=== PATIENT | male | born 1985 | race Caucasian/White ===

== ENCOUNTER → 2016-05-28 | Outpatient (CLI) | payer OTHER ==
[~2016-05-28] MED LIST: ASPCH81X PO; ATOR10TA88 PO; B COCAP3; CHOL1000 PO; CLC150 PO; CYM/30 PO; DULO60CA44 PO; HMLI SC; HYDR50CA2 PO; INSDGI SC; LISI-729 PO; LORA-741 PO; OXYC-106 PO; PRLSR20 PO; [UNRECOGNIZED DRUG - CODE] PO
[2016-05-29 06:34] LABS: ESTIMATED AVERAGE GLUCOSE 226 mg/dl; HA1C FLAG Normal (Normal)
== END | disposition home or self-care (01) ==
LOC: C.LAB1850 16:51
PROVIDERS: ATTEND Internal Medicine Endocrinology, Diabetes & Metabolism
DX: E10.9 Type 1 diabetes mellitus without complications (principal)

== ENCOUNTER → 2016-08-16 | Outpatient (CLI) | payer OTHER ==
[~2016-08-16] MED LIST changes: +ATOR10TA82 PO; -ATOR10TA88 PO; -CLC150 PO
[2016-08-17 06:35] LABS: ESTIMATED AVERAGE GLUCOSE 258 mg/dl; HA1C FLAG Normal (Normal)
== END | disposition home or self-care (01) ==
LOC: C.LAB1850 14:38
PROVIDERS: ATTEND Internal Medicine Endocrinology, Diabetes & Metabolism
DX: E10.42 Type 1 diabetes mellitus with diabetic polyneuropathy (principal); E10.3599 Type 1 diabetes mellitus with proliferative diabetic retinopathy without macular edema, unspecified eye; R20.0 Anesthesia of skin; R20.8 Other disturbances of skin sensation; F41.8 Other specified anxiety disorders; I10 Essential (primary) hypertension; Z72.0 Tobacco use; E78.5 Hyperlipidemia, unspecified; R80.9 Proteinuria, unspecified; R27.0 Ataxia, unspecified

== ENCOUNTER → 2017-05-02 | Outpatient (CLI) | payer OTHER ==
[~2017-05-02] MED LIST changes: +OXYM1TAB PO; -[UNRECOGNIZED DRUG - CODE] PO
[2017-05-02 15:03] LABS: ALBUMIN 3.7 gm/dl (3.4-5.0); ALT/SGPT 33 U/L (12-78); AST/SGOT 17 U/L (15-37); BLOOD UREA NITROGEN 18 mg/dl (7-18); CALCIUM 9.6 mg/dl (8.5-10.1); CARBON DIOXIDE 28 mmol/L (21-32); CHOLESTEROL 134 mg/dl (0-200); CREATININE 0.97 mg/dl (0.60-1.40); GLUCOSE 116 mg/dl (70-99); POTASSIUM 3.7 mmol/L (3.5-5.1); SODIUM 137 mmol/L (136-145)
[2017-05-02 15:14] LABS: ALKALINE PHOSPHATASE 65 U/L (45-117); LDL CHOLESTEROL (DIRECT) 74 mg/dl; TOTAL PROTEIN 7.5 gm/dl (6.4-8.2)
[2017-05-02 15:42] LABS: HEMOGLOBIN A1C 10.8 % (4.5-5.6)
== END | disposition home or self-care (01) ==
LOC: C.LAB1850 13:26
PROVIDERS: ATTEND Internal Medicine Endocrinology, Diabetes & Metabolism
DX: E55.9 Vitamin D deficiency, unspecified (principal); E78.5 Hyperlipidemia, unspecified; E10.9 Type 1 diabetes mellitus without complications

== ENCOUNTER → 2017-08-12 | Outpatient (CLI) | payer OTHER ==
[~2017-08-12] MED LIST changes: +ALPR-411 PO; -HYDR50CA2 PO; +LACT1CAP6; -LORA-741 PO; +MULT-506 PO; -OXYC-106 PO; +OXYC10TA80 PO
== END | disposition home or self-care (01) ==
LOC: C.LAB1850 16:13
PROVIDERS: ATTEND Internal Medicine Endocrinology, Diabetes & Metabolism
DX: E55.9 Vitamin D deficiency, unspecified (principal); E78.5 Hyperlipidemia, unspecified; E10.65 Type 1 diabetes mellitus with hyperglycemia

== ENCOUNTER 2017-11-28 10:50 | Inpatient (IN) | payer OTHER ==
[~2017-11-28] VITALS: Ht 188 cm; Wt 90.6 kg
[~2017-11-28 10:50] MED LIST changes: +LEVO1TAB35 PO; +OXYC-594 PO; -OXYC10TA80 PO
[2017-11-28 15:08] VITALS: BP 120/75; PULSE 103; TEMP 36.6; O2SAT 100
[2017-11-28] MEDS ORDERED: CARBOHYDRATES FOR HYPOGLYCEMIA PO PRN (16:30)
[2017-11-28] MEDS ORDERED: GLUCAGON FOR INJ 1 MG VIAL SQ PRN (16:30)
[2017-11-28] MEDS ORDERED: GLUCOSE 40% GEL 15 GM TUBE PO PRN (16:30)
[2017-11-28] MEDS ORDERED: ACETAMINOPHEN 325 MG TAB PO PRN (16:30)
[2017-11-28] MEDS ORDERED: ONDANSETRON INJ 2 MG/ML 2 ML VIAL IV PRN (16:30)
[2017-11-28] MEDS ORDERED: DEXTROSE 50% 50 ML SYR IV PRN (16:30)
[2017-11-28] MEDS ORDERED: GLUCOSE 10 TABS/TUBE PO PRN (16:30)
[2017-11-28] MEDS ORDERED: OXYCODONE/ACETAMINOPHEN 10/325MG TAB PO PRN (16:45)
[2017-11-28] MEDS ORDERED: ALPRAZOLAM 0.5 MG TAB PO PRN (16:45)
--- NOTE | 2017-11-28 16:48 | History and Physical ---
History & Physical Date & Time of Service: Nov 28, 2017 at 16:48 Chief Complaint: Infected Post Op L 2ND Finger Wound Primary Care Physician: No Doctor, Assigned History of Present Illness Source: patient, family, hospital records This patient is a 32-year-old male with history of uncontrolled type 1 diabetes mellitus, with diabetic retinopathy, nephropathy, and polyneuropathy in the hands and feet, HTN, HL, chronic pain syndrome on chronic opioids, vitamin D deficiency, GERD, erectile dysfunction, and vancomycin induced acute kidney injury.. He also has a history of recurrent skin and soft tissue infections and bacteremia. He presents from the wound care clinic today with a worsening infection of the left index finger. He was admitted to the [facility] on November 12 after failing outpatient treatment with doxycycline after he injured his finger on a tap grinder while working on a car. The finger became hot, red, swollen, and had pockets of pus that were visible around the wound as well as draining from the wound that had been Steri-Stripped. He ended up undergoing surgical debridement and washout and was placed ultimately on oral Levaquin to go home with for 3 week course. Since discharge, he reports the erythema and swelling of the dorsal hand has significantly improved, however the finger continues to remain quite swollen, red, draining a lot of pus. The skin continues to slough off around the wound. The sutures were removed by the orthopedic surgeon several days after discharge. When he was seen in the wound care clinic today, the wound care MD was very concerned and sent him for direct admission to the hospital for expedited orthopedic evaluation. The patient denies any fevers or chills, he is feeling well otherwise. Past Medical/Surgical History PMH: Abscess of finger Abscess of left arm with Streptococcus intermedius and actinomyces bacteremia Diabetes mellitus type I-since age 3, severely uncontrolled Diabetic retinopathy Diabetic polyneuropathy Diabetic nephropathy with albuminuria Chronic pain syndrome secondary to neuropathy Chronic opioid dependence HTN HL ED Current smoker Vitamin D deficiency History of vancomycin induced acute kidney injury History of Clostridium difficile colitis GERD PSH: Incision and drainage of left arm Incision and drainage of left thumb Bilateral carpal tunnel release Tooth extraction 9 Family History Father- at age 44 from an [place] Mom-healthy 2 first cousins with type 1 diabetes All grandparents and uncles and aunts on mom's side with diabetes mellitus type 2 Social History Smoking Status: Current Every Day Smoker (Several cigarettes per day) Alcohol Use: none Drug Use: none (But formerly smoked marijuana) Marital Status: in relationship (With a woman) 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) Immunizations History of Tetanus Vaccine?: Yes (11/13/17) History of Pneumococcal: Yes Allergies Coded Allergies: Ezetimibe (Verified Allergy, Severe, chest pressure, 03/16/16) Simvastatin (Verified Allergy, Severe, chest pressure, 03/16/16) Amoxicillin (Verified Allergy, Intermediate, hives, 03/16/16) Cefaclor (Verified Allergy, Intermediate, hives, 03/16/16) Gabapentin (Verified Allergy, Intermediate, confusion, 03/16/16) Pregabalin (Verified Allergy, Intermediate, confusion, 03/16/16) Vancomycin (Verified Allergy, Intermediate, acute renal failure, 11/28/17) Aztreonam (Verified Allergy, Mild, BURNING UP, 03/16/16) UNSURE IF ALLERGY FROM AZACTAM VS. FEVER VS. OTHER DISEASE STATE - HOWEVER [facility] ALLERGY WITH THIS MEDICATION Home Medications Scheduled Aspirin (Aspirin Chewable), 81 MG PO DAILY Atorvastatin (Lipitor), 80 MG PO DAILY Cholecalciferol (Vitamin D3), 1 TAB PO DAILY Duloxetine HCl (Cymbalta), 1 CAP PO DAILY pm Duloxetine Hcl (Cymbalta), 1 CAP PO DAILY Insulin Glargine (Lantus), 55 UNITS SC QAM Insulin Lispro (Humalog), UNITS SC with meals Levofloxacin (Levaquin), 750 MG PO DAILY Lisinopril (Zestril), 20 MG PO DAILY Multivitamin (Multivitamin), 1 TAB PO DAILY Omeprazole (Prilosec), 20 MG PO DAILY Oxymorphone HCl (Oxymorphone Hydrochloride), 15 MG PO BID Scheduled PRN Alprazolam (Xanax), 0.5 MG PO DAILY PRN for Anxiety/Agitation Oxycodone/Acetaminophen 10MG/325MG (Percocet 10MG/325MG), 1 TAB PO BID PRN for Pain Miscellaneous Medications B Complex W/ C (Vitamin B Complex-C) Lactobacillus (Probiotic) Review of Systems Constitutional: No fever, No chills, No sweats, No fatigue Eyes: No problem reported ENT: No problem reported Respiratory: No shortness of breath, No problem reported Cardiovascular: + edema (Reports swelling in the legs since his hospitalization last week in [place] after getting a lot of IV fluids), No chest pain Abdomen: No pain, No nausea, No vomiting, No diarrhea Musculoskeletal: + joint pain (As per HPI) Genitourinary - Male: No problem reported Neurologic: + numbness/tingling (in hands and feet) Psychiatric: No problem reported Endocrine: No problem reported Hematologic / Lymphatic: No problem reported Integumentary: No problem reported Allergic / Immunologic: No problem reported Physical Exam Vital Signs Date Time Temp Pulse Resp B/P (MAP) Pulse Ox O2 Delivery O2 Flow Rate FiO2 11/28/17 15:08 36.6 103 18 120/75 (90) 100 General Appearance: WD/WN, no apparent distress Head: normocephalic, atraumatic Eyes: normal inspection, PERRL, EOMI, sclerae normal ENT: hearing grossly normal, pharynx normal Neck: supple, no adenopathy, thyroid normal, trachea midline Respiratory/Chest: lungs clear, normal breath sounds, no respiratory distress, no accessory muscle use Cardiovascular: regular rate, rhythm, no edema, no gallop, no murmur, normal peripheral pulses Abdomen/GI: normal bowel sounds, non tender, soft, no organomegaly, no pulsatile mass Back: normal inspection Extremities/Musculoskelatal: + swelling (Trace pitting edema in the distal legs and ankles bilaterally), + pertinent finding (Left index finger with sausage digit with erythema and exquisite tenderness to palpation, with approximately 2 cm open wound over the middle phalanx with active purulent drainage, cap refill is slowed and sensation is decreased distally compared to the right hand, no erythema or edema of the dorsal hand, palmar surface of the left index finger with small amount of induration) Neurologic/Psych: alert, normal mood/affect, oriented x 3 Skin: warm/dry, no rash Lymphatic: no adenopathy Diagnostics Laboratory Results Results Past 24 Hours Test 11/28/17 16:29 Range/Units Microbiology Results 11/28/17 Gram Stain, Received Pending 11/28/17 Wound Culture, Received Pending Normal EKG Impression Assessment and Plan This patient is a 32-year-old male with history of uncontrolled type 1 diabetes mellitus, with diabetic retinopathy, nephropathy, and polyneuropathy in the hands and feet, HTN, HL, chronic pain syndrome on chronic opioids, vitamin D deficiency, GERD, erectile dysfunction, and vancomycin induced acute kidney injury. He also has a history of recurrent skin and soft tissue infections and bacteremia. He presents from the wound care clinic with a worsening infection of the left index finger after a recent incision and drainage and a course of IV followed by oral antibiotics and a recent hospitalization. Left index finger abscess/cellulitis-now status post incision and drainage 2 weeks ago, with IV antibiotics at that time followed by 2 weeks of p.o. Levaquin. No systemic signs of infection at this time, no sepsis. He has severely uncontrolled diabetes and his finger does not look good. He has a history of recurrent skin and soft tissue infections as well as bacteremia-previous organisms have been alpha streptococcus (not enterococcus), actinomyces, and Streptococcus intermedius. He has no history of MRSA infection previously. The Levaquin does seem to be improving some of the infection, but likely the finger is not improving due to his severe diabetes, hyperglycemia, neuropathy, and microvascular compromise -Admit to surgical floor -Consult hand surgery-discussed the case on the phone with Dr. Rodriguez who will see the patient this evening-consult appreciated -Consult infectious disease-discussed on the phone-we will continue the p.o. Levaquin and add IV daptomycin-we will check CPK and hold statin while on daptomycin-appreciated -Check wound culture -Continue daily dressing changes for now with Adaptic, Aquacel, 4 x 4's, and Kerlix-further care to be determined by orthopedic surgeon -Continue home pain meds for pain control, but will increase Percocet to every 6 hours from twice daily as needed for acute on chronic pain -Checked ECG for preop given significant risk factors for CAD-this appears normal-if he needs surgery, he is at average perioperative cardiovascular risk and should proceed with surgery -Check ESR, CRP, CBC, PRP, and LFTs, follow CPK while on daptomycin -Request hospital discharge summary and all culture results from outside hospital from previous admission -We will make him n.p.o. after midnight tonight just in case of surgery for tomorrow DM 1 with retinopathy/nephropathy/polyneuropathy-hemoglobin A1c is 11.1% on 11/13 at the outside hospital as per those records. With hyperglycemia here -Continue for now home Lantus 55 units in the morning -Accu-Cheks q. before meals at bedtime and at 2 in the morning as his mom reports he often goes low in the middle of night-NovoLog sliding scale and adjust as needed -Allow at bedtime snack to prevent overnight hypoglycemia -Follows with endocrinology as an outpatient Chronic pain syndrome/chronic opioid dependence-secondary to polyneuropathy. Opioids are prescribed by his national business director-confirmed dosing in [place] drug database -His Opana is not available here-we will replace with roughly equivalent dose of OxyContin 20 mg p.o. twice daily and adjust as needed -Continue home Percocet 10/325 mg but increased to every 6 hours as needed for acute pain as above HTN-blood pressure acceptable here -Continue lisinopril Dyslipidemia-on high intensity statin for primary prevention as an outpatient -Holding statin while on daptomycin at this time -Holding aspirin in case of need for surgery GERD-stable -Continue PPI Anxiety disorder, NOS-stable -Continue Xanax as needed Current smoker-counseled on cessation -Provide nicotine patch as needed Prophylaxis-SCDs, hold on SQ Lovenox until known if he will have surgery or not Disposition-likely to home after improvement in condition Full code Resuscitation Status VTE Prophylaxis Will order VTE Prophylaxis: Yes Additional Copies To Kiel Ellis M.D.
[2017-11-28 17:03] VITALS: O2SAT 100; BMI 25.6
[2017-11-28] MEDS ORDERED: PATIENT'S HEIGHT AND/OR WEIGHT NEEDED SCH (17:30)
[2017-11-28] MEDS: INSULIN ASPART 100 UNITS/ML 3 ML PEN SC SCH ×2 (18:20→21:00)
[2017-11-28 18:21] LABS: BASO % 0.4 %; BASO ABS # 0.05 K/uL (0-0.2); EOS % 2.9 %; EOS ABS # 0.33 K/uL (0-0.5); HEMATOCRIT 26.6 % (42-52); IG# 0.03 K/uL (0.00-0.02); LYMPH ABS # 3.14 K/uL (1.2-3.4); MEAN CELL VOLUME 87.2 fL (80-100); MEAN CORPUSCULAR HEMOGLOBIN 29.5 pg (25-34); MEAN CORPUSCULAR HGB CONC 33.8 g/dl (32-36); MEAN PLATELET VOLUME 9.3 fL (7.4-10.4); MONO % 7.1 %; NEUT % 61.3 %; NEUT ABS # 6.87 K/uL (1.4-6.5); PLATELET COUNT 392 K/uL (130-400); RED CELL DISTRIBUTION WIDTH CV 12.6 % (11.5-14.5); WHITE BLOOD COUNT 11.22 K/uL (4.8-10.8)
[2017-11-28 18:25] LABS: ALBUMIN 2.9 gm/dl (3.4-5.0); ALKALINE PHOSPHATASE 101 U/L (45-117); ALT/SGPT 17 U/L (12-78); AST/SGOT 8 U/L (15-37); BLOOD UREA NITROGEN 29 mg/dl (7-18); CALCIUM 8.7 mg/dl (8.5-10.1); CARBON DIOXIDE 29 mmol/L (21-32); CREATININE 1.26 mg/dl (0.60-1.40); GLUCOSE 238 mg/dl (70-99); POTASSIUM 3.5 mmol/L (3.5-5.1); SODIUM 133 mmol/L (136-145)
[2017-11-28] MEDS: DAPTOmycin IV 325 MG in SYRINGE 0 ML IV SCH (18:26)
[2017-11-28] MEDS ORDERED: ENOXAPARIN 40 MG/0.4 ML SYR SQ SCH (20:00)
[2017-11-28] MEDS: OXYCODONE HCL 20 MG TABCR (OXYCONTIN) PO SCH (21:09)
[2017-11-28] MEDS: SODIUM CHLORIDE 0.9% 1000ML 1,000 ML IV SCH (23:11)
[2017-11-28 23:26] VITALS: BP 98/57; PULSE 69; TEMP 36.6; O2SAT 99
[2017-11-29] VITALS (7 sets, daily range): BP systolic 119–139; BP diastolic 72–85; PULSE 73–93; TEMP 36.4–36.8; O2SAT 98–100
--- NOTE | 2017-11-29 01:11 | ORTHOPEDIC CONSULTATION ---
DATE OF CONSULTATION: 11/28/2017 Special attention to left infected finger. HISTORY OF PRESENT ILLNESS: This is a 32-year-old gentleman who is known to me from prior infection in the antecubital fossa, which I treated surgically. He presents with progressive pain and swelling over the past 2 weeks. He was admitted to [facility] on 11/12/2017. Injury occurred after he cut his finger on a perlite grinder while working on a car. Finger became bright red and swollen. He had irrigation and debridement by Dr. Duarte and he initially had had improvement from this. Sutures removed and the wound subsequently did dehisce. He notes continued pain and swelling. PAST MEDICAL HISTORY 1. Brittle and uncontrolled insulin-dependent diabetes. 2. Diabetic retinopathy. 3. Nephropathy. 4. Polyneuropathy. 5. Hypertension. 6. Chronic pain syndrome and chronic opioid. 7. Vitamin D deficiency. 8. GERD. 9. Vancomycin-induced acute kidney failure. PAST SURGICAL HISTORY: 1. I and D of left antecubital fossa. 2. I and D left thumb done in [place]. ASSESSMENT: A 32-year-old male with diabetic finger infection. Left index finger examination does show a large open wound about 2 x 1 cm at the dorsal aspect of the proximal interphalangeal joint. I suspect wound goes down to the bone. There is gross pus and fibrinous exudate and active infection is seen. Finger is [id number] swollen. He has mild tenderness over the volar aspect of the finger. PLAN: I discussed the findings and treatment with him. Exam is concerning for significant continued infection. RECOMMENDATION: Repeat irrigation and debridement and exploration of the wound. I discussed with him that there is possibility that he could lose his finger from this type of injury. He is understanding of these issues. We will plan for irrigation, debridement, and exploration likely. I will plan for a repeat irrigation and debridement in a couple of days down the road pending findings of surgical treatment tomorrow. I counseled him on tight glycemic control and recommended he avoid nicotine products. Risks and benefits discussed as above. Plan for surgical intervention tomorrow. ANUSHA
[2017-11-29 06:36] LABS: BASO % 0.4 %; BASO ABS # 0.04 K/uL (0-0.2); EOS % 4.3 %; EOS ABS # 0.44 K/uL (0-0.5); HEMATOCRIT 30.7 % (42-52); HEMOGLOBIN 10.3 g/dL (14.0-18.0); IG# 0.02 K/uL (0.00-0.02); LYMPH % 34.8 %; LYMPH ABS # 3.55 K/uL (1.2-3.4); MEAN CELL VOLUME 87.5 fL (80-100); MEAN CORPUSCULAR HEMOGLOBIN 29.3 pg (25-34); MEAN CORPUSCULAR HGB CONC 33.6 g/dl (32-36); MEAN PLATELET VOLUME 9.1 fL (7.4-10.4); MONO % 8.3 %; MONO ABS # 0.85 K/uL (0.11-0.59); PLATELET COUNT 402 K/uL (130-400); RED CELL DISTRIBUTION WIDTH CV 12.7 % (11.5-14.5); RED CELL DISTRIBUTION WIDTH SD 40.5 fL (36.4-46.3)
[2017-11-29 07:21] LABS: CALCIUM 8.5 mg/dl (8.5-10.1); CREATININE 1.04 mg/dl (0.60-1.40); POTASSIUM 3.8 mmol/L (3.5-5.1)
[2017-11-29] MEDS: PANTOprazole SOD 40 MG TAB PO SCH (08:56)
[2017-11-29] MEDS: DULOXETINE HCL 60 MG CAP PO SCH (08:56)
[2017-11-29] MEDS: DULOXETINE (CYMBALTA) 30 MG CAP PO SCH (08:56)
[2017-11-29] MEDS: LISINOPRIL 20 MG TAB PO SCH (08:56)
[2017-11-29] MEDS: SACCHAROMYCES BOUL (FLORASTOR) 250 MG CAP PO SCH (08:56)
[2017-11-29] MEDS: CHOLECALCIFEROL 1000 INTER.UNIT TAB PO SCH (08:56)
[2017-11-29] MEDS: OXYCODONE HCL 20 MG TABCR (OXYCONTIN) PO SCH (08:56)
[2017-11-29] MEDS ORDERED: ASPIRIN 81 MG ECTAB PO SCH (09:00)
[2017-11-29] MEDS: LEVOFLOXACIN 750 MG TAB PO SCH (09:00)
[2017-11-29] MEDS ORDERED: ATORVASTATIN 40 MG TAB PO SCH (09:00)
[2017-11-29] MEDS: INSULIN ASPART 100 UNITS/ML 3 ML PEN SC SCH ×4 (09:00→21:00)
[2017-11-29] MEDS ORDERED: INSULIN GLARGINE SOLOSTAR 100 UNITS/ML 3 ML PEN SC SCH ×2 (09:00)
--- NOTE | 2017-11-29 09:25 | PROGRESS NOTE ---
DATE: 11/29/2017 SUBJECTIVE: Domo is seen at the bedside. Today he has no new complaints. He has pain in the finger. OBJECTIVE: Left index finger examination: Shows significant swelling in the digit. He has a dry dressing overlying the wound. No streaking erythema. ASSESSMENT: Hospital day 1 for admission for left index finger and diabetic finger infection. PLAN: I discussed findings and treatment with him. We will plan for irrigation and debridement today. I may possibly need additional irrigation, debridement down the road as well. We will continue to monitor him. Continue cultures, continue antibiotics, we have the Levaquin and daptomycin.
--- NOTE | 2017-11-29 10:40 | Orthopedic Progress Note ---
Orthopedic Progress Note Date of Service Nov 29, 2017. Subjective Reports: feeling well Additional Notes: Having some pain in the finger. Didn't realize he had to ask for the Percocet. Discussed prn/scheduled meds and patient understands. No new complaints. Objective N/V intact, capillary refill less than 2 sec., dressing C/D/I, A&O x3 Date Time Temp Pulse Resp B/P (MAP) Pulse Ox O2 Delivery O2 Flow Rate FiO2 11/29/17 08:30 Room Air 11/29/17 06:56 36.4 73 19 119/72 (88) 99 Room Air 11/28/17 23:26 36.6 69 16 98/57 (71) 99 Room Air 11/28/17 23:15 Room Air 11/28/17 22:33 Room Air 11/28/17 17:03 100 Room Air 11/28/17 15:08 36.6 103 18 120/75 (90) 100 Laboratory Results 24 Hours: Test 11/28/17 17:34 11/29/17 06:14 White Blood Count 11.22 K/uL 10.20 K/uL Red Blood Count 3.05 M/uL 3.51 M/uL Hemoglobin 9.0 g/dL 10.3 g/dL Hematocrit 26.6 % 30.7 % Mean Corpuscular Volume 87.2 fL 87.5 fL Mean Corpuscular Hemoglobin 29.5 pg 29.3 pg Mean Corpuscular Hemoglobin Concent 33.8 g/dl 33.6 g/dl Platelet Count 392 K/uL 402 K/uL Mean Platelet Volume 9.3 fL 9.1 fL Neutrophils (%) (Auto) 61.3 % 52.0 % Lymphocytes (%) (Auto) 28.0 % 34.8 % Monocytes (%) (Auto) 7.1 % 8.3 % Eosinophils (%) (Auto) 2.9 % 4.3 % Basophils (%) (Auto) 0.4 % 0.4 % Neutrophils # (Auto) 6.87 K/uL 5.30 K/uL Lymphocytes # (Auto) 3.14 K/uL 3.55 K/uL Monocytes # (Auto) 0.80 K/uL 0.85 K/uL Eosinophils # (Auto) 0.33 K/uL 0.44 K/uL Basophils # (Auto) 0.05 K/uL 0.04 K/uL Prothromb Time International Ratio 1.0 Prothrombin Time 10.1 SECONDS Assessment & Plan Assessment: dehisced wound left index finger Plan: Plan for I&D left index finger today by Dr Rodriguez. Inhouse Planning Pain Management: Percocet, Oxycontin
[2017-11-29] MEDS: OXYCODONE/ACETAMINOPHEN 10/325MG TAB PO PRN ×2 (11:01→23:20)
--- NOTE | 2017-11-29 12:15 | Progress Note ---
Progress Note Date of Service Nov 29, 2017. Progress Note ID Consult Dictated #[id number] A/P: 1. Infected left index finger -Continue IV abx, follow cultures/OR findings -Will follow, thank you
[2017-11-29] MEDS: SODIUM CHLORIDE 0.9% 1000ML 1,000 ML IV SCH (12:25)
--- NOTE | 2017-11-29 12:42 | Hospitalist Progress Note ---
Hospitalist Progress Note Date of Service Nov 29, 2017. Subjective Pt evaluation today including: conversation w/ patient, physical exam, lab review, conversation w/ field service consultant (Infectious disease, orthopedic surgery) Voiding: no voiding problems Patient having a lot of pain in the finger, but otherwise just feels hungry. He is n.p.o. for surgery today. He is anxious to get it over with. Denies chest pain or shortness of breath, no abdominal pain. All Other Systems: Reviewed and Negative Objective Vital Signs Date Time Temp Pulse Resp B/P (MAP) Pulse Ox O2 Delivery O2 Flow Rate FiO2 11/29/17 08:30 Room Air 11/29/17 06:56 36.4 73 19 119/72 (88) 99 Room Air 11/28/17 23:26 36.6 69 16 98/57 (71) 99 Room Air 11/28/17 23:15 Room Air 11/28/17 22:33 Room Air 11/28/17 17:03 100 Room Air 11/28/17 15:08 36.6 103 18 120/75 (90) 100 Physical Exam General Appearance: WD/WN, no apparent distress Eyes: normal inspection, sclerae normal ENT: hearing grossly normal Neck: trachea midline Respiratory/Chest: lungs clear, normal breath sounds, no respiratory distress, no accessory muscle use Cardiovascular: regular rate, rhythm, no edema, no gallop, no murmur Abdomen: normal bowel sounds, non tender, soft Extremities: + pertinent finding (Left index finger with dressing in place and not removed today) Neurologic/Psychiatric: alert, normal mood/affect, oriented x 3 Skin: normal color, warm/dry Laboratory Results Last 24 Hours Test 11/28/17 16:54 11/28/17 17:34 11/28/17 20:43 11/29/17 01:58 Bedside Glucose 297 mg/dl 150 mg/dl 90 mg/dl White Blood Count 11.22 K/uL Red Blood Count 3.05 M/uL Hemoglobin 9.0 g/dL Hematocrit 26.6 % Mean Corpuscular Volume 87.2 fL Mean Corpuscular Hemoglobin 29.5 pg Mean Corpuscular Hemoglobin Concent 33.8 g/dl Platelet Count 392 K/uL Mean Platelet Volume 9.3 fL Neutrophils (%) (Auto) 61.3 % Lymphocytes (%) (Auto) 28.0 % Monocytes (%) (Auto) 7.1 % Eosinophils (%) (Auto) 2.9 % Basophils (%) (Auto) 0.4 % Neutrophils # (Auto) 6.87 K/uL Lymphocytes # (Auto) 3.14 K/uL Monocytes # (Auto) 0.80 K/uL Eosinophils # (Auto) 0.33 K/uL Basophils # (Auto) 0.05 K/uL RDW Standard Deviation 40.0 fL RDW Coefficient of Variation 12.6 % Immature Granulocyte % (Auto) 0.3 % Immature Granulocyte # (Auto) 0.03 K/uL Erythrocyte Sedimentation Rate 40 mm/hr Prothrombin Time 10.1 SECONDS Prothromb Time International Ratio 1.0 Sodium Level 133 mmol/L Potassium Level 3.5 mmol/L Chloride Level 98 mmol/L Carbon Dioxide Level 29 mmol/L Anion Gap 6.0 mmol/L Blood Urea Nitrogen 29 mg/dl Creatinine 1.26 mg/dl Est Creatinine Clear Calc Drug Dose 97.0 ml/min Estimated GFR () 86.3 Estimated GFR (Non- 74.5 BUN/Creatinine Ratio 22.6 Random Glucose 238 mg/dl Calcium Level 8.7 mg/dl Total Bilirubin 0.2 mg/dl Direct Bilirubin < 0.1 mg/dl Aspartate Amino Transf (AST/SGOT) 8 U/L Alanine Aminotransferase (ALT/SGPT) 17 U/L Alkaline Phosphatase 101 U/L Total Creatine Kinase 86 U/L C-Reactive Protein 1.77 mg/dl Total Protein 7.0 gm/dl Albumin 2.9 gm/dl Test 11/29/17 06:14 11/29/17 08:15 White Blood Count 10.20 K/uL Red Blood Count 3.51 M/uL Hemoglobin 10.3 g/dL Hematocrit 30.7 % Mean Corpuscular Volume 87.5 fL Mean Corpuscular Hemoglobin 29.3 pg Mean Corpuscular Hemoglobin Concent 33.6 g/dl Platelet Count 402 K/uL Mean Platelet Volume 9.1 fL Neutrophils (%) (Auto) 52.0 % Lymphocytes (%) (Auto) 34.8 % Monocytes (%) (Auto) 8.3 % Eosinophils (%) (Auto) 4.3 % Basophils (%) (Auto) 0.4 % Neutrophils # (Auto) 5.30 K/uL Lymphocytes # (Auto) 3.55 K/uL Monocytes # (Auto) 0.85 K/uL Eosinophils # (Auto) 0.44 K/uL Basophils # (Auto) 0.04 K/uL RDW Standard Deviation 40.5 fL RDW Coefficient of Variation 12.7 % Immature Granulocyte % (Auto) 0.2 % Immature Granulocyte # (Auto) 0.02 K/uL Sodium Level 137 mmol/L Potassium Level 3.8 mmol/L Chloride Level 102 mmol/L Carbon Dioxide Level 29 mmol/L Anion Gap 6.0 mmol/L Blood Urea Nitrogen 24 mg/dl Creatinine 1.04 mg/dl Est Creatinine Clear Calc Drug Dose 117.5 ml/min Estimated GFR () 108.8 Estimated GFR (Non- 93.9 BUN/Creatinine Ratio 23.3 Random Glucose 97 mg/dl Calcium Level 8.5 mg/dl Iron Level 29 mcg/dl Total Iron Binding Capacity 215 mcg/dl Transferrin 174 mg/dl Transferrin % Saturation 12 % Ferritin 229.0 ng/ml Vitamin B12 Level 1323 pg/mL Folate 19.65 ng/mL Thyroid Stimulating Hormone (TSH) 0.162 uIu/ml Free Thyroxine 1.07 ng/dl Free Triiodothyronine 2.14 pg/ml Bedside Glucose 129 mg/dl Assessment and Plan This patient is a 32-year-old male with history of uncontrolled type 1 diabetes mellitus, with diabetic retinopathy, nephropathy, and polyneuropathy in the hands and feet, HTN, HL, chronic pain syndrome on chronic opioids, vitamin D deficiency, GERD, erectile dysfunction, and vancomycin induced acute kidney injury. He also has a history of recurrent skin and soft tissue infections and bacteremia. He presents from the wound care clinic with a worsening infection of the left index finger after a recent incision and drainage and a course of IV followed by oral antibiotics and a recent hospitalization. Left index finger abscess/cellulitis-now status post incision and drainage 2 weeks ago, with IV antibiotics at that time followed by 2 weeks of p.o. Levaquin. No systemic signs of infection at this time, no sepsis. He has severely uncontrolled diabetes and his finger does not look good. He has a history of recurrent skin and soft tissue infections as well as bacteremia-previous organisms have been alpha streptococcus (not enterococcus), actinomyces, and Streptococcus intermedius. He has no history of MRSA infection previously. The Levaquin does seem to be improving some of the infection, but likely the finger is not improving due to his severe diabetes, hyperglycemia, neuropathy, and microvascular compromise ESR elevated at 40, CRP elevated at 1.77 -Wound culture here with many gram-positive cocci -Plan for surgical debridement and washout today and likely serially -Consult hand surgery-appreciated -Consult infectious disease- continue the p.o. Levaquin and add IV daptomycin- CPK normal -Continue to hold statin while on daptomycin -Follow-up final wound culture from here and awaiting requested records from outside hospital for previous cultures from 2 weeks ago -Continue daily dressing changes for now with Adaptic, Aquacel, 4 x 4's, and Kerlix-further care to be determined by orthopedic surgeon -Continue home pain meds for pain control, but will increase Percocet to every 6 hours from twice daily as needed for acute on chronic pain-also, replace his Opana with OxyContin adequate analgesic dose-we will increase to 30 mg twice daily today -Checked ECG for preop given significant risk factors for CAD-this appears normal-if he needs surgery, he is at average perioperative cardiovascular risk and should proceed with surgery -Continue to follow ESR, CRP, CBC, PRP, and LFTs, follow CPK while on daptomycin DM 1 with retinopathy/nephropathy/polyneuropathy-hemoglobin A1c is 11.1% on 11/13 at the outside hospital as per those records. With hyperglycemia here -Reduce dose of Lantus this morning to 35 units as is n.p.o. for surgery, then increase back to 55 units for tomorrow -Accu-Cheks q. before meals at bedtime and at 2 in the morning as his mom reports he often goes low in the middle of night-NovoLog sliding scale and adjust as needed -Allow at bedtime snack to prevent overnight hypoglycemia -Follows with endocrinology as an outpatient Chronic pain syndrome/chronic opioid dependence-secondary to polyneuropathy. Opioids are prescribed by his ent surgeon-confirmed dosing in [place] drug database -His Opana is not available here-initially replaced with roughly equivalent dose of OxyContin 20 mg p.o. twice daily-but will increase to 30 mg twice daily as above for worsening pain -Continue home Percocet 10/325 mg but increased to every 6 hours as needed for acute pain as above HTN-blood pressure acceptable here -Continue lisinopril Dyslipidemia-on high intensity statin for primary prevention as an outpatient -Holding statin while on daptomycin at this time -Holding aspirin for surgery GERD-stable -Continue PPI Anxiety disorder, NOS-stable -Continue Xanax as needed Current smoker-counseled on cessation -Provide nicotine patch as needed Prophylaxis-SCDs, hold on SQ Lovenox until after surgery Disposition-likely to home after improvement in condition Full code
--- NOTE | 2017-11-29 13:26 | INFECT. DISEASE CONSULTATION ---
DATE OF CONSULTATION: 11/29/2017 HISTORY OF PRESENT ILLNESS: This is a 32-year-old gentleman who was admitted directly from the wound care center yesterday after he had a worsening wound dehiscence of his left finger. He recently suffered an injury at work and was primarily treated in [facility] at the end of October. He had undergone I and D there and was placed on doxycycline. He tells me that he had initial cultures which were positive for strep, but then was told that those cultures were contaminated and repeat blood cultures were done and were negative. He did have I and D while at [facility] and was discharged on Levaquin for a 21-day course. He had a suture removal and further wound dehiscence. He presented to the wound care center yesterday for an initial evaluation and was sent to the hospital for orthopedic evaluation. He is scheduled to go to the OR later today. Wound cultures were obtained and are pending. He was placed on daptomycin and continues on Levaquin. He has been afebrile since admission. His white blood cell count is normal at 10.2. His sed rate is mildly elevated at 40. A surface wound swab is growing gram-positive cocci on Gram stain. He is tolerating antibiotics well. He denies any fevers or chills. He denies any pain in his finger. He denies any abdominal pain, nausea, vomiting, diarrhea. He denies any chest pain, cough or shortness of breath. His dressing is intact on my examination. REVIEW OF SYSTEMS: His remaining review of systems is reviewed and unremarkable. PAST MEDICAL HISTORY: Significant for abscess of the finger and wound dehiscence. He has a previous left arm abscess which was treated surgically, type 1 diabetes which is uncontrolled, diabetic retinopathy, diabetic neuropathy with chronic pain on opiate therapy, hypertension, hyperlipidemia, vitamin D deficiency, history of C. diff, GERD. PAST SURGICAL HISTORY: Significant for I and D of the left arm, I and D of the left thumb recently at [facility], carpal tunnel release and multiple tooth extractions. FAMILY HISTORY: Noncontributory. SOCIAL HISTORY: Significant for daily tobacco use. He denies any alcohol use. He has a history of marijuana use. ALLERGIES: EZETIMIBE, SIMVASTATIN, AMOXICILLIN OR GABAPENTIN, PREGABALIN, VANCOMYCIN AND AZTREONAM. CURRENT MEDICATIONS: Vitamin D, Cymbalta, Levaquin, lisinopril, Protonix, Florastor, Lantus, Percocet, oxycodone, daptomycin, insulin, Xanax, Tylenol, Zofran. PHYSICAL EXAMINATION: VITAL SIGNS: He is afebrile, pulse 73, respiratory rate 19, blood pressure 119/72, oxygen saturation is 99-100% on room air. GENERAL: He is awake, alert and oriented x3. He is in no acute distress. HEENT: Mucous membranes are moist. Extraocular muscles are intact. HEART: Regular. LUNGS: Clear bilaterally. ABDOMEN: Soft. There is no edema. SKIN: Without rash. Examination of the left hand, there was an open wound of the left index finger with purulent drainage. There is no streaking erythema into the hand or forearm. LABORATORY STUDIES: CBC today, white blood cell count 10.2, hemoglobin 10.3, platelets 402. Sed rate is 40. Chemistry panel: Sodium 137, potassium 3.8, chloride 102, bicarbonate 29, BUN 24, creatinine 1.0, glucose 129. LFTs were normal on admission. Wound culture again is pending, but has many gram-positive cocci on Gram stain. There is no current imaging. ASSESSMENT AND PLAN: Postoperative wound infection. He will remain on broad-spectrum empiric antibiotics, pending additional culture data. He is scheduled for the OR later this afternoon and we will await OR findings. We will follow up along with you. Thank you for this consultation.
[2017-11-29] MEDS: DAPTOmycin IV 325 MG in SYRINGE 0 ML IV SCH (17:54)
[2017-11-29] MEDS ORDERED: LACTATED RINGER'S 1000ML 1,000 ML IV SCH (18:45)
[2017-11-29] MEDS ORDERED: NURSING VERBAL MED ORDER ONE (18:45)
[2017-11-29] MEDS ORDERED: PROPOFOL IV EMULSION 10 MG/ML 20 ML VIAL ONE (18:51)
[2017-11-29] MEDS ORDERED: FENTANYL CITRATE INJ 50 MCG/1 ML 2 ML VIAL ONE (18:51)
[2017-11-29] MEDS ORDERED: MIDAZOLAM HCL 1 MG/ML 2ML VIAL ONE (18:51)
[2017-11-29] MEDS ORDERED: LIDOCAINE HCL 2% 2 ML VIAL (20MG/ML) ONE (18:51)
[2017-11-29] MEDS ORDERED: PROMETHAZINE HCL INJ 6.25 MG in SODIUM CHLORIDE 0.9% 50ML 50 ML IV PRN (19:00)
[2017-11-29] MEDS ORDERED: ONDANSETRON INJ 2 MG/ML 2 ML VIAL IV PRN (19:00)
[2017-11-29] MEDS ORDERED: ATROPINE SULFATE 0.1 MG/ML 5ML SYR IV PRN (19:00)
[2017-11-29] MEDS ORDERED: EpHEDrine SULFATE INJ 50 MG/ML AMP IV PRN (19:00)
[2017-11-29] MEDS ORDERED: BUPIVACAINE 0.25% 30 ML VIAL ONE (19:01)
[2017-11-29] MEDS ORDERED: BUPIVACAINE 0.5 % 5 MG/1 ML PF 10ML VIAL ONE (19:01)
[2017-11-29] MEDS ORDERED: LIDOCAINE HCL 1% 20 ML VIAL ONE (19:01)
[2017-11-29] MEDS ORDERED: BACITRACIN 50000 UNIT VIAL ONE (19:01)
--- NOTE | 2017-11-29 19:33 | [facility] Post Operative Brief Note ---
Immediate Operative Summary Operative Date Nov 29, 2017. Pre-Operative Diagnosis Infected left PIP joint Post-Operative Diagnosis Same Procedure(s) Performed Left Index Finger Incision and Drainage of Abscess, Arthrotomy and Incision and Drainage of Proximal Interphalangeal joint Surgeon Dr Rodriguez Brake Coupler Dinkey Surgeon(s) None Estimated Blood Loss 5ML Findings Consistent with Post-Op Diagnosis Specimens Culture #1 left index finger wound for gram stain, aerobic and anaerobic Drains None Anesthesia Type MAC Complication(s) none Disposition Accompanied Pt To Recover: no Disposition: Recovery Room / PACU Overlapping Procedure I was immediately available: during the entire case
[2017-11-29] MEDS: FENTANYL CITRATE INJ 50 MCG/1 ML 2 ML VIAL IV PRN ×4 (19:43→19:59)
--- NOTE | 2017-11-29 20:20 | Anesthesiology Progress Note ---
Anesthesia Post Op Note Date & Time Nov 29, 2017 at 20:18 Vital Signs Pain Intensity: 3 Vital Signs Past 12 Hours Date Time Temp Pulse Resp B/P (MAP) Pulse Ox O2 Delivery O2 Flow Rate FiO2 11/29/17 20:15 36.8 72 12 119/74 98 Room Air 11/29/17 20:05 74 13 126/75 99 Room Air 11/29/17 19:55 74 17 122/72 100 Oxymask 10 11/29/17 19:45 72 12 113/76 100 Oxymask 10 11/29/17 19:38 36.8 74 16 118/75 100 Oxymask 10 11/29/17 18:44 36.7 79 18 122/77 (92) 98 Room Air 11/29/17 14:57 36.8 80 18 128/78 (95) 99 Room Air 11/29/17 08:30 Room Air Notes Mental Status: alert / awake / arousable, participated in evaluation Pt Amnestic to Procedure: Yes Nausea / Vomiting: adequately controlled Pain: adequately controlled Airway Patency, RR, SpO2: stable & adequate BP & HR: stable & adequate Hydration State: stable & adequate Anesthetic Complications: no major complications apparent
[2017-11-29] MEDS: OXYCODONE HCL 15 MG TABCR (OXYCONTIN) PO SCH (21:08)
[2017-11-29] MEDS ORDERED: MoRPHine SULFATE 4 MG/ML 1 ML CARP\\VIAL IV STA (23:27)
[2017-11-29] MEDS ORDERED: MoRPHine SULFATE 4 MG/ML 1 ML CARP\\VIAL ONE (23:43)
[2017-11-30] MEDS: SODIUM CHLORIDE 0.9% 1000ML 1,000 ML IV SCH (02:33)
[2017-11-30 04:30] VITALS: BP 109/67; PULSE 73; TEMP 36.6; O2SAT 98
[2017-11-30 07:18] VITALS: BP 123/79; PULSE 72; TEMP 36.6; O2SAT 98
--- NOTE | 2017-11-30 07:39 | OPERATIVE REPORT ---
DATE OF OPERATION: 11/29/2017 PREOPERATIVE DIAGNOSES: 1. Left index finger abscess. 2. Left index finger septic PIP joint. PROCEDURE: 1. Left index finger arthrotomy and drainage, septic PIP joint. 2. Left index finger irrigation and debridement of abscess. SURGEON: Barry Rodriguez MD SUPERVISOR SAWMILL: None. ANESTHESIA: Local with monitored anesthesia care. INDICATIONS: This is a 32-year-old gentleman with progressive pain and swelling, he is status post irrigation and debridement at an outside institution. He presents with progressive pain and swelling and open wound. The risks and benefits have been discussed including, but not limited to, risk of infection, nerve injury, stiffness, loss of motion, failure to improve, etc. Reasonable outcomes and options of treatment were discussed. An explanation of appropriate alternatives to the procedure that may be advantageous were discussed and their risks and benefits, as well as the risks and benefits of not proceeding with treatment. I offered to answer any additional inquiries concerning the treatment involved. All the patient's questions were answered. The patient is agreeable, understanding of the treatment plan and alternatives, and wishes to proceed with the treatment plan. DESCRIPTION OF PROCEDURE: I injected a mixture of lidocaine and Marcaine in the local area for digital block to provide for pain relief. Anesthesia was local with moderate anesthesia care. Direct after the injection, cultures were taken. The patient's wound, there was gross purulence , which extended down into the PIP joint with indication of septic PIP joint. There was a lot of gross infection and purulent material and fibrinous exudate. This was debrided and I debrided skin, subcutaneous tissue, and fascia. There was no evidence of laceration to the central tendon over the extensor tendon, but there was a small rent extending to the the PIP joint. the cartialge of the joint had a grayish dislocation, indicating chronic oint infection I irrigated the area with 3 liters of bacitracin impregnated normal saline and performed formal arthrotomy and drainage of the PIP joint. Once debridement was completed and the abscess was drained, tourniquet was let down. Hemostasis was obtained with bipolar electrocautery. Skin was closed with 4-0 Vicryl Rapide in a loose fashion. Packing was applied in the distal aspect of the wound. The patient was placed in a soft dressing, was sent to the PACU in stable condition. Postoperative plan will be repeat evaluation with possible second irrigation and debridement in 72 hours. I attest to the content of the Intraoperative Record and any orders documented therein. Any exceptions are noted below. MTDD
[2017-11-30] MEDS: LISINOPRIL 20 MG TAB PO SCH (08:31)
[2017-11-30] MEDS: PANTOprazole SOD 40 MG TAB PO SCH (08:31)
[2017-11-30] MEDS: DULOXETINE HCL 60 MG CAP PO SCH (08:31)
[2017-11-30] MEDS: CHOLECALCIFEROL 1000 INTER.UNIT TAB PO SCH (08:31)
[2017-11-30] MEDS: DULOXETINE (CYMBALTA) 30 MG CAP PO SCH (08:31)
[2017-11-30] MEDS: LEVOFLOXACIN 750 MG TAB PO SCH (08:31)
[2017-11-30] MEDS: OXYCODONE HCL 15 MG TABCR (OXYCONTIN) PO SCH ×2 (08:32→21:20)
[2017-11-30] MEDS: SACCHAROMYCES BOUL (FLORASTOR) 250 MG CAP PO SCH (08:32)
[2017-11-30] MEDS: INSULIN ASPART 100 UNITS/ML 3 ML PEN SC SCH ×4 (08:36→21:19)
[2017-11-30] MEDS: INSULIN GLARGINE SOLOSTAR 100 UNITS/ML 3 ML PEN SC SCH (08:37)
--- NOTE | 2017-11-30 09:06 | Anesthesiology Progress Note ---
Anesthesia Post Op Note Date & Time Nov 30, 2017 at 09:06 Vital Signs Pain Intensity: 14.0 Vital Signs Past 12 Hours Date Time Temp Pulse Resp B/P (MAP) Pulse Ox O2 Delivery O2 Flow Rate FiO2 11/30/17 07:18 36.6 72 16 123/79 (94) 98 Room Air 11/30/17 04:30 36.6 73 16 109/67 (81) 98 Room Air 11/29/17 23:20 Room Air 11/29/17 22:48 36.8 93 18 139/85 (103) 100 11/29/17 22:05 100 Room Air 11/29/17 22:04 Room Air 11/29/17 21:25 36.7 82 16 126/84 (98) 99 Room Air Notes Mental Status: alert / awake / arousable, participated in evaluation Pt Amnestic to Procedure: Yes Nausea / Vomiting: adequately controlled Pain: adequately controlled Airway Patency, RR, SpO2: stable & adequate BP & HR: stable & adequate Hydration State: stable & adequate Anesthetic Complications: no major complications apparent
[2017-11-30 09:20] LABS: BASO % 0.5 %; BASO ABS # 0.04 K/uL (0-0.2); EOS % 3.2 %; EOS ABS # 0.27 K/uL (0-0.5); HEMATOCRIT 28.7 % (42-52); HEMOGLOBIN 9.5 g/dL (14.0-18.0); IG# 0.02 K/uL (0.00-0.02); LYMPH % 24.3 %; LYMPH ABS # 2.03 K/uL (1.2-3.4); MEAN CELL VOLUME 88.3 fL (80-100); MEAN CORPUSCULAR HEMOGLOBIN 29.2 pg (25-34); MEAN CORPUSCULAR HGB CONC 33.1 g/dl (32-36); MEAN PLATELET VOLUME 9.2 fL (7.4-10.4); MONO % 6.9 %; MONO ABS # 0.58 K/uL (0.11-0.59); NEUT % 64.9 %; NEUT ABS # 5.42 K/uL (1.4-6.5); PLATELET COUNT 329 K/uL (130-400); RED CELL DISTRIBUTION WIDTH CV 12.6 % (11.5-14.5); RED CELL DISTRIBUTION WIDTH SD 40.5 fL (36.4-46.3); WHITE BLOOD COUNT 8.36 K/uL (4.8-10.8)
[2017-11-30 09:37] LABS: CALCIUM 8.3 mg/dl (8.5-10.1); CREATININE 0.95 mg/dl (0.60-1.40); POTASSIUM 4.5 mmol/L (3.5-5.1)
[2017-11-30 12:09] VITALS: BP 128/78; PULSE 86; TEMP 36.7; O2SAT 98
[2017-11-30] MEDS: OXYCODONE/ACETAMINOPHEN 10/325MG TAB PO PRN ×2 (12:43→18:49)
--- NOTE | 2017-11-30 14:30 | Progress Note ---
Subjective Date of Service: Nov 30, 2017. Subjective Pt evaluation today including: conversation w/ patient, physical exam, chart review, lab review pt seen in followup, doing well post op, pain controlled. dressing change in am. tolerating abx. OR cultures wiht alpha strep and caden. now on dapto and fluconazole. afebrile. tolerating abx. no abd pain no n/v/d. no drainage from wound. for OR again later this week, op note reviewed. all remaining ros reviewed and are negative Problem List Medical Problems: (1) Cellulitis of left upper extremity Status: Acute (2) Hyperglycemia Status: Acute (3) Sepsis Status: Acute Objective Vital Signs Date Time Temp Pulse Resp B/P (MAP) Pulse Ox O2 Delivery O2 Flow Rate FiO2 11/30/17 12:09 36.7 86 16 128/78 (95) 98 Room Air 11/30/17 08:20 Room Air 11/30/17 07:18 36.6 72 16 123/79 (94) 98 Room Air 11/30/17 04:30 36.6 73 16 109/67 (81) 98 Room Air 11/29/17 23:20 Room Air 11/29/17 22:48 36.8 93 18 139/85 (103) 100 11/29/17 22:05 100 Room Air 11/29/17 22:04 Room Air 11/29/17 21:25 36.7 82 16 126/84 (98) 99 Room Air 11/29/17 20:55 82 18 127/76 (93) 100 11/29/17 20:25 36.7 74 16 123/79 (94) 98 Room Air 11/29/17 20:15 36.8 72 12 119/74 98 Room Air 11/29/17 20:05 74 13 126/75 99 Room Air 11/29/17 19:55 74 17 122/72 100 Oxymask 10 11/29/17 19:45 72 12 113/76 100 Oxymask 10 11/29/17 19:38 36.8 74 16 118/75 100 Oxymask 10 11/29/17 18:44 36.7 79 18 122/77 (92) 98 Room Air 11/29/17 14:57 36.8 80 18 128/78 (95) 99 Room Air Physical Exam General Appearance: WD/WN, no apparent distress, + mild distress Eyes: normal inspection, EOMI Neck: supple Respiratory/Chest: lungs clear, normal breath sounds, no respiratory distress Cardiovascular: regular rate, rhythm, no edema Abdomen: soft Extremities: non-tender, no pedal edema Neurologic/Psychiatric: alert, oriented x 3 Skin: normal color Comments: finger dressing c/d/i, no surrounding warmth, erythema, tenderness Laboratory Results Item Value Date Time Gram Stain - Final Resulted 11/29/17 0000 Abscess Finger , Left 1st Gram Stain - Final Complete 11/28/17 1647 Drainage - Surface Finger Last 24 Hours Test 11/29/17 16:53 11/29/17 18:13 11/29/17 19:41 11/30/17 08:04 Bedside Glucose 124 mg/dl 105 mg/dl 75 mg/dl 177 mg/dl Test 11/30/17 09:02 11/30/17 12:07 White Blood Count 8.36 K/uL Red Blood Count 3.25 M/uL Hemoglobin 9.5 g/dL Hematocrit 28.7 % Mean Corpuscular Volume 88.3 fL Mean Corpuscular Hemoglobin 29.2 pg Mean Corpuscular Hemoglobin Concent 33.1 g/dl Platelet Count 329 K/uL Mean Platelet Volume 9.2 fL Neutrophils (%) (Auto) 64.9 % Lymphocytes (%) (Auto) 24.3 % Monocytes (%) (Auto) 6.9 % Eosinophils (%) (Auto) 3.2 % Basophils (%) (Auto) 0.5 % Neutrophils # (Auto) 5.42 K/uL Lymphocytes # (Auto) 2.03 K/uL Monocytes # (Auto) 0.58 K/uL Eosinophils # (Auto) 0.27 K/uL Basophils # (Auto) 0.04 K/uL RDW Standard Deviation 40.5 fL RDW Coefficient of Variation 12.6 % Immature Granulocyte % (Auto) 0.2 % Immature Granulocyte # (Auto) 0.02 K/uL Erythrocyte Sedimentation Rate 42 mm/hr Sodium Level 138 mmol/L Potassium Level 4.5 mmol/L Chloride Level 105 mmol/L Carbon Dioxide Level 27 mmol/L Anion Gap 6.0 mmol/L Blood Urea Nitrogen 16 mg/dl Creatinine 0.95 mg/dl Est Creatinine Clear Calc Drug Dose 128.6 ml/min Estimated GFR () 121.4 Estimated GFR (Non- 104.8 BUN/Creatinine Ratio 16.7 Random Glucose 198 mg/dl Calcium Level 8.3 mg/dl C-Reactive Protein 1.44 mg/dl Bedside Glucose 101 mg/dl Assessment and Plan (1) Abscess of finger Assessment & Plan: continue abx, follow cultures. OR findings.
[2017-11-30 15:03] VITALS: BP 121/80; PULSE 101; TEMP 36.8; O2SAT 100
[2017-11-30 15:30] VITALS: O2SAT 100
--- NOTE | 2017-11-30 15:50 | Orthopedic Progress Note ---
Orthopedic Progress Note Date of Service Nov 30, 2017. Subjective Post OP Day: 1 Reports: feeling well, pain controlled w PO medications, Denies: complaints, SOB , nausea / vomiting Additional Notes: Patient was resting comfortably. Dressing intact. Tolerating antibiotics well. Cultures growing Alpha Strep. Objective N/V intact, capillary refill less than 2 sec., dressing C/D/I, A&O x3 Fingers mobile, sensation intact. Date Time Temp Pulse Resp B/P (MAP) Pulse Ox O2 Delivery O2 Flow Rate FiO2 11/30/17 15:03 36.8 101 18 121/80 (94) 100 11/30/17 12:09 36.7 86 16 128/78 (95) 98 Room Air 11/30/17 08:20 Room Air 11/30/17 07:18 36.6 72 16 123/79 (94) 98 Room Air 11/30/17 04:30 36.6 73 16 109/67 (81) 98 Room Air 11/29/17 23:20 Room Air 11/29/17 22:48 36.8 93 18 139/85 (103) 100 11/29/17 22:05 100 Room Air 11/29/17 22:04 Room Air 11/29/17 21:25 36.7 82 16 126/84 (98) 99 Room Air 11/29/17 20:55 82 18 127/76 (93) 100 11/29/17 20:25 36.7 74 16 123/79 (94) 98 Room Air 11/29/17 20:15 36.8 72 12 119/74 98 Room Air 11/29/17 20:05 74 13 126/75 99 Room Air 11/29/17 19:55 74 17 122/72 100 Oxymask 10 11/29/17 19:45 72 12 113/76 100 Oxymask 10 11/29/17 19:38 36.8 74 16 118/75 100 Oxymask 10 11/29/17 18:44 36.7 79 18 122/77 (92) 98 Room Air Laboratory Results 24 Hours: Test 11/30/17 09:02 White Blood Count 8.36 K/uL Red Blood Count 3.25 M/uL Hemoglobin 9.5 g/dL Hematocrit 28.7 % Mean Corpuscular Volume 88.3 fL Mean Corpuscular Hemoglobin 29.2 pg Mean Corpuscular Hemoglobin Concent 33.1 g/dl Platelet Count 329 K/uL Mean Platelet Volume 9.2 fL Neutrophils (%) (Auto) 64.9 % Lymphocytes (%) (Auto) 24.3 % Monocytes (%) (Auto) 6.9 % Eosinophils (%) (Auto) 3.2 % Basophils (%) (Auto) 0.5 % Neutrophils # (Auto) 5.42 K/uL Lymphocytes # (Auto) 2.03 K/uL Monocytes # (Auto) 0.58 K/uL Eosinophils # (Auto) 0.27 K/uL Basophils # (Auto) 0.04 K/uL Assessment & Plan Assessment: POD#1 Left index finger arthrotomy and drainage, septic PIP joint. Left index finger irrigation and debridement of abscess. Plan: -Antibiotics per ID, cultures growing Alpha strep and caden -Pain management -Will plan on dressing change in the AM. Possible repeat I&D later this week.
--- NOTE | 2017-11-30 16:04 | Hospitalist Progress Note ---
Hospitalist Progress Note Date of Service Nov 30, 2017. Subjective Pt evaluation today including: conversation w/ patient, conversation w/ sales development consultant (ID) Voiding: no voiding problems Pt reports some pain in the finger, but managed with current meds. No CP or SOB. Is feeling a little shaky right now thinks maybe his glucose is low. Is anu po, no N/V, no diarrhea, no abd pain. Remains afebrile All Other Systems: Reviewed and Negative Objective Vital Signs Date Time Temp Pulse Resp B/P (MAP) Pulse Ox O2 Delivery O2 Flow Rate FiO2 11/30/17 15:03 36.8 101 18 121/80 (94) 100 11/30/17 12:09 36.7 86 16 128/78 (95) 98 Room Air 11/30/17 08:20 Room Air 11/30/17 07:18 36.6 72 16 123/79 (94) 98 Room Air 11/30/17 04:30 36.6 73 16 109/67 (81) 98 Room Air 11/29/17 23:20 Room Air 11/29/17 22:48 36.8 93 18 139/85 (103) 100 11/29/17 22:05 100 Room Air 11/29/17 22:04 Room Air 11/29/17 21:25 36.7 82 16 126/84 (98) 99 Room Air 11/29/17 20:55 82 18 127/76 (93) 100 11/29/17 20:25 36.7 74 16 123/79 (94) 98 Room Air 11/29/17 20:15 36.8 72 12 119/74 98 Room Air 11/29/17 20:05 74 13 126/75 99 Room Air 11/29/17 19:55 74 17 122/72 100 Oxymask 10 11/29/17 19:45 72 12 113/76 100 Oxymask 10 11/29/17 19:38 36.8 74 16 118/75 100 Oxymask 10 11/29/17 18:44 36.7 79 18 122/77 (92) 98 Room Air Physical Exam General Appearance: WD/WN, no apparent distress Eyes: normal inspection, sclerae normal ENT: hearing grossly normal Neck: trachea midline Respiratory/Chest: lungs clear, normal breath sounds, no respiratory distress, no accessory muscle use Cardiovascular: regular rate, rhythm, no edema, no gallop, no murmur Abdomen: normal bowel sounds, non tender, soft, no organomegaly Extremities: no pedal edema, no calf tenderness, + pertinent finding (left hand and forearm in dressing and wrap not removed) Neurologic/Psychiatric: alert, normal mood/affect, oriented x 3 Skin: normal color, warm/dry, no rash Laboratory Results Last 24 Hours Test 11/29/17 16:53 11/29/17 18:13 11/29/17 19:41 11/30/17 08:04 Bedside Glucose 124 mg/dl 105 mg/dl 75 mg/dl 177 mg/dl Test 11/30/17 09:02 11/30/17 12:07 White Blood Count 8.36 K/uL Red Blood Count 3.25 M/uL Hemoglobin 9.5 g/dL Hematocrit 28.7 % Mean Corpuscular Volume 88.3 fL Mean Corpuscular Hemoglobin 29.2 pg Mean Corpuscular Hemoglobin Concent 33.1 g/dl Platelet Count 329 K/uL Mean Platelet Volume 9.2 fL Neutrophils (%) (Auto) 64.9 % Lymphocytes (%) (Auto) 24.3 % Monocytes (%) (Auto) 6.9 % Eosinophils (%) (Auto) 3.2 % Basophils (%) (Auto) 0.5 % Neutrophils # (Auto) 5.42 K/uL Lymphocytes # (Auto) 2.03 K/uL Monocytes # (Auto) 0.58 K/uL Eosinophils # (Auto) 0.27 K/uL Basophils # (Auto) 0.04 K/uL RDW Standard Deviation 40.5 fL RDW Coefficient of Variation 12.6 % Immature Granulocyte % (Auto) 0.2 % Immature Granulocyte # (Auto) 0.02 K/uL Erythrocyte Sedimentation Rate 42 mm/hr Sodium Level 138 mmol/L Potassium Level 4.5 mmol/L Chloride Level 105 mmol/L Carbon Dioxide Level 27 mmol/L Anion Gap 6.0 mmol/L Blood Urea Nitrogen 16 mg/dl Creatinine 0.95 mg/dl Est Creatinine Clear Calc Drug Dose 128.6 ml/min Estimated GFR () 121.4 Estimated GFR (Non- 104.8 BUN/Creatinine Ratio 16.7 Random Glucose 198 mg/dl Calcium Level 8.3 mg/dl C-Reactive Protein 1.44 mg/dl Bedside Glucose 101 mg/dl Assessment and Plan This patient is a 32-year-old male with history of uncontrolled type 1 diabetes mellitus, with diabetic retinopathy, nephropathy, and polyneuropathy in the hands and feet, HTN, HL, chronic pain syndrome on chronic opioids, vitamin D deficiency, GERD, erectile dysfunction, and vancomycin induced acute kidney injury. He also has a history of recurrent skin and soft tissue infections and bacteremia. He presents from the wound care clinic with a worsening infection of the left index finger after a recent incision and drainage and a course of IV followed by oral antibiotics and a recent hospitalization. Left index finger abscess/Septic PIP joint/Cellulitis-status post incision and drainage 2 weeks ago, with IV antibiotics at that time followed by 2 weeks of p.o. Levaquin. No systemic signs of infection at this time, no sepsis. He has severely uncontrolled diabetes and his finger did not look good at all upon admission. He has a history of recurrent skin and soft tissue infections as well as bacteremia-previous organisms have been alpha streptococcus (not enterococcus), actinomyces, and Streptococcus intermedius. He has no history of MRSA infection previously. The Levaquin does seem to be improving some of the infection, but likely the finger is not improving due to his severe diabetes, hyperglycemia, neuropathy, and microvascular compromise ESR elevated at 40, CRP elevated at 1.77 on admission and fairly stable today Now s/p Left index finger arthrotomy and drainage, septic PIP joint and Left index finger irrigation and debridement of abscess on 11/[address] Rodriguez. -Wound culture here with Alpha strep not ENterococcus or pneumo, and Sandhya; Surgical cultures with alpha Strep also -Plan for surgical debridement and washout again on Tuesday -Consult hand surgery-appreciated -Consult infectious disease- today will dc the p.o. Levaquin, continue the IV daptomycin, and Add IV fluconazole for the Sandhya -Continue to hold statin while on daptomycin -still awaiting requested records from outside hospital for previous cultures from 2 weeks ago -wound care as per Ortho -Continue home pain meds for pain control, but increased Percocet to every 6 hours from twice daily as needed for acute on chronic pain-also, replaced his Opana with OxyContin adequate analgesic dose-at 30 mg twice daily -Continue to follow ESR, CRP, CBC, PRP, and LFTs, follow CPK while on daptomycin and fluconazole DM 1 with retinopathy/nephropathy/polyneuropathy-hemoglobin A1c is 11.1% on 11/13 at the outside hospital as per those records. With hyperglycemia here as well as hypoglycemia today. AM fasting glucose quite high at 198 -continue Lantus 55 units qAM -Accu-Cheks q. before meals at bedtime and at 2 in the morning as his mom reports he often goes low in the middle of night -continue NovoLog sliding scale but given hypoglycemia today, will increase CF to 25 and change goal range to 140-180 (from 120-160) -Allow at bedtime snack to prevent overnight hypoglycemia -Follows with endocrinology as an outpatient Chronic pain syndrome/chronic opioid dependence-secondary to polyneuropathy. Opioids are prescribed by his spring upholsterer-confirmed dosing in [place] drug database -His Opana is not available here- replaced with roughly equivalent dose of OxyContin 30 mg p.o. twice daily -Continue home Percocet 10/325 mg but increased to every 6 hours as needed for acute pain as above HTN-blood pressure acceptable here -Continue lisinopril Dyslipidemia-on high intensity statin for primary prevention as an outpatient -Holding statin while on daptomycin at this time -Holding aspirin for surgery GERD-stable -Continue PPI Anxiety disorder, NOS-stable -Continue Xanax as needed Current smoker/chewing tobacco-counseled on cessation -Provide nicotine patch as needed Prophylaxis-SCDs, ok to start SQ Lovenox today and then hold for surgery on Tuesday Disposition-likely to home after improvement in condition Full code
[2017-11-30] MEDS: FLUCONAZOLE / NSS 200 MG in PREMIXED NSS 100 ML IV SCH (17:07)
[2017-11-30] MEDS: DAPTOmycin IV 325 MG in SYRINGE 0 ML IV SCH (18:20)
[2017-11-30] MEDS: ENOXAPARIN 40 MG/0.4 ML SYR SQ SCH (21:12)
[2017-11-30 23:04] VITALS: BP 150/90; PULSE 91; TEMP 37; O2SAT 100
[2017-12-01] MEDS: OXYCODONE/ACETAMINOPHEN 10/325MG TAB PO PRN ×4 (00:53→22:05)
[2017-12-01 07:27] VITALS: BP 132/78; PULSE 79; TEMP 36.8; O2SAT 99
[2017-12-01 07:45] LABS: HEMATOCRIT 28.6 % (42-52); HEMOGLOBIN 9.5 g/dL (14.0-18.0); MEAN CELL VOLUME 89.1 fL (80-100); MEAN CORPUSCULAR HEMOGLOBIN 29.6 pg (25-34); MEAN CORPUSCULAR HGB CONC 33.2 g/dl (32-36); MEAN PLATELET VOLUME 9.5 fL (7.4-10.4); PLATELET COUNT 292 K/uL (130-400); RED CELL DISTRIBUTION WIDTH CV 12.7 % (11.5-14.5); RED CELL DISTRIBUTION WIDTH SD 40.9 fL (36.4-46.3); WHITE BLOOD COUNT 6.95 K/uL (4.8-10.8)
[2017-12-01 08:21] LABS: CALCIUM 8.5 mg/dl (8.5-10.1); CREATININE 1.05 mg/dl (0.60-1.40); POTASSIUM 4.3 mmol/L (3.5-5.1)
[2017-12-01] MEDS: INSULIN ASPART 100 UNITS/ML 3 ML PEN SC SCH ×4 (09:14→20:53)
[2017-12-01] MEDS: INSULIN GLARGINE SOLOSTAR 100 UNITS/ML 3 ML PEN SC SCH (09:15)
[2017-12-01] MEDS: DULOXETINE HCL 60 MG CAP PO SCH (09:16)
[2017-12-01] MEDS: PANTOprazole SOD 40 MG TAB PO SCH (09:16)
[2017-12-01] MEDS: LISINOPRIL 20 MG TAB PO SCH (09:16)
[2017-12-01] MEDS: CHOLECALCIFEROL 1000 INTER.UNIT TAB PO SCH (09:16)
[2017-12-01] MEDS: DULOXETINE (CYMBALTA) 30 MG CAP PO SCH (09:16)
[2017-12-01] MEDS: SACCHAROMYCES BOUL (FLORASTOR) 250 MG CAP PO SCH (09:16)
[2017-12-01] MEDS: OXYCODONE HCL 15 MG TABCR (OXYCONTIN) PO SCH ×2 (09:17→20:45)
--- NOTE | 2017-12-01 10:50 | Progress Note ---
Subjective Date of Service: Dec 01, 2017. Subjective cultures with alpha strep and c. albicans x 2 in hospital and at wound center. tolerating abx. afebrile. for repeat I&D later this week. wbc nml. Problem List Medical Problems: (1) Cellulitis of left upper extremity Status: Acute (2) Hyperglycemia Status: Acute (3) Sepsis Status: Acute Objective Vital Signs Date Time Temp Pulse Resp B/P (MAP) Pulse Ox O2 Delivery O2 Flow Rate FiO2 12/01/17 07:45 Room Air 12/01/17 07:27 36.8 79 16 132/78 (96) 99 Room Air 12/01/17 00:00 Room Air 11/30/17 23:04 37.0 91 16 150/90 (110) 100 Room Air 11/30/17 15:30 100 Room Air 11/30/17 15:03 36.8 101 18 121/80 (94) 100 11/30/17 12:09 36.7 86 16 128/78 (95) 98 Room Air Laboratory Results Item Value Date Time Gram Stain - Final Complete 11/28/17 1647 Drainage - Surface Finger Gram Stain - Final Resulted 11/29/17 0000 Abscess Finger , Left 1st Last 24 Hours Test 11/30/17 12:07 11/30/17 15:53 11/30/17 16:08 11/30/17 16:51 Bedside Glucose 101 mg/dl 58 mg/dl 86 mg/dl 84 mg/dl Test 11/30/17 20:22 12/01/17 07:27 12/01/17 08:21 Bedside Glucose 199 mg/dl 376 mg/dl White Blood Count 6.95 K/uL Red Blood Count 3.21 M/uL Hemoglobin 9.5 g/dL Hematocrit 28.6 % Mean Corpuscular Volume 89.1 fL Mean Corpuscular Hemoglobin 29.6 pg Mean Corpuscular Hemoglobin Concent 33.2 g/dl RDW Standard Deviation 40.9 fL RDW Coefficient of Variation 12.7 % Platelet Count 292 K/uL Mean Platelet Volume 9.5 fL Sodium Level 136 mmol/L Potassium Level 4.3 mmol/L Chloride Level 102 mmol/L Carbon Dioxide Level 28 mmol/L Anion Gap 6.0 mmol/L Blood Urea Nitrogen 19 mg/dl Creatinine 1.05 mg/dl Est Creatinine Clear Calc Drug Dose 116.4 ml/min Estimated GFR () 107.6 Estimated GFR (Non- 92.8 BUN/Creatinine Ratio 17.6 Random Glucose 330 mg/dl Calcium Level 8.5 mg/dl Beta-Hydroxybutyric Acid 1.05 mg/dL Assessment and Plan (1) Abscess of finger Assessment & Plan: continue with IV abx for now, pending OR. will change dapto to unasyn and continue with fluconazole. will likely be d/c home on min 4 weeks po abx, augmentin and fluconazole. will need continue wound center followup as well.
--- NOTE | 2017-12-01 14:13 | Hospitalist Progress Note ---
Hospitalist Progress Note Date of Service Dec 01, 2017. Subjective Pt evaluation today including: conversation w/ patient Voiding: no voiding problems Patient reports he ate a bowl of cereal in the middle the night last night which is why sugars in the 300s this morning. He did not have coverage with insulin at that time. He reports the pain in his hands seems worse since last night he has been trying to keep it elevated. He was really having severe pain about 1-2 hours before his next dose of Percocet was due. He remains afebrile. Denies chest pain or shortness breath, no abdominal pain, no diarrhea. All Other Systems: Reviewed and Negative Objective Vital Signs Date Time Temp Pulse Resp B/P (MAP) Pulse Ox O2 Delivery O2 Flow Rate FiO2 12/01/17 07:45 Room Air 12/01/17 07:27 36.8 79 16 132/78 (96) 99 Room Air 12/01/17 00:00 Room Air 11/30/17 23:04 37.0 91 16 150/90 (110) 100 Room Air 11/30/17 15:30 100 Room Air 11/30/17 15:03 36.8 101 18 121/80 (94) 100 Physical Exam General Appearance: WD/WN, no apparent distress Eyes: normal inspection, sclerae normal ENT: hearing grossly normal Neck: trachea midline Respiratory/Chest: lungs clear, normal breath sounds, no respiratory distress, no accessory muscle use Cardiovascular: regular rate, rhythm, no edema, no gallop, no murmur Abdomen: normal bowel sounds, non tender, soft Extremities: no pedal edema, no calf tenderness, + pertinent finding (Left index finger with bulky dressing in place and not removed, there is no erythema in the volar or dorsal hand or other fingers otherwise, there is positive tenderness to palpation in the palmar aspect of the second MCP joint but no fluctuance) Neurologic/Psychiatric: alert, normal mood/affect, oriented x 3 Skin: normal color, warm/dry, no rash Laboratory Results Last 24 Hours Test 11/30/17 15:53 11/30/17 16:08 11/30/17 16:51 11/30/17 20:22 Bedside Glucose 58 mg/dl 86 mg/dl 84 mg/dl 199 mg/dl Test 12/01/17 07:27 12/01/17 08:21 12/01/17 10:27 12/01/17 12:07 White Blood Count 6.95 K/uL Red Blood Count 3.21 M/uL Hemoglobin 9.5 g/dL Hematocrit 28.6 % Mean Corpuscular Volume 89.1 fL Mean Corpuscular Hemoglobin 29.6 pg Mean Corpuscular Hemoglobin Concent 33.2 g/dl RDW Standard Deviation 40.9 fL RDW Coefficient of Variation 12.7 % Platelet Count 292 K/uL Mean Platelet Volume 9.5 fL Sodium Level 136 mmol/L Potassium Level 4.3 mmol/L Chloride Level 102 mmol/L Carbon Dioxide Level 28 mmol/L Anion Gap 6.0 mmol/L Blood Urea Nitrogen 19 mg/dl Creatinine 1.05 mg/dl Est Creatinine Clear Calc Drug Dose 116.4 ml/min Estimated GFR () 107.6 Estimated GFR (Non- 92.8 BUN/Creatinine Ratio 17.6 Random Glucose 330 mg/dl Calcium Level 8.5 mg/dl Beta-Hydroxybutyric Acid 1.05 mg/dL Bedside Glucose 376 mg/dl 336 mg/dl 101 mg/dl Assessment and Plan This patient is a 32-year-old male with history of uncontrolled type 1 diabetes mellitus, with diabetic retinopathy, nephropathy, and polyneuropathy in the hands and feet, HTN, HL, chronic pain syndrome on chronic opioids, vitamin D deficiency, GERD, erectile dysfunction, and vancomycin induced acute kidney injury. He also has a history of recurrent skin and soft tissue infections and bacteremia. He presents from the wound care clinic with a worsening infection of the left index finger after a recent incision and drainage and a course of IV followed by oral antibiotics and a recent hospitalization. Left index finger abscess/Septic PIP joint/Cellulitis-status post incision and drainage 2 weeks prior to admission, with IV antibiotics at that time followed by 2 weeks of p.o. Levaquin. No systemic signs of infection at this time, no sepsis. He has severely uncontrolled diabetes and his finger did not look good at all upon admission. He has a history of recurrent skin and soft tissue infections as well as bacteremia-previous organisms have been alpha streptococcus (not enterococcus), actinomyces, and Streptococcus intermedius. He has no history of MRSA infection previously. The Levaquin did seem to be improving some of the infection, but likely the finger is not improving due to his severe diabetes, hyperglycemia, neuropathy, and microvascular compromise ESR elevated at 40, CRP elevated at 1.77 on admission and fairly stable to slightly improved on repeat testing Now s/p Left index finger arthrotomy and drainage, septic PIP joint and Left index finger irrigation and debridement of abscess on 11/[address] Rodriguez. -Wound cultures both here with Alpha strep not Enterococcus or pneumo, and Sandhya; Surgical cultures the same -Plan for surgical debridement and washout again on Tuesday -Keep n.p.o. after midnight, hold Lovenox, start IV fluids after midnight -Consult hand surgery-appreciated -Consult infectious disease-have since dcd the p.o. Levaquin, and will continue the IV daptomycin and IV fluconazole for the Sandhya -Plan to switch to Zyvox on discharge given penicillin allergy, and p.o. fluconazole, both for a minimum of 4 weeks after discharge -We will need follow-up with wound care center and infectious disease, as well as orthopedics after discharge -Continue to hold statin while on daptomycin -Continue home pain meds for pain control, but increase Percocet frequency to every 4 hours as needed for acute on chronic pain-also, replaced his Opana with OxyContin adequate analgesic dose-at 30 mg twice daily -Continue to follow ESR, CRP, CBC, PRP, and LFTs, follow CPK while on daptomycin and fluconazole DM 1 with retinopathy/nephropathy/polyneuropathy-hemoglobin A1c is 11.1% on 11/13 at the outside hospital as per those records. With hyperglycemia here as well as hypoglycemia. AM fasting glucose quite high at again in the 300s but had a snack overnight but he did not have coverage for -continue Lantus 55 units qAM but reduced to 35 units again tomorrow as he will be n.p.o. for surgery -Accu-Cheks q. before meals at bedtime and at 2 in the morning as his mom reports he often goes low in the middle of night -continue NovoLog sliding scale but adjusted again today for hyperglycemia to lower the range and increase the correction factor slightly -Allow at bedtime snack to prevent overnight hypoglycemia -Follows with endocrinology as an outpatient Chronic pain syndrome/chronic opioid dependence-secondary to polyneuropathy. Opioids are prescribed by his senior principal-confirmed dosing in [place] drug database -His Opana is not available here- replaced with roughly equivalent dose of OxyContin 30 mg p.o. twice daily -Continue home Percocet 10/325 mg but increased to every 4 hours as needed for acute pain as above HTN-blood pressure acceptable here -Continue lisinopril Dyslipidemia-on high intensity statin for primary prevention as an outpatient -Holding statin while on daptomycin at this time -Holding aspirin for surgery GERD-stable -Continue PPI Anxiety disorder, NOS-stable -Continue Xanax as needed Current smoker/chewing tobacco-counseled on cessation -Provide nicotine patch as needed Prophylaxis-SCDs, hold SQ Lovenox for surgery on Tuesday Disposition-likely to home after improvement in condition-possibly on Tuesday after surgery? Full code
[2017-12-01 14:16] VITALS: Ht 188 cm; Wt 90.6 kg
--- NOTE | 2017-12-01 15:11 | Orthopedic Progress Note ---
Orthopedic Progress Note Date of Service Dec 01, 2017. Subjective Post OP Day: 2 Reports: feeling well Additional Notes: some pain in the finger today but tolerating well Objective N/V intact, capillary refill less than 2 sec., A&O x3 Dressing removed, all packing taken out. Continues with dusky erythema around the finger. Scant purulent drainage on the packing that was removed. ROM limited. Sensation intact. Redressed. Date Time Temp Pulse Resp B/P (MAP) Pulse Ox O2 Delivery O2 Flow Rate FiO2 12/01/17 07:45 Room Air 12/01/17 07:27 36.8 79 16 132/78 (96) 99 Room Air 12/01/17 00:00 Room Air 11/30/17 23:04 37.0 91 16 150/90 (110) 100 Room Air 11/30/17 15:30 100 Room Air Laboratory Results 24 Hours: Test 12/01/17 07:27 Hematocrit 28.6 % Hemoglobin 9.5 g/dL Assessment & Plan Assessment: POD#2 Left index finger arthrotomy and drainage, septic PIP joint. Left index finger irrigation and debridement of abscess. Plan: -Antibiotics per ID, cultures growing Alpha strep and caden -Pain management -No further surgery planned at this time. We will recheck wound tomorrow.
[2017-12-01 15:12] VITALS: BP 123/79; PULSE 98; TEMP 36.8; O2SAT 99
[2017-12-01] MEDS: FLUCONAZOLE / NSS 200 MG in PREMIXED NSS 100 ML IV SCH (17:25)
[2017-12-01] MEDS: DAPTOmycin IV 325 MG in SYRINGE 0 ML IV SCH (17:26)
[2017-12-01] MEDS: ENOXAPARIN 40 MG/0.4 ML SYR SQ SCH (20:45)
[2017-12-01 23:00] VITALS: BP 130/80; PULSE 86; TEMP 37.1; O2SAT 96
[2017-12-01] MEDS ORDERED: SODIUM CHLORIDE 0.9% 1000ML 1,000 ML IV SCH (23:59)
[2017-12-02 06:09] LABS: BASO % 0.5 %; BASO ABS # 0.04 K/uL (0-0.2); EOS % 3.6 %; EOS ABS # 0.29 K/uL (0-0.5); HEMATOCRIT 29.4 % (42-52); HEMOGLOBIN 9.7 g/dL (14.0-18.0); IG# 0.01 K/uL (0.00-0.02); LYMPH % 39.1 %; LYMPH ABS # 3.14 K/uL (1.2-3.4); MEAN CELL VOLUME 89.9 fL (80-100); MEAN CORPUSCULAR HEMOGLOBIN 29.7 pg (25-34); MEAN PLATELET VOLUME 10.1 fL (7.4-10.4); MONO % 8.5 %; MONO ABS # 0.68 K/uL (0.11-0.59); NEUT % 48.2 %; NEUT ABS # 3.87 K/uL (1.4-6.5); PLATELET COUNT 329 K/uL (130-400); RED CELL DISTRIBUTION WIDTH CV 12.8 % (11.5-14.5); RED CELL DISTRIBUTION WIDTH SD 41.6 fL (36.4-46.3); WHITE BLOOD COUNT 8.03 K/uL (4.8-10.8)
[2017-12-02 06:36] LABS: CALCIUM 8.7 mg/dl (8.5-10.1); CREATININE 0.99 mg/dl (0.60-1.40); POTASSIUM 4.3 mmol/L (3.5-5.1)
[2017-12-02 07:32] VITALS: BP 119/78; PULSE 73; TEMP 36.6; O2SAT 98
[2017-12-02] MEDS: LISINOPRIL 20 MG TAB PO SCH (08:45)
[2017-12-02] MEDS: DULOXETINE HCL 60 MG CAP PO SCH (08:45)
[2017-12-02] MEDS: CHOLECALCIFEROL 1000 INTER.UNIT TAB PO SCH (08:45)
[2017-12-02] MEDS: PANTOprazole SOD 40 MG TAB PO SCH (08:45)
[2017-12-02] MEDS: SACCHAROMYCES BOUL (FLORASTOR) 250 MG CAP PO SCH (08:45)
[2017-12-02] MEDS: DULOXETINE (CYMBALTA) 30 MG CAP PO SCH (08:45)
[2017-12-02] MEDS: OXYCODONE HCL 15 MG TABCR (OXYCONTIN) PO SCH ×2 (08:50→21:34)
[2017-12-02] MEDS: OXYCODONE/ACETAMINOPHEN 10/325MG TAB PO PRN ×3 (08:52→19:22)
[2017-12-02] MEDS: INSULIN GLARGINE SOLOSTAR 100 UNITS/ML 3 ML PEN SC SCH (08:59)
[2017-12-02] MEDS: INSULIN ASPART 100 UNITS/ML 3 ML PEN SC SCH ×4 (08:59→21:00)
[2017-12-02] MEDS ORDERED: INSULIN GLARGINE SOLOSTAR 100 UNITS/ML 3 ML PEN SC SCH (09:00)
--- NOTE | 2017-12-02 12:46 | Orthopedic Progress Note ---
Orthopedic Progress Note Date of Service Dec 02, 2017. Subjective Post OP Day: 3 Reports: feeling well, pain controlled w PO medications, Denies: complaints Additional Notes: Overall, feeling much better. Objective N/V intact, capillary refill less than 2 sec., dressing C/D/I, A&O x3 Left index finger: Moderate swelling seems to be stable from yesterday, per the patient. However, much better than what it was upon admission. The dorsal finger incision is well approximated. There is purulent d/c from the central and proximal aspect of the incision. Painful palpation with expressing the purulent d/c. The erythema is mild around the wound and proximal finger. Skin sloughing round the wound and the proximal finger. No hand swelling or streaking. Date Time Temp Pulse Resp B/P (MAP) Pulse Ox O2 Delivery O2 Flow Rate FiO2 12/02/17 08:00 Room Air 12/02/17 07:32 36.6 73 15 119/78 (92) 98 Room Air 12/02/17 00:00 Room Air 12/01/17 23:00 37.1 86 16 130/80 (97) 96 Room Air 12/01/17 20:00 Room Air 12/01/17 15:12 36.8 98 16 123/79 (94) 99 Room Air Laboratory Results 24 Hours: Test 12/02/17 05:31 White Blood Count 8.03 K/uL Red Blood Count 3.27 M/uL Hemoglobin 9.7 g/dL Hematocrit 29.4 % Mean Corpuscular Volume 89.9 fL Mean Corpuscular Hemoglobin 29.7 pg Mean Corpuscular Hemoglobin Concent 33.0 g/dl Platelet Count 329 K/uL Mean Platelet Volume 10.1 fL Neutrophils (%) (Auto) 48.2 % Lymphocytes (%) (Auto) 39.1 % Monocytes (%) (Auto) 8.5 % Eosinophils (%) (Auto) 3.6 % Basophils (%) (Auto) 0.5 % Neutrophils # (Auto) 3.87 K/uL Lymphocytes # (Auto) 3.14 K/uL Monocytes # (Auto) 0.68 K/uL Eosinophils # (Auto) 0.29 K/uL Basophils # (Auto) 0.04 K/uL Assessment & Plan Assessment: POD #3 Left index finger arthrotomy and drainage, septic PIP joint. Left index finger irrigation and debridement of abscess. Plan: - Dressing changed today with Aquacel Ag over the incision and ulnar aspect of the finger. -Antibiotics per ID, cultures growing Alpha strep and caden. Continue unasyn with fluconazole -Pain management -Will discuss today's findings with Dr. Rodriguez. Discussed with patient that he may need another I & D.
[2017-12-02 15:25] VITALS: BP 124/73; PULSE 86; TEMP 36.7; O2SAT 99
[2017-12-02] MEDS ORDERED: KETOROLAC TROMETHAMINE 30 MG/ML VIAL IV STA (16:44)
[2017-12-02] MEDS ORDERED: OXYCODONE HCL IR 5 MG TAB (IMMEDIATE RELEASE) PO STA (16:44)
[2017-12-02] MEDS: FLUCONAZOLE / NSS 200 MG in PREMIXED NSS 100 ML IV SCH (17:07)
[2017-12-02] MEDS: DAPTOmycin IV 325 MG in SYRINGE 0 ML IV SCH (18:24)
--- NOTE | 2017-12-02 20:58 | Progress Note ---
Subjective Date of Service: Dec 02, 2017. Subjective Pt evaluation today including: conversation w/ patient, physical exam, chart review, lab review, conversation w/ sap ppm consultant (ortho), review of inpatient medication list Pain: left 2nd finger only PO Intake: normal Voiding: no voiding problems patient was seen by ortho today and due to ongoing purulence he will require another I/D with washout in the next 24 hours his only complaint is that of left 2nd finger pain glycemic control excellent Problem List Medical Problems: (1) Cellulitis of left upper extremity Status: Acute (2) Hyperglycemia Status: Acute (3) Sepsis Status: Acute Review of Systems Constitutional: No fever, No chills Respiratory: No shortness of breath, No dyspnea on exertion Cardiac: No chest pain Abdomen: No pain, No diarrhea Objective Vital Signs Date Time Temp Pulse Resp B/P (MAP) Pulse Ox O2 Delivery O2 Flow Rate FiO2 12/02/17 15:25 36.7 86 20 124/73 (90) 99 Room Air 12/02/17 15:25 Room Air 12/02/17 08:00 Room Air 12/02/17 07:32 36.6 73 15 119/78 (92) 98 Room Air 12/02/17 00:00 Room Air 12/01/17 23:00 37.1 86 16 130/80 (97) 96 Room Air Physical Exam General Appearance: no apparent distress ENT: pharynx normal Neck: no JVD Respiratory/Chest: lungs clear, no respiratory distress, no accessory muscle use Cardiovascular: regular rate, rhythm, no gallop, no murmur Abdomen: normal bowel sounds, non tender, soft, no organomegaly Extremities: no pedal edema Neurologic/Psychiatric: alert, oriented x 3 Skin: + pertinent finding (left hand - 2nd digit - cap refill <2 sec; finger wrapped in sterile dressings; no bleeding; left wrist and left elbow without synovitis or erythema) Comments: musculo - left wrist and left elbow with normal active ROM Laboratory Results Last 24 Hours Test 12/02/17 05:31 12/02/17 08:10 12/02/17 12:05 12/02/17 13:31 White Blood Count 8.03 K/uL Red Blood Count 3.27 M/uL Hemoglobin 9.7 g/dL Hematocrit 29.4 % Mean Corpuscular Volume 89.9 fL Mean Corpuscular Hemoglobin 29.7 pg Mean Corpuscular Hemoglobin Concent 33.0 g/dl Platelet Count 329 K/uL Mean Platelet Volume 10.1 fL Neutrophils (%) (Auto) 48.2 % Lymphocytes (%) (Auto) 39.1 % Monocytes (%) (Auto) 8.5 % Eosinophils (%) (Auto) 3.6 % Basophils (%) (Auto) 0.5 % Neutrophils # (Auto) 3.87 K/uL Lymphocytes # (Auto) 3.14 K/uL Monocytes # (Auto) 0.68 K/uL Eosinophils # (Auto) 0.29 K/uL Basophils # (Auto) 0.04 K/uL RDW Standard Deviation 41.6 fL RDW Coefficient of Variation 12.8 % Immature Granulocyte % (Auto) 0.1 % Immature Granulocyte # (Auto) 0.01 K/uL Erythrocyte Sedimentation Rate 49 mm/hr Sodium Level 139 mmol/L Potassium Level 4.3 mmol/L Chloride Level 103 mmol/L Carbon Dioxide Level 30 mmol/L Anion Gap 6.0 mmol/L Blood Urea Nitrogen 22 mg/dl Creatinine 0.99 mg/dl Est Creatinine Clear Calc Drug Dose 123.4 ml/min Estimated GFR () 115.5 Estimated GFR (Non- 99.7 BUN/Creatinine Ratio 22.2 Random Glucose 166 mg/dl Calcium Level 8.7 mg/dl C-Reactive Protein 1.53 mg/dl Bedside Glucose 201 mg/dl 113 mg/dl 97 mg/dl Test 17/18 17:19 Bedside Glucose 156 mg/dl Assessment and Plan 32yo male - 1. left 2nd finger cellulitis, abscess, and septic PIP - s/p: 1. Left index finger arthrotomy and drainage, septic PIP joint. 2. Left index finger irrigation and debridement of abscess. POD #3 from such. Unfortunately it appears he may need a 2nd I/D with washout. NPO after MN tonight for possible surgery tomorrow. Cultures from 11/28 and 11/29 both with alpha strep and caden albicans. Continue IV daptomycin and fluconazole. At d/c will be changing to oral zyvox (cost is 1 dollar per month supply) and oral diflucan for additional 30 days. 2. T1DM with neuropathy, etc - control adequate at this time with current basal -bolus regimen; no changes today. 3. HTN - controlled with current meds. 4. chronic pain syndrome - adjust IR oxycodone if needed. Toradol prn. Cont long-acting oxycontin BID as well. 5. DVT proph - lovenox. 6. anemia - likely due to chronic disease. Fe studies not entirely c/w Fe deficiency. B12/folate wnl. await repeat I/D tomorrow pain control and local wound care in meantime of note- TdaP vaccine is UTD at this time Continued [facility] stay due to: inadequate oral pain control, multiple IV medications needed Discharge planning: home with home health
[2017-12-02] MEDS: ENOXAPARIN 40 MG/0.4 ML SYR SQ SCH (21:35)
[2017-12-02] MEDS ORDERED: NURSING VERBAL MED ORDER ONE (23:00)
[2017-12-02 23:16] VITALS: BP 122/74; PULSE 86; TEMP 36.6; O2SAT 99
[2017-12-03] VITALS (7 sets, daily range): BP systolic 116–135; BP diastolic 71–85; PULSE 74–109; TEMP 36.3–37.3; O2SAT 98–100
[2017-12-03] MEDS: OXYCODONE/ACETAMINOPHEN 10/325MG TAB PO PRN ×4 (00:20→21:25)
[2017-12-03] MEDS: INSULIN ASPART 100 UNITS/ML 3 ML PEN SC SCH ×6 (06:42→21:00)
[2017-12-03] MEDS ORDERED: BACITRACIN 50000 UNIT VIAL ONE (07:26)
[2017-12-03] MEDS ORDERED: LIDOCAINE HCL 1% 20 ML VIAL ONE (07:26)
[2017-12-03] MEDS ORDERED: BUPIVACAINE 0.5 % 5 MG/1 ML PF 10ML VIAL ONE (07:26)
[2017-12-03] MEDS ORDERED: EpHEDrine SULFATE INJ 50 MG/ML AMP IV PRN (08:00)
[2017-12-03] MEDS ORDERED: FENTANYL CITRATE INJ 50 MCG/1 ML 2 ML VIAL IV PRN (08:00)
[2017-12-03] MEDS ORDERED: ATROPINE SULFATE 0.1 MG/ML 5ML SYR IV PRN (08:00)
[2017-12-03] MEDS ORDERED: MIDAZOLAM HCL 1 MG/ML 2ML VIAL ONE ×2 (08:10→08:23)
[2017-12-03] MEDS ORDERED: FENTANYL CITRATE INJ 50 MCG/1 ML 2 ML VIAL ONE (08:11)
[2017-12-03] MEDS ORDERED: LIDOCAINE HCL 2% 2 ML VIAL (20MG/ML) ONE (08:25)
[2017-12-03] MEDS ORDERED: PROPOFOL IV EMULSION 10 MG/ML 20 ML VIAL ONE (08:25)
[2017-12-03] MEDS ORDERED: ONDANSETRON INJ 2 MG/ML 2 ML VIAL ONE (08:37)
--- NOTE | 2017-12-03 08:57 | [facility] Post Operative Brief Note ---
Immediate Operative Summary Operative Date Dec 03, 2017. Pre-Operative Diagnosis INFECTED LEFT 2ND FINGER Post-Operative Diagnosis SAME PREOP Procedure(s) Performed INCISION AND DRAINAGE LEFT 2ND FINGER Surgeon DR. GEORGE Head Insulation Board Saw Operator Surgeon(s) None Estimated Blood Loss 5ML Findings Consistent with Post-Op Diagnosis Specimens 1. CULTURE&SENSITIVITY, GRAM STAIN, AEROBES, ANAEROBES Drains None Anesthesia Type MAC Complication(s) none Disposition Accompanied Pt To Recover: no Disposition: Recovery Room / PACU Overlapping Procedure I was present for: the critical portions of procedure. I was immediately available: during the entire case
--- NOTE | 2017-12-03 08:58 | History & Physical Bridge Note ---
H&P Re-Evaluation Bridge Note: I have examined the patient, reviewed the History & Physical and in the interval since the performance of the History & Physical I have noted the following changes of clinical significance: will plan for left index finger I and D No changes noted
--- NOTE | 2017-12-03 09:32 | Anesthesiology Progress Note ---
Anesthesia Post Op Note Date & Time Dec 03, 2017 at 09:32 Vital Signs Pain Intensity: 0 Vital Signs Past 12 Hours Date Time Temp Pulse Resp B/P (MAP) Pulse Ox O2 Delivery O2 Flow Rate FiO2 12/03/17 09:25 36.6 68 12 119/72 98 Room Air 12/03/17 09:15 67 12 117/70 98 Room Air 12/03/17 09:09 36.3 71 14 113/62 98 Room Air 12/03/17 00:50 Room Air 12/02/17 23:16 36.6 86 14 122/74 (90) 99 Room Air Notes Mental Status: alert / awake / arousable, participated in evaluation Pt Amnestic to Procedure: Yes Nausea / Vomiting: adequately controlled Pain: adequately controlled Airway Patency, RR, SpO2: stable & adequate BP & HR: stable & adequate Hydration State: stable & adequate Anesthetic Complications: no major complications apparent
[2017-12-03] MEDS ORDERED: NURSING VERBAL MED ORDER ONE ×2 (10:15→18:30)
[2017-12-03] MEDS: DULOXETINE HCL 60 MG CAP PO SCH (10:25)
[2017-12-03] MEDS: DULOXETINE (CYMBALTA) 30 MG CAP PO SCH (10:25)
[2017-12-03] MEDS: OXYCODONE HCL 15 MG TABCR (OXYCONTIN) PO SCH ×2 (10:25→21:24)
[2017-12-03] MEDS: LISINOPRIL 20 MG TAB PO SCH (10:26)
[2017-12-03] MEDS: PANTOprazole SOD 40 MG TAB PO SCH (10:26)
[2017-12-03] MEDS: CHOLECALCIFEROL 1000 INTER.UNIT TAB PO SCH (10:27)
[2017-12-03] MEDS: SACCHAROMYCES BOUL (FLORASTOR) 250 MG CAP PO SCH (10:27)
[2017-12-03] MEDS: INSULIN GLARGINE SOLOSTAR 100 UNITS/ML 3 ML PEN SC SCH (10:35)
[2017-12-03] MEDS ORDERED: KETOROLAC TROMETHAMINE 30 MG/ML VIAL IV PRN (15:45)
[2017-12-03] MEDS: FLUCONAZOLE / NSS 200 MG in PREMIXED NSS 100 ML IV SCH (17:12)
--- NOTE | 2017-12-03 17:37 | Progress Note ---
Subjective Date of Service: Dec 03, 2017. Subjective Pt evaluation today including: conversation w/ patient, physical exam, chart review, lab review, conversation w/ marketing regional consultant (Dr. Rodriguez) Pain: left 2nd finger only PO Intake: normal, eating fine Voiding: no voiding problems underwent a second I & D of left 2nd finger today by Dr. Rodriguez I saw him on the ortho floor post-op he offered no complaints he reports having had normal BMs today and is eating fine Problem List Medical Problems: (1) Cellulitis of left upper extremity Status: Acute (2) Hyperglycemia Status: Acute (3) Sepsis Status: Acute Review of Systems Constitutional: No fever, No chills Respiratory: No shortness of breath Cardiac: No chest pain Abdomen: No pain Objective Vital Signs Date Time Temp Pulse Resp B/P (MAP) Pulse Ox O2 Delivery O2 Flow Rate FiO2 12/03/17 15:42 Room Air 12/03/17 15:02 37.3 109 18 128/71 (90) 100 Room Air 12/03/17 12:03 90 16 124/79 (94) 99 Room Air 12/03/17 11:06 83 16 122/81 (95) 100 Room Air 12/03/17 10:36 80 16 116/72 (87) 100 Room Air 12/03/17 10:00 100 Room Air 12/03/17 10:00 36.3 74 16 121/80 (94) 100 Room Air 12/03/17 10:00 100 Room Air 12/03/17 09:45 69 12 123/71 99 Room Air 12/03/17 09:35 72 12 126/68 96 Room Air 12/03/17 09:25 36.6 68 12 119/72 98 Room Air 12/03/17 09:15 67 12 117/70 98 Room Air 12/03/17 09:09 36.3 71 14 113/62 98 Room Air 12/03/17 00:50 Room Air 12/02/17 23:16 36.6 86 14 122/74 (90) 99 Room Air Physical Exam General Appearance: no apparent distress ENT: pharynx normal Neck: no JVD Respiratory/Chest: lungs clear, no respiratory distress, no accessory muscle use Cardiovascular: regular rate, rhythm, no gallop, no murmur Abdomen: normal bowel sounds, non tender, soft, no organomegaly Extremities: no pedal edema Neurologic/Psychiatric: alert, oriented x 3 Skin: + pertinent finding (left hand, 2nd finger - dressings intact; cap refill 2nd finger <2 sec; sensation intact all fingers ) Laboratory Results Last 24 Hours Test 12/02/17 20:45 12/03/17 00:56 12/03/17 05:44 12/03/17 09:14 Bedside Glucose 144 mg/dl 171 mg/dl 196 mg/dl 242 mg/dl Test 12/03/17 10:00 12/03/17 11:59 12/03/17 17:01 Bedside Glucose 280 mg/dl 266 mg/dl 89 mg/dl Assessment and Plan 32yo male - 1. left 2nd finger cellulitis, abscess, and septic PIP - s/p: 1. Left index finger arthrotomy and drainage, septic PIP joint. 2. Left index finger irrigation and debridement of abscess. POD #4 from such. Then underwent another I & D today by Dr. Rodriguez. Await intra-op culture from today. Previous Cultures from 11/28 and 11/29 both with alpha strep and caden albicans. Continue IV daptomycin and fluconazole. At d/c will be changing to oral zyvox (cost is 1 dollar per month supply) and oral diflucan for additional 30 days. 2. T1DM with neuropathy, etc - control adequate at this time with current basal -bolus regimen; no changes today. I suspect his hyperglycemia post-op was from perioperative stress; this should resolve rapidly. 3. HTN - controlled with current meds. 4. chronic pain syndrome - cont oxycodone as needed. Toradol prn. Cont long- acting oxycontin BID as well. 5. DVT proph - lovenox. 6. anemia - likely due to chronic disease. Fe studies not entirely c/w Fe deficiency. B12/folate wnl. possible d/c tomorrow if ok with orthopedics of note- TdaP vaccine is UTD at this time Continued [facility] stay due to: inadequate oral pain control, multiple IV medications needed Discharge planning: home with home health
[2017-12-03] MEDS: DAPTOmycin IV 325 MG in SYRINGE 0 ML IV SCH (18:15)
[2017-12-03] MEDS ORDERED: OXYCODONE HCL IR 5 MG TAB (IMMEDIATE RELEASE) PO STA (18:18)
[2017-12-03] MEDS: MoRPHine SULFATE 4 MG/ML 1 ML CARP\\VIAL IV PRN ×2 (18:56→22:45)
[2017-12-03] MEDS: ENOXAPARIN 40 MG/0.4 ML SYR SQ SCH (21:00)
[2017-12-04 04:19] VITALS: BP 112/64; PULSE 77; TEMP 36.6; O2SAT 98
[2017-12-04 07:45] VITALS: O2SAT 98
[2017-12-04 07:59] VITALS: BP 102/66; PULSE 76; TEMP 36.5; O2SAT 98
[2017-12-04 08:09] LABS: HEMATOCRIT 30.3 % (42-52); HEMOGLOBIN 9.8 g/dL (14.0-18.0); MEAN CELL VOLUME 89.6 fL (80-100); MEAN CORPUSCULAR HGB CONC 32.3 g/dl (32-36); MEAN PLATELET VOLUME 9.7 fL (7.4-10.4); PLATELET COUNT 339 K/uL (130-400); RED CELL DISTRIBUTION WIDTH CV 12.8 % (11.5-14.5); RED CELL DISTRIBUTION WIDTH SD 41.2 fL (36.4-46.3); WHITE BLOOD COUNT 8.22 K/uL (4.8-10.8)
[2017-12-04 08:35] LABS: CREATININE 1.29 mg/dl (0.60-1.40)
[2017-12-04] MEDS: INSULIN ASPART 100 UNITS/ML 3 ML PEN SC SCH ×2 (08:54→12:46)
[2017-12-04] MEDS: SACCHAROMYCES BOUL (FLORASTOR) 250 MG CAP PO SCH (08:55)
[2017-12-04] MEDS: DULOXETINE (CYMBALTA) 30 MG CAP PO SCH (08:55)
[2017-12-04] MEDS: OXYCODONE HCL 15 MG TABCR (OXYCONTIN) PO SCH (08:55)
[2017-12-04] MEDS: CHOLECALCIFEROL 1000 INTER.UNIT TAB PO SCH (08:55)
[2017-12-04] MEDS: DULOXETINE HCL 60 MG CAP PO SCH (08:56)
[2017-12-04] MEDS: LISINOPRIL 20 MG TAB PO SCH (08:56)
[2017-12-04] MEDS: PANTOprazole SOD 40 MG TAB PO SCH (08:56)
[2017-12-04] MEDS: OXYCODONE/ACETAMINOPHEN 10/325MG TAB PO PRN ×2 (09:04→13:59)
[2017-12-04] MEDS: INSULIN GLARGINE SOLOSTAR 100 UNITS/ML 3 ML PEN SC SCH (09:06)
--- NOTE | 2017-12-04 09:47 | Consultant Recommendations ---
Pediatric Medical Assistant Recommendations Date of Service Dec 04, 2017. Pediatric Medical Assistant Recommendations continue antibiotics elevate hand may do gentle range of motion as instructed dry sterile dressing changes one a day follow up with Dr Rodriguez on tuesday
[2017-12-04] MEDS ORDERED: FLUCONAZOLE 100 MG TAB PO ONE (10:10)
--- NOTE | 2017-12-04 10:34 | PROGRESS NOTE ---
DATE: 12/04/2017 SUBJECTIVE: Domo is seen at the bedside today. He notes there are no new complaints. OBJECTIVE: Left index finger examination does show some moderate amount of purulent drainage, no change in erythema. Wound is currently closed. Negative Kanavel sign. Less swelling compared to 2 days ago. ASSESSMENT: Postoperative day #1 status post repeat irrigation and debridement, left index finger. PLAN: I discussed the surgical findings with him. At this point in time, recommendation is for antibiotic treatment as an outpatient. He may continue with Zyvox as an outpatient. I will see him on Tuesday for repeat wound evaluation. He possibly could require repeat irrigation and debridement, but we can do this as an outpatient. Followup as directed. Dry sterile dressing changes once a day. ANUSHA
[2017-12-04 11:41] VITALS: BP 138/83; PULSE 76; TEMP 36.8; O2SAT 100
[2017-12-04] MEDS ORDERED: OXYCODONE/ACETAMINOPHEN 10/325MG TAB PO PRN (12:30)
[2017-12-04] MEDS ORDERED: NAPR-22 PO (12:31)
[2017-12-04] MEDS ORDERED: LINE1TAB2 PO (12:31)
[2017-12-04] MEDS ORDERED: FLUC200T4 PO (12:31)
--- NOTE | 2017-12-04 12:44 | Discharge Instructions ---
Discharge Instructions Date of Service Dec 04, 2017. Admission Reason for Admission: Infected Left 2nd Finger Discharge Discharge Diagnosis / Problem: Infected Left 2nd finger including the joint ( knuckle) - due to strep Discharge Goals Goal(s): Learn about illness, Diagnostic testing, Therapeutic intervention Activity Recommendations Activity Limitations: as noted below Driving or Machine Use: no driving while taking pain medication No heavy lifting or significant use of the left hand until cleared by Dr. Rodriguez. OK to shower but keep your left hand clean/dry at all times. . Instructions / Follow-Up Instructions / Follow-Up From Dr. South - 1. Antibiotics for your finger infection - * starting 12/05/17, take diflucan (fluconazole) 200mg once a day for 30 days * starting the evening of 12/04/17, take zyvox (linezolid) 600mg twice a day for 30 days * please do NOT drink any alcohol while taking these antibiotics * continue on your probiotic as previous 2. Finger dressings - * keep the dressings clean and dry at all times * please change the dressing once a day using Adaptic directly to the top of the finger where the incisions are, then covering with sterile 4x4's, and then using the kerlix to secure in place 3. Pain medications - * a courtesy 24-hour supply of percocet 10's has been given to you (total of 6 tablets) * you can take 1 percocet 10mg tablet every 4 hours as needed for pain * the percocet contains tylenol - thus, do not take extra [id number] tylenol at any time * please last picker your normal supply of short and long-acting pain medication from Dr. Ellis's office tomorrow * I have also prescribed naprosyn 500mg tablets for additional pain relief; this will also help with swelling of the finger * you can take 1 tablet every 12 hours as needed for pain * while on naprosyn do not take any additional [id number] motrin, ibuprofen, alleve, etc * I would HOLD YOUR ASPIRIN while taking naprosyn to avoid stomach upset 4. See Dr. Rodriguez as scheduled on this 12/06/17 5. Return to any emergency room at any hospital if - * you have fever over 100.5 degrees * you have worsening pain or swelling or redness of the left 2nd finger despite taking your antibiotics, pain medications, etc * you have persistently uncontrolled blood sugars (either high or low) * any other concerns Current Hospital Diet Patient's current hospital diet: Diabetes Type 1 Diet Discharge Diet Recommended Diet: Diabetes Type 1 Diet Procedures Procedures Performed: INCISION AND DRAINAGE LEFT 2ND FINGER x 2 Pending Studies Studies pending at discharge: yes List of pending studies: culture from the operating room taken on 12/03/17 Medical Emergencies . Who to Call and When: Medical Emergencies: If at any time you feel your situation is an emergency, please call 911 immediately. . Non-Emergent Contact Non-Emergency issues call your: Primary Care Provider, Surgeon (Dr. Rodriguez ) Call Non-Emergent contact if: temperature is above 100.5, your pain is not controlled, your pain is worsening, your pain is unusual for you, your pain is concerning you, wound has increased drainage, wound has increased redness, wound has increased pain, you have any medication questions . . "Provider Documentation" section prepared by Jerzy South. . Nail Mill Worker Recommendations Nail Mill Worker Recommendations: continue antibiotics elevate hand may do gentle range of motion as instructed dry sterile dressing changes one a day follow up with Dr Rodriguez on tuesday [place] Drug Monitoring Program Search Results: patient reviewed within database, no issues identified Drug Monitoring Findings: all outpatient narcotic prescriptions are being prescribed by Dr. Kiel Ellis as reported by the patient. Using only 1 pharmacy.
[2017-12-04] MEDS ORDERED: OXYCODONE HCL 15 MG TABCR (OXYCONTIN) PO SCH (13:15)
[2017-12-04] MEDS ORDERED: OXYCODONE/ACETAMINOPHEN 10/325MG TAB PO SCH (13:15)
[2017-12-04 13:50] VITALS: BP 138/83; PULSE 76; TEMP 36.8; O2SAT 100
[2017-12-04] MEDS ORDERED: LINEZOLID 600 MG TAB PO SCH (21:00)
--- NOTE | 2017-12-05 00:27 | Discharge Summary ---
Discharge Summary Date of Service Dec 05, 2017. Discharge Summary Admission Date: Nov 28, 2017 at 14:46 Discharge Date: Dec 04, 2017 Discharge Disposition: Home Principal Diagnosis: left 2nd finger abscess, cellulitis, and PIP septic arthritis Problems/Secondary Diagnoses: 1. long-standing uncontrolled T1DM 2. Diabetic retinopathy 3. Diabetic polyneuropathy 4. Diabetic nephropathy with albuminuria 5. Chronic pain syndrome secondary to neuropathy 6. Chronic opioid dependence 7. HTN 8. tobacco dependence 9. History of vancomycin induced acute kidney injury 10. History of Clostridium difficile colitis 11. GERD 12. hyperlipidemia 13. anemia of chronic disease Immunizations: History of Tetanus Vaccine?: Yes (11/13/17) History of Pneumococcal: Yes Procedures: 1. left 2nd finger cellulitis, abscess, and septic PIP - Barry Rodriguez MD * s/p Left index finger arthrotomy and drainage, septic PIP joint. * s/p Left index finger irrigation and debridement of abscess. 2. left 2nd finger incision & drainage - Barry Rodriguez MD Consultations: orthopedics - Barry Rodriguez MD infectious disease - Keyla Ji DO Medication Reconciliation New Medications: Fluconazole (Diflucan) 200 Mg Tab 200 MG PO DAILY for 30 Days, #30 TAB 0 Refills start 12/05/17 Naproxen (Naprosyn) 500 Mg Tab 500 MG PO BID PRN for Pain, #30 TAB 0 Refills Linezolid (Linezolid) 600 Mg Tab 600 MG PO BID for 30 Days, #60 TAB 0 Refills start evening of 12/04/17 Continued Medications: Alprazolam (Xanax) 0.5 Mg Tab 0.5 MG PO DAILY PRN for Anxiety/Agitation, TAB Atorvastatin (Lipitor) 10 Mg Tab 80 MG PO DAILY for 30 Days, #240 TAB 5 Refills B Complex W/ C (Vitamin B Complex-C) 1 Cap Cap Cholecalciferol (Vitamin D3) 1,000 Unit Tab 1 TAB PO DAILY for 30 Days, #30 TAB 5 Refills Duloxetine HCl (Cymbalta) 30 Mg Cap 1 CAP PO DAILY pm for 30 Days, CAP 5 Refills Duloxetine Hcl (Cymbalta) 60 Mg Cap 1 CAP PO DAILY for 90 Days, #90 CAP 3 Refills Insulin Glargine (Lantus) Vial 55 UNITS SC QAM, VIAL Insulin Lispro (Humalog) Inj UNITS SC with meals, VIAL SLIDING SCALE Lactobacillus (Probiotic) 1 Cap Cap Lisinopril (Zestril) 5 Mg Tab 20 MG PO DAILY, TAB Multivitamin (Multivitamin) Tab 1 TAB PO DAILY, TAB Omeprazole (Prilosec) 20 Mg Capcr 20 MG PO DAILY, CAP Oxycodone/Acetaminophen 10MG/325MG (Percocet 10MG/325MG) Tab 1 TAB PO BID PRN for Pain, TAB Oxymorphone HCl (Oxymorphone Hydrochloride) 10 Mg Tab 15 MG PO BID Discontinued Medications: Aspirin (Aspirin Chewable) 81 Mg Chew 81 MG PO DAILY Levofloxacin (Levaquin) 750 Mg Tab 750 MG PO DAILY, TAB Referrals At Discharge Follow up Referrals: Orthopedics Referral - 12/06/17 with Barry Rordiguez MD Discharge Exam Physical Exam: General Appearance: no apparent distress ENT: pharynx normal Neck: no JVD Respiratory/Chest: lungs clear, no respiratory distress, no accessory muscle use Cardiovascular: regular rate, rhythm, no gallop, no murmur, normal peripheral pulses Abdomen / GI: normal bowel sounds, non tender, soft, no organomegaly Extremities: no pedal edema, + pertinent finding (radial pulse left wrist 2+ ; cap refill all fingers including 2nd finger, left hand -- <2 seconds ) Neurologic/Psychiatric: alert, oriented x 3, + pertinent finding (sensation intact to light touch all fingers of left hand) Skin: + pertinent finding (left 2nd finger - from the MCP joint down to just proximal to the fingertip the finger is quite swollen, erythematous, and mildly tender to palpation. On the dorsal surface of the finger there is a wound with sutures intact. There appears to be a second linear incision/wound adjacent to the other wound. There is gross purulence noted. No odor. The PIP joint is quite swollen. The DIP is only mildly swollen. The dorsum of the hand is normal and without any erythema. ) Hospital Course HISTORY OF PRESENT ILLNESS: This patient is a 32-year-old male with history of uncontrolled type 1 diabetes mellitus, with diabetic retinopathy, nephropathy, and polyneuropathy in the hands and feet, HTN, HL, chronic pain syndrome on chronic opioids, vitamin D deficiency, GERD, erectile dysfunction, and vancomycin induced acute kidney injury.. He also has a history of recurrent skin and soft tissue infections and bacteremia. He presents from the wound care clinic today with a worsening infection of the left index finger. He was admitted to the 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 The finger became hot, red, swollen, and had pockets of pus that were visible around the wound as well as draining from the wound that had been Steri-Stripped. He ended up undergoing surgical debridement and washout and was placed ultimately on oral Levaquin to go home with for 3 week course. Since discharge, he reports the erythema and swelling of the dorsal hand has significantly improved, however the finger continues to remain quite swollen, red, draining a lot of pus. The skin continues to slough off around the wound. The sutures were removed by the orthopedic surgeon several days after discharge. When he was seen in the wound care clinic today, the wound care MD was very concerned and sent him for direct admission to the hospital for expedited orthopedic evaluation. The patient denies any fevers or chills, he is feeling well otherwise. HOSPITAL COURSE: The patient was placed on IV daptomycin on hospital day #1 and underwent orthopedic consultation with Dr. Barry Rodriguez. On hospital day #2 the patient was taken to the OR by Dr. Rodriguez for his left 2nd finger cellulitis, abscess, and septic PIP joint. At that time Dr. Rodriguez performed the following procedures - 1. Left index finger arthrotomy and drainage of the septic PIP joint. 2. Left index finger irrigation and debridement of abscess. Cultures from 11/28 and 11/29 both grew alpha strep and caden albicans. He was seen in consultation by infectious disease who recommended ongoing use of IV daptomycin and fluconazole for his finger. The patient continued to receive IV antibiotic therapy and daily dressing changes. Then, on hospital day # 6, Dr. Rodriguez took the patient back to the OR to perform a repeat incision & drainage along with washout of the finger. Again intra-op cultures from this procedure grew alpha strep. At discharge the patient will do the following - 1. zyvox 600mg BID for 30 days 2. diflucan 200mg daily for 30 days 3. daily dressing changes to the left 2nd finger Mr. Frias has scheduled follow-up with Dr. Rodriguez on 12/06/17, for recheck of the finger. Other issues addressed while hospitalized - 1. T1DM with neuropathy, retinopathy, etc - the patient's glycemic control while hospitalized was adequate. He was counseled on the importance of tight glycemic control at home in light of his ongoing infectious issues. 2. chronic pain syndrome - the patient will continue on opana twice a day and percocet prn after discharge. He was also given a prescription for prescription -strength naprosyn to use for a few days post-discharge. 3. anemia - likely due to chronic disease. Iron studies were most consistent with anemia of chronic disease. B12/folate were normal. Discharge hemoglobin was 9.8. If the patient does poorly from an infectious disease standpoint I would advise referral back to Dr. Keyla Ji from [facility] for ongoing surveillance of his antibiotics. Total Time Spent: Greater than 30 minutes This includes examination of the patient, discharge planning, medication reconciliation, and communication with other providers. Discharge Instructions Please refer to the electronic Patient Visit Report (Discharge Instructions) for additional information. Follow-Up 1. Dr. Barry Rodriguez - [facility] - Tuesday12/06/17 Additional Copies To Barry Rodriguez MD; Kiel Ellis M.D.
--- NOTE | 2017-12-05 07:57 | OPERATIVE REPORT ---
DATE OF OPERATION: 12/03/2017 PREOPERATIVE DIAGNOSIS: Left index finger infection. POSTOPERATIVE DIAGNOSES: 1. Left index finger infection. 2. Left index finger septic extensor tenosynovitis. SURGEON: Barry Rodriguez MD BANK TELLER: Dianna Henderson PA-C who is necessary for surgical exposure, retraction, assistance, and closure. ANESTHESIA: Digital block with sedation. INDICATIONS: This is a 32-year-old gentleman who has progressive drainage from open wound over the dorsal aspect of the PIP joint. He presents for planned and staged washout. The risks and benefits have been discussed including, but not limited to, risk of infection, nerve injury, stiffness, loss of motion, failure to improve, etc. Reasonable outcomes and options of treatment were discussed. An explanation of appropriate alternatives to the procedure that may be advantageous were discussed and their risks and benefits, as well as the risks and benefits of not proceeding with treatment. I offered to answer any additional inquiries concerning the treatment involved. All the patient's questions were answered. The patient is agreeable, understanding of the treatment plan and alternatives, and wishes to proceed with the treatment plan. DESCRIPTION OF PROCEDURE: The patient's traumatic wound was opened. There was a partial wound dehiscence. There is gross purulence in the area. Cultures were taken. The area was inspected. I did not detect evidence of further infection in the joint, but there was significant infection in the soft tissues. Debridement of skin and subcutaneous tissue and fascia was performed. I irrigated the area copiously with 3 L of normal saline with bacitracin. This resulted in a clean appearance of the wound. Incision was loosely closed with 4-0 nylon. Packing was applied. The patient was placed in a soft dressing and was sent to the PACU in stable condition. POSTOPERATIVE PLAN: Will continue antibiotics and monitor cultures. I attest to the content of the Intraoperative Record and any orders documented therein. Any exception s are noted below.
[2017-12-05] MEDS ORDERED: FLUCONAZOLE 100 MG TAB PO SCH (09:00)
== END 2017-12-04 14:38 | disposition home or self-care (01) | DRG 982 ==
LOC: C.MSN 14:46
PROVIDERS: ADMIT Internal Medicine; ATTEND Internal Medicine
PROC: 0R9X0ZZ Drainage of Left Finger Phalangeal Joint, Open Approach (ICD-10-PCS; principal; 2017-11-29 12:00)
PROC: 0JDK0ZZ Extraction of Left Hand Subcutaneous Tissue and Fascia, Open Approach (ICD-10-PCS; principal; 2017-11-29 12:00)
PROC: 0JDK0ZZ Extraction of Left Hand Subcutaneous Tissue and Fascia, Open Approach (ICD-10-PCS; 2017-12-03)
DX: E10.69 Type 1 diabetes mellitus with other specified complication (principal); M00.842 Arthritis due to other bacteria, left hand; L03.012 Cellulitis of left finger; E10.311 Type 1 diabetes mellitus with unspecified diabetic retinopathy with macular edema; E10.21 Type 1 diabetes mellitus with diabetic nephropathy; M65.142 Other infective (teno)synovitis, left hand; E10.42 Type 1 diabetes mellitus with diabetic polyneuropathy; I10 Essential (primary) hypertension; G89.4 Chronic pain syndrome; Z79.891 Long term (current) use of opiate analgesic; K21.9 Gastro-esophageal reflux disease without esophagitis; E55.9 Vitamin D deficiency, unspecified; Z88.1 Allergy status to other antibiotic agents; Z88.8 Allergy status to other drugs, medicaments and biological substances; E78.5 Hyperlipidemia, unspecified; F41.9 Anxiety disorder, unspecified; D64.9 Anemia, unspecified

== ENCOUNTER 2018-08-14 15:24 | Inpatient (IN) ==
--- NOTE | 2018-08-14 16:11 | Emergency Department Note ---
History of Present Illness General Chief complaint: Wound Stated complaint: SENT FROM WOUND CLINIC/WOUND ON RIGHT FOOT Time Seen by Provider: 08/14/18 15:41 History of Present Illness Maximum Pain Intensity: 8 This is a 32-year-old male with a pmhx of IDDM1, neuropathy, cellultis, who pre sents to the emergency department via private vehicle referred by the wound care center accompanied by his mother with complaints of "sent from wound clinic/wound on right foot". The patient notes that he has history of type 1 diabetes and neuropathy. He cannot feel the feet which is not new for him. He notes that he has been experiencing wounds on the right foot which have required IV and oral antibiotics. He notes that he has been seen in the wound care center for this and on a visit today he notes he was evaluated for a wound on the plantar aspect that has been ongoing for 2 weeks. Over the past day erythema has spread into much of the foot and they were concerned therefore sending him here for further evaluation and management with possible IV antibiotics/admission. The patient denies any pain. No fevers or chills. He notes his sugars have been elevated secondary to what he believes is the infection. He notes that this wound likely developed secondary to a boot that he was wearing. Home Medications Home Medications Medication Instructions Recorded Confirmed Type B-complex with vitamin C tablet 1 tab PO QAM 01/05/18 08/14/18 History alprazolam 0.5 mg tablet 0.5 mg PO DAILY PRN tab 01/05/18 08/14/18 History atorvastatin 80 mg tablet 80 mg PO QAM 01/05/18 08/14/18 History duloxetine 30 mg capsule,delayed 30 mg PO QAM 01/05/18 08/14/18 History release duloxetine 60 mg capsule,delayed 60 mg PO QAM 01/05/18 08/14/18 History release lactobacillus combination no.8 3 3,000 mmu cells PO QAM 01/05/18 08/14/18 History billion cell capsule multivitamin capsule 1 cap PO QAM 01/05/18 08/14/18 History omeprazole magnesium 20 mg 20 mg PO QAM 01/05/18 08/14/18 History tablet,delayed release oxycodone-acetaminophen 10 mg-325 1 tab PO BID PRN tab 01/05/18 08/14/18 H istory mg tablet oxymorphone ER 15 mg 15 mg PO Q12H 01/05/18 08/14/18 History tablet,extended release,12 hr aspirin [Aspir-81] 81 mg PO QAM 07/05/18 08/14/18 History lisinopril 20 mg PO QAM 07/05/18 08/14/18 History propranolol 10 mg PO QAM 07/05/18 08/14/18 History insulin glargine [Basaglar KwikPen 55 unit SUBCUT QAM 08/14/18 08/14/18 History U-100 Insulin] insulin lispro [Admelog SoloStar 0 unit SUBCUT .SLIDING SCALE 08/14/18 08/14/18 History U-100 Insulin] Allergies Allergy/AdvReac Type Severity Reaction Status Date / Time aminophylline Allergy Severe weird Unverified 08/14/18 17:37 feeling ezetimibe Allergy Severe chest Verified 08/14/18 17:37 pressure simvastatin Allergy Severe chest Verified 08/14/18 17:37 pressure vancomycin Allergy Severe acute Verified 08/14/18 17:37 renal failure adhesive tape Allergy Intermediate red/blochy/ Unverified 08/14/18 17:37 itchy amoxicillin Allergy Intermediate hives Verified 08/14/18 17:37 cefaclor Allergy Intermediate hives Verified 08/14/18 17:37 gabapentin Allergy Intermediate confusion Verified 08/14/18 17:37 pregabalin Allergy Intermediate confusion Verified 08/14/18 17:37 aztreonam Allergy Mild BURNING UP Verified 08/14/18 17:37 Past Med/Surg History Medical History 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) Type 1 diabetes mellitus (Chronic) Neuropathy (Chronic) Abscess of finger Abscess of left arm Acquired hallux limitus of both feet (Acute) Corns and callosities (Acute) H/O necrotizing fasciitis (Acute) HTN (hypertension) (Acute) MRSA infection (Acute) Osteomyelitis of right foot (Acute) Anemia of chronic disease 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 Surgical History History of amputation of finger History of carpal tunnel release of both wrists (Resolved) Social History Current Living Situation Comment: Lives with parents current occupational status: employed current occupation: [employer] Feels Safe at Home: Yes Smoking Status: Current some day smoker Tobacco Type: cigarettes and smokeless tobacco Cigarettes Per Day: 3 Hx Alcohol Use: No Hx Substance Use: Yes (Occasional THC) Review of Systems A total of 10 systems reviewed and were otherwise negative Physical Exam Vital Signs Vital Signs - 24 hr 08/14/18 15:28 08/14/18 16:45 08/14/18 18:09 Temperature 36.7 C Temperature Source Oral Sepsis Recent Fever Within 48 Hours No Sepsis Action Taken by Nursing No Action Required Pulse Rate 111 H 88 Pulse Rate [Apical] 90 Pulse Rate [Finger] Pulse Rhythm Regular Pulse Strength Normal Respiratory Rate 20 18 18 Respiratory Effort / Characteristics Non-Labored Spontaneous Respiratory Depth Normal Respiratory Pattern Regular Blood Pressure 107/64 113/74 Blood Pressure [Left Arm] 113/61 Blood Pressure [Right Arm] Blood Pressure Mean 78 Blood Pressure Mean [Left Arm] 78 Blood Pressure Mean [Right Arm] Blood Pressure Position Sitting Blood Pressure Position [Right Arm] Pulse Oximetry 98 99 100 Oxygen Delivery Method Room Air Room Air Room Air 08/14/18 18:50 Temperature 36.6 C Temperature Source Oral Sepsis Recent Fever Within 48 Hours Sepsis Action Taken by Nursing Pulse Rate Pulse Rate [Apical] Pulse Rate [Finger] 88 Pulse Rhythm Pulse Strength Respiratory Rate 18 Respiratory Effort / Characteristics Respiratory Depth Respiratory Pattern Blood Pressure Blood Pressure [Left Arm] Blood Pressure [Right Arm] 137/92 Blood Pressure Mean Blood Pressure Mean [Left Arm] Blood Pressure Mean [Right Arm] 107 Blood Pressure Position Blood Pressure Position [Right Arm] Lying Pulse Oximetry 99 Oxygen Delivery Method Room Air VITAL SIGNS - Vital signs and nursing notes were reviewed. Tachycardic, otherwise stable and afebrile. GENERAL -32-year-old male appearing his stated age who is in no acute distress. Communicates well with provider and answers questions appropriately. SKIN -there are multiple wounds in various stages of healing to the patient's right foot. There is a well healing wound noted to the anterior aspect of the mid metatarsal region. No drainage. There is also a wound on the plantar aspect of the right great toe as well as the plantar aspect of the distal foot just proximal to the toes. This region has a central ulceration with surrounding erythema which encompasses greater than half of the foot. The ulceration does have a whitish dark coloration without any active drainage. HEAD - NC/AT. EYES - PERRL with EOMI bilaterally. Sclera anicteric. EARS - No deformities of external structures noted on gross examination bi laterally. NOSE - Midline and without cyanosis. No epistaxis or purulent drainage noted. MOUTH/OROPHARYNX - Without perioral cyanosis. NECK - Neck with FROM. Supple to palpation. No lymphadenopathy noted. No nuchal rigidity. LUNGS - Chest wall symmetric without accessory muscle use, intercostals r etractions, or central cyanosis. Normal vesicular breath sounds CTA B/L. No wheezes, rales, or rhonchi appreciated. CARDIAC - RRR with S1/S2. No murmur, rubs, or gallops appreciated. ABDOMEN - Abdominal contour normal without pulsations or visible masses. BS normoactive all four quadrants. No tenderness, palpable masses, hepatosplenomegaly, or ascites noted. EXTREMITIES - No clubbing or peripheral cyanosis. No pretibial edema present. Skin changes as above. +5/5 strength noted in UE/LE bilaterally. Patient lacks sensory ability in the right foot. NEUROLOGIC - Cranial nerves II through XII grossly intact. PSYCH - A&Ox3 and cooperates fully with examiner. Pt is very pleasant and interacts well with examiner. Course Administered Medications Discontinued Medications Clindamycin Phosphate 900 mg/ (Dextrose) 56 mls @ 112 mls/hr IV ONE ONE Stop: 08/14/18 16:43 Last Infusion: 08/14/18 19:01 Dose: 0 mls/hr Documented by: [id number] Admin: 08/14/18 16:37 Dose: 112 mls/hr Documented by: [id number] Sodium Chloride (Nss 1000ml) 1,000 mls @ 999 mls/hr IV .Q1H1M ELIECER Stop: 08/14/18 17:30 Last Infusion: 08/14/18 19:01 Dose: 0 mls/hr Documented by: [id number] Admin: 08/14/18 16:41 Dose: 999 mls/hr Documented by: [id number] Medical Decision Making Laboratory Data Result diagrams: 08/14/18 16:17 08/14/18 16:17 Lab Results 08/14/18 08/14/18 Range/Units 16:17 16:17 WBC 10.87 H (4.8-10.8) K/uL RBC 3.13 L (4.7-6.1) M/uL Hgb 9.4 L (14.0-18.0) g/dL Hct 26.9 L (42-52) % MCV 85.9 (80-100) fL MCH 30.0 (25-34) pg MCHC 34.9 (32-36) g/dL RDW Std Deviation 37.3 (36.4-46.3) fL RDW Coeff of Keisha 12.0 (11.5-14.5) % Plt Count 354 (130-400) K/uL MPV 9.5 (7.4-10.4) fL Immature Gran % (Auto) 0.3 % Neut % (Auto) 74.6 % Lymph % (Auto) 18.0 % Heard % (Auto) 5.1 % Eos % (Auto) 1.7 % Baso % (Auto) 0.3 % Immature Gran # (Auto) 0.03 H (0.00-0.02) K/uL Neut # (Auto) 8.12 H (1.4-6.5) K/uL Lymph # (Auto) 1.96 (1.2-3.4) K/uL Heard # (Auto) 0.55 (0.11-0.59) K/uL Eos # (Auto) 0.18 (0-0.5) K/uL Baso # (Auto) 0.03 (0-0.2) K/uL Sodium 138 (136-145) mmol/L Potassium 4.3 (3.5-5.1) mmol/L Chloride 98 (98-107) mmol/L Carbon Dioxide 35 H (21-32) mmol/L Anion Gap 6.0 (3-11) BUN 25 H (7-18) mg/dl Creatinine 1.30 (0.6-1.4) mg/dl Est Cr Clr Drug Dosing 94.0 ml/min Est GFR ( Amer) 83.1 Est GFR (Non-Af Amer) 71.7 BUN/Creatinine Ratio 19.2 (10-20) Glucose 129 H (70-99) mg/dl Calcium 9.6 (8.5-10.1) mg/dl Total Bilirubin 0.2 (0.2-1) mg/dl AST 11 L (15-37) U/L ALT 17 (12-78) U/L Alkaline Phosphatase 114 (45-117) U/L Total Protein 7.8 (6.4-8.2) gm/dl Albumin 3.1 L (3.4-5.0) gm/dl Globulin 4.7 H (2.5-4.0) gm/dl Albumin/Globulin Ratio 0.7 L (0.9-2) Imaging Data Radiologist's Impression: XR foot RT min 3V routine HISTORY: 32 years-old Male R foot ulcer ulceration of the right foot. Acute right foot pain COMPARISON: Right foot radiographs 07/11/2018 TECHNIQUE: 3 views of the right foot FINDINGS: Peripheral arterial calcifications are noted. Mild degenerative changes about the first interphalangeal joint. There is moderate soft tissue prominence about the lower leg, foot and ankle. Soft tissue prominence is also noted within the distribution of the distal Achilles tendon. There is no opaque foreign body. Mild marginal spurring about the talonavicular articulation. No acute fracture or dislocation. IMPRESSION: 1. No acute fracture or dislocation. 2. Moderate soft tissue swelling. 3. Peripheral arterial calcifications. The above report was generated using voice recognition software. It may contain grammatical, syntax or spelling errors. Electronically signed by: Thierry Dowell M.D. 08/14/2018 5:03 PM MDM Narrative Patient was seen and evaluated as above in room B 12. Review was performed of nursing notes and vital signs. After obtaining a thorough history and physical examination the above work up was performed. He presents to us today referred by wound care center over concern for a nonhealing ulcer on the plantar aspect of the right foot with surrounding cellulitis. He cannot feel this region. This is not new. He was on Bactrim beginning 4 weeks ago and stopped 2 weeks ago at its completion of course and then he developed this wound while wearing a boot. I did review previous visit and he was given clindamycin which he notes was quite successful and had great improvement with. This was provided. X-ray was also obtained. Results as above. I was thoroughly reviewing patient previous visits and then I find that he had a wound culture (from a different wound) which revealed resistance with one organism to clindamycin. There was already a wound culture obtained from the wound in question today as well as blood culture pending. I discussed these with the hospitalist as I felt that he may require inpatient management and it was noted that he will likely be changed to different antibiotics once he is admitted to the floor. I believe that this is reasonable. The patient did also have labs performed. CBC reveals slight leukocytosis of 10.7 with anemia of 9.4. Patient kidney function at this time does not reveal any emergent failure. Given the patient presentation, diabetic state with wound ulcer no cellulitis being referred by wound care center do believe that further evaluation and management is warranted in the inpatient setting. Please refer to further documentation regarding his stay. I did dress the wound with a nonstick dressing. Case was discussed with the attending physician. In the evaluation and treatment of this patient the following differential diagnoses were entertained: Fracture, dislocation, subluxation, osteomyelitis, among others. Impression & Plan Diabetic foot infection, Type 1 diabetes mellitus, Neuropathy Discharge Plan Visit Data *Final* Discharge Date/Time: 08/14/18 18:09 Chief Complaint: Wound Stated Complaint: SENT FROM WOUND CLINIC/WOUND ON RIGHT FOOT ED Provider: Saw Perez ED Midlevel Provider: Adama Key Discharge Problem: Diabetic foot infection, Type 1 diabetes mellitus, Neuropathy Patient Disposition: Admitted As Inpatient Condition: Fair Discharge Instructions Interventions: ED Discharge Assessment Last Done: 08/14/18 18:09
[2018-08-14] MEDS ORDERED: CLINDAMYCIN 900 MG in DEXTROSE 5% 50 ML IV ONE (16:14)
[2018-08-14] MEDS ORDERED: SODIUM CHLORIDE 0.9% 1000ML 1,000 ML IV SCH (16:30)
[2018-08-14 16:43] LABS: Basophils # (auto) 0.03 K/uL (0-0.2); Basophils % (auto) 0.3 %; Eosinophils # (auto) 0.18 K/uL (0-0.5); Eosinophils % (auto) 1.7 %; Hematocrit (blood only) 26.9 % (42-52); Hemoglobin 9.4 g/dL (14.0-18.0); Immature Granulocytes # (auto) 0.03 K/uL (0.00-0.02); Immature Granulocytes % (auto) 0.3 %; Lymphocytes # (auto) 1.96 K/uL (1.2-3.4); Mean Corpuscular Hgb Conc 34.9 g/dL (32-36); Mean Corpuscular Volume 85.9 fL (80-100); Mean Platelet Volume 9.5 fL (7.4-10.4); Monocytes # (auto) 0.55 K/uL (0.11-0.59); Monocytes % (auto) 5.1 %; Neutrophils # (auto) 8.12 K/uL (1.4-6.5); Neutrophils % (auto) 74.6 %; Platelet Count 354 K/uL (130-400); RDW Standard Deviation 37.3 fL (36.4-46.3); Red Blood Count 3.13 M/uL (4.7-6.1); White Blood Count 10.87 K/uL (4.8-10.8)
[2018-08-14 17:05] LABS: Albumin Level 3.1 gm/dl (3.4-5.0); BUN Creatinine Ratio 19.2 (10-20); Calcium 9.6 mg/dl (8.5-10.1); Est GFR (African American) 83.1; Est GFR (Non-African American) 71.7; Potassium 4.3 mmol/L (3.5-5.1)
--- NOTE | 2018-08-14 17:05 | XRay Report ---
XR foot RT min 3V routine HISTORY: 32 years-old Male R foot ulcer ulceration of the right foot. Acute right foot pain COMPARISON: Right foot radiographs 07/11/2018 TECHNIQUE: 3 views of the right foot FINDINGS: Peripheral arterial calcifications are noted. Mild degenerative changes about the first interphalange al joint. There is moderate soft tissue prominence about the lower leg, foot and ankle. Soft tissue p rominence is also noted within the distribution of the distal Achilles tendon. There is no opaque for eign body. Mild marginal spurring about the talonavicular articulation. No acute fracture or dislocat ion. IMPRESSION: 1. No acute fracture or dislocation. 2. Moderate soft tissue swelling. 3. Peripheral arterial calcifications. The above report was generated using voice recognition software. It may contain grammatical, syntax o r spelling errors. Electronically signed by: Thierry Dowell M.D. 08/14/2018 5:03 PM
[2018-08-14 17:08] LABS: Albumin Globulin Ratio 0.7 (0.9-2); Bilirubin,Total 0.2 mg/dl (0.2-1); Globulin 4.7 gm/dl (2.5-4.0); Total Protein 7.8 gm/dl (6.4-8.2)
--- NOTE | 2018-08-14 18:13 | History & Physical Report ---
Date of Service August 14, 2018 Assessment & Plan (1) Diabetic foot infection: Patient has significant ulceration and concern for infection possibly osteomyelitis of his right foot ulcer is in poor condition at this time. Due to multiple drug allergies and previous history of a staph that is resistant to clindamycin. Patient is placed on daptomycin and imipenem to cover both MRSA which she has had in the past and Pseudomonas. An MRI scan is ordered to look for ostium myelitis we have already discussed the possibility of a PICC line patient is familiar with the wound VAC as he had some in the past. Patient is from [facility] and does not have a local wic site coordinator. He however does get his diabetic care with Dr. Ellis. (2) Type 1 diabetes mellitus: Patient does usually take a long-acting insulin to 55 units and sliding scale he states that his correction factor is 15 his carb ratio is 10 these will be continued at this time this will be made based upon his glucose control. In the summer 2017 his A1c was 12 we will repeat that although he says he has not had much better control at home Patient takes duloxetine for diabetic neuropathy at 90 mg a day for his chronic pain from his neuropathy which he takes oxycodone extended release and immediate release (3) HTN (hypertension): Patient takes propranolol once a day lisinopril 20 these were confirmed with the patient and those were the actual correct doses. (4) MRSA infection: (5) Anemia of chronic disease: Patient has appears to be what looks to be an anemia of chronic disease due to iron and TIBC as his iron was slightly low in the past low TIBC was low also. In the fall last year his B12 and folic acid were normal (6) DVT prophylaxis: Patient be placed on Lovenox for DVT prevention (7) Low TSH level: In November the patient's TSH was low but free T4 was normal with repeat TSH at this time (8) Cardiovascular disease: Patient takes aspirin 81, atorvastatin 80, and a beta-rhina History of Present Illness Primary Care Provider: Allen Bell This is a 32-year-old male with a history of insulin requiring diabetes for many years. Patient has been followed by wound care center where he has been treated for various foot ulcerations related to significant diabetic neuropathy. The patient reportedly developed an ulceration from what the boots he was wearing to try to offload some pressure but now has a very significant 3 cm stage III ulceration at his first MTP on the plantar aspect of his right foot with yellow slough within it. There is a dry 2 cm ulcer on his great toe that does not have any surrounding erythema and he has various small healing ulcerations on the dorsal aspect of his foot. 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 He takes chronic pain medications but these have not been controlling it most recently. His glucoses likewise have been difficult to control also over the last few weeks. His last A1c was 12 in March 2018 Allergies Allergy/AdvReac Type Severity Reaction Status Date / Time aminophylline Allergy Severe weird Unverified 08/14/18 17:37 feeling ezetimibe Allergy Severe chest Verified 08/14/18 17:37 pressure simvastatin Allergy Severe chest Verified 08/14/18 17:37 pressure vancomycin Allergy Severe acute Verified 08/14/18 17:37 renal failure adhesive tape Allergy Intermediate red/blochy/ Unverified 08/14/18 17:37 itchy amoxicillin Allergy Intermediate hives Verified 08/14/18 17:37 cefaclor Allergy Intermediate hives Verified 08/14/18 17:37 gabapentin Allergy Intermediate confusion Verified 08/14/18 17:37 pregabalin Allergy Intermediate confusion Verified 08/14/18 17:37 aztreonam Allergy Mild BURNING UP Verified 08/14/18 17:37 Home Medications Home Medications Medication Instructions Recorded Confirmed Type B-complex with vitamin C tablet 1 tab PO DAILY 01/05/18 08/14/18 History alprazolam 0.5 mg tablet 0.5 mg PO DAILY PRN tab 01/05/18 08/14/18 History atorvastatin 80 mg tablet 80 mg PO DAILY 01/05/18 08/14/18 History duloxetine 30 mg capsule,delayed 30 mg PO DAILY 01/05/18 08/14/18 History release duloxetine 60 mg capsule,delayed 60 mg PO DAILY 01/05/18 08/14/18 History release lactobacillus combination no.8 3 3,000 mmu cells PO DAILY 01/05/18 08/14/18 History billion cell capsule multivitamin capsule 1 cap PO DAILY 01/05/18 08/14/18 History omeprazole magnesium 20 mg 20 mg PO DAILY 01/05/18 08/14/18 History tablet,delayed release oxycodone-acetaminophen 10 mg-325 1 tab PO BID PRN tab 01/05/18 08/14/18 History mg tablet oxymorphone ER 15 mg 15 mg PO Q12H 01/05/18 08/14/18 History tablet,extended release,12 hr aspirin [Aspir-81] 81 mg PO QAM 07/05/18 08/14/18 History lisinopril 20 mg PO DAILY 07/05/18 08/14/18 History propranolol 10 mg PO DAILY 07/05/18 08/14/18 History insulin glargine [Basaglar KwikPen 55 unit SUBCUT QAM 08/14/18 08/14/18 History U-100 Insulin] insulin lispro [Admelog SoloStar 0 unit SUBCUT .SLIDING SCALE 08/14/18 08/14/18 History U-100 Insulin] Past Med/Surg History Medical History 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) Type 1 diabetes mellitus (Chronic) Neuropathy (Chronic) Abscess of finger Abscess of left arm Acquired hallux limitus of both feet (Acute) Corns and callosities (Acute) 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 (Acute) H/O necrotizing fasciitis (Acute) HTN (hypertension) (Acute) MRSA infection (Acute) Osteomyelitis of right foot (Acute) Anemia of chronic disease Surgical History History of amputation of finger History of carpal tunnel release of both wrists (Resolved) Social History Current Living Situation Comment: Lives with parents current occupational status: employed current occupation: [employer] Feels Safe at Home: Yes Smoking Status: Current some day smoker Tobacco Type: cigarettes and smokeless tobacco Cigarettes Per Day: 3 Hx Alcohol Use: No Hx Substance Use: Yes (Occasional THC) Review of Systems Review of Systems: ROS: well nourished well developed. No double vision blurry vision No problems with speech or swallowing No palpitations, chest pain or pressure No Wheezing or breathing issues No abdominal pain nausea vomiting diarrhea No burning urine urine frequency or changes in color No focal joint pain or muscle pain although has neuropathy of his feet Ulcerations in various stages in various sizes across his feet No unusual bruising or bleeding No focused back pain or numbness or loss of strength No changes in memory or confusion Physical Exam Physical Exam: The patient appeared well nourished and normally developed. Vital signs as documented. Head exam is unremarkable. normocephalic, atraumatic Neck is without jugular venous distension, thyromegaly, or lymphademopathy Lungs are clear to auscultation and percussion. Cardiac exam reveals Rhythm is regular. First and second heart sounds normal. Abdominal exam reveals normal bowel sounds, no masses, no organomegaly Extremities are nonedematous and both pedal pulses are present Neurologic exam is A&Ox3, significant neuropathy in feet b/l Psychologically seems neither anxious or depressed Skin is there are large decubitus ulcers on his feet the largest is at the MTP area at the proximal 4 cm and probably a stage III there is a large amount of slough near towards the inside of his foot he actually has no sensation along there is a small 2 cm dry-based ulcer at the toe this is always a stage II and there is a smaller well-healed ulcer on the top of the toe probably half of a centimeter and there is a healing ulcer eschar at the dorsum aspect where his foot flexes were joint joints the lower leg. Pulses are poor capillary refill is delayed Results & Data Vital Signs (Past 12 Hours) Vital Signs Temp Pulse Pulse Resp BP BP Pulse Ox 08/14/18 16:45 90 18 113/61 99 08/14/18 15:28 36.7 C 111 H 20 107/64 98 Diagnostic Findings plan foot x ray No acute fracture or dislocation. Moderate soft tissue swelling. Peripheral arterial calcifications. (1) Type 1 diabetes mellitus Diabetes mellitus complication status: with skin complications
[2018-08-14] MEDS ORDERED: ACETAMINOPHEN 325 MG TAB PO PRN (18:48)
[2018-08-14] MEDS ORDERED: POLYETHYLENE (MIRALAX) 17 GM PACK PO PRN (18:48)
[2018-08-14] MEDS ORDERED: GLUCAGON FOR INJ 1 MG VIAL SQ PRN (18:48)
[2018-08-14] MEDS ORDERED: GLUCOSE 40% GEL 15 GM TUBE PO PRN (18:48)
[2018-08-14] MEDS ORDERED: GLUCOSE 10 TABS/TUBE PO PRN (18:48)
[2018-08-14] MEDS ORDERED: ONDANSETRON INJ 2 MG/ML 2 ML VIAL IV PRN (18:48)
[2018-08-14] MEDS ORDERED: DEXTROSE 50% 50 ML SYRINGE IV PRN (18:48)
[2018-08-14] MEDS ORDERED: DAPTOmycin 500 MG in SYRINGE 0 ML IV ONE (19:45)
[2018-08-14] MEDS: ALPRAZolam 0.5 MG TABLET PO PRN (20:15)
[2018-08-14 20:20] LABS: Partial Thromboplastin Time 27.3 Seconds (21.0-31.0)
[2018-08-14] MEDS ORDERED: ENOXAPARIN INJ 40 MG/0.4 ML SYR SQ SCH (21:00)
[2018-08-14] MEDS: IMIPENEM/CILASTATIN SODIUM 500 MG in DEXTROSE 5% 100 ML IV SCH (22:10)
[2018-08-14] MEDS: INSULIN ASPART 100 UNITS/ML 3 ML PEN SC SCH (22:15)
--- NOTE | 2018-08-14 22:24 | Magnetic Resonance Report ---
MR foot RT w/o con HISTORY: Right foot wound. Assess for osteomyelitis. TECHNIQUE: Multiplanar multisequence MRI of the right forefoot was performed without the use of intra venous contrast. COMPARISON STUDY: Right foot 08/14/2018. FINDINGS: There is a skin marker along the plantar surface of the medial right foot at the level of t he sesamoid bones. Deep to the skin marker there is a 2.0 x 1.8 cm focal skin ulceration. No loculate d fluid collections to suggest an abscess. There is trace fluid surrounding the intact flexor halluci s tendon. Normal marrow signal intensity seen throughout the visualized osseous structures of the for efoot. No cortical destruction to suggest osteomyelitis. There is dorsal subcutaneous edema within th e forefoot. Mild osteoarthritis at the first MTP joint. There is also edema within the plantar muscle s of the forefoot. IMPRESSION: 1. No evidence for osteomyelitis within the right forefoot. 2. A 2.0 x 1.8 cm focal skin ulceration along the plantar surface of the medial right forefoot at the level of the sesamoid bones. 3. Trace fluid surrounding the flexor hallucis longus tendon deep to the skin ulceration. This is con sistent with a tenosynovitis and could be infectious. 4. No loculated fluid collections to suggest an abscess. 5. Nonspecific edema within the plantar muscles of the forefoot. 6. Subcutaneous edema within the dorsum of the foot. Electronically signed by: Antony Wang M.D. 08/14/2018 10:22 PM
--- OUTSIDE RECORDS SUMMARY | 2018-08-14 23:34 | External Medical Summary | Continuity of Care Document ---
:1985 Author Name Gloria Bello, Provider Address Unavailable Unavailable , Care Team Providers Name Role Phone Rhonda Bello, Kiel Velázquez Unavailable [email or web address] Unavailable Unavailable Unavailable Unavailable Unavailable Problems Erectile dysfunction (607.84) (N52.9) Pre-ulcerative calluses (700) (L84) Depression with anxiety (300.4) (F41.8) Dyslipidemia (272.4) (E78.5) Hypertension (401.9) (I10) Current tobacco use (305.1) (Z72.0) Diabetic nephropathy associated with type 1 diabetes m ellitus (250.41) (E10.21) Albuminuria (791.0) (R80.9) Vitamin D deficiency (268.9) (E55.9) Diabetic peripheral neuropathy associate d with type 1 diabetes mellitus (250.61) (E10.42) Dysesthesia (782.0) (R20.8) Loss of sensation (782.0) (R20.0) Proliferative diabetic retinopathy assoc iated with type 1 diabetes mellitus (250.51) (E10.3599) Chronic renal insufficiency (585.9) (N18.9) Type 1 diabetes mellitus with complication (250.91) (E10.8) Diabetes mellitus type 1, uncontrolled (250.03) (E10.65) Allergies and Adverse Reactions amoxicillin (Allergy) Ceclor (Allergy) Keppra (Allergy) vancomycin (Allergy) Vytorin TABS (Allergy) Adhesive Tape (Allergy) Medications oxyCODONE-Acetaminophen 10-325 MG Oral Tablet; Take 1 tablet twice daily Eugenia Ellis Start: 07-Feb-2015 Quantity: 60 Refills: 0 PriLOSEC 20 MG CPDR; TAKE 1 CAPSULE DAILY. Start: 07-Feb-2015 Refills: 0 Aspirin 81 MG TABS; TAKE 1 TABLET DAILY. Start: 07-Feb-2015 Refills: 0 DULoxetine HCl - 60 MG Oral Capsule Kylie yed Release Particles; take 1 capsule by mouth once daily Eugenia Ellis Start: 26-May-2018 Quantity: 90 Refills: 3 Lantus SoloStar 100 UNIT/ML Subcutaneous Solution Pen-injector; INJECT 55 UNITS SUBCUTANEOUSLY EVERY MORNING Eugenia Ellis Start: 20-Feb-2015 Quantity: 30 Refills: 5 BioSig TechnologiesTouch Yardsale Blue In Vitro Strip; test 4 times a day Eugenia Mckay cht Start: 20-Feb-2015 Quantity: 4 100 Strip Box Refills: 3 DULoxetine HCl - 30 MG Oral Capsule Kylie yed Release Particles; TAKE 1 CAPSULE DAILY ALONG WIT H THE 60 MG TABLET Eugenia Ellis Start: 19-May-2015 Quantity: 90 Refills: 3 [employer] System w/Device Kit; USE DIRECTED. Eugenia Dutta Start: 18-Aug-2015 Quantity: 2 Refills: 0 oxyMORphone HCl ER 15 MG Oral Tablet Ext ended Release 12 Hour; Take 1 tablet twice daily Eugenia Ellis Start: 30-Mar-2016 Quantity: 60 Refills: 0 ALPRAZolam 0.5 MG Oral Tablet; TAKE 1 TABLET DAILY. Start: 01-Oct-2016 Refills: 0 Vitamin D3 Liquid; 5,000 iu's per drop. 4 drops daily- 20,00 0 iu's daily Start: 01-Oct-2016 Refills: 0 HumaLOG KwikPen 100 UNIT/ML Subcutaneous Solution Pen-injector; USE PER SLIDING SCALE TDD 50 units Eugenia Ellis Start: 19-Apr-2017 Quantity: 3 5 x 3 ML Pen Refills: 3 Atorvastatin Calcium 80 MG Oral Tablet; TAKE 1 TABLET BY MOUTH AT BEDTIME Eugenia Ellis Start: 26-May-2018 Quantity: 90 Refills: 3 Lisinopril 20 MG Oral Tablet; take 1 tablet by mouth o nce daily as directed Eugenia Ellis Start: 23-Jan-2018 Quantity: 30 Refills: 5 Nortriptyline HCl - 25 MG Oral Capsule; TAKE 1 CAPSULE AT BEDTIME. Eugenia Ellis Start: 12-May-2017 Quantity: 30 Refills: 5 OneTouch Delica Lancets Fine; test 4 times a day Abdias Ellis Start: 30-Jan-2018 Quantity: 2 100 Unit Box Refills: 3 Naloxone HCl - 0.4 MG/ML Injection Solution; USE DI RECTED. Eugenia Ellis Start: 14-Apr-2018 Quantity: 2 Refills: 5 Admelog SoloStar 100 UNIT/ML Subcutaneou s Solution Pen-injector; Inject per sliding scale TDD 50 units Eugenia Ellis Start: 03-Jul-2018 Quantity: 3 5 x 3 ML Pen Refills: 3 BD Pen Needle Short U/F 31G X 8 MM; use four times a day Eugenia Michaels Start: 03-Jul-2018 Quantity: 4 90 Unit Box Refills: 3 Procedures History of Oral Surgery Tooth Extraction Status: Completed Immunizations Influenza On: 19-Feb-2015 Pneumococcal polysaccharide vaccine, 23 valent Comments:DECLINED 05/09/2015 Influenza Comments:03/15/2016/ Pneumococcal polysaccharide vaccine, 23 valent Comments:08/16/2016-no Family History Mother Family history of hyperlipidemia (V18.19) (Z83.438) Status: Active Family history of depression (V17.0) (Z81.8) Status: Active Family history of asthma (V17.5) (Z82.5) Status: Active Father Family history of myocardial infarction (V17.3) (Z82.49) Sta tus: Active Unknown Family Member Family history of Alzheimer's disease (V17.2) Status: Active Comments: Family History (Z82.0) Family history of type 2 diabetes mellitus Status: Active Comments: Family History (V18.0) (Z83.3) Family history of congestive heart failure Status: Active Comments: Family History (V17.49) (Z82.49) Social History - Smoking Status Never smoker Plan of Treatment Planned Encounters Appointment; Kiel Ellis M.D. Start: 18-Aug-2018 12:30 Req uest Planned Observations Planned Goals not documented Results No Known Results Results not documented Encounters Appointment; Genny Jacob R.D. 16-May-2018 9:30 Encounter Diagnosis: Problem not documented Appointment; Kiel Ellis M.D. 14-Apr-2018 11:30 Encounter Diagnosis: Problem not documented Appointment; Kiel Ellis M.D. 17-Mar-2018 15:00 Encounter Diagnosis: Problem not documented Appointment; Kiel Ellis M.D. 13-Jan-2018 11:30 Encounter Diagnosis: Problem not documented Appointment; Kiel Ellis M.D. 02-Jan-2018 14:30 Encounter Diagnosis: Problem not documented Appointment; Kiel Ellis M.D. 12-Aug-2017 15:00 Encounter Diagnosis: Problem not documented Appointment; Kiel Ellis M.D. 02-May-2017 12:30 Encounter Diagnosis: Problem not documented Appointment; Kiel Ellis M.D. 01-Apr-2017 15:00 Encounter Diagnosis: Problem not documented Appointment; Kiel Ellis M.D. 31-Dec-2016 14:30 Encounter Diagnosis: Problem not documented Appointment; Kiel Ellis M.D. 01-Oct-2016 15:30 Encounter Diagnosis: Problem not documented Appointment; Kiel Ellis M.D. 16-Aug-2016 14:00 Encounter Diagnosis: Problem not documented Appointment; Kiel Ellis M.D. 18-Aug-2018 12:30 Encounter Diagnosis: Problem not documented
[2018-08-14] MEDS: OXYCODONE/ACETAMINOPHEN 10-325 TAB PO PRN (23:57)
[2018-08-15] MEDS: IMIPENEM/CILASTATIN SODIUM 500 MG in DEXTROSE 5% 100 ML IV SCH ×4 (01:49→20:30)
[2018-08-15 07:20] LABS: Hematocrit (blood only) 26.9 % (42-52); Hemoglobin 9.3 g/dL (14.0-18.0); Mean Corpuscular Hgb Conc 34.6 g/dL (32-36); Mean Corpuscular Volume 86.8 fL (80-100); Mean Platelet Volume 9.5 fL (7.4-10.4); Platelet Count 302 K/uL (130-400); RDW Coefficient of Variation 12.2 % (11.5-14.5); RDW Standard Deviation 38.3 fL (36.4-46.3)
[2018-08-15 07:58] LABS: Calcium 8.7 mg/dl (8.5-10.1); Creatinine Clr Calc Pharmacy 108.1 ml/min; Est GFR (African American) 98.4; Est GFR (Non-African American) 84.9; Potassium 4.4 mmol/L (3.5-5.1)
[2018-08-15] MEDS: PANTOprazole 40 MG TAB PO SCH (08:47)
[2018-08-15] MEDS: OXYCODONE HCL 10 MG TABCR (OXYCONTIN) PO SCH ×2 (08:47→20:29)
[2018-08-15] MEDS: MULTIVITAMIN TAB PO SCH (08:48)
[2018-08-15] MEDS: DULOXETINE HCL 60 MG CAP PO SCH (08:48)
[2018-08-15] MEDS: VITAMIN B COMPLEX TAB PO SCH (08:48)
[2018-08-15] MEDS: ASPIRIN 81 MG ECTAB PO SCH (08:48)
[2018-08-15] MEDS: DULOXETINE HCL 30 MG CAP PO SCH (08:49)
[2018-08-15] MEDS: LISINOPRIL 20 MG TAB PO SCH (08:49)
[2018-08-15] MEDS: LACTOBACILLUS ACIDOPHILUS (FLORANEX) TAB PO SCH (08:49)
[2018-08-15] MEDS: INSULIN ASPART 100 UNITS/ML 3 ML PEN SC SCH ×4 (08:56→20:30)
[2018-08-15] MEDS: INSULIN GLARGINE SOLOSTAR 100 UNITS/ML 3 ML PEN SC SCH (08:56)
[2018-08-15] MEDS ORDERED: ATORVASTATIN 40 MG TAB PO SCH (09:00)
--- NOTE | 2018-08-15 10:13 | Infectious Disease Consult ---
Date of Consultation August 15, 2018 Assessment & Plan (1) Cellulitis in diabetic foot: Cellulitis of right foot and great toe in the setting of diabetic foot ulcer, without obvious osteomyelitis on MRI scanning. Current antibiotics appropriate given allergies and previous reaction to vancomycin. Length of IV antibiotics will be determined by clinical response. Await cultures. Will follow. (2) Cellulitis of foot: History of Present Illness Reason for Consultation: Patient ordered Primaxin Attending Physician: Felton Lord MD History of Present Illness 32-year-old male with long history of type 1 diabetes mellitus with peripheral neuropathy, who has had ulceration starting in his right great toe several weeks ago from poorly fitting shoes, then developed ulceration of the plantar foot after wearing new protective boot. He was seen in the wound care center and referred to the hospital yesterday because of evidence of worsening infection with cellulitis of the foot. He has been started empirically on daptomycin and imipenem. He denies any pain, but has neuropathy and states he has no pain sensation. Has not had any fever, chills, or other associated systemic complaints. He has been tolerating his antibiotic without apparent difficulty. MRI scan of the foot shows no obvious osteomyelitis.. Gram stain from the wound shows gram-positive cocci, blood cultures are negative to date. Previous wound culture positive for methicillin sensitive staph aureus and Alcaligenes. Allergies Allergy/AdvReac Type Severity Reaction Status Date / Time aminophylline Allergy Severe weird Unverified 08/14/18 17:37 feeling ezetimibe Allergy Severe chest Verified 08/14/18 17:37 pressure simvastatin Allergy Severe chest Verified 08/14/18 17:37 pressure vancomycin Allergy Severe acute Verified 08/14/18 17:37 renal failure adhesive tape Allergy Intermediate red/blochy/ Unverified 08/14/18 17:37 itchy amoxicillin Allergy Intermediate hives Verified 08/14/18 17:37 cefaclor Allergy Intermediate hives Verified 08/14/18 17:37 gabapentin Allergy Intermediate confusion Verified 08/14/18 17:37 pregabalin Allergy Intermediate confusion Verified 08/14/18 17:37 aztreonam Allergy Mild BURNING UP Verified 08/14/18 17:37 Home Medications Home Medications Medication Instructions Recorded Confirmed Type B-complex with vitamin C tablet 1 tab PO QAM 01/05/18 08/14/18 History alprazolam 0.5 mg tablet 0.5 mg PO DAILY PRN tab 01/05/18 08/14/18 History atorvastatin 80 mg tablet 80 mg PO QAM 01/05/18 08/14/18 History duloxetine 30 mg capsule,delayed 30 mg PO QAM 01/05/18 08/14/18 History release duloxetine 60 mg capsule,delayed 60 mg PO QAM 01/05/18 08/14/18 History release lactobacillus combination no.8 3 3,000 mmu cells PO QAM 01/05/18 08/14/18 History billion cell capsule multivitamin capsule 1 cap PO QAM 01/05/18 08/14/18 History omeprazole magnesium 20 mg 20 mg PO QAM 01/05/18 08/14/18 History tablet,delayed release oxycodone-acetaminophen 10 mg-325 1 tab PO BID PRN tab 01/05/18 08/14/18 History mg tablet oxymorphone ER 15 mg 15 mg PO Q12H 01/05/18 08/14/18 History tablet,extended release,12 hr aspirin [Aspir-81] 81 mg PO QAM 07/05/18 08/14/18 History lisinopril 20 mg PO QAM 07/05/18 08/14/18 History propranolol 10 mg PO QAM 07/05/18 08/14/18 History insulin glargine [Basaglar KwikPen 55 unit SUBCUT QAM 08/14/18 08/14/18 History U-100 Insulin] insulin lispro [Admelog SoloStar 0 unit SUBCUT .SLIDING SCALE 08/14/18 08/14/18 History U-100 Insulin] Patient History Medical History 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) Type 1 diabetes mellitus (Chronic) Neuropathy (Chronic) Abscess of finger Abscess of left arm Acquired hallux limitus of both feet (Acute) Corns and callosities (Acute) H/O necrotizing fasciitis (Acute) HTN (hypertension) (Acute) MRSA infection (Acute) Osteomyelitis of right foot (Acute) Anemia of chronic disease 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 Surgical History History of amputation of finger History of carpal tunnel release of both wrists (Resolved) Social History Preferred Language: Spanish Communication Ability: Effective Application Packaging Consultant Required: No Beliefs That Will Affect Care: None Current Living Situation: Parent Current Living Situation Comment: Lives with parents current occupational status: employed current occupation: [employer] Other Information That Helps Us Care for You: No Feels Safe at Home: Yes Smoking Status: Current every day smoker Tobacco Type: cigarettes and smokeless tobacco Cigarettes Per Day: 1/2 PPD Do You Dip or Chew Tobacco: Yes Tobacco Cessation Education Requested by Patient: No Hx Alcohol Use: No Hx Substance Use: Yes (Occasional THC) substance use type: marijuana Review of Systems Review of Systems: All systems reviewed & are unremarkable except as noted in HPI & below Physical Exam Constitutional: WD/WN, vitals as above comfortable; no acute distress Eyes: PERRL, conjunctivae normal, anicteric sclerae ENMT: external ear and nose normal, oropharynx normal Neck: trachea midline, no thyromegaly neck nontender Respiratory: normal respiratory effort, lungs clear to auscultation normal percussion; does not use accessory muscles Cardiovascular: Rate/Rhythm: regular rate and regular rhythm Heart Sounds: normal S1 and normal S2; no gallop, no murmur and no cardiac rub Vessels: normal peripheral pulses; no JVD Gastrointestinal (Abdomen): normal bowel sounds, soft, nontender, no hepatosplenomegaly Musculoskeletal: no cyanosis or clubbing, extremities motor strength 5/5 Spine: thoracic spine normal to inspection and lumbar spine normal to inspection; no cervical spinal tenderness Skin: no rashes, warm and dry normal turgor and + wound (Right great toe ulcer, right plantar ulcer both with surrounding erythema) Neurologic: moves all extremities and awake; no focal motor deficits Motor/Sensory: + sensory deficit (Lack of sensation in both feet) Psychiatric: A+Ox3, euthymic affect Orientation: cooperative Lymphatic: no cervical or axillary lymphadenopathy no inguinal lymphadenopathy Results & Data Vital Signs (Past 12 Hours) Vital Signs Temp Pulse Resp BP BP Pulse Ox 08/15/18 07:12 36.6 C 85 22 121/70 96 08/15/18 00:54 36.6 C 88 18 137/92 99 Laboratory Results Short CBC 08/14/18 08/15/18 Range/Units 16:17 06:55 WBC 10.87 H 8.70 (4.8-10.8) K/uL Hgb 9.4 L 9.3 L (14.0-18.0) g/dL Hct 26.9 L 26.9 L (42-52) % Plt Count 354 302 (130-400) K/uL BMP 08/14/18 08/15/18 16:17 06:55 Sodium 138 139 Potassium 4.3 4.4 Chloride 98 103 Carbon Dioxide 35 H 29 BUN 25 H 26 H Creatinine 1.30 1.13 Glucose 129 H 168 H Calcium 9.6 8.7 Liver Function 08/14/18 Range/Units 16:17 Total Bilirubin 0.2 (0.2-1) mg/dl AST 11 L (15-37) U/L ALT 17 (12-78) U/L Alkaline Phosphatase 114 (45-117) U/L Albumin 3.1 L (3.4-5.0) gm/dl Diagnostic Findings Received: 08/14/18-[address]: Jesse Epperson, DO Copy To: Allen Bell MD Self, Referred Source: Foot,Right OV Order: Ordered: Surf Wnd Cul/Sm Procedure Result Verified Site Gram Stain Final 08/15/18 Gram Stain Result Many Gram Positive Cocci Few Gram Positive Bacilli Few Epithelial Cells No WBCs Seen Surface Wound Culture Preliminary 08/15/18-831 Organism 1 Gram positive cocci Quantity Few Sens Sensitivities Dependent on Further Identification +MixWound Plus Low Counts of Probable Skin Danuta Name: LIDYATRINOJONATHAN : 1985 PAGE 1 Printed: 08/15/18 1013 END OF REPORT MR foot RT w/o con HISTORY: Right foot wound. Assess for osteomyelitis. TECHNIQUE: Multiplanar multisequence MRI of the right forefoot was performed without the use of intravenous contrast. COMPARISON STUDY: Right foot 08/14/2018. FINDINGS: There is a skin marker along the plantar surface of the medial right foot at the level of the sesamoid bones. Deep to the skin marker there is a 2.0 x 1.8 cm focal skin ulceration. No loculated fluid collections to suggest an abscess. There is trace fluid surrounding the intact flexor hallucis tendon. Normal marrow signal intensity seen throughout the visualized osseous structures of the forefoot. No cortical destruction to suggest osteomyelitis. There is dorsal subcutaneous edema within the forefoot. Mild osteoarthritis at the first MTP joint. There is also edema within the plantar muscles of the forefoot. IMPRESSION: 1. No evidence for osteomyelitis within the right forefoot. 2. A 2.0 x 1.8 cm focal skin ulceration along the plantar surface of the medial right forefoot at the level of the sesamoid bones. 3. Trace fluid surrounding the flexor hallucis longus tendon deep to the skin ulceration. This is consistent with a tenosynovitis and could be infectious. 4. No loculated fluid collections to suggest an abscess. 5. Nonspecific edema within the plantar muscles of the forefoot. 6. Subcutaneous edema within the dorsum of the foot. Electronically signed by: Antony Wang M.D. 08/14/2018 10:22 PM
--- NOTE | 2018-08-15 14:33 | Hospitalist Progress Note ---
Date of Service August 15, 2018 Assessment & Plan (1) Diabetic foot infection: Long-standing infections due to his diabetes. Follow with Wound Center - Continue daptomycin & imipenem/cilastatin - ID following - Appreciate recs - Orthopedics aware - Plan for consult today or tomorrow (2) Type 1 diabetes mellitus: A1c was 12.3% in 03/2018. - Continue insulin Lantus 55 units QAM - Sliding scale insulin - Continue duloxetine for diabetic neuropathy & oxycodone (3) HTN (hypertension): BP normal in last 24 hours. - Continue home lisinopril & propranolol (4) MRSA infection: (5) Anemia of chronic disease: Baseline hgb is ~9. - At baseline on 08/15 (6) Low TSH level: TSH was 0.16 in 07/2017 & now 0.22 on 08/15. - No signs/symptoms of hyperthyroidism. - Outpatient follow up (7) Cardiovascular disease: No chest pain. Patient takes aspirin 81, atorvastatin 80, and a beta- rhina. - Continue home meds (8) DVT prophylaxis: SCDs - Low risk per admission calculator Subjective Feels well this moring. Wants to get the foot improved; aware it might need surgery. Reports no fevers/chills, chest pain, shortness of breath, abdominal pain, nausea, or vomiting. Review of Systems Review of Systems: All systems reviewed & are unremarkable except as noted in HPI & below Physical Exam Constitutional: WD/WN, vitals as above comfortable; no acute distress Eyes: PERRL, conjunctivae normal, anicteric sclerae ENMT: external ear and nose normal, oropharynx normal Neck: trachea midline, no thyromegaly Respiratory: normal respiratory effort, lungs clear to auscultation Cardiovascular: Rate/Rhythm: regular rate and regular rhythm Heart Sounds: normal S1 and normal S2; no gallop, no murmur and no cardiac rub Vessels: normal peripheral pulses; no JVD Gastrointestinal (Abdomen): normal bowel sounds, soft, nontender, no hepatosplenomegaly Musculoskeletal: no cyanosis or clubbing, extremities motor strength 5/5 Skin: no rashes, warm and dry + wound (Right great toe ulcer, right plantar ulcer both with surrounding erythema) Neurologic: moves all extremities and awake; no focal motor deficits Motor/Sensory: + sensory deficit (Lack of sensation in both feet) Psychiatric: Orientation: cooperative Lymphatic: no cervical or axillary lymphadenopathy no inguinal lymphadenopathy Results & Data Vital Signs (Past 12 Hours) Vital Signs Temp Pulse Resp BP Pulse Ox 08/15/18 07:12 36.6 C 85 22 121/70 96
[2018-08-15] MEDS: CARBOHYDRATES FOR HYPOGLYCEMIA PO PRN (15:04)
--- NOTE | 2018-08-15 16:58 | Wound Consultation ---
Date of Consultation August 15, 2018 Assessment & Plan (1) Cellulitis in diabetic foot: MRI shows no clear evidence of osteomyelitis. Patient will likely benefit from surgical debridement of the necrotic tissue and washout. Will await surgical consult. Antibiotics per infectious disease. Will be covered with Aquacel Ag and 4 x 4's secured with Kerlix. Change every day as needed and as needed. I will continue to follow patient while he is inpatient. Thank you for allowing me to participate in the care of this patient. Please not hesitate to call with any questions. (2) Cellulitis of foot: History of Present Illness Attending Physician: Felton Lord MD This is a 32-year-old male who was sent in to the emergency department from the wound clinic with a diabetic foot ulcer. Patient was admitted for IV antibiotics and surgical evaluation. Patient denies any new complaints. He does state that his foot does not does not feel right that there is increased pressure. Patient's initial wounds started after wearing a pair of boots. Patient did miss some visits to the wound clinic. He was on Bactrim for previous wound culture which ran out 2 weeks ago. Allergies Allergy/AdvReac Type Severity Reaction Status Date / Time aminophylline Allergy Severe weird Unverified 08/14/18 17:37 feeling ezetimibe Allergy Severe chest Verified 08/14/18 17:37 pressure simvastatin Allergy Severe chest Verified 08/14/18 17:37 pressure vancomycin Allergy Severe acute Verified 08/14/18 17:37 renal failure adhesive tape Allergy Intermediate red/blochy/ Unverified 08/14/18 17:37 itchy amoxicillin Allergy Intermediate hives Verified 08/14/18 17:37 cefaclor Allergy Intermediate hives Verified 08/14/18 17:37 gabapentin Allergy Intermediate confusion Verified 08/14/18 17:37 pregabalin Allergy Intermediate confusion Verified 08/14/18 17:37 aztreonam Allergy Mild BURNING UP Verified 08/14/18 17:37 Home Medications Home Medications Medication Instructions Recorded Confirmed Type B-complex with vitamin C tablet 1 tab PO QAM 01/05/18 08/14/18 History alprazolam 0.5 mg tablet 0.5 mg PO DAILY PRN tab 01/05/18 08/14/18 History atorvastatin 80 mg tablet 80 mg PO QAM 01/05/18 08/14/18 History duloxetine 30 mg capsule,delayed 30 mg PO QAM 01/05/18 08/14/18 History release duloxetine 60 mg capsule,delayed 60 mg PO QAM 01/05/18 08/14/18 History release lactobacillus combination no.8 3 3,000 mmu cells PO QAM 01/05/18 08/14/18 History billion cell capsule multivitamin capsule 1 cap PO QAM 01/05/18 08/14/18 History omeprazole magnesium 20 mg 20 mg PO QAM 01/05/18 08/14/18 History tablet,delayed release oxycodone-acetaminophen 10 mg-325 1 tab PO BID PRN tab 01/05/18 08/14/18 History mg tablet oxymorphone ER 15 mg 15 mg PO Q12H 01/05/18 08/14/18 History tablet,extended release,12 hr aspirin [Aspir-81] 81 mg PO QAM 07/05/18 08/14/18 History lisinopril 20 mg PO QAM 07/05/18 08/14/18 History propranolol 10 mg PO QAM 07/05/18 08/14/18 History insulin glargine [Basaglar KwikPen 55 unit SUBCUT QAM 08/14/18 08/14/18 History U-100 Insulin] insulin lispro [Admelog SoloStar 0 unit SUBCUT .SLIDING SCALE 08/14/18 08/14/18 History U-100 Insulin] Patient History Medical History 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) Type 1 diabetes mellitus (Chronic) Neuropathy (Chronic) Abscess of finger Abscess of left arm Acquired hallux limitus of both feet (Acute) Corns and callosities (Acute) H/O necrotizing fasciitis (Acute) HTN (hypertension) (Acute) MRSA infection (Acute) Osteomyelitis of right foot (Acute) Anemia of chronic disease 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 Surgical History History of amputation of finger History of carpal tunnel release of both wrists (Resolved) Social History Preferred Language: Jamaican Communication Ability: Effective Sole Seamer Required: No Beliefs That Will Affect Care: None Current Living Situation: Parent Current Living Situation Comment: Lives with parents current occupational status: employed current occupation: [employer] Other Information That Helps Us Care for You: No Feels Safe at Home: Yes Smoking Status: Current every day smoker Tobacco Type: cigarettes and smokeless tobacco Cigarettes Per Day: 1/2 PPD Do You Dip or Chew Tobacco: Yes Tobacco Cessation Education Requested by Patient: No Hx Alcohol Use: No Hx Substance Use: Yes (Occasional THC) substance use type: marijuana Review of Systems Review of Systems: All systems reviewed & are unremarkable except as noted in HPI & below Physical Exam Constitutional: WD/WN, vitals as above Eyes: PERRL, conjunctivae normal, anicteric sclerae ENMT: Ears: no hearing impairment Respiratory: normal respiratory effort, lungs clear to auscultation Cardiovascular: RRR, no murmur, no edema Gastrointestinal (Abdomen): normal bowel sounds, soft, nontender, no hepatosplenomegaly Skin: Right medial great toe wound measuring 2 x 1.5 cm. Wound is covered with fibrin and slough. Wound #2 right plantar foot measuring 2.6 x 2.6 cm. Wound is covered with necrotic tissue. Neurologic: awake; not confused Psychiatric: A+Ox3, euthymic affect Results & Data Vital Signs (Past 12 Hours) Vital Signs Temp Pulse Pulse Resp BP Pulse Ox 08/15/18 14:47 36.8 C 98 H 20 123/63 100 08/15/18 07:12 36.6 C 85 22 121/70 96
--- NOTE | 2018-08-15 19:44 | Orthopedic Consultation ---
Date of Consultation August 15, 2018 Assessment & Plan (1) Plantar ulcer of left foot with fat layer exposed: I have been asked to evaluate this patient on behalf of Dr. Mendoza who is covering for Dr. Mares. Patient responding well to IV antibiotics, continue per medical team however plantar foot ulceration with central necrosis would likely benefit from surgical debridement. Will discuss with Dr. Mendoza, foot and ankle specialist for [facility] for definitive treatment. Nonweightbearing right lower extremity, continue with wound care, continue with IV antibiotics, neuropathy precautions, n.p.o. after midnight. Thank you for the consultation. History of Present Illness Reason for Consultation: Right foot plantar ulcer Attending Physician: Felton Lord MD History of Present Illness This is a 32-year-old male with significant PMHx for DM1, not well controlled, neuropathy, MRSA who was sent in to the emergency department from the wound clinic with a diabetic foot ulcer. Swabs + for gram + cocci. Patient was admitted for IV antibiotics and surgical evaluation. Patient denies any new complaints. He does state that his foot does not does not feel right that there is increased pressure. Denies F/C/N/V/D/SOB/CP. Allergies Allergy/AdvReac Type Severity Reaction Status Date / Time aminophylline Allergy Severe weird Unverified 08/14/18 17:37 feeling ezetimibe Allergy Severe chest Verified 08/14/18 17:37 pressure simvastatin Allergy Severe chest Verified 08/14/18 17:37 pressure vancomycin Allergy Severe acute Verified 08/14/18 17:37 renal failure adhesive tape Allergy Intermediate red/blochy/ Unverified 08/14/18 17:37 itchy amoxicillin Allergy Intermediate hives Verified 08/14/18 17:37 cefaclor Allergy Intermediate hives Verified 08/14/18 17:37 gabapentin Allergy Intermediate confusion Verified 08/14/18 17:37 pregabalin Allergy Intermediate confusion Verified 08/14/18 17:37 aztreonam Allergy Mild BURNING UP Verified 08/14/18 17:37 Home Medications Home Medications Medication Instructions Recorded Confirmed Type B-complex with vitamin C tablet 1 tab PO QAM 01/05/18 08/14/18 History alprazolam 0.5 mg tablet 0.5 mg PO DAILY PRN tab 01/05/18 08/14/18 History atorvastatin 80 mg tablet 80 mg PO QAM 01/05/18 08/14/18 History duloxetine 30 mg capsule,delayed 30 mg PO QAM 01/05/18 08/14/18 History release duloxetine 60 mg capsule,delayed 60 mg PO QAM 01/05/18 08/14/18 History release lactobacillus combination no.8 3 3,000 mmu cells PO QAM 01/05/18 08/14/18 H istory billion cell capsule multivitamin capsule 1 cap PO QAM 01/05/18 08/14/18 History omeprazole magnesium 20 mg 20 mg PO QAM 01/05/18 08/14/18 History tablet,delayed release oxycodone-acetaminophen 10 mg-325 1 tab PO BID PRN tab 01/05/18 08/14/18 History mg tablet oxymorphone ER 15 mg 15 mg PO Q12H 01/05/18 08/14/18 History tablet,extended release,12 hr aspirin [Aspir-81] 81 mg PO QAM 07/05/18 08/14/18 History lisinopril 20 mg PO QAM 07/05/18 08/14/18 History propranolol 10 mg PO QAM 07/05/18 08/14/18 History insulin glargine [Basaglar KwikPen 55 unit SUBCUT QAM 08/14/18 08/14/18 History U-100 Insulin] insulin lispro [Admelog SoloStar 0 unit SUBCUT .SLIDING SCALE 08/14/18 08/14/18 History U-100 Insulin] Patient History Medical History 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) Type 1 diabetes mellitus (Chronic) Neuropathy (Chronic) Abscess of finger Abscess of left arm Acquired hallux limitus of both feet (Acute) Corns and callosities (Acute) H/O necrotizing fasciitis (Acute) HTN (hypertension) (Acute) MRSA infection (Acute) Osteomyelitis of right foot (Acute) Anemia of chronic disease 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 Surgical History History of amputation of finger History of carpal tunnel release of both wrists (Resolved) Social History Preferred Language: [place] Communication Ability: Effective Engine Installer Required: No Beliefs That Will Affect Care: None Current Living Situation: Parent Current Living Situation Comment: Lives with parents current occupational status: employed current occupation: [employer] Other Information That Helps Us Care for You: No Feels Safe at Home: Yes Smoking Status: Current every day smoker Tobacco Type: cigarettes and smokeless tobacco Cigarettes Per Day: 1/2 PPD Do You Dip or Chew Tobacco: Yes Tobacco Cessation Education Requested by Patient: No Hx Alcohol Use: No Hx Substance Use: Yes (Occasional THC) substance use type: marijuana Review of Systems Review of Systems: All systems reviewed & are unremarkable except as noted in HPI & below Constitutional: as per Subjective / HPI Physical Exam Physical Exam: RLE PE: Right medial great toe wound measuring 2 x 1.5 cm. Wound is covered with fibrin and slough. Wound #2 right plantar foot measuring 2.6 x 2.6 cm. Wound is covered with necro tic tissue. clean skin edges, +edema, no cellulitis. Constitutional: WD/WN, vitals as above Results & Data Vital Signs (Past 12 Hours) Vital Signs Temp Pulse Resp BP Pulse Ox 08/15/18 14:47 36.8 C 98 H 20 123/63 100 Diagnostic Findings [place], [place] [phone] Magnetic Resonance Report Patient: JONATHAN PRADHAN Date: 08/14/18 MR#: [id number]: [address] Acct ID:[id number]: [facility]: [facility] Zip: [place] [address] Age: 32Location: 4W Sex: M Room/Bed: [facility] Att Phy: Jerzy South MDDiagnosis: DIABETIC FOOT INFECTION Trish Phy: Allen Bell MDService Date: 08/14/18 Fam Phy: Interpreting Phy: Antony Wang MD Admit Phy: Maco Mendoza MD Ordering Phy: Maco Mendoza MD cc: ~ MR foot RT w/o con HISTORY: Right foot wound. Assess for osteomyelitis. TECHNIQUE: Multiplanar multisequence MRI of the right forefoot was performed without the use of intravenous contrast. COMPARISON STUDY: Right foot 08/14/2018. FINDINGS: There is a skin marker along the plantar surface of the medial right foot at the level of the sesamoid bones. Deep to the skin marker there is a 2.0 x 1.8 cm focal skin ulceration. No loculated fluid collections to suggest an abscess. There is trace fluid surrounding the intact flexor hallucis tendon. Normal marrow signal intensity seen throughout the visualized osseous structures of the forefoot. No cortical destruction to suggest osteomyelitis. There is dorsal subcutaneous edema within the forefoot. Mild osteoarthritis at the first MTP joint. There is also edema within the plantar muscles of the forefoot. IMPRESSION: 1. No evidence for osteomyelitis within the right forefoot. 2. A 2.0 x 1.8 cm focal skin ulceration along the plantar surface of the medial right forefoot at the level of the sesamoid bones. 3. Trace fluid surrounding the flexor hallucis longus tendon deep to the skin ulceration. This is consistent with a tenosynovitis and could be infectious. 4. No loculated fluid collections to suggest an abscess. 5. Nonspecific edema within the plantar muscles of the forefoot. 6. Subcutaneous edema within the dorsum of the foot. XR foot RT min 3V routine HISTORY: 32 years-old Male R foot ulcer ulceration of the right foot. Acute right foot pain COMPARISON: Right foot radiographs 07/11/2018 TECHNIQUE: 3 views of the right foot FINDINGS: Peripheral arterial calcifications are noted. Mild degenerative changes about the first interphalangeal joint. There is moderate soft tissue prominence about the lower leg, foot and ankle. Soft tissue prominence is also noted within the distribution of the distal Achilles tendon. There is no opaque foreign body. Mild marginal spurring about the talonavicular articulation. No acute fracture or dislocation. IMPRESSION: 1. No acute fracture or dislocation. 2. Moderate soft tissue swelling. 3. Peripheral arterial calcifications.
[2018-08-15] MEDS: DAPTOmycin 500 MG in SYRINGE 0 ML IV SCH (20:29)
[2018-08-15] MEDS: ALPRAZolam 0.5 MG TABLET PO PRN (20:29)
[2018-08-16] MEDS: IMIPENEM/CILASTATIN SODIUM 500 MG in DEXTROSE 5% 100 ML IV SCH ×4 (01:29→20:08)
[2018-08-16] MEDS ORDERED: INSULIN ASPART 100 UNITS/ML 3 ML PEN SC SCH ×2 (06:30→09:00)
[2018-08-16] MEDS ORDERED: PHARMACY GLYCEMIC MGMT CONSULT PRN (06:40)
[2018-08-16 07:25] LABS: Hemoglobin 8.9 g/dL (14.0-18.0); Mean Corpuscular Hgb Conc 34.2 g/dL (32-36); Mean Corpuscular Volume 87.5 fL (80-100); Mean Platelet Volume 9.8 fL (7.4-10.4); Platelet Count 301 K/uL (130-400); RDW Standard Deviation 38.4 fL (36.4-46.3); Red Blood Count 2.97 M/uL (4.7-6.1); White Blood Count 6.64 K/uL (4.8-10.8)
[2018-08-16] MEDS: OXYCODONE HCL 10 MG TABCR (OXYCONTIN) PO SCH ×2 (07:47→20:07)
[2018-08-16] MEDS: MULTIVITAMIN TAB PO SCH (07:47)
[2018-08-16] MEDS: DULOXETINE HCL 30 MG CAP PO SCH (07:47)
[2018-08-16] MEDS: DULOXETINE HCL 60 MG CAP PO SCH (07:47)
[2018-08-16] MEDS: PANTOprazole 40 MG TAB PO SCH (07:47)
[2018-08-16] MEDS: LISINOPRIL 20 MG TAB PO SCH (07:47)
[2018-08-16] MEDS: LACTOBACILLUS ACIDOPHILUS (FLORANEX) TAB PO SCH (07:47)
[2018-08-16] MEDS: VITAMIN B COMPLEX TAB PO SCH (07:48)
[2018-08-16] MEDS: ASPIRIN 81 MG ECTAB PO SCH (07:48)
[2018-08-16] MEDS: INSULIN GLARGINE SOLOSTAR 100 UNITS/ML 3 ML PEN SC SCH (08:08)
[2018-08-16 08:10] LABS: BUN Creatinine Ratio 21.2 (10-20); Calcium 8.5 mg/dl (8.5-10.1); Creatinine Clr Calc Pharmacy 104.4 ml/min; Est GFR (African American) 94.4; Est GFR (Non-African American) 81.4
[2018-08-16 08:21] LABS: Beta-Hydroxybutyrate 0.79 mg/dl (0.2-2.81)
[2018-08-16] MEDS ORDERED: SEVERE STRESS LEVEL ONE (08:32)
[2018-08-16] MEDS ORDERED: INSULIN PROTOCOL GOAL RANGE ONE (08:32)
[2018-08-16] MEDS ORDERED: INSULIN REGULAR 250 UNITS in SODIUM CHLORIDE 0.9% 247.5 ML IV SCH (09:00)
[2018-08-16] MEDS ORDERED: INSULIN HUMAN REGULAR IV BOLUS 3 UNITS in SYRINGE 0 ML IV ONE (09:00)
[2018-08-16] MEDS ORDERED: MODERATE STRESS LEVEL STA (09:05)
[2018-08-16] MEDS ORDERED: DEXTROSE 5% 1,000 ML IV SCH (12:00)
[2018-08-16] MEDS: OXYCODONE/ACETAMINOPHEN 10-325 TAB PO PRN (12:21)
--- NOTE | 2018-08-16 15:09 | Infectious Disease Progress Nt ---
Date of Service August 16, 2018 Assessment & Plan (1) Cellulitis in diabetic foot: Cellulitis of right foot and great toe in the setting of diabetic foot ulcer, without obvious osteomyelitis on MRI scanning. Current antibiotics appropriate given allergies and previous reaction to vancomycin. Length of IV antibiotics will be determined by clinical response. Await decision surgical debridement. Will follow. (2) Cellulitis of foot: Subjective Patient seen in follow-up for right foot infection. Orthopedic and wound care consultations noted. Patient remains afebrile, appears to be tolerating antibiotics. Awaiting decision regarding surgical debridement. No other new complaints. Foot wound culture growing alpha strep only so far. Review of Systems Review of Systems: All systems reviewed & are unremarkable except as noted in HPI & below Physical Exam Constitutional: WD/WN, vitals as above comfortable; no acute distress Eyes: PERRL, conjunctivae normal, anicteric sclerae ENMT: external ear and nose normal, oropharynx normal Neck: trachea midline, no thyromegaly neck nontender Respiratory: normal respiratory effort, lungs clear to auscultation normal percussion; does not use accessory muscles Cardiovascular: Rate/Rhythm: regular rate and regular rhythm Heart Sounds: normal S1 and normal S2; no gallop, no murmur and no cardiac rub Vessels: normal peripheral pulses; no JVD Gastrointestinal (Abdomen): normal bowel sounds, soft, nontender, no hepatosplenomegaly Musculoskeletal: no cyanosis or clubbing, extremities motor strength 5/5 Spine: thoracic spine normal to inspection and lumbar spine normal to inspection; no cervical spinal tenderness Skin: no rashes, warm and dry normal turgor and + wound (Right great toe ulcer, right plantar ulcer both with surrounding erythema) Neurologic: moves all extremities and awake; no focal motor deficits Motor/Sensory: + sensory deficit (Lack of sensation in both feet) Psychiatric: A+Ox3, euthymic affect Orientation: cooperative Lymphatic: no cervical or axillary lymphadenopathy no inguinal lymphadenopathy Results & Data Vital Signs (Past 12 Hours) Vital Signs Temp Pulse Resp Pulse Ox 08/16/18 07:19 36.7 C 99 H 20 91 Laboratory Results Short CBC 08/16/18 Range/Units 06:50 WBC 6.64 (4.8-10.8) K/uL Hgb 8.9 L (14.0-18.0) g/dL Hct 26.0 L (42-52) % Plt Count 301 (130-400) K/uL BMP 08/16/18 06:50 Sodium 134 L Potassium 5.0 Chloride 100 Carbon Dioxide 31 BUN 25 H Creatinine 1.17 Glucose 386 H* Calcium 8.5 Diagnostic Findings Microbiology 08/14/18 16:17 Blood Blood Culture - Preliminary No growth to date. 08/14/18 16:17 Blood Blood Culture - Preliminary No growth to date.
--- NOTE | 2018-08-16 15:31 | Pharmacy Report ---
Pharmacy Glycemic Short Note 2 - Date of Service August 16, 2018 - Glycemic Short BSG Results (Last 24 hours): 08/15/18 08/15/18 08/15/18 16:47 20:14 23:29 Glucose POC Glucose 148 H 169 H 285 H 08/16/18 08/16/18 08/16/18 06:12 06:50 07:44 Glucose 386 H* POC Glucose 385 H* 362 H* 08/16/18 08/16/18 08/16/18 07:45 10:32 10:48 Glucose POC Glucose 338 H* 106 H 90 08/16/18 08/16/18 08/16/18 11:14 12:11 14:04 Glucose POC Glucose 98 116 H 163 H OUTPATIENT ANTIDIABETIC REGIMEN: * Lantus 55 units qam * Novolog * Correction Factor: 50 mg/dL/unit * Nutritional / Prandial insulin per carb ratio of 1 unit per 10 grams CHO consumed ASSESSMENT: * Consulted this morning on Mr. Frias who was hyperglycemic overnight, likely contributed by uncovered snacking. Was made NPO at midnight ofr OR today, but has not gone yet. Patient will likely remain NPO for the rest of the day. Patient was administered 50 units this morning per MD order and a short term insulin infusion was initiated to help reduce BSG prior to OR. BSG decreased to ~90 around lunchtime and the drip was turned off. A low rate dextrose infusion was then initiated for a short period of time (~1.5 hours) until BSG was above 140 and then was turned off. No further changes will be made today. PLAN FOR INPATIENT GLYCEMIC CONTROL: * Basal insulin * Lantus 50 units SQ this AM * Insulin infusion from ~0900 to ~1030/ dextrose infusion from ~7857-7642. * Bolus insulin * NovoLog per scale ACHS or Q6hrs while NPO * Goal Range: Low 120 mg/dL - High 150 mg/dL * Correction Factor: 50 mg/dL/unit * Nutritional / Prandial insulin per carb ratio of 1 unit per 10 grams CHO consumed PLAN FOR DISCHARGE: * pending
--- NOTE | 2018-08-16 16:34 | Wound Progress Note ---
Date of Service August 16, 2018 Assessment & Plan (1) Plantar ulcer of left foot with fat layer exposed: Patient remains on antibiotics and appears to be tolerating this. Patient is on the schedule for possible surgery this afternoon. Awaiting final decision. We will continue to follow as needed. Subjective Patient lying in bed awaiting potential surgery. He has no new complaints today. He appears to be tolerating his antibiotics. Review of Systems Review of Systems: All systems reviewed & are unremarkable except as noted in HPI & below Results & Data Vital Signs (Past 12 Hours) Vital Signs Temp Pulse Resp Pulse Ox 08/16/18 07:19 36.7 C 99 H 20 91
--- NOTE | 2018-08-16 16:42 | Hospitalist Progress Note ---
Date of Service August 16, 2018 Assessment & Plan (1) Diabetic foot infection: Long-standing infections due to his diabetes. [facility] with [facility]. - Continue daptomycin & imipenem/cilastatin - ID following - Appreciate recs - Orthopedics aware - Hopeful surgery tomorrow (2) Type 1 diabetes mellitus: A1c was 12.3% in 03/2018. - Continue insulin Lantus 55 units QAM when not NPO - Sugars ran high this morning, then lower after being NPO during the morning. - Glycemic consult - Sliding scale insulin - Continue duloxetine for diabetic neuropathy & oxycodone (3) HTN (hypertension): BP normal in last 24 hours. - Continue home lisinopril & propranolol (4) MRSA infection: (5) Anemia of chronic disease: Baseline hgb is ~9. - At baseline on 08/16 (6) Low TSH level: TSH was 0.16 in 07/2017 & now 0.22 on 08/15. - No signs/symptoms of hyperthyroidism. - Continue beta-rhina - Outpatient follow up (7) Cardiovascular disease: No chest pain. Patient takes aspirin 81, atorvastatin 80, and a beta- rhina. - Continue home meds (8) DVT prophylaxis: SCDs - Low risk per admission calculator - Plan for surgery tomorrow hopefully Subjective Continues to have some pain in the foot. Otherwise, he is unhappy with his sugar control. Reports no fevers/chills, chest pain, shortness of breath, abdominal pain, nausea, or vomiting. Review of Systems Review of Systems: All systems reviewed & are unremarkable except as noted in HPI & below Physical Exam Constitutional: WD/WN, vitals as above comfortable; no acute distress Eyes: PERRL, conjunctivae normal, anicteric sclerae ENMT: external ear and nose normal, oropharynx normal Neck: trachea midline, no thyromegaly Respiratory: normal respiratory effort, lungs clear to auscultation Cardiovascular: Rate/Rhythm: regular rate and regular rhythm Heart Sounds: normal S1 and normal S2; no gallop, no murmur and no cardiac rub Vessels: normal peripheral pulses; no JVD Gastrointestinal (Abdomen): normal bowel sounds, soft, nontender, no hepatosplenomegaly Musculoskeletal: no cyanosis or clubbing, extremities motor strength 5/5 Skin: no rashes, warm and dry + wound (Right great toe ulcer, right plantar ulcer both with surrounding erythema) Neurologic: moves all extremities and awake; no focal motor deficits Motor/Sensory: + sensory deficit (Lack of sensation in both feet) Psychiatric: Orientation: cooperative Lymphatic: no cervical or axillary lymphadenopathy no inguinal lymphadenopathy Results & Data Vital Signs (Past 12 Hours) Vital Signs Temp Pulse Resp Pulse Ox 08/16/18 07:19 36.7 C 99 H 20 91
[2018-08-16] MEDS ORDERED: INSULIN ASPART 100 UNITS/ML 3 ML PEN SC ONE (17:15)
[2018-08-16] MEDS: INSULIN ASPART 100 UNITS/ML 3 ML PEN SC SCH ×2 (17:19→21:20)
[2018-08-16] MEDS: OXYCODONE HCL IR 5 MG TAB (IMMEDIATE RELEASE) PO PRN (18:26)
[2018-08-16] MEDS: DAPTOmycin 500 MG in SYRINGE 0 ML IV SCH (20:08)
[2018-08-16] MEDS ORDERED: INSULIN HUMAN REGULAR IV BOLUS 4 UNITS in SYRINGE 0 ML IV ONE (21:00)
[2018-08-16] MEDS: ALPRAZolam 0.5 MG TABLET PO PRN (21:22)
[2018-08-17] MEDS: OXYCODONE HCL IR 5 MG TAB (IMMEDIATE RELEASE) PO PRN ×4 (00:35→22:05)
[2018-08-17] MEDS: IMIPENEM/CILASTATIN SODIUM 500 MG in DEXTROSE 5% 100 ML IV SCH ×4 (02:11→20:12)
[2018-08-17] MEDS ORDERED: INSULIN ASPART 100 UNITS/ML 3 ML PEN SC SCH ×2 (04:00)
[2018-08-17] MEDS: DULOXETINE HCL 60 MG CAP PO SCH (05:22)
[2018-08-17] MEDS: DULOXETINE HCL 30 MG CAP PO SCH (05:22)
[2018-08-17 08:32] LABS: Hematocrit (blood only) 27.5 % (42-52); Hemoglobin 9.4 g/dL (14.0-18.0); Mean Corpuscular Hgb Conc 34.2 g/dL (32-36); Mean Corpuscular Volume 86.2 fL (80-100); Mean Platelet Volume 9.2 fL (7.4-10.4); Platelet Count 333 K/uL (130-400); RDW Coefficient of Variation 12.1 % (11.5-14.5); RDW Standard Deviation 38.4 fL (36.4-46.3); Red Blood Count 3.19 M/uL (4.7-6.1); White Blood Count 9.16 K/uL (4.8-10.8)
[2018-08-17] MEDS: LACTOBACILLUS ACIDOPHILUS (FLORANEX) TAB PO SCH (08:37)
[2018-08-17] MEDS: MULTIVITAMIN TAB PO SCH (08:37)
[2018-08-17] MEDS: LISINOPRIL 20 MG TAB PO SCH (08:37)
[2018-08-17] MEDS: VITAMIN B COMPLEX TAB PO SCH (08:37)
[2018-08-17] MEDS: OXYCODONE HCL 10 MG TABCR (OXYCONTIN) PO SCH (08:37)
[2018-08-17] MEDS: PANTOprazole 40 MG TAB PO SCH (08:37)
[2018-08-17] MEDS: ASPIRIN 81 MG ECTAB PO SCH (08:37)
[2018-08-17] MEDS: PROPRANOLOL HCL 10 MG TAB PO SCH (08:38)
[2018-08-17] MEDS: INSULIN GLARGINE SOLOSTAR 100 UNITS/ML 3 ML PEN SC SCH (08:38)
[2018-08-17] MEDS: INSULIN ASPART 100 UNITS/ML 3 ML PEN SC SCH ×4 (08:45→20:19)
[2018-08-17 09:02] LABS: BUN Creatinine Ratio 22.4 (10-20); Calcium 9.2 mg/dl (8.5-10.1); Creatinine Clr Calc Pharmacy 118.6 ml/min; Est GFR (African American) 110.1; Potassium 4.3 mmol/L (3.5-5.1)
--- NOTE | 2018-08-17 10:24 | Infectious Disease Progress Nt ---
Date of Service August 17, 2018 Assessment & Plan (1) Cellulitis in diabetic foot: Cellulitis of right foot and great toe in the setting of diabetic foot ulcer, without obvious osteomyelitis on MRI scanning. Current antibiotics appropriate given allergies and previous reaction to vancomycin. Length of IV antibiotics will be determined by clinical response. Await decision regarding surgical debridement. Will follow. (2) Cellulitis of foot: Subjective Patient lying in bed awaiting potential surgery. He has no new complaints today. He appears to be tolerating his antibiotics. Remains afebrile. Review of Systems Review of Systems: All systems reviewed & are unremarkable except as noted in HPI & below Physical Exam Constitutional: WD/WN, vitals as above comfortable; no acute distress Eyes: PERRL, conjunctivae normal, anicteric sclerae ENMT: external ear and nose normal, oropharynx normal Neck: trachea midline, no thyromegaly neck nontender Respiratory: normal respiratory effort, lungs clear to auscultation normal percussion; does not use accessory muscles Cardiovascular: Rate/Rhythm: regular rate and regular rhythm Heart Sounds: normal S1 and normal S2; no gallop, no murmur and no cardiac rub Vessels: normal peripheral pulses; no JVD Gastrointestinal (Abdomen): normal bowel sounds, soft, nontender, no hepatosplenomegaly Musculoskeletal: no cyanosis or clubbing, extremities motor strength 5/5 Spine: thoracic spine normal to inspection and lumbar spine normal to inspection; no cervical spinal tenderness Skin: no rashes, warm and dry normal turgor and + wound (Right great toe ulcer, right plantar ulcer both with surrounding erythema) Neurologic: moves all extremities and awake; no focal motor deficits Motor/Sensory: + sensory deficit (Lack of sensation in both feet) Psychiatric: A+Ox3, euthymic affect Orientation: cooperative Lymphatic: no cervical or axillary lymphadenopathy no inguinal lymphadenopathy Results & Data Vital Signs (Past 12 Hours) Vital Signs Temp Pulse Resp BP BP Pulse Ox 08/17/18 08:00 36.7 C 81 18 121/72 99 08/17/18 00:53 36.6 C 87 16 116/74 100
[2018-08-17 10:31] LABS: Estimated Average Glucose 352 mg/dl; Hemoglobin A1C 13.9 % (4.5-5.6)
--- NOTE | 2018-08-17 10:52 | Orthopedic Progress Note ---
Date of Service August 17, 2018 Assessment & Plan (1) Plantar ulcer of left foot with fat layer exposed: Discussed plan with patient. Overall improvement of his cellulitis/swelling. Appears that the ulcer will need a debridement in the OR. I will add the patient onto Dr Mendoza's schedule tomorrow for I&D of the 1st MTP plantar ulcer. Subjective Pt lying in bed. Awake, alert. No current complaints. Had some pain last night but better this AM. States this began after being fitted with a boot to help relieve pressure to his foot. Overall, he states the foot is better concerning swelling and erythema but continues with purulent drainage in the Right 1st MTP region. Pt was seen by Dr Lima last night. Discussed that he would need an I&D of this area. Physical Exam Physical Exam: Pt with right foot ulcer at the 1st MTP plantar surface. Approximately 2.5 cm in width. No foul odor this AM but purulent central portion with thickened edges. No overt erythema. Callus noted on the lateral right great toe. Results & Data Vital Signs (Past 12 Hours) Vital Signs Temp Pulse Resp BP BP Pulse Ox 08/17/18 08:00 36.7 C 81 18 121/72 99 08/17/18 00:53 36.6 C 87 16 116/74 100
[2018-08-17] MEDS ORDERED: INSULIN HUMAN REGULAR PER UNIT 8 UNITS in SYRINGE 0 ML IV ONE (12:30)
[2018-08-17] MEDS ORDERED: OXYCODONE HCL IR 5 MG TAB (IMMEDIATE RELEASE) PO ONE (14:00)
--- NOTE | 2018-08-17 14:10 | Anesthesiology Consultation ---
Date of Service August 17, 2018 Assessment & Plan (1) Encounter for pre-operative examination: Chart Review Chart Review: Acceptable Risk for Surgery, Patient NOT seen in Pre Admission Testing and internet marketing assistant initiated will order preop ECG. Consults Requested none History Surgery Operation Date: 08/18/18 12:55 Proposed Procedures p Right Incision and Drainage 1st Plantar Metatarsophalangeal Ulcer - Amado Mendoza, DO Height/Weight Height: 6 ft 2 in Weight: 83.1 kg Allergies Allergy/AdvReac Type Severity Reaction Status Date / Time aminophylline Allergy Severe weird Unverified 08/14/18 17:37 feeling ezetimibe Allergy Severe chest Verified 08/14/18 17:37 pressure simvastatin Allergy Severe chest Verified 08/14/18 17:37 pressure vancomycin Allergy Severe acute Verified 08/14/18 17:37 renal failure adhesive tape Allergy Intermediate red/blochy/ Unverified 08/14/18 17:37 itchy amoxicillin Allergy Intermediate hives Verified 08/14/18 17:37 cefaclor Allergy Intermediate hives Verified 08/14/18 17:37 gabapentin Allergy Intermediate confusion Verified 08/14/18 17:37 pregabalin Allergy Intermediate confusion Verified 08/14/18 17:37 aztreonam Allergy Mild BURNING UP Verified 08/14/18 17:37 Medications Home Medications Medication Instructions Recorded Confirmed Last Taken B-complex with vitamin C tablet 1 tab PO QAM 01/05/18 08/14/18 08/14/18 alprazolam 0.5 mg tablet 0.5 mg PO DAILY PRN tab 01/05/18 08/14/18 Unknown atorvastatin 80 mg tablet 80 mg PO QAM 01/05/18 08/14/18 08/14/18 duloxetine 30 mg capsule,delayed 30 mg PO QAM 01/05/18 08/14/18 08/14/18 release duloxetine 60 mg capsule,delayed 60 mg PO QAM 01/05/18 08/14/18 08/14/18 release lactobacillus combination no.8 3 3,000 mmu cells PO QAM 01/05/18 08/14/18 08/14/18 billion cell capsule multivitamin capsule 1 cap PO QAM 01/05/18 08/14/18 08/14/18 omeprazole magnesium 20 mg 20 mg PO QAM 01/05/18 08/14/18 08/14/18 tablet,delayed release oxycodone-acetaminophen 10 mg-325 1 tab PO BID PRN tab 01/05/18 08/14/18 08/14/18 08:00 mg tablet oxymorphone ER 15 mg 15 mg PO Q12H 01/05/18 08/14/18 08/14/18 tablet,extended release,12 hr aspirin [Aspir-81] 81 mg PO QAM 07/05/18 08/14/18 08/14/18 lisinopril 20 mg PO QAM 07/05/18 08/14/18 08/14/18 propranolol 10 mg PO QAM 07/05/18 08/14/18 08/14/18 insulin glargine [Basaglar KwikPen 55 unit SUBCUT [facility] 08/14/18 08/14/18 08/14/18 U-100 Insulin] insulin lispro [Admelog SoloStar 0 unit SUBCUT .SLIDING SCALE 08/14/18 08/14/18 Unknown U-100 Insulin] Active Medications Generic Name Dose Route Start Last Admin Trade Name Freq PRN Reason Stop Dose Admin Alprazolam 0.5 mg 08/14/18 18:48 08/16/18 21:22 Xanax PO 09/13/18 18:47 0.5 mg DAILY PRN Administration Anxiety Aspirin 81 mg 08/15/18 09:00 08/17/18 08:37 Ecotrin Ectab PO 09/14/18 08:59 81 mg DAILY ELIECER Administration Duloxetine HCl 30 mg 08/15/18 09:00 08/17/18 05:22 Cymbalta PO 09/14/18 08:59 30 mg DAILY ELIECER Administration Duloxetine HCl 60 mg 08/15/18 09:00 08/17/18 05:22 Cymbalta PO 09/14/18 08:59 60 mg DAILY ELIECER Administration Imipenem/Cilastatin Sodium 500 110 mls @ 100 mls/hr 08/14/18 20:00 08/17/18 14:01 mg/ Dextrose IV 09/25/18 19:59 100 mls/hr Q6H ELIECER Administration Protocol Daptomycin 500 mg/ Syringe 10 mls @ 5 mls/min 08/15/18 20:00 08/16/18 20:08 IV 09/25/18 19:59 5 mls/min Q24H ELIECER Administration Protocol Insulin Aspart 0 units 08/16/18 16:30 08/17/18 12:41 Novolog Flexpen SC 09/15/18 16:29 12 units ACHS ELIECER Administration Insulin Glargine 55 units 08/15/18 09:00 08/17/18 08:38 Lantus Solostar Pen SC 09/14/18 08:59 55 units QAM ELIECER Administration Lactobacillus Acidophilus 4 tab 08/15/18 09:00 08/17/18 08:37 Floranex PO 09/14/18 08:59 4 tab DAILY ELIECER Administration Lisinopril 20 mg 08/15/18 09:00 08/17/18 08:37 Zestril PO 09/14/18 08:59 20 mg DAILY ELIECER Administration Miscellaneous 15 - 30 gm 08/14/18 18:48 08/15/18 15:04 Carbohydrates For Hypoglycemia PO 09/13/18 18:47 30 gm UD PRN Administration Hypoglycemia Treatment Miscellaneous 1 ea 08/15/18 00:00 08/17/18 08:32 Order Awaiting Action N/A 09/14/18 00:00 Not Given QS ELIECER Multivitamins 1 tab 08/15/18 09:00 08/17/18 08:37 Multivitamin Tab PO 09/14/18 08:59 1 tab DAILY ELIECER Administration Oxycodone HCl 10 mg 08/16/18 16:36 08/17/18 10:03 Roxicodone Immediate Rel PO 08/30/18 16:35 10 mg Q6H PRN Administration Pain Pantoprazole Sodium 40 mg 08/15/18 09:00 08/17/18 08:37 Protonix PO 09/14/18 08:59 40 mg DAILY ELIECER Administration Propranolol HCl 10 mg 08/17/18 09:00 08/17/18 08:38 Inderal PO 09/16/18 08:59 10 mg QAM ELIECER Administration Vitamin B Complex 1 tab 08/15/18 09:00 08/17/18 08:37 Vitamin B Complex PO 09/14/18 08:59 1 tab DAILY ELIECER Administration NPO Date Last Intake of Fluids: 08/16/18 Time Last Intake of Fluids: 23:30 Date Last Intake of Solids: 08/16/18 Time Last Intake of Solids: 21:30 Past Medical History Medical History 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) Type 1 diabetes mellitus (Chronic) Neuropathy (Chronic) Abscess of finger Abscess of left arm Acquired hallux limitus of both feet (Acute) Corns and callosities (Acute) H/O necrotizing fasciitis (Acute) HTN (hypertension) (Acute) MRSA infection (Acute) Osteomyelitis of right foot (Acute) Anemia of chronic disease 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 Past Surgical History Surgical History History of amputation of finger History of carpal tunnel release of both wrists (Resolved) Social History Smoking Status: Current every day smoker tobacco type: cigarettes and smokeless tobacco Smoking cigarettes per day: 1/2 PPD Do You Dip or Chew Tobacco: Yes Hx Alcohol Use: No Hx Substance Use: Yes (Occasional THC) substance use type: marijuana Physical Exam Vital Signs Last Vital Signs Temp 36.7 C 08/17/18 08:00 Pulse 81 08/17/18 08:00 Resp 18 08/17/18 08:00 BP 121/72 08/17/18 08:00 Pulse Ox 99 08/17/18 08:00 Testing Laboratory Results 08/17/18 08:14 08/17/18 08:14 PT 10.0 Seconds (9.0-12.0) 08/14/18 16:18 INR 1.0 (0.9-1.1) 08/14/18 16:18 APTT 27.3 Seconds (21.0-31.0) 08/14/18 16:18 Hemoglobin A1c 13.9 % (4.5-5.6) H 08/17/18 08:14 08/14/18 16:17 Blood Culture - Preliminary Blood No growth to date. 08/14/18 16:17 Blood Culture - Preliminary Blood No growth to date. 08/17/18 08/17/18 08/17/18 13:56 11:32 11:31 POC Glucose 209 H 347 H* 304 H* 08/17/18 08/17/18 07:47 04:11 POC Glucose 142 H 230 H
--- NOTE | 2018-08-17 16:02 | Pharmacy Report ---
Pharmacy Glycemic Short Note 2 - Date of Service August 17, 2018 - Glycemic Short BSG Results (Last 24 hours): 08/16/18 08/16/18 08/16/18 16:35 20:07 20:09 Glucose POC Glucose 147 H 501 H* 448 H* 08/17/18 08/17/18 08/17/18 00:18 00:20 04:11 Glucose POC Glucose 330 H* 334 H* 230 H 08/17/18 08/17/18 08/17/18 07:47 08:14 11:31 Glucose 157 H POC Glucose 142 H 304 H* 08/17/18 08/17/18 11:32 13:56 Glucose POC Glucose 347 H* 209 H OUTPATIENT ANTIDIABETIC REGIMEN: * Lantus 55 units qam * Novolog * Correction Factor: 50 mg/dL/unit * Nutritional / Prandial insulin per carb ratio of 1 unit per 10 grams CHO consumed ASSESSMENT: 08/17 * Patient received total of 89 units of SQ insulin yesterday; 50 units of which was basal. He was also on an insulin drip for a short period of time and received iv bolus if 4 units at bedtime d/t high BSG. * BSG last night was 501, also overnight checks were high. * I spoke to patient and he denied snacking between meals but he has his room door closed often per nurse. * CF and CR were tightened significantly last night. Fasting BSG today was at goal. Therefore will continue current parameters. * 8 units of IV regular insulin was given this afternoon for BSG = 357. 5/1 * Consulted this morning on Mr. Frias who was hyperglycemic overnight, likely contributed by uncovered snacking. Was made NPO at midnight ofr OR today, but has not gone yet. Patient will likely remain NPO for the rest of the day. Patient was administered 50 units this morning per MD order and a short term insulin infusion was initiated to help reduce BSG prior to OR. BSG decreased to ~90 around lunchtime and the drip was turned off. A low rate dextrose infusion was then initiated for a short period of time (~1.5 hours) until BSG was above 140 and then was turned off. No further changes will be made today. PLAN FOR INPATIENT GLYCEMIC CONTROL: * Basal insulin * Lantus 55 units SQ this AM * Bolus insulin * NovoLog per scale ACHS or Q6hrs while NPO * Goal Range: Low 120 mg/dL - High 150 mg/dL * Correction Factor: 25 mg/dL/unit * Nutritional / Prandial insulin per carb ratio of 1 unit per 8 grams CHO consumed PLAN FOR DISCHARGE: * HbA1c = 13.9% indicates poor glycemic control as outpatient. * Would recommend continuing home insulin regimen but possibly with tighter CF/CR than 50/10 and frequent self-monitoring.
[2018-08-17] MEDS: DAPTOmycin 500 MG in SYRINGE 0 ML IV SCH (20:12)
[2018-08-17] MEDS: OXYCODONE HCL 15 MG TABCR (OXYCONTIN) PO SCH (20:12)
[2018-08-17] MEDS: ALPRAZolam 0.5 MG TABLET PO PRN (20:12)
[2018-08-18] MEDS ORDERED: INSULIN ASPART 100 UNITS/ML 3 ML PEN SC ONE
[2018-08-18] MEDS ORDERED: Nursing to Pharmacy Communication ONE (00:31)
[2018-08-18] MEDS ORDERED: KETOROLAC TROMETHAMINE 15 MG/ML VIAL IV ONE (01:08)
[2018-08-18] MEDS: IMIPENEM/CILASTATIN SODIUM 500 MG in DEXTROSE 5% 100 ML IV SCH ×4 (01:31→19:36)
[2018-08-18] MEDS: OXYCODONE HCL IR 5 MG TAB (IMMEDIATE RELEASE) PO PRN ×2 (05:58→12:55)
[2018-08-18] MEDS: INSULIN ASPART 100 UNITS/ML 3 ML PEN SC SCH ×4 (06:06→20:32)
[2018-08-18 07:16] LABS: Hematocrit (blood only) 26.4 % (42-52); Hemoglobin 9.2 g/dL (14.0-18.0); Mean Corpuscular Hgb Conc 34.8 g/dL (32-36); Mean Platelet Volume 8.8 fL (7.4-10.4); Platelet Count 311 K/uL (130-400); RDW Coefficient of Variation 12.2 % (11.5-14.5); RDW Standard Deviation 38.1 fL (36.4-46.3); Red Blood Count 3.07 M/uL (4.7-6.1); White Blood Count 7.87 K/uL (4.8-10.8)
[2018-08-18 07:51] LABS: BUN Creatinine Ratio 22.5 (10-20); Calcium 8.9 mg/dl (8.5-10.1); Creatinine Clr Calc Pharmacy 107.2 ml/min; Est GFR (African American) 97.4; Potassium 4.1 mmol/L (3.5-5.1)
[2018-08-18] MEDS: OXYCODONE HCL 15 MG TABCR (OXYCONTIN) PO SCH ×2 (08:31→19:36)
[2018-08-18] MEDS: LISINOPRIL 20 MG TAB PO SCH (08:31)
[2018-08-18] MEDS: PROPRANOLOL HCL 10 MG TAB PO SCH (08:31)
[2018-08-18] MEDS: VITAMIN B COMPLEX TAB PO SCH (08:31)
[2018-08-18] MEDS: ASPIRIN 81 MG ECTAB PO SCH (08:31)
[2018-08-18] MEDS: DULOXETINE HCL 60 MG CAP PO SCH (08:32)
[2018-08-18] MEDS: LACTOBACILLUS ACIDOPHILUS (FLORANEX) TAB PO SCH (08:32)
[2018-08-18] MEDS: MULTIVITAMIN TAB PO SCH (08:32)
[2018-08-18] MEDS: PANTOprazole 40 MG TAB PO SCH (08:32)
[2018-08-18] MEDS: DULOXETINE HCL 30 MG CAP PO SCH (08:32)
[2018-08-18] MEDS ORDERED: INSULIN GLARGINE SOLOSTAR 100 UNITS/ML 3 ML PEN SC SCH (09:00)
[2018-08-18] MEDS ORDERED: OXYCODONE HCL 15 MG TABCR (OXYCONTIN) PO STA (10:28)
--- NOTE | 2018-08-18 12:16 | History & Physical Bridge Note ---
Date of Service August 18, 2018 History & Physical Bridge Note I have examined the patient, reviewed the History & Physical and in the interval since the performance of the History & Physical I have noted the following changes of clinical significance: no changes noted
[2018-08-18] MEDS ORDERED: BACITRACIN INJ 50,000 UNIT VIAL ONE (12:43)
--- NOTE | 2018-08-18 12:43 | Hospitalist Progress Note ---
Date of Service August 18, 2018 Assessment & Plan (1) Diabetic foot infection: Long-standing infections due to his diabetes. [facility] - Continue daptomycin & imipenem/cilastatin - ID following - Appreciate recs - Orthopedics aware - To surgery today - Deep wound cultures hopefully to be done in the OR (2) Type 1 diabetes mellitus: A1c was 12.3% in 03/2018. - Continue insulin Lantus 55 units QAM when not NPO - Sugars stable this morning - Glycemic consult - Sliding scale insulin - Continue duloxetine for diabetic neuropathy & oxycodone (3) HTN (hypertension): BP normal to mildly high in last 24 hours. - Continue home lisinopril & propranolol (4) MRSA infection: (5) Anemia of chronic disease: Baseline hgb is ~9. - At baseline on 08/16 (6) Low TSH level: TSH was 0.16 in 07/2017 & now 0.22 on 08/15. - No signs/symptoms of hyperthyroidism. - Continue beta-rhina - Outpatient follow up (7) Cardiovascular disease: No chest pain. Patient takes aspirin 81, atorvastatin 80, and a beta- rhina. - Continue home meds (8) DVT prophylaxis: SCDs - Low risk per admission calculator - Plan for surgery Subjective Still in pain. Otherwise, stable. Review of Systems Review of Systems: All systems reviewed & are unremarkable except as noted in HPI & below Physical Exam Constitutional: WD/WN, vitals as above comfortable; no acute distress Eyes: PERRL, conjunctivae normal, anicteric sclerae ENMT: external ear and nose normal, oropharynx normal Neck: trachea midline, no thyromegaly Respiratory: normal respiratory effort, lungs clear to auscultation Cardiovascular: Rate/Rhythm: regular rate and regular rhythm Heart Sounds: normal S1 and normal S2; no gallop, no murmur and no cardiac rub Vessels: normal peripheral pulses; no JVD Gastrointestinal (Abdomen): normal bowel sounds, soft, nontender, no hepatosplenomegaly Musculoskeletal: no cyanosis or clubbing, extremities motor strength 5/5 Skin: no rashes, warm and dry + wound (Right great toe ulcer, right plantar ulcer both with surrounding erythema) Neurologic: moves all extremities and awake; no focal motor deficits Motor/Sensory: + sensory deficit (Lack of sensation in both feet) Psychiatric: Orientation: cooperative Lymphatic: no cervical or axillary lymphadenopathy no inguinal lymphadenopathy Results & Data Vital Signs (Past 12 Hours) Vital Signs Temp Pulse Resp BP BP Pulse Ox 08/18/18 12:18 36.8 C 83 16 160/91 H 100 08/18/18 07:16 36.9 C 75 16 121/75 95
[2018-08-18] MEDS ORDERED: fentaNYL citrate 100 MCG/2 ML VIAL ONE ×2 (13:31→14:00)
[2018-08-18] MEDS ORDERED: MIDAZOLAM HCL 1 MG/ML 2ML VIAL ONE (13:31)
[2018-08-18] MEDS ORDERED: ONDANSETRON INJ 2 MG/ML 2 ML VIAL ONE (13:31)
[2018-08-18] MEDS ORDERED: LIDOCAINE HCL 2% 2 ML VIAL/AMP(20MG/ML) INFIL ONE (13:31)
[2018-08-18] MEDS ORDERED: PROPOFOL IV EMULSION 10 MG/ML 20 ML VIAL IV ONE (13:31)
[2018-08-18] MEDS ORDERED: HYDROmorphone INJ 0.5 MG/0.5 ML SYR IV PRN (13:37)
[2018-08-18] MEDS ORDERED: KETAMINE HCL INJ 50 MG/ML 10 ML VIAL ONE (13:52)
[2018-08-18] MEDS ORDERED: INSULIN GLARGINE SOLOSTAR 100 UNITS/ML 3 ML PEN SC ONE ×2 (14:00→16:30)
[2018-08-18] MEDS ORDERED: SODIUM CHLORIDE 0.9% INJ 10 ML VIAL ONE (14:25)
[2018-08-18] MEDS ORDERED: ePHEDrine sulfate 50 MG/ML AMP ONE (14:25)
[2018-08-18] MEDS ORDERED: BISACODYL 10 MG SUPP PR PRN (14:40)
[2018-08-18] MEDS ORDERED: MAGNESIUM HYDROXIDE SUSP 30 ML UDC PO PRN (14:40)
[2018-08-18] MEDS ORDERED: NALOXONE HCL 0.4 MG/1 ML VIAL/CARP IV PRN (14:40)
--- NOTE | 2018-08-18 15:08 | Post Operative Brief Note ---
Immediate Post Op Note v1 Date of Surgery August 18, 2018 Pre & Post Diagnosis Operation Date: 08/18/18 12:40 Pre-Op Diagnosis: Plantar ulcer of left foot with fat layer exposed, first metatarsal head neuropathic ulcer (16 mm diameter), deep infection foot, neuropathic ulcer interphalangeal joint great toe (4 x 8 mm) Post-Op Diagnosis: Plantar ulcer of left foot with fat layer exposed, first metatarsal head neuropathic ulcer (16 mm diameter), deep infection foot, neuropathic ulcer interphalangeal joint great toe (4 x 8 mm) Procedure Operation Date: 08/18/18 12:40 Actual Procedures p Right irrigation and debridement 1st Plantar Metatarsophalangeal Ulcer including skin, fascia, subcutaneous fat and tendon measuring 16mm in diameter. Separate Incision Debridement of Great Toe Interphalangeal Joint including skin, subcutaneous fat and fascia measuring 4x8mm(Right) - Amado Mendoza DO Surgeon Amado Mendoza DO Cigar Head Pegger None Estimated Blood Loss 1 Findings Consistent with Post-Op Diagnosis Specimens None Drains Other (1/4 inch x 7 inches iodoform gauze drain) Anesthesia Type General Regional Complications none Disposition Accompanied Patient To Recovery: No Disposition: Recovery Room Overlapping Procedure I was present for: the critical portions of procedure. I was immediately available: during the entire case.
--- NOTE | 2018-08-18 15:25 | Pharmacy Report ---
Pharmacy Glycemic Short Note 2 - Date of Service August 18, 2018 - Glycemic Short BSG Results (Last 24 hours): 08/17/18 08/17/18 08/18/18 16:38 19:59 00:02 Glucose POC Glucose 166 H 222 H 237 H 08/18/18 08/18/18 08/18/18 05:54 07:04 11:55 Glucose 138 H POC Glucose 141 H 379 H* 08/18/18 08/18/18 08/18/18 11:56 13:51 15:11 Glucose POC Glucose 370 H* 292 H 249 H OUTPATIENT ANTIDIABETIC REGIMEN: * Lantus 55 units qam * Novolog * Correction Factor: 50 mg/dL/unit * Nutritional / Prandial insulin per carb ratio of 1 unit per 10 grams CHO consumed ASSESSMENT: 08/18 * Total of 104 units of insulin was given yesterday of which 55 units were basal. * Post-prandial BSGs were high; Carb ratio tightened with dinner today. * Patient went to the OR around noon today. He was NPO since this AM- because of this, his Lantus dose was reduced by 50% this AM. He received 25 units out of his usual dose of 55 units QAM. Rest of 30 units ordered to be given after he comes back from the OR. Diet resumed with dinner. BSG was high at lunch but now trending down. 08/17 * Patient received total of 89 units of SQ insulin yesterday; 50 units of which was basal. He was also on an insulin drip for a short period of time and received iv bolus if 4 units at bedtime d/t high BSG. * BSG last night was 501, also overnight checks were high. * I spoke to patient and he denied snacking between meals but he has his room door closed often per nurse. * CF and CR were tightened significantly last night. Fasting BSG today was at goal. Therefore will continue current parameters. * 8 units of IV regular insulin was given this afternoon for BSG = 357. 5/1 * Consulted this morning on Mr. Frias who was hyperglycemic overnight, likely contributed by uncovered snacking. Was made NPO at midnight ofr OR today, but has not gone yet. Patient will likely remain NPO for the rest of the day. Patient was administered 50 units this morning per MD order and a short term insulin infusion was initiated to help reduce BSG prior to OR. BSG decreased to ~90 around lunchtime and the drip was turned off. A low rate dextrose infusion was then initiated for a short period of time (~1.5 hours) until BSG was above 140 and then was turned off. No further changes will be made today. PLAN FOR INPATIENT GLYCEMIC CONTROL: * Basal insulin * Lantus 25 units SQ this AM and 30 units in the afternoon post OR. * Bolus insulin: tightened carb ratio * NovoLog per scale ACHS or Q6hrs while NPO * Goal Range: Low 120 mg/dL - High 150 mg/dL * Correction Factor: 25 mg/dL/unit * Nutritional / Prandial insulin per carb ratio of 1 unit per 7 grams CHO consumed PLAN FOR DISCHARGE: * HbA1c = 13.9% indicates poor glycemic control as outpatient. * Would recommend continuing home insulin regimen but possibly with tighter CF/CR than 50/10 and frequent self-monitoring.
[2018-08-18] MEDS ORDERED: ePHEDrine sulfate 50 MG/ML AMP IV PRN (15:41)
[2018-08-18] MEDS ORDERED: HYDROmorphone INJ 1 MG/ML SYRINGE IV PRN (15:41)
[2018-08-18] MEDS ORDERED: ATROPINE SULFATE 0.1 MG/ML 10ML SYR IV PRN (15:41)
[2018-08-18] MEDS ORDERED: fentaNYL citrate 100 MCG/2 ML VIAL IV PRN (15:41)
[2018-08-18] MEDS ORDERED: ONDANSETRON INJ 2 MG/ML 2 ML VIAL IV PRN (15:41)
--- NOTE | 2018-08-18 15:42 | Anesthesiology Progress Note ---
Date of Service August 18, 2018 Anesthesia Post Procedure Vital Signs Vital Signs: Temp Pulse Pulse Resp BP BP Pulse Ox 08/18/18 15:35 80 18 132/78 99 08/18/18 15:25 72 18 125/80 97 08/18/18 15:15 71 18 138/85 100 08/18/18 15:06 37.0 C 79 18 118/75 100 08/18/18 12:18 36.8 C 83 16 160/91 H 100 08/18/18 07:16 36.9 C 75 16 121/75 95 08/17/18 23:10 36.8 C 83 20 108/62 98 Pain Intensity Right Foot: Pain Intensity: 8 Transfer of Care Handoff Completed per policy Notes Mental Status: alert / awake / arousable and participated in evaluation Patient Amnestic to Procedure: Yes Nausea / Vomiting: adequately controlled Pain: adequately controlled Airway Patency, RR, SpO2: stable & adequate BP & HR: stable & adequate Hydration State: stable & adequate Anesthetic Complications: no major complications apparent and Pt Satisfied with anesthetic care
--- NOTE | 2018-08-18 15:55 | Infectious Disease Progress Nt ---
Date of Service August 18, 2018 Assessment & Plan (1) Cellulitis in diabetic foot: Cellulitis of right foot and great toe in the setting of diabetic foot ulcer, without obvious osteomyelitis on MRI scanning. Patient now status post surgical debridement. Patient continued on broad-spectrum antibiotics pending further culture results. Will follow. (2) Cellulitis of foot: Subjective Patient seen in follow-up for foot infection. Now status post surgical debridement. Expected postoperative discomfort. Remains afebrile. Review of Systems Review of Systems: All systems reviewed & are unremarkable except as noted in HPI & below Physical Exam Constitutional: WD/WN, vitals as above comfortable; no acute distress Eyes: PERRL, conjunctivae normal, anicteric sclerae ENMT: external ear and nose normal, oropharynx normal Neck: trachea midline, no thyromegaly neck nontender Respiratory: normal respiratory effort, lungs clear to auscultation normal percussion; does not use accessory muscles Cardiovascular: Rate/Rhythm: regular rate and regular rhythm Heart Sounds: normal S1 and normal S2; no gallop, no murmur and no cardiac rub Vessels: normal peripheral pulses; no JVD Gastrointestinal (Abdomen): normal bowel sounds, soft, nontender, no hepatosplenomegaly Musculoskeletal: no cyanosis or clubbing, extremities motor strength 5/5 Spine: thoracic spine normal to inspection and lumbar spine normal to inspection; no cervical spinal tenderness Skin: no rashes, warm and dry normal turgor and + wound (Surgical dressing intact) Neurologic: moves all extremities and awake; no focal motor deficits Motor/Sensory: + sensory deficit (Lack of sensation in both feet) Psychiatric: A+Ox3, euthymic affect Orientation: cooperative Lymphatic: no cervical or axillary lymphadenopathy no inguinal lymphadenopathy Results & Data Vital Signs (Past 12 Hours) Vital Signs Temp Pulse Pulse Resp BP BP Pulse Ox 08/18/18 15:45 37.0 C 80 18 122/68 99 08/18/18 15:35 80 18 132/78 99 08/18/18 15:25 72 18 125/80 97 08/18/18 15:15 71 18 138/85 100 08/18/18 15:06 37.0 C 79 18 118/75 100 08/18/18 12:18 36.8 C 83 16 160/91 H 100 08/18/18 07:16 36.9 C 75 16 121/75 95 Laboratory Results Short CBC 08/18/18 Range/Units 07:04 WBC 7.87 (4.8-10.8) K/uL Hgb 9.2 L (14.0-18.0) g/dL Hct 26.4 L (42-52) % Plt Count 311 (130-400) K/uL BMP 08/18/18 07:04 Sodium 140 Potassium 4.1 Chloride 107 Carbon Dioxide 28 BUN 26 H Creatinine 1.14 Glucose 138 H Calcium 8.9 Diagnostic Findings Microbiology 08/14/18 16:17 Blood Blood Culture - Preliminary No growth to date. 08/14/18 16:17 Blood Blood Culture - Preliminary No growth to date.
[2018-08-18] MEDS: SODIUM CHLORIDE 0.9% 1000ML 1,000 ML IV SCH (16:16)
[2018-08-18] MEDS: HYDROmorphone INJ 0.5 MG/0.5 ML SYR IV PRN ×2 (16:16→20:23)
[2018-08-18] MEDS: DAPTOmycin 500 MG in SYRINGE 0 ML IV SCH (19:36)
[2018-08-18] MEDS: DOCUSATE SODIUM 100 MG CAP PO SCH (20:31)
[2018-08-18] MEDS: SENNA 8.6 MG TAB PO SCH (20:32)
[2018-08-18] MEDS: ALPRAZolam 0.5 MG TABLET PO PRN (21:42)
[2018-08-19] MEDS ORDERED: INSULIN ASPART 100 UNITS/ML 3 ML PEN SC SCH
[2018-08-19] MEDS: HYDROmorphone INJ 0.5 MG/0.5 ML SYR IV PRN ×5 (00:29→18:35)
--- NOTE | 2018-08-19 00:36 | Operative Report ---
DATE OF OPERATION: 08/18/2018 PREOPERATIVE DIAGNOSES: 1. Right foot first metatarsal head neuropathic ulcer including skin, subcutaneous fat, fascia, and tendon. 2. Deep infection foot, right. 3. Neuropathic ulcer of the interphalangeal joint, right great toe measuring 4 x 8 mm. POSTOPERATIVE DIAGNOSES: 1. Right foot first metatarsal head neuropathic ulcer including skin, subcutaneous fat, fascia, and tendon. 2. Deep infection foot, right. 3. Neuropathic ulcer of the interphalangeal joint, right great toe measuring 4 x 8 mm. PROCEDURE: 1. Right foot irrigation and debridement first metatarsal head neuropathic ulcer including skin, subcutaneous fat, fascia, and tendon. 2. Debridement neuropathic ulcer measuring 16 mm in diameter. 3. Separate site irrigation and debridement of neuropathic interphalangeal joint ulcer measuring 4 x 8 mm including skin and fascia. SURGEON: DO ANAIS Arvizu ASSISTANT: None. ANESTHESIA: General LMA. SPECIMENS: None. DRAINS: 1/4 inch x 7 inch iodoform gauze drain. COMPLICATIONS: None. BLOOD LOSS: 1 mL. PERTINENT HISTORY: This is a 32-year-old gentleman with type 1 diabetes mellitus. He had persistent foot infection, right lower extremity with concern initially for osteomyelitis. The patient was then admitted to [facility] to medical service. Orthopedics was consulted. Had significant difficulty with antibiotics due to multiple allergies. Attempted conservative management and failed, was then scheduled for surgery as indicated. All potential risks, benefits, complications, alternatives, rehab, potential for incomplete release of the procedure, DVT, PE, , persistent pain, swelling, scarring, weakness, neurovascular injury, wound complications and possible amputation were discussed with the patient. The patient decided to proceed with the procedure as indicated. DESCRIPTION OF PROCEDURE: The patient was taken to the operative suite, placed supine on the operating room table. After review of the consent and identification of proper operative site, the patient was anesthetized, LMA was placed. Right lower extremity was then sterilely prepped and draped in the usual fashion, elevated and partially exsanguinated from the heel proximally with an Esmarch bandage. An Esmarch tourniquet applied over sterile surgical towel above the ankle. Next, the ulceration on the plantar aspect of the first metatarsal was assessed and noted to be 16 mm in diameter with exposed fat layer, exposed subcutaneous tissue and central ulceration deep, measuring approximately 9-10 mm deep. Next, a 15 blade scalpel was then used to debride the hypertrophic rind of tissue including skin. The central area of ulceration was then debrided including subcutaneous fat and fascia down to the level of tendon. There was noted to be some tendon involvement which was sharply debrided with a 15 blade scalpel including the flexor hallucis brevis. Next, pulsatile lavage was then used to irrigate with bacitracin. After this was completed, the rounded ulcer was then converted to an ellipsoid with 15 blade scalpel, excising distally and proximally. This allowed partial closure of the ulceration closed in approximately 50-60% of the ulceration surface medial to lateral with multiple 3-0 nylon sutures. Next, a deep drain was placed. A 1/4 inch iodoform gauze measuring approximately 6-7 inches in length extending medial dorsal aspect of the first metatarsal region subcutaneously. Next, attention was then directed toward a separate site of the interphalangeal joint. There was noted to be no neuropathic ulcer over the interphalangeal joint. A 15 blade scalpel was used to debride the hypertrophic rind of skin including down to the level of the fascia which was also debrided and subcutaneous tissue. This measured approximately 4 x 8 mm. Next, pulsatile lavage was then used to irrigate this secondary ulceration of the interphalangeal joint. Next, iodoform gauze dressing was applied followed by sterile compressive forefoot dressing including 4 x 4's, 4-inch cast padding and 4-inch Goyo wrap. The tourniquet was released. The patient was awakened and taken to recovery in stable condition. I attest to the content of the Intraoperative Record and any orders documented therein. Any exception s are noted below.
[2018-08-19] MEDS: OXYCODONE HCL IR 5 MG TAB (IMMEDIATE RELEASE) PO PRN ×4 (03:05→21:54)
[2018-08-19] MEDS: IMIPENEM/CILASTATIN SODIUM 500 MG in DEXTROSE 5% 100 ML IV SCH ×4 (03:06→20:42)
[2018-08-19 07:36] LABS: Hematocrit (blood only) 26.8 % (42-52); Hemoglobin 9.2 g/dL (14.0-18.0); Mean Corpuscular Hgb Conc 34.3 g/dL (32-36); Mean Corpuscular Volume 86.7 fL (80-100); Mean Platelet Volume 8.8 fL (7.4-10.4); Platelet Count 305 K/uL (130-400); RDW Coefficient of Variation 12.5 % (11.5-14.5); RDW Standard Deviation 39.2 fL (36.4-46.3); Red Blood Count 3.09 M/uL (4.7-6.1); White Blood Count 12.08 K/uL (4.8-10.8)
[2018-08-19 08:08] LABS: BUN Creatinine Ratio 18.8 (10-20); Calcium 8.9 mg/dl (8.5-10.1); Creatinine Clr Calc Pharmacy 118.6 ml/min; Est GFR (African American) 110.1; Magnesium 2.3 mg/dl (1.8-2.4)
[2018-08-19] MEDS: OXYCODONE HCL 15 MG TABCR (OXYCONTIN) PO SCH ×2 (08:14→20:42)
[2018-08-19] MEDS: SODIUM CHLORIDE 0.9% 1000ML 1,000 ML IV SCH (08:15)
[2018-08-19] MEDS: INSULIN ASPART 100 UNITS/ML 3 ML PEN SC SCH ×4 (08:17→21:31)
[2018-08-19] MEDS: DOCUSATE SODIUM 100 MG CAP PO SCH ×2 (08:18→20:43)
[2018-08-19] MEDS: DULOXETINE HCL 60 MG CAP PO SCH (08:19)
[2018-08-19] MEDS: DULOXETINE HCL 30 MG CAP PO SCH (08:20)
[2018-08-19] MEDS: PANTOprazole 40 MG TAB PO SCH (08:20)
[2018-08-19] MEDS: LACTOBACILLUS ACIDOPHILUS (FLORANEX) TAB PO SCH (08:20)
[2018-08-19] MEDS: VITAMIN B COMPLEX TAB PO SCH (08:20)
[2018-08-19] MEDS: PROPRANOLOL HCL 10 MG TAB PO SCH (08:20)
[2018-08-19] MEDS: MULTIVITAMIN TAB PO SCH (08:20)
[2018-08-19] MEDS: LISINOPRIL 20 MG TAB PO SCH (08:20)
[2018-08-19] MEDS: INSULIN GLARGINE SOLOSTAR 100 UNITS/ML 3 ML PEN SC SCH (08:21)
[2018-08-19] MEDS: ASPIRIN 81 MG ECTAB PO SCH (08:21)
--- NOTE | 2018-08-19 08:41 | Orthopedic Progress Note ---
Date of Service August 19, 2018 Assessment & Plan (1) Cellulitis of foot: POD #1 s/p Right irrigation and debridement 1st Plantar Metatarsophalangeal Ulcer including skin, fascia, subcutaneous fat and tendon measuring 16mm in diameter. Separate Incision Debridement of Great Toe Interphalangeal Joint including skin, subcutaneous fat and fascia measuring 4x8mm ID Consulted, will await recommendations, cont broad spectrum Abx until then Ice/elevate above heart level heel WBAT dressing change tomorrow Subjective POD #1 s/p Right irrigation and debridement 1st Plantar Metatarsophalangeal Ulcer including skin, fascia, subcutaneous fat and tendon measuring 16mm in diameter. Separate Incision Debridement of Great Toe Interphalangeal Joint including skin, subcutaneous fat and fascia measuring 4x8mm Review of Systems Constitutional: no fever, no chills and no sweats Respiratory: no cough and no dyspnea Cardiovascular: no chest pain and no dyspnea Gastrointestinal: no nausea and no vomiting Physical Exam Physical Exam: Vital Signs Temp Pulse Pulse Resp BP BP Pulse Ox 08/19/18 07:08 36.9 C 82 18 114/69 100 08/18/18 23:04 36.9 C 98 H 20 106/68 08/18/18 18:59 37.1 C 88 20 109/70 99 08/18/18 18:00 36.9 C 93 H 18 119/72 98 08/18/18 17:00 37 C 79 18 119/70 98 08/18/18 16:30 36.7 C 80 18 101/64 99 08/18/18 16:06 36.9 C 79 22 113/73 98 08/18/18 15:45 37.0 C 80 18 122/68 99 08/18/18 15:35 80 18 132/78 99 08/18/18 15:25 72 18 125/80 97 08/18/18 15:15 71 18 138/85 100 08/18/18 15:06 37.0 C 79 18 118/75 100 08/18/18 12:18 36.8 C 83 16 160/91 H 100 Intake and Output 08/18/18 08/19/18 08/19/18 22:59 06:59 14:59 Intake Total 220 / 2280 1950 / 2280 Balance 220 / 2280 1950 / 2280 Intake: IV 220 / 1440 1110 / 1440 Primaxin 500 m g In D5 100 ml @ 220 / 440 110 / 440 100 mls/hr IV Q6H [facility] Rx#: [id number] Nss 1000ML 1,0 00 ml @ 100 mls/ 1000 / 1000 hr IV .Q10H [facility] Rx#:[id number] Oral 840 / 840 Constitutional: WD/WN, vitals as above no acute distress Musculoskeletal: dressing clean and dry, minimal dried blood noted on the plantar surface of the foot on the dressing, able to wiggle toes but no sensation to the toes, he states this is baseline for him due to neuropathy Results & Data Vital Signs (Past 12 Hours) Vital Signs Temp Pulse Resp BP Pulse Ox 08/19/18 07:08 36.9 C 82 18 114/69 100 08/18/18 23:04 36.9 C 98 H 20 106/68 Laboratory Results Laboratory Results WBC 12.08 K/uL (4.8-10.8) H 08/19/18 07:23 RBC 3.09 M/uL (4.7-6.1) L 08/19/18 07:23 Hgb 9.2 g/dL (14.0-18.0) L 08/19/18 07:23 Hct 26.8 % (42-52) L 08/19/18 07:23 MCV 86.7 fL (80-100) 08/19/18 07:23 MCH 29.8 pg (25-34) 08/19/18 07:23 MCHC 34.3 g/dL (32-36) 08/19/18 07:23 RDW Std Deviation 39.2 fL (36.4-46.3) 08/19/18 07:23 RDW Coeff of Keisha 12.5 % (11.5-14.5) 08/19/18 07:23 Plt Count 305 K/uL (130-400) 08/19/18 07:23 MPV 8.8 fL (7.4-10.4) 08/19/18 07:23 Immature Gran % (Auto) 0.3 % 08/14/18 16:17 Neut % (Auto) 74.6 % 08/14/18 16:17 Lymph % (Auto) 18.0 % 08/14/18 16:17 [place] % (Auto) 5.1 % 08/14/18 16:17 Eos % (Auto) 1.7 % 08/14/18 16:17 Baso % (Auto) 0.3 % 08/14/18 16:17 Immature Gran # (Auto) 0.03 K/uL (0.00-0.02) H 08/14/18 16:17 Neut # (Auto) 8.12 K/uL (1.4-6.5) H 08/14/18 16:17 Lymph # (Auto) 1.96 K/uL (1.2-3.4) 08/14/18 16:17 [place] # (Auto) 0.55 K/uL (0.11-0.59) 08/14/18 16:17 Eos # (Auto) 0.18 K/uL (0-0.5) 08/14/18 16:17 Baso # (Auto) 0.03 K/uL (0-0.2) 08/14/18 16:17 PT 10.0 Seconds (9.0-12.0) 08/14/18 16:18 INR 1.0 (0.9-1.1) 08/14/18 16:18 APTT 27.3 Seconds (21.0-31.0) 08/14/18 16:18 PTT Ratio 1.0 08/14/18 16:18 Sodium 143 mmol/L (136-145) 08/19/18 07:23 Potassium 4.0 mmol/L (3.5-5.1) 08/19/18 07:23 Chloride 110 mmol/L (98-107) H 08/19/18 07:23 Carbon Dioxide 28 mmol/L (21-32) 08/19/18 07:23 Anion Gap 5.0 (3-11) 08/19/18 07:23 BUN 19 mg/dl (7-18) H 08/19/18 07:23 Creatinine 1.03 mg/dl (0.6-1.4) 08/19/18 07:23 Est Cr Clr Drug Dosing 118.6 ml/min 08/19/18 07:23 Est GFR ( Amer) 110.1 08/19/18 07:23 Est GFR (Non-Af Amer) 95.0 08/19/18 07:23 BUN/Creatinine Ratio 18.8 (10-20) 08/19/18 07:23 Glucose 56 mg/dl (70-99) L 08/19/18 07:23 POC Glucose 80 (70-99) 08/19/18 07:57 Estimat Average Glucose 352 mg/dl 08/17/18 08:14 Hemoglobin A1c 13.9 % (4.5-5.6) H 08/17/18 08:14 Calcium 8.9 mg/dl (8.5-10.1) 08/19/18 07:23 Magnesium 2.3 mg/dl (1.8-2.4) 08/19/18 07:23 Iron 49 mcg/dl (35-175) 08/15/18 06:55 TIBC 212 mcg/dl (250-450) L 08/15/18 06:55 Total Bilirubin 0.2 mg/dl (0.2-1) 08/14/18 16:17 AST 11 U/L (15-37) L 08/14/18 16:17 ALT 17 U/L (12-78) 08/14/18 16:17 Alkaline Phosphatase 114 U/L (45-117) 08/14/18 16:17 Total Protein 7.8 gm/dl (6.4-8.2) 08/14/18 16:17 Albumin 3.1 gm/dl (3.4-5.0) L 08/14/18 16:17 Globulin 4.7 gm/dl (2.5-4.0) H 08/14/18 16:17 Albumin/Globulin Ratio 0.7 (0.9-2) L 08/14/18 16:17 Beta-Hydroxybutyric Acd 0.79 mg/dl (0.2-2.81) 08/16/18 06:50 TSH 0.223 uIu/ml (0.300-4.500) L 08/15/18 06:55 Microbiology 08/14/18 16:17 Blood Blood Culture - Preliminary No growth to date. 08/14/18 16:17 Blood Blood Culture - Preliminary No growth to date.
[2018-08-19] MEDS ORDERED: INSULIN GLARGINE SOLOSTAR 100 UNITS/ML 3 ML PEN SC SCH (09:00)
--- NOTE | 2018-08-19 09:22 | Pharmacy Report ---
Pharmacy Glycemic Short Note 2 - Date of Service August 19, 2018 - Glycemic Short BSG Results (Last 24 hours): 08/18/18 08/18/18 08/18/18 11:55 11:56 13:51 Glucose POC Glucose 379 H* 370 H* 292 H 08/18/18 08/18/18 08/18/18 15:11 16:28 20:21 Glucose POC Glucose 249 H 213 H 225 H 08/19/18 08/19/18 08/19/18 00:11 07:23 07:57 Glucose 56 L POC Glucose 174 H 80 OUTPATIENT ANTIDIABETIC REGIMEN: * Lantus 55 units qam * Novolog * Correction Factor: 50 mg/dL/unit * Nutritional / Prandial insulin per carb ratio of 1 unit per 10 grams CHO consumed * A1c = 13.9% on 08/17/18 ASSESSMENT: * 32yo T1DM male with poor outpatient control per A1c * Patient has been receiving 90-100 units of insulin per day with variable control. * Pt is a brittle diabetic with dramatic BSG swings. Pt's snacking between meals without coverage is complicating this issue. Infection is also contributing to hyperglycemia. * Pt with LOW GLU on PRP, but normal BSG on fingerstick. Patient has been rec eiving his outpatient dosing of Lantus 55 units SQ AM. Will slightly reduce this morning's dose of Lantus to prevent further hypo this afternoon or tomorrow morning. * Pt is very CHO sensitive. Will lower goal range so that CHO coverage is not subtracted off when BSG slightly below goal range. * Goal is to maintain BSGs <200 mg/dl (ideally <150 mg/dl) to prevent post-op in fectious complications PLAN FOR INPATIENT GLYCEMIC CONTROL: * Basal insulin * Reduce Lantus 50 units SQ x 1 dose this AM for "low" BSG * Resume outpatient dosing of 55 units SQ AM tomorrow * Bolus insulin: lower goal range * NovoLog per scale ACHS or Q6hrs while NPO * Goal Range: Low 110 mg/dL - High 150 mg/dL * Correction Factor: 25 mg/dL/unit * Nutritional / Prandial insulin per carb ratio of 1 unit per 8 grams CHO consumed PLAN FOR DISCHARGE: * HbA1c = 13.9% indicates poor glycemic control as outpatient. * Would recommend continuing home insulin regimen but possibly with tighter CF/CR than 50/10 and frequent self-monitoring. * Pt may benefit from insulin pump and CGM to help prevent highs/lows.
--- NOTE | 2018-08-19 18:19 | Hospitalist Progress Note ---
Date of Service August 19, 2018 Assessment & Plan (1) Diabetic foot infection: Long-standing infections due to his diabetes. [facility] - ID following - Appreciate recs - S/p irrigation and debridement first metatarsal head & irrigation and debridement of additional ulcers with Dr. Mendoza on 08/18 - Follow up deep wound cultures - Continue daptomycin & imipenem/cilastatin (2) Type 1 diabetes mellitus: A1c was 12.3% in 03/2018. - Continue insulin Lantus 55 units QAM when not NPO - Sugars stable this morning - Glycemic consult - Sliding scale insulin - Continue duloxetine for diabetic neuropathy & oxycodone (3) HTN (hypertension): BP normal to mildly high in last 24 hours. - Continue home lisinopril & propranolol (4) MRSA infection: (5) Anemia of chronic disease: Baseline hgb is ~9. - At baseline on 08/19 (6) Low TSH level: TSH was 0.16 in 07/2017 & now 0.22 on 08/15. - No signs/symptoms of hyperthyroidism. - Continue beta-rhina - Outpatient follow up (7) Cardiovascular disease: No chest pain. Patient takes aspirin 81, atorvastatin 80, and a beta- rhina. - Continue home meds (8) DVT prophylaxis: SCDs - Low risk per admission calculator - Plan for surgery Subjective Feeling fairly well today. Pain is more intense, but feels this is because blood flow is returning. Reports no fevers/chills, chest pain, shortness of breath, abdominal pain, nausea, or vomiting. Physical Exam Constitutional: WD/WN, vitals as above comfortable; no acute distress Eyes: PERRL, conjunctivae normal, anicteric sclerae ENMT: external ear and nose normal, oropharynx normal Neck: trachea midline, no thyromegaly Respiratory: normal respiratory effort, lungs clear to auscultation Cardiovascular: Rate/Rhythm: regular rate and regular rhythm Heart Sounds: normal S1 and normal S2; no gallop, no murmur and no cardiac rub Vessels: normal peripheral pulses; no JVD Gastrointestinal (Abdomen): normal bowel sounds, soft, nontender, no hepatosplenomegaly Musculoskeletal: no cyanosis or clubbing, extremities motor strength 5/5 Skin: no rashes, warm and dry + wound (Right great toe ulcer, right plantar ulcer both with surrounding erythema) Neurologic: moves all extremities and awake; no focal motor deficits Motor/Sensory: + sensory deficit (Lack of sensation in both feet) Psychiatric: Orientation: cooperative Lymphatic: no cervical or axillary lymphadenopathy no inguinal lymphadenopathy Results & Data Vital Signs (Past 12 Hours) Vital Signs Temp Pulse Resp BP Pulse Ox 08/19/18 15:39 37.1 C 87 18 122/75 99 08/19/18 07:08 36.9 C 82 18 114/69 100
[2018-08-19] MEDS: SENNA 8.6 MG TAB PO SCH (20:49)
[2018-08-19] MEDS: DAPTOmycin 500 MG in SYRINGE 0 ML IV SCH (20:54)
[2018-08-19] MEDS: ALPRAZolam 0.5 MG TABLET PO PRN (20:54)
--- NOTE | 2018-08-19 21:26 | Infectious Disease Progress Nt ---
Date of Service August 19, 2018 Assessment & Plan (1) Cellulitis in diabetic foot: Cellulitis of right foot and great toe in the setting of diabetic foot ulcer, without obvious osteomyelitis on MRI scanning. Patient now status post surgical debridement. Patient continued on broad-spectrum antibiotics pending further culture results. Will follow. (2) Cellulitis of foot: Subjective Follow-up for right foot infection. Somewhat more pain today, remains afebrile, tolerating antibiotics without apparent difficulty. Operative cultures are pending. Review of Systems Review of Systems: All systems reviewed & are unremarkable except as noted in HPI & below Physical Exam Constitutional: WD/WN, vitals as above comfortable; no acute distress Eyes: PERRL, conjunctivae normal, anicteric sclerae ENMT: external ear and nose normal, oropharynx normal Neck: trachea midline, no thyromegaly neck nontender Respiratory: normal respiratory effort, lungs clear to auscultation normal percussion; does not use accessory muscles Cardiovascular: Rate/Rhythm: regular rate and regular rhythm Heart Sounds: normal S1 and normal S2; no gallop, no murmur and no cardiac rub Vessels: normal peripheral pulses; no JVD Gastrointestinal (Abdomen): normal bowel sounds, soft, nontender, no hepatosplenomegaly Musculoskeletal: no cyanosis or clubbing, extremities motor strength 5/5 Spine: thoracic spine normal to inspection and lumbar spine normal to inspection; no cervical spinal tenderness Skin: no rashes, warm and dry normal turgor and + wound (Surgical dressing intact) Neurologic: moves all extremities and awake; no focal motor deficits Motor/Sensory: + sensory deficit (Lack of sensation in both feet) Psychiatric: A+Ox3, euthymic affect Orientation: cooperative Lymphatic: no cervical or axillary lymphadenopathy no inguinal lymphadenopathy Results & Data Vital Signs (Past 12 Hours) Vital Signs Temp Pulse Resp BP Pulse Ox 08/19/18 15:39 37.1 C 87 18 122/75 99 Laboratory Results Short CBC 08/19/18 Range/Units 07:23 WBC 12.08 H (4.8-10.8) K/uL Hgb 9.2 L (14.0-18.0) g/dL Hct 26.8 L (42-52) % Plt Count 305 (130-400) K/uL BMP 08/19/18 07:23 Sodium 143 Potassium 4.0 Chloride 110 H Carbon Dioxide 28 BUN 19 H Creatinine 1.03 Glucose 56 L Calcium 8.9 Diagnostic Findings Microbiology 08/14/18 16:17 Blood Blood Culture - Preliminary No growth to date. 08/14/18 16:17 Blood Blood Culture - Preliminary No growth to date.
[2018-08-20] MEDS: IMIPENEM/CILASTATIN SODIUM 500 MG in DEXTROSE 5% 100 ML IV SCH ×4 (01:33→20:19)
[2018-08-20] MEDS: HYDROmorphone INJ 0.5 MG/0.5 ML SYR IV PRN ×2 (01:34→07:47)
[2018-08-20] MEDS: OXYCODONE HCL IR 5 MG TAB (IMMEDIATE RELEASE) PO PRN ×4 (05:38→21:28)
--- NOTE | 2018-08-20 08:00 | Orthopedic Progress Note ---
Date of Service August 20, 2018 Assessment & Plan (1) Cellulitis of foot: POD #2 s/p Right irrigation and debridement 1st Plantar Metatarsophalangeal Ulcer including skin, fascia, subcutaneous fat and tendon measuring 16mm in diameter. Separate Incision Debridement of Great Toe Interphalangeal Joint including skin, subcutaneous fat and fascia measuring 4x8mm ID Consulted, will await recommendations, cont broad spectrum Abx until then Ice/elevate above heart level heel WBAT dressing changed this am, all packing was pulled, new dressing applied. heel WBAT in post-op shoe, await final culture results. Subjective POD #2 states his foot is feeling much better denies CP/SOB denies Fever/Chills Physical Exam Physical Exam: Vital Signs Temp Pulse Resp BP BP Pulse Ox 08/20/18 07:17 36.7 C 86 16 118/72 98 08/19/18 22:37 36.9 C 100 H 18 131/81 100 08/19/18 15:39 37.1 C 87 18 122/75 99 Intake and Output 08/19/18 08/20/18 08/20/18 22:59 06:59 14:59 Intake Total 870 / 2125 630 / 2125 Balance 870 / 2125 630 / 2125 Intake: IV 220 / 440 110 / 440 Primaxin 500 m g In D5 100 ml @ 220 / 440 110 / 440 100 mls/hr IV Q6H [facility] Rx#: [id number] Oral 650 / 1685 520 / 1685 Constitutional: WD/WN, vitals as above no acute distress Musculoskeletal: dressing removed, he is able to wiggle his toes, no pain with motion of the ankle joint. all packing was removed. calf is soft and non-tender. Results & Data Vital Signs (Past 12 Hours) Vital Signs Temp Pulse Resp BP BP Pulse Ox 08/20/18 07:17 36.7 C 86 16 118/72 98 08/19/18 22:37 36.9 C 100 H 18 131/81 100 Laboratory Results Laboratory Results WBC 12.08 K/uL (4.8-10.8) H 08/19/18 07:23 RBC 3.09 M/uL (4.7-6.1) L 08/19/18 07:23 Hgb 9.2 g/dL (14.0-18.0) L 08/19/18 07:23 Hct 26.8 % (42-52) L 08/19/18 07:23 MCV 86.7 fL (80-100) 08/19/18 07: MCH 29.8 pg (25-34) 08/19/18 07: MCHC 34.3 g/dL (32-36) 08/19/18 07: RDW Std Deviation 39.2 fL (36.4-46.3) 08/19/18 07: RDW Coeff of Keisha 12.5 % (11.5-14.5) 08/19/18 07: Plt Count 305 K/uL (130-400) 08/19/18 07: MPV 8.8 fL (7.4-10.4) 08/19/18 07: Immature Gran % (Auto) 0.3 % 08/14/18 16:17 Neut % (Auto) 74.6 % 08/14/18 16:17 Lymph % (Auto) 18.0 % 08/14/18 16:17 [place] % (Auto) 5.1 % 08/14/18 16:17 Eos % (Auto) 1.7 % 08/14/18 16:17 Baso % (Auto) 0.3 % 08/14/18 16:17 Immature Gran # (Auto) 0.03 K/uL (0.00-0.02) H 08/14/18 16:17 Neut # (Auto) 8.12 K/uL (1.4-6.5) H 08/14/18 16:17 Lymph # (Auto) 1.96 K/uL (1.2-3.4) 08/14/18 16:17 [place] # (Auto) 0.55 K/uL (0.11-0.59) 08/14/18 16:17 Eos # (Auto) 0.18 K/uL (0-0.5) 08/14/18 16:17 Baso # (Auto) 0.03 K/uL (0-0.2) 08/14/18 16:17 PT 10.0 Seconds (9.0-12.0) 08/14/18 16:18 INR 1.0 (0.9-1.1) 08/14/18 16:18 APTT 27.3 Seconds (21.0-31.0) 08/14/18 16:18 PTT Ratio 1.0 08/14/18 16:18 Sodium 143 mmol/L (136-145) 08/19/18 07:23 Potassium 4.0 mmol/L (3.5-5.1) 08/19/18 07:23 Chloride 110 mmol/L (98-107) H 08/19/18 07:23 Carbon Dioxide 28 mmol/L (21-32) 08/19/18 07:23 Anion Gap 5.0 (3-11) 08/19/18 07:23 BUN 19 mg/dl (7-18) H 08/19/18 07:23 Creatinine 1.03 mg/dl (0.6-1.4) 08/19/18 07:23 Est Cr Clr Drug Dosing 118.6 ml/min 08/19/18 07:23 Est GFR ( Amer) 110.1 08/19/18 07:23 Est GFR (Non-Af Amer) 95.0 08/19/18 07:23 BUN/Creatinine Ratio 18.8 (10-20) 08/19/18 07:23 Glucose 56 mg/dl (70-99) L 08/19/18 07:23 POC Glucose 160 (70-99) H 08/19/18 19:44 Estimat Average Glucose 352 mg/dl 08/17/18 08:14 Hemoglobin A1c 13.9 % (4.5-5.6) H 08/17/18 08:14 Calcium 8.9 mg/dl (8.5-10.1) 08/19/18 07:23 Magnesium 2.3 mg/dl (1.8-2.4) 08/19/18 07:23 Iron 49 mcg/dl (35-175) 08/15/18 06:55 TIBC 212 mcg/dl (250-450) L 08/15/18 06:55 Total Bilirubin 0.2 mg/dl (0.2-1) 08/14/18 16:17 AST 11 U/L (15-37) L 08/14/18 16:17 ALT 17 U/L (12-78) 08/14/18 16:17 Alkaline Phosphatase 114 U/L (45-117) 08/14/18 16:17 Total Protein 7.8 gm/dl (6.4-8.2) 08/14/18 16:17 Albumin 3.1 gm/dl (3.4-5.0) L 08/14/18 16:17 Globulin 4.7 gm/dl (2.5-4.0) H 08/14/18 16:17 Albumin/Globulin Ratio 0.7 (0.9-2) L 08/14/18 16:17 Beta-Hydroxybutyric Acd 0.79 mg/dl (0.2-2.81) 08/16/18 06:50 TSH 0.223 uIu/ml (0.300-4.500) L 08/15/18 06:55 Microbiology 08/14/18 16:17 Blood Blood Culture - Final No growth 08/14/18 16:17 Blood Blood Culture - Final No growth
[2018-08-20] MEDS: INSULIN ASPART 100 UNITS/ML 3 ML PEN SC SCH ×4 (08:44→22:54)
[2018-08-20] MEDS: INSULIN GLARGINE SOLOSTAR 100 UNITS/ML 3 ML PEN SC SCH (08:46)
[2018-08-20] MEDS: LACTOBACILLUS ACIDOPHILUS (FLORANEX) TAB PO SCH (08:48)
[2018-08-20] MEDS: PANTOprazole 40 MG TAB PO SCH (08:48)
[2018-08-20] MEDS: DULOXETINE HCL 30 MG CAP PO SCH (08:48)
[2018-08-20] MEDS: DULOXETINE HCL 60 MG CAP PO SCH (08:48)
[2018-08-20] MEDS: MULTIVITAMIN TAB PO SCH (08:48)
[2018-08-20] MEDS: DOCUSATE SODIUM 100 MG CAP PO SCH ×2 (08:49→20:16)
[2018-08-20] MEDS: ASPIRIN 81 MG ECTAB PO SCH (08:49)
[2018-08-20] MEDS: VITAMIN B COMPLEX TAB PO SCH (08:50)
[2018-08-20] MEDS: LISINOPRIL 20 MG TAB PO SCH (08:50)
[2018-08-20] MEDS: PROPRANOLOL HCL 10 MG TAB PO SCH (08:50)
[2018-08-20] MEDS: OXYCODONE HCL 15 MG TABCR (OXYCONTIN) PO SCH ×2 (08:57→20:15)
[2018-08-20] MEDS: CARBOHYDRATES FOR HYPOGLYCEMIA PO PRN (14:41)
--- NOTE | 2018-08-20 16:35 | Hospitalist Progress Note ---
Date of Service August 20, 2018 Assessment & Plan (1) Diabetic foot infection: Long-standing infections due to his diabetes. [facility] with [facility]. - ID following - Appreciate recs - S/p irrigation and debridement first metatarsal head & irrigation and debridement of additional ulcers with Dr. Mendoza on 08/18 - Continue daptomycin & imipenem/cilastatin - On Tuesday, discuss with Dr. Martin his final abx regimen. No deep cultures done in OR, so only a superficial wound culture growing alpha Strep and some skin kiley. - Once he gets a boot from orthotics and final recs from Dr. Martin, he could likely be discharged. (2) Type 1 diabetes mellitus: A1c was 12.3% in 03/2018. - Continue insulin Lantus 55 units QAM when not NPO - Glycemic consult - Lowered his carb ratio on 08/20 as he dropped with his increased activity as he is feeling better. - Sliding scale insulin - Continue duloxetine for diabetic neuropathy & oxycodone (3) HTN (hypertension): BP normal to mildly high in last 24 hours. - Continue home lisinopril & propranolol (4) Anemia of chronic disease: Baseline hgb is ~9. - At baseline on 08/19 (5) Low TSH level: TSH was 0.16 in 07/2017 & now 0.22 on 08/15. - No signs/symptoms of hyperthyroidism. - Continue beta-rhina - Outpatient follow up (6) Cardiovascular disease: No chest pain. Patient takes aspirin 81, atorvastatin 80, and a beta- rhina. - Continue home meds (7) DVT prophylaxis: SCDs - Low risk per admission calculator Subjective Feeling well today. Foot pain is much improved. Reports no fevers/chills, chest pain, shortness of breath, abdominal pain, nausea, or vomiting. Review of Systems Review of Systems: All systems reviewed & are unremarkable except as noted in HPI & below Physical Exam Constitutional: WD/WN, vitals as above comfortable; no acute distress Eyes: PERRL, conjunctivae normal, anicteric sclerae ENMT: external ear and nose normal, oropharynx normal Neck: trachea midline, no thyromegaly Respiratory: normal respiratory effort, lungs clear to auscultation Cardiovascular: Rate/Rhythm: regular rate and regular rhythm Heart Sounds: normal S1 and normal S2; no gallop, no murmur and no cardiac rub Vessels: normal peripheral pulses; no JVD Gastrointestinal (Abdomen): normal bowel sounds, soft, nontender, no hepatosplenomegaly Musculoskeletal: no cyanosis or clubbing, extremities motor strength 5/5 Skin: no rashes, warm and dry + wound (Right great toe ulcer, right plantar ulcer both with surrounding erythema) Neurologic: moves all extremities and awake; no focal motor deficits Motor/Sensory: + sensory deficit (Lack of sensation in both feet) Psychiatric: Orientation: cooperative Lymphatic: no cervical or axillary lymphadenopathy no inguinal lymphadenopathy Results & Data Vital Signs (Past 12 Hours) Vital Signs Temp Pulse Pulse Resp BP BP Pulse Ox 08/20/18 15:51 36.8 C 92 H 16 134/84 100 08/20/18 08:05 36.7 C 80 86 16 118/72 131/81 98 08/20/18 07:17 36.7 C 86 16 118/72 98
[2018-08-20] MEDS: SENNA 8.6 MG TAB PO SCH (20:16)
[2018-08-20] MEDS: DAPTOmycin 500 MG in SYRINGE 0 ML IV SCH (20:19)
[2018-08-20] MEDS: ALPRAZolam 0.5 MG TABLET PO PRN (21:28)
--- NOTE | 2018-08-20 21:41 | Infectious Disease Progress Nt ---
Date of Service August 20, 2018 Assessment & Plan (1) Cellulitis in diabetic foot: Cellulitis of right foot and great toe in the setting of diabetic foot ulcer, without obvious osteomyelitis on MRI scanning. Patient now status post surgical debridement. Cultures available. We will continue IV antibiotics through today, then consider transition to oral antibiotics tomorrow. (2) Cellulitis of foot: Subjective Seen in follow-up for right foot infection. Offers no new complaints. Afebrile. Pain controlled. Review of Systems Review of Systems: All systems reviewed & are unremarkable except as noted in HPI & below Physical Exam Constitutional: WD/WN, vitals as above comfortable; no acute distress Eyes: PERRL, conjunctivae normal, anicteric sclerae ENMT: external ear and nose normal, oropharynx normal Neck: trachea midline, no thyromegaly neck nontender Respiratory: normal respiratory effort, lungs clear to auscultation normal percussion; does not use accessory muscles Cardiovascular: Rate/Rhythm: regular rate and regular rhythm Heart Sounds: normal S1 and normal S2; no gallop, no murmur and no cardiac rub Vessels: normal peripheral pulses; no JVD Gastrointestinal (Abdomen): normal bowel sounds, soft, nontender, no hepatosplenomegaly Musculoskeletal: no cyanosis or clubbing, extremities motor strength 5/5 Spine: thoracic spine normal to inspection and lumbar spine normal to inspection; no cervical spinal tenderness Skin: no rashes, warm and dry normal turgor and + wound (Surgical dressing intact) Neurologic: moves all extremities and awake; no focal motor deficits Motor/Sensory: + sensory deficit (Lack of sensation in both feet) Psychiatric: A+Ox3, euthymic affect Orientation: cooperative Lymphatic: no cervical or axillary lymphadenopathy no inguinal lymphadenopathy Results & Data Vital Signs (Past 12 Hours) Vital Signs Temp Pulse Resp BP Pulse Ox 08/20/18 15:51 36.8 C 92 H 16 134/84 100 Laboratory Results Laboratory Results - last 48 hr 08/19/18 08/19/18 08/19/18 00:11 07:23 07:23 WBC 12.08 H RBC 3.09 L Hgb 9.2 L Hct 26.8 L MCV 86.7 MCH 29.8 MCHC 34.3 RDW Std Deviation 39.2 RDW Coeff of Keisha 12.5 Plt Count 305 MPV 8.8 Sodium 143 Potassium 4.0 Chloride 110 H Carbon Dioxide 28 Anion Gap 5.0 BUN 19 H Creatinine 1.03 Est Cr Clr Drug Dosing 118.6 Est GFR ( Amer) 110.1 Est GFR (Non-Af Amer) 95.0 BUN/Creatinine Ratio 18.8 Glucose 56 L POC Glucose 174 H Calcium 8.9 Magnesium 2.3 08/19/18 08/19/18 08/19/18 07:57 11:36 16:24 WBC RBC Hgb Hct MCV MCH MCHC RDW Std Deviation RDW Coeff of Keisha Plt Count MPV Sodium Potassium Chloride Carbon Dioxide Anion Gap BUN Creatinine Est Cr Clr Drug Dosing Est GFR ( Amer) Est GFR (Non-Af Amer) BUN/Creatinine Ratio Glucose POC Glucose 80 180 H 99 Calcium Magnesium 08/19/18 08/20/18 08/20/18 19:44 08:03 11:34 WBC RBC Hgb Hct MCV MCH MCHC RDW Std Deviation RDW Coeff of Keisha Plt Count MPV Sodium Potassium Chloride Carbon Dioxide Anion Gap BUN Creatinine Est Cr Clr Drug Dosing Est GFR ( Amer) Est GFR (Non-Af Amer) BUN/Creatinine Ratio Glucose POC Glucose 160 H 109 H 86 Calcium Magnesium 08/20/18 08/20/18 08/20/18 14:35 14:36 14:46 WBC RBC Hgb Hct MCV MCH MCHC RDW Std Deviation RDW Coeff of Keisha Plt Count MPV Sodium Potassium Chloride Carbon Dioxide Anion Gap BUN Creatinine Est Cr Clr Drug Dosing Est GFR ( Amer) Est GFR (Non-Af Amer) BUN/Creatinine Ratio Glucose POC Glucose 59 L* 62 L* 62 L* Calcium Magnesium 08/20/18 08/20/18 08/20/18 14:47 14:56 16:55 WBC RBC Hgb Hct MCV MCH MCHC RDW Std Deviation RDW Coeff of Keisha Plt Count MPV Sodium Potassium Chloride Carbon Dioxide Anion Gap BUN Creatinine Est Cr Clr Drug Dosing Est GFR ( Amer) Est GFR (Non-Af Amer) BUN/Creatinine Ratio Glucose POC Glucose 65 L* 75 216 H Calcium Magnesium 08/20/18 21:01 WBC RBC Hgb Hct MCV MCH MCHC RDW Std Deviation RDW Coeff of Keisha Plt Count MPV Sodium Potassium Chloride Carbon Dioxide Anion Gap BUN Creatinine Est Cr Clr Drug Dosing Est GFR ( Amer) Est GFR (Non-Af Amer) BUN/Creatinine Ratio Glucose POC Glucose 140 H Calcium Magnesium Diagnostic Findings Microbiology 08/14/18 16:17 Blood Blood Culture - Final No growth 08/14/18 16:17 Blood Blood Culture - Final No growth
[2018-08-21] MEDS: IMIPENEM/CILASTATIN SODIUM 500 MG in DEXTROSE 5% 100 ML IV SCH ×3 (03:08→14:33)
[2018-08-21] MEDS: OXYCODONE HCL IR 5 MG TAB (IMMEDIATE RELEASE) PO PRN ×2 (06:38→13:07)
[2018-08-21] MEDS: DULOXETINE HCL 60 MG CAP PO SCH (07:56)
[2018-08-21] MEDS: LISINOPRIL 20 MG TAB PO SCH (07:56)
[2018-08-21] MEDS: OXYCODONE HCL 15 MG TABCR (OXYCONTIN) PO SCH (07:56)
[2018-08-21] MEDS: VITAMIN B COMPLEX TAB PO SCH (07:56)
[2018-08-21] MEDS: PROPRANOLOL HCL 10 MG TAB PO SCH (07:57)
[2018-08-21] MEDS: MULTIVITAMIN TAB PO SCH (07:57)
[2018-08-21] MEDS: DULOXETINE HCL 30 MG CAP PO SCH (07:57)
[2018-08-21] MEDS: DOCUSATE SODIUM 100 MG CAP PO SCH (07:57)
[2018-08-21] MEDS: LACTOBACILLUS ACIDOPHILUS (FLORANEX) TAB PO SCH (07:57)
[2018-08-21] MEDS: PANTOprazole 40 MG TAB PO SCH (07:57)
[2018-08-21] MEDS: ASPIRIN 81 MG ECTAB PO SCH (07:57)
[2018-08-21] MEDS: INSULIN ASPART 100 UNITS/ML 3 ML PEN SC SCH ×2 (08:40→13:10)
[2018-08-21] MEDS: INSULIN GLARGINE SOLOSTAR 100 UNITS/ML 3 ML PEN SC SCH (08:41)
--- NOTE | 2018-08-21 14:12 | Orthopedic Progress Note ---
Date of Service August 21, 2018 Assessment & Plan (1) Cellulitis of foot: POD #3 s/p Right irrigation and debridement 1st Plantar Metatarsophalangeal Ulcer including skin, fascia, subcutaneous fat and tendon measuring 16mm in diameter. Separate Incision Debridement of Great Toe Interphalangeal Joint including skin, subcutaneous fat and fascia measuring 4x8mm Antibx as per ID recommendations. Ice/elevate above heart level heel WBAT Pt being dc'd today. F/U with wound clinic this week. F/U with Dr Mendoza in 7- 10 days from day of surgery. Subjective Pt currently up and ambulating in room. States that he has just been discharged. No new complaints. Pain controlled. Physical Exam Physical Exam: Dressing removed from the right foot. The 1st plantar MTP wound has improved overall. Mild serous drainage noted on dressing. No overt purulence noted. No erythema. Redressed wound. Results & Data Vital Signs (Past 12 Hours) Vital Signs Temp Pulse Resp BP Pulse Ox 08/21/18 07:08 37.0 C 96 H 18 130/80 100
[2018-08-21] MEDS ORDERED: INSULIN HUMAN REGULAR PER UNIT 8 UNITS in SYRINGE 7.92 ML IV ONE (14:30)
--- NOTE | 2018-08-30 15:22 | Discharge Summary ---
Date of Service August 21, 2018 Admission HPI Per Admitting Provider This is a 32-year-old male with a history of insulin requiring diabetes for many years. Patient has been followed by wound care center where he has been treated for various foot ulcerations related to significant diabetic neuropathy. The patient reportedly developed an ulceration from what the boots he was wearing to try to offload some pressure but now has a very significant 3 cm stage III ulceration at his first MTP on the plantar aspect of his right foot with yellow slough within it. There is a dry 2 cm ulcer on his great toe that does not have any surrounding erythema and he has various small healing ulcerations on the dorsal aspect of his foot. 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 He takes chronic pain medications but these have not been controlling it most recently. His glucoses likewise have been difficult to control also over the last few weeks. His last A1c was 12 in March 2018 Principal Diagnosis Diabetic foot infection Discharge Exam Constitutional: WD/WN, vitals as above comfortable; no acute distress Eyes: PERRL, conjunctivae normal, anicteric sclerae ENMT: external ear and nose normal, oropharynx normal Neck: trachea midline, no thyromegaly Respiratory: normal respiratory effort, lungs clear to auscultation Cardiovascular: Rate/Rhythm: regular rate and regular rhythm Heart Sounds: normal S1 and normal S2; no gallop, no murmur and no cardiac rub Vessels: normal peripheral pulses; no JVD Gastrointestinal (Abdomen): normal bowel sounds, soft, nontender, no hepatosplenomegaly Musculoskeletal: no cyanosis or clubbing, extremities motor strength 5/5 Skin: no rashes, warm and dry + wound (Right great toe ulcer, right plantar ulcer both with surrounding erythema) Neurologic: moves all extremities and awake; no focal motor deficits Motor/Sensory: + sensory deficit (Lack of sensation in both feet) Psychiatric: Orientation: cooperative Lymphatic: no cervical or axillary lymphadenopathy no inguinal lymphadenopathy Discharge Data Allergies Allergy/AdvReac Type Severity Reaction Status Date / Time aminophylline Allergy Severe weird Verified 08/28/18 10:23 feeling ezetimibe Allergy Severe chest Verified 08/14/18 17:37 pressure simvastatin Allergy Severe chest Verified 08/14/18 17:37 pressure vancomycin Allergy Severe acute Verified 08/14/18 17:37 renal failure adhesive tape Allergy Intermediate red/blochy/ Unverified 08/14/18 17:37 itchy amoxicillin Allergy Intermediate hives Verified 08/14/18 17:37 cefaclor Allergy Intermediate hives Verified 08/14/18 17:37 gabapentin Allergy Intermediate confusion Verified 08/14/18 17:37 pregabalin Allergy Intermediate confusion Verified 08/14/18 17:37 aztreonam Allergy Mild BURNING UP Verified 08/14/18 17:37 Consultations 08/14/18 17:31 ED Decision to Admit Stat 08/14/18 18:48 Consult Wound Care Provider Stat 08/14/18 19:45 Consult Infectious Diseases Routine 08/15/18 07:57 Consult Podiatry Routine Procedures Performed Operation Date: 08/18/18 12:40 Actual Procedures p Right Incision and Drainage 1st Plantar Metatarsophalangeal Ulcer including skin, fascia and tendon measuring 16mm in diameter. Seperate Incision Debridement of Great Toe Interphalangeal Joint measuring 4x8mm(Right) - Amado Mendoza DO Ordered Studies 08/14/18 18:48 MR foot RT w/o con Stat Hospital Course (1) Diabetic foot infection: Long-standing infections due to his diabetes. Follows with Wound Center. - ID following - Appreciate recs - S/p irrigation and debridement first metatarsal head & irrigation and debridement of additional ulcers with Dr. Mendoza on 08/18 - Continue daptomycin & imipenem/cilastatin - On Tuesday, discussed with Dr. Martin his final abx regimen. No deep cultures done in OR, so only a superficial wound culture growing alpha Strep and some skin kiley. - Received boot from orthotics and final recs from Dr. Martin DC on bactrim and levaquin (2) Type 1 diabetes mellitus: A1c was 12.3% in 03/2018. - Continue insulin Lantus 55 units QAM when not NPO - Glycemic consult - Lowered his carb ratio on 08/20 as he dropped with his increased activity as he is feeling better. - Sliding scale insulin - Continue duloxetine for diabetic neuropathy & oxycodone (3) HTN (hypertension): BP normal to mildly high in last 24 hours. - Continue home lisinopril & propranolol (4) Anemia of chronic disease: Baseline hgb is ~9. - At baseline on 08/19 (5) Low TSH level: TSH was 0.16 in 07/2017 & now 0.22 on 08/15. - No signs/symptoms of hyperthyroidism. - Continue beta-rhina - Outpatient follow up (6) Cardiovascular disease: No chest pain. Patient takes aspirin 81, atorvastatin 80, and a beta- rhina. - Continue home meds (7) DVT prophylaxis: SCDs - Low risk per admission calculator Total Time Total Time Spent Total Time Spent (In Minutes): 35 Total Time Includes: Examination of the Patient, Discharge Planning, Medication Reconciliation and Communication With Other Providers Discharge Plan Discharge Items Patient Disposition: Home - Self-Care Reason For Visit: DIABETIC FOOT INFECTION Discharge Diagnosis: Diabetic foot infection Condition: Fair Discharge Goals: Decrease discomfort Activity: Resume your previous activity Non-emergency contact: Primary Care Provider Call non-emergency contact if: you have any medication questions Follow-up/Referrals: [facility] [Provider Group] - 08/28/18 10:00 am (Please, follow up at [facility] on TuesdayAugust 28 at 10:00 am. *Location: [address] [facility] in [place]. If you need to change this appointment, call the clinic at [phone].) Allen Bell MD [Primary Care Provider] - 08/25/18 9:40 am (Please, follow up with Dr. Bell in the [place] Office on TuesdayAugust 25 at 9:40 am. *If you need to change this appointment, call the office at [phone].) Diet: Carb Count or DM1 Addtl Provider Instructions: FAollowup with PCP in 1-2 weeks Followup with INFECTIOUS DISEASE in 10-14 days. Daily dressing changes. F/U with Wound Care this week in [place]. F/U with Dr Mendoza in 7-10 days from the day of surgery. [phone] Prescriptions: New docusate sodium 100 mg Capsule 100 mg PO BID Qty: 60 RF: 0 oxycodone 5 mg Tablet 15 mg PO Q4H PRN (Reason: breakthrough pain) Qty: 20 RF: 0 oxycodone [OxyContin] 15 mg Tablet,Oral Only,Ext.Rel.12 Hr 30 mg PO Q12H Qty: 14 RF: 0 sulfamethoxazole-trimethoprim 800-160 mg tablet 1 tab PO BID 14 Days Qty: 28 RF: 0 levofloxacin 750 mg tablet 750 mg PO DAILY 14 Days Qty: 14 RF: 0 Continued atorvastatin [Lipitor] 80 mg tablet 80 mg PO QAM RF: 0 alprazolam [Xanax] 0.5 mg tablet 0.5 mg PO DAILY PRN (Reason: Anxiety) RF: 0 multivitamin capsule 1 cap PO QAM RF: 0 B-complex with vitamin C tablet 1 tab PO QAM RF: 0 omeprazole magnesium [Prilosec OTC] 20 mg tablet,delayed release (DR/EC) 20 mg PO QAM RF: 0 duloxetine [Cymbalta] 30 mg capsule,delayed release(DR/EC) 30 mg PO QAM RF: 0 duloxetine [Cymbalta] 60 mg capsule,delayed release(DR/EC) 60 mg PO QAM RF: 0 oxymorphone 15 mg tablet extended release 12 hr 15 mg PO Q12H RF: 0 lactobacillus combination no.8 [Adult Probiotic] 3 billion cell capsule 3,000 mmu cells PO QAM RF: 0 lisinopril 20 mg Tablet 20 mg PO QAM RF: 0 aspirin [Aspir-81] 81 mg Tablet,Delayed Release (Dr/Ec) 81 mg PO QAM RF: 0 propranolol 10 mg Tablet 10 mg PO QAM RF: 0 insulin lispro [Admelog SoloStar U-100 Insulin] 100 unit/mL insulin pen subcut .SLIDING SCALE RF: 0 Basaglar KwikPen U-100 Insulin 100 unit/mL (3 mL) insulin pen 55 unit subcut QAM RF: 0 Discontinued oxycodone-acetaminophen [Percocet] 10-325 mg tablet 1 tab PO BID PRN (Reason: Pain) RF: 0 Stand-Alone Forms: [facility] Discharge Orders: Discharge Order (Routine); Ordered 08/21/18 Ordered By: Abisai Kunz Admission Data Admit Date/Time: 08/14/18 17:42 Attending Provider: Abisai Kunz Admit Provider: Maco Mendoza Primary Care Provider: Allen Bell Other Providers: Dary Mares ; Maverick Martin ; Jesse Epperson ; John Larson Service: Medical Other Interventions: Discharge Summary Assessment (RN) Last Done: 08/20/18 08:05 DC Date/Time DO NOT enter until pt leaves facility: 08/21/18 14:34
== END 2018-08-21 14:34 | disposition home or self-care (01) | DRG 982 ==
LOC: ED 15:24 → 4W 17:42 → SUATTDRO 17:42 → 4W 18:09
DX: F17.210 Nicotine dependence, cigarettes, uncomplicated; R94.6 Abnormal results of thyroid function studies; I96 Gangrene, not elsewhere classified; Z88.8 Allergy status to other drugs, medicaments and biological substances; L03.115 Cellulitis of right lower limb; Z79.891 Long term (current) use of opiate analgesic; L97.512 Non-pressure chronic ulcer of other part of right foot with fat layer exposed; F17.220 Nicotine dependence, chewing tobacco, uncomplicated; E10.52 Type 1 diabetes mellitus with diabetic peripheral angiopathy with gangrene; Z91.048 Other nonmedicinal substance allergy status; I25.10 Atherosclerotic heart disease of native coronary artery without angina pectoris; L03.031 Cellulitis of right toe; Z79.899 Other long term (current) drug therapy; E10.40 Type 1 diabetes mellitus with diabetic neuropathy, unspecified; Z86.14 Personal history of Methicillin resistant Staphylococcus aureus infection; E10.628 Type 1 diabetes mellitus with other skin complications; I10 Essential (primary) hypertension; Z88.1 Allergy status to other antibiotic agents; E10.621 Type 1 diabetes mellitus with foot ulcer; Z79.82 Long term (current) use of aspirin; D63.8 Anemia in other chronic diseases classified elsewhere

== ENCOUNTER 2018-11-10 08:41 | Inpatient (IN) ==
--- NOTE | 2018-11-08 09:47 | Anesthesiology Consultation ---
Date of Service November 08, 2018 GA with #5 LMA August 2018 for ankle I&D. No complications. Assessment & Plan (1) Encounter for pre-operative examination: Chart Review Chart Review: Acceptable Risk for Surgery and Patient NOT seen in Pre Admission Testing Consults Requested none History Surgery Operation Date: 11/10/18 10:30 Proposed Procedures p Right Foot 1st Metatarsal Head Incision and Drainage Planter Ulcer, Debridement Flexor Tendon, Implantation Stimulan Antibiotic Beads - Amado Mendoza DO Allergies Allergy/AdvReac Type Severity Reaction Status Date / Time adhesive tape Allergy Intermediate red/blochy/ Verified 11/07/18 15:44 itchiness amoxicillin Allergy Intermediate hives Verified 11/06/18 12:27 cefaclor Allergy Intermediate hives Verified 11/06/18 12:27 aztreonam Allergy Mild "burning Verified 11/07/18 15:44 up" levetiracetam [From [facility]] Allergy Unknown Unverified 11/06/18 12:27 aminophylline AdvReac Intermediate "weird Verified 11/07/18 15:44 feeling" ezetimibe AdvReac Intermediate chest Verified 11/07/18 15:44 pressure gabapentin AdvReac Intermediate confusion Verified 11/07/18 15:44 pregabalin AdvReac Intermediate confusion Verified 11/07/18 15:44 simvastatin AdvReac Intermediate chest Verified 11/07/18 15:44 pressure vancomycin AdvReac Intermediate acute Verified 11/06/18 12:27 renal failure Medications Home Medications Medication Instructions Recorded Confirmed Last Taken duloxetine 30 mg capsule,delayed 30 mg PO QAM 01/05/18 11/06/18 08/14/18 release duloxetine 60 mg capsule,delayed 60 mg PO QAM 01/05/18 11/06/18 08/14/18 release lactobacillus combination no.8 3 3,000 mmu cells PO QAM 01/05/18 11/01/18 08/14/18 billion cell capsule multivitamin capsule 1 cap PO QAM 01/05/18 11/01/18 08/14/18 aspirin [Aspir-81] 81 mg PO QAM 07/05/18 11/06/18 08/14/18 lisinopril 20 mg PO QAM 07/05/18 11/06/18 08/14/18 propranolol 10 mg PO QAM 07/05/18 11/01/18 08/14/18 atorvastatin 80 mg tablet 80 mg PO HS tab 11/06/18 11/06/18 Unknown Humalog U-100 Insulin 11/07/18 Unknown insulin glargine [Lantus U-100 55 unit SUBCUT DAILY 11/07/18 11/07/18 Unknown Insulin] omeprazole magnesium [Prilosec OTC] 11/07/18 Unknown oxycodone-acetaminophen 1 tab PO Q6H PRN 11/07/18 11/07/18 Unknown oxymorphone 15 mg PO BID 11/07/18 11/07/18 Unknown Past Medical History Medical History Diabetic ulcer of gutierrez with necrosis of muscle Type 1 diabetes mellitus Neuropathy KENDALL (acute kidney injury) noted per patient questionnaire; most recent creatitine 1.7 08/2018 per chart review Acid reflux Anemia chronic; baseline hgb 9 range per chart review Anxiety Anxiety/depression noted on patient questionnaire Chronic renal insufficiency Diabetic foot ulcer right; wound clinic monitoring 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 Follows with wound clinic/infectious disease. Last visit 11/01/18 at [facility] Pressure ulcer right heel/right leg; wound clinic monitoring Past Surgical History Surgical History History of amputation of finger History of carpal tunnel release of both wrists Social History Smoking Status: Current every day smoker tobacco type: cigarettes and smokeless tobacco Smoking cigarettes per day: 1/2 PPD Hx Alcohol Use: No Hx Substance Use: Yes (Occasional THC) substance use type: marijuana Testing Laboratory Results Laboratory Tests 09/07/18 10/23/18 15:48 15:07 WBC 7.01 Hgb 9.9 L Hct 29.4 L Plt Count 351 Sodium 137 Potassium 4.8 Chloride 103 Carbon Dioxide 30 BUN 34 H Creatinine 1.70 H Glucose 312 H* Electrocardiogram Date: 09/07/18 Findings: + NSR @ (82)
--- NOTE | 2018-11-10 08:39 | History & Physical Report ---
Date of Service November 10, 2018 Assessment & Plan (1) Diabetic ulcer of foot associated with type 1 diabetes mellitus, limited to breakdown of skin: He will be scheduled for a Right Foot 1st Metatarsal Head Planter Ulcer Incision and Drainage, Debridement Flexor Tendon, Implantation Stimulan An tibiotic Beads on 11.10.18. All potential risks, benefits, complications, alternatives, and rehab have been discussed with the patient and he wishes to proceed. (2) Diabetic ulcer of toe associated with type 1 diabetes mellitus, with fat layer exposed: (3) Diabetic foot infection: History of Present Illness Chief Complaint: right foot cellulitis Primary Care Provider: Allen Bell This is a patient who had a previous right foot 1st metatarsal I & D. He was followed post operatively but the wound failed to heal. He is now being set up for surgical tx. Allergies Allergy/AdvReac Type Severity Reaction Status Date / Time adhesive tape Allergy Intermediate red/blochy/ Verified 11/08/18 13:58 itchiness amoxicillin Allergy Intermediate hives Verified 11/08/18 13:58 cefaclor Allergy Intermediate hives Verified 11/08/18 13:58 aztreonam Allergy Mild "burning Verified 11/08/18 13:58 up" levetiracetam [From [facility]] Allergy Unknown Unverified 11/08/18 13:58 aminophylline AdvReac Intermediate "weird Verified 11/08/18 13:58 feeling" ezetimibe AdvReac Intermediate chest Verified 11/08/18 13:58 pressure gabapentin AdvReac Intermediate confusion Verified 11/08/18 13:58 pregabalin AdvReac Intermediate confusion Verified 11/08/18 13:58 simvastatin AdvReac Intermediate chest Verified 11/08/18 13:58 pressure vancomycin AdvReac Intermediate acute Verified 11/08/18 13:58 renal failure Home Medications Home Medications Medication Instructions Recorded Confirmed Type duloxetine 30 mg capsule,delayed 30 mg PO QAM 01/05/18 11/08/18 History release duloxetine 60 mg capsule,delayed 60 mg PO QAM 01/05/18 11/08/18 History release lactobacillus combination no.8 3 3,000 mmu cells PO QAM 01/05/18 11/08/18 History billion cell capsule multivitamin capsule 1 cap PO QAM 01/05/18 11/08/18 History aspirin [Aspir-81] 81 mg PO QAM 07/05/18 11/08/18 History lisinopril 20 mg PO QAM 07/05/18 11/08/18 History propranolol 10 mg PO QAM 07/05/18 11/08/18 History atorvastatin 80 mg tablet 80 mg PO HS tab 11/06/18 11/08/18 History insulin glargine [Lantus U-100 55 unit SUBCUT QAM 11/07/18 11/08/18 History Insulin] omeprazole magnesium [Prilosec OTC] 20 mg PO QAM 11/07/18 11/08/18 History oxycodone-acetaminophen 1 tab PO Q6H PRN 11/07/18 11/08/18 History oxymorphone 15 mg PO BID 11/07/18 11/08/18 History insulin lispro [Humalog U-100 1 unit SUBCUT UD 11/08/18 11/08/18 History Insulin] Past Med/Surg History Medical History Diabetic ulcer of gutierrez with necrosis of muscle Type 1 diabetes mellitus Neuropathy KENDALL (acute kidney injury) due to vancomycin had acute kidney failure -- and was told he is okay at present Acid reflux Anemia chronic Anxiety Chronic renal insufficiency due to diabetic for 31 years Depression Diabetic foot ulcer right; wound clinic monitoring 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 H/O necrotizing fasciitis HTN (hypertension) Hyperlipidemia Surgical History History of amputation of finger History of carpal tunnel release of both wrists Social History Preferred Language: [place] Communication Ability: Effective Forklift Technician Required: No Beliefs That Will Affect Care: None Current Living Situation: Family Current Living Situation Comment: Lives with parents current occupational status: employed current occupation: [employer] Other Information That Helps Us Care for You: No Feels Safe at Home: Yes Safety Concerns: Feels Safe At This Time Smoking Status: Former smoker Tobacco Type: cigarettes and smokeless tobacco Cigarettes Per Day: 1/2 PPD Do You Dip or Chew Tobacco: Yes (1 CAN/ EVERY COUPLE DAYS/ ADVISED) Smoking End Date: QUIT OF RECENT Second Hand Exposure: No Tobacco Cessation Education Requested by Patient: No Hx Alcohol Use: No Hx Substance Use: No Physical Exam Constitutional: well developed and well nourished; no acute distress ENMT: external ear and nose normal, oropharynx normal Neck: trachea midline, no thyromegaly Respiratory: normal respiratory effort, lungs clear to auscultation Cardiovascular: RRR, no murmur, no edema Gastrointestinal (Abdomen): normal bowel sounds, soft, nontender, no hepatosplenomegaly Musculoskeletal: Right foot: plantar 1st metatarsal ulceration with erythema. Mild serosanguinous drainage. Neurologic: + abnormal sensation to monofilament Psychiatric: A+Ox3, euthymic affect Lymphatic: no cervical or axillary lymphadenopathy
[~2018-11-10 08:41] MED LIST changes: -ALPR-411 PO; -ASPCH81X PO; -ATOR10TA82 PO; -B COCAP3; -CHOL1000 PO; -CYM/30 PO; -DULO60CA44 PO; -HMLI SC; -INSDGI SC; -LACT1CAP6; -LEVO1TAB35 PO; -LISI-729 PO; -MULT-506 PO; -OXYC-594 PO; -OXYM1TAB PO; -PRLSR20 PO; +ROPIVACAINE 0.5% 5 MG/ML 30 ML VIAL ONE
[2018-11-10] MEDS ORDERED: DEXTROSE 50% 50 ML SYRINGE IV ONE ×2 (09:49→09:55)
[2018-11-10] MEDS ORDERED: LIDOCAINE HCL 2% 2 ML VIAL/AMP(20MG/ML) INFIL ONE (10:05)
[2018-11-10] MEDS ORDERED: PROPOFOL IV EMULSION 10 MG/ML 20 ML VIAL IV ONE (10:05)
[2018-11-10] MEDS ORDERED: ONDANSETRON INJ 2 MG/ML 2 ML VIAL ONE (10:05)
[2018-11-10] MEDS ORDERED: MIDAZOLAM HCL 1 MG/ML 2ML VIAL ONE (10:05)
[2018-11-10] MEDS ORDERED: fentaNYL citrate 100 MCG/2 ML VIAL ONE ×3 (10:05→13:28)
[2018-11-10] MEDS ORDERED: GENTAMICIN SULFATE 40 MG/ML 2 ML VIAL ONE (10:24)
[2018-11-10] MEDS ORDERED: VANCOMYCIN HCL 1000MG/20ML VIAL ONE (10:24)
--- NOTE | 2018-11-10 11:07 | History & Physical Bridge Note ---
Date of Service November 10, 2018 History & Physical Bridge Note I have examined the patient, reviewed the History & Physical and in the interval since the performance of the History & Physical I have noted the following changes of clinical significance: no changes noted
[2018-11-10] MEDS ORDERED: BUPIVACAINE 0.5 % 5 MG/1 ML MPF 30ML VIAL ONE (11:15)
[2018-11-10] MEDS ORDERED: BACITRACIN INJ 50,000 UNIT VIAL ONE (11:15)
[2018-11-10] MEDS ORDERED: CLINDAMYCIN 600 MG/54 ML BAG IV STA (11:32)
[2018-11-10] MEDS ORDERED: TOBRAMYCIN SULFATE 1,200 MG VIAL ONE (11:52)
[2018-11-10] MEDS ORDERED: TOBRAMYCIN SULF 40 MG/ML 2 ML VIAL ONE (11:52)
[2018-11-10] MEDS ORDERED: PHENYLEPHRINE HCL 10 MG/ML VIAL ONE (12:04)
[2018-11-10] MEDS ORDERED: METOCLOPRAMIDE HCL INJ 5 MG/ML 2 ML VIAL IV PRN (12:21)
[2018-11-10] MEDS ORDERED: MAGNESIUM HYDROXIDE SUSP 30 ML UDC PO PRN (12:21)
[2018-11-10] MEDS ORDERED: BISACODYL 10 MG SUPP PR PRN (12:21)
[2018-11-10] MEDS ORDERED: HYDROmorphone INJ 1 MG/ML SYRINGE IV PRN (12:21)
[2018-11-10] MEDS ORDERED: TAMSULOSIN HCL 0.4 MG CAP PO PRN (12:21)
[2018-11-10] MEDS ORDERED: NALOXONE HCL 0.4 MG/1 ML VIAL/CARP IV PRN (12:21)
[2018-11-10] MEDS ORDERED: ONDANSETRON INJ 2 MG/ML 2 ML VIAL IV PRN (12:21)
[2018-11-10] MEDS: HYDROmorphone INJ 2 MG/ML SYR/VIAL IV PRN ×4 (13:04→13:59)
[2018-11-10] MEDS ORDERED: ATROPINE SULFATE 0.1 MG/ML 10ML SYR IV PRN (13:12)
[2018-11-10] MEDS ORDERED: fentaNYL citrate 100 MCG/2 ML VIAL IV PRN (13:12)
[2018-11-10] MEDS ORDERED: ePHEDrine sulfate 50 MG/ML AMP IV PRN (13:12)
--- NOTE | 2018-11-10 13:16 | Post Operative Brief Note ---
Immediate Post Op Note v1 Date of Surgery November 10, 2018 Pre & Post Diagnosis Operation Date: 11/10/18 10:30 Pre-Op Diagnosis: Right foot diabetic ulcer of foot associated with type 1 diabetes mellitus, abscess right foot, infectious tenosynovitis flexor hallucis longus tendon, septic arthritis great toe interphalangeal joint Post-Op Diagnosis: Right foot diabetic ulcer of foot associated with type 1 diabetes mellitus, abscess right foot, infectious tenosynovitis flexor hallucis longus tendon, septic arthritis great toe interphalangeal joint Procedure Operation Date: 11/10/18 10:30 Actual Procedures p Right Foot 1st Metatarsal Head Planter Ulcer irrigation and debridement, Debridement Flexor Longus Tendon, Fascia and Skin, arthrotomy and irrigation of interphalangeal joint great toe, implantation Stimulan Antibiotic Beads(Right) - Amado Mendoza DO Surgeon Amado Mendoza DO Pyrometer Temperature Regulator None Estimated Blood Loss 3 Findings Consistent with Post-Op Diagnosis Specimens Aerobic anaerobic Gram stain right foot flexor hallucis longus tendon Drains Other (1/2 inch iodoform gauze) Anesthesia Type General Complications none Disposition Accompanied Patient To Recovery: Yes Disposition: Recovery Room
--- NOTE | 2018-11-10 15:16 | Anesthesiology Progress Note ---
Date of Service November 10, 2018 Anesthesia Post Procedure Vital Signs Vital Signs: Temp Pulse Pulse Resp BP Pulse Ox 11/10/18 15:00 85 19 114/62 100 11/10/18 14:45 83 19 108/62 100 11/10/18 14:30 37.2 C 92 H 20 114/67 100 11/10/18 14:20 37.2 C 88 19 109/63 100 11/10/18 14:10 37.5 C 91 H 18 114/66 11/10/18 14:00 37.5 C 91 H 24 120/54 L 100 11/10/18 13:50 37.5 C 89 21 110/63 11/10/18 13:40 37.5 C 89 28 H 106/63 11/10/18 13:30 37.5 C 90 23 117/64 100 11/10/18 13:20 37.5 C 92 H 18 112/65 100 11/10/18 13:10 37.5 C 87 13 118/57 L 11/10/18 13:01 37.5 C 99 H 18 115/50 L 11/10/18 09:06 36.7 C 101 H 18 138/76 100 Pain Intensity Right Foot: Pain Intensity: 7 Transfer of Care Handoff Completed per policy Notes Mental Status: alert / awake / arousable and participated in evaluation Patient Amnestic to Procedure: Yes Nausea / Vomiting: adequately controlled Pain: adequately controlled Airway Patency, RR, SpO2: stable & adequate BP & HR: stable & adequate Hydration State: stable & adequate Anesthetic Complications: no major complications apparent
[2018-11-10] MEDS ORDERED: OXYCODONE/ACETAMINOPHEN 10-325 TAB PO PRN (15:18)
--- NOTE | 2018-11-10 15:45 | Infectious Disease Consult ---
Date of Consultation November 10, 2018 Assessment & Plan (1) Acute osteomyelitis of right ankle or foot: Patient with right foot infection in the setting of diabetic foot ulcer with likely osteomyelitis, septic arthritis, and localized abscess, now status post debridement. Patient has been started on clindamycin, will adjust once operative cultures are available. Will follow. (2) Diabetic foot ulcer associated with type 1 diabetes mellitus: History of Present Illness Reason for Consultation: Right foot ulceration with infection right first metatarsal Attending Physician: Amado Mendoza DO History of Present Illness 33-year-old male well-known to me from follow-up at the wound care center, with long-standing type 1 diabetes mellitus with peripheral neuropathy, with history of recurrent foot infections and osteomyelitis. Has had chronic right foot plantar ulceration for many months, has been treated with treatment with antibiotics but has failed to healed. He was admitted for surgical treatment, undergoing extensive debridement and placement of antibiotic beads. Patient temperature 39 postoperatively. Complaining of severe pain in his foot. Has not had significant associated fever or chills. Currently on daptomycin levofloxacin, operative cultures are pending. Allergies Allergy/AdvReac Type Severity Reaction Status Date / Time adhesive tape Allergy Intermediate red/blochy/ Verified 11/10/18 09:02 itchiness amoxicillin Allergy Intermediate hives Verified 11/10/18 09:02 cefaclor Allergy Intermediate hives Verified 11/10/18 09:02 aztreonam Allergy Mild "burning Verified 11/10/18 09:02 up" levetiracetam [From [facility]] Allergy Unknown Verified 11/10/18 09:42 aminophylline AdvReac Intermediate "weird Verified 11/10/18 09:02 feeling" ezetimibe AdvReac Intermediate chest Verified 11/10/18 09:02 pressure gabapentin AdvReac Intermediate confusion Verified 11/10/18 09:02 pregabalin AdvReac Intermediate confusion Verified 11/10/18 09:02 simvastatin AdvReac Intermediate chest Verified 11/10/18 09:02 pressure vancomycin AdvReac Intermediate acute Verified 11/10/18 09:02 renal failure Home Medications Home Medications Medication Instructions Recorded Confirmed Type duloxetine 30 mg capsule,delayed 30 mg PO QAM 01/05/18 11/10/18 History release duloxetine 60 mg capsule,delayed 60 mg PO QAM 01/05/18 11/10/18 History release lactobacillus combination no.8 3 3,000 mmu cells PO QAM 01/05/18 11/10/18 History billion cell capsule multivitamin capsule 1 cap PO QAM 01/05/18 11/10/18 History aspirin [Aspir-81] 81 mg PO QAM 07/05/18 11/10/18 History lisinopril 20 mg PO QAM 07/05/18 11/10/18 History propranolol 10 mg PO QAM 07/05/18 11/10/18 History atorvastatin 80 mg tablet 80 mg PO HS tab 11/06/18 11/10/18 History insulin glargine [Lantus U-100 55 unit SUBCUT QAM 11/07/18 11/10/18 History Insulin] omeprazole magnesium [Prilosec OTC] 20 mg PO QAM 11/07/18 11/10/18 History oxycodone-acetaminophen 1 tab PO Q6H PRN 11/07/18 11/10/18 History oxymorphone 15 mg PO BID 11/07/18 11/10/18 History insulin lispro [Humalog U-100 1 unit SUBCUT UD 11/08/18 11/10/18 History Insulin] Patient History Medical History Diabetic ulcer of gutierrez with necrosis of muscle Type 1 diabetes mellitus Neuropathy Depression KENDALL (acute kidney injury) due to vancomycin had acute kidney failure -- and was told he is okay at present Acid reflux Anemia chronic Anxiety Chronic renal insufficiency due to diabetic for 31 years Diabetic foot ulcer right; wound clinic monitoring 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 H/O necrotizing fasciitis HTN (hypertension) Hyperlipidemia Surgical History History of amputation of finger History of carpal tunnel release of both wrists Family History Other Heart disease Hypertension Social History Preferred Language: [place] Communication Ability: Effective Counter Manager Required: No Beliefs That Will Affect Care: None Current Living Situation: Family Current Living Situation Comment: Lives with parents current occupational status: employed current occupation: [employer] Other Information That Helps Us Care for You: No Feels Safe at Home: Yes Safety Concerns: Feels Safe At This Time Smoking Status: Former smoker Tobacco Type: cigarettes and smokeless tobacco Cigarettes Per Day: 1/2 PPD Do You Dip or Chew Tobacco: Yes (1 CAN/ EVERY COUPLE DAYS/ ADVISED) Smoking End Date: QUIT OF RECENT Second Hand Exposure: No Tobacco Cessation Education Requested by Patient: No Hx Alcohol Use: No Hx Substance Use: No Review of Systems Review of Systems: All systems reviewed & are unremarkable except as noted in HPI & below Physical Exam Constitutional: WD/WN, vitals as above comfortable; no acute distress Eyes: PERRL, conjunctivae normal, anicteric sclerae ENMT: external ear and nose normal, oropharynx normal Neck: trachea midline, no thyromegaly neck nontender Respiratory: normal respiratory effort, lungs clear to auscultation normal percussion; does not use accessory muscles Cardiovascular: Rate/Rhythm: regular rate and regular rhythm Heart Sounds: normal S1 and normal S2; no gallop, no murmur and no cardiac rub Vessels: nor mal peripheral pulses; no JVD Gastrointestinal (Abdomen): normal bowel sounds, soft, nontender, no hepatosplenomegaly Musculoskeletal: no cyanosis or clubbing, extremities motor strength 5/5 Head/Neck/Chest: normocephalic and head atraumatic Spine: thoracic spine normal to inspection and lumbar spine normal to inspection; no cervical spinal tenderness Skin: no rashes, warm and dry normal turgor and + wound (Right foot surgical dressing intact) Neurologic: moves all extremities and awake; no focal motor deficits Motor/Sensory: + sensory deficit (Both lower extremities) Psychiatric: A+Ox3, euthymic affect Orientation: cooperative Lymphatic: no cervical or axillary lymphadenopathy no inguinal lymphadenopathy Results & Data Vital Signs (Past 12 Hours) Vital Signs Temp Pulse Pulse Resp BP Pulse Ox 11/10/18 15:28 37.0 C 16 114/60 11/10/18 15:00 85 19 114/62 11/10/18 14:45 83 19 108/62 11/10/18 14:30 37.2 C 92 H 20 114/67 11/10/18 14:20 37.2 C 88 19 109/63 100 11/10/18 14:10 37.5 C 91 H 18 114/66 11/10/18 14:00 37.5 C 91 H 24 120/54 L 100 11/10/18 13:50 37.5 C 89 21 110/63 100 11/10/18 13:40 37.5 C 89 28 H 106/63 100 11/10/18 13:30 37.5 C 90 23 117/64 100 11/10/18 13:20 37.5 C 92 H 18 112/65 100 11/10/18 13:10 37.5 C 87 13 118/57 L 100 11/10/18 13:01 37.5 C 99 H 18 115/50 L 100 11/10/18 09:06 36.7 C 101 H 18 138/76 100 Laboratory Results Laboratory Results - last 48 hr 11/10/18 11/10/18 11/10/18 09:04 10:01 12:17 POC Glucose 79 160 H 117 H 11/10/18 13:18 POC Glucose 107 H
--- NOTE | 2018-11-10 16:15 | Consultation ---
Date of Consultation November 10, 2018 Assessment & Plan (1) Sepsis: patient was doing well post op, vitals stable, only complained of pain in right foot 1 hour later the patient developed fever, rigors, chills, diaphoresis and tachycardia provided with Tylenol for headache certainly with recent debridement would be concerned for sepsis and translocation of bacteria, even with Clindamycin given in perioperative period reviewed prior cultures from wound, MSSA in the past resistant to Clindamycin, A faecilis, Coag negative staph will broaden out antibiotics, use Daptomycin 6mg/kg (h/o allergic reaction to Vancomycin) Levaquin 500mg daily, has allergies to PCN, Ceph and Aztreonam continue Clindamycin 1L NSS bolus now, increase fluids to 125mL/hr check blood cultures x 2 stat, check lactic acid, CRP, ESR, procalcitonin check CBC, CMP portable CXR, urinalysis with reflex culture if needed will discuss with night team, low threshold to transfer to tele but for now his blood pressure is fine (2) Acute kidney injury: Cr elevated at 2.1 treat with aggressive IV fluids likely from sepsis but would seem early for this he was well hydrated prior to surgery renally dose medications, place Lisinopril on hold repeat BMP in the morning (3) Hyperkalemia: likely due to KENDALL hold Lisinopril aggressive IV fluids, Calcium gluconate receiving insulin for hyperglycemia which will help repeat BMP this evening (4) Diabetic ulcer of left foot associated with type 1 diabetes mellitus, with fat layer exposed: POSTOPERATIVE DIAGNOSES: 1. Right foot diabetic ulcer measuring 1.5 cm in diameter under the first metatarsal head. 2. Infectious tenosynovitis of the flexor hallucis longus tendon. 3. Abscess of the right foot. 4. Septic arthritis of the interphalangeal joint of the great toe. PROCEDURES on 11/10 1. Right foot incision and drainage abscess. 2. Debridement of the flexor hallucis longus tendon. 3. Arthrotomy of the interphalangeal joint of the great toe with irrigation and debridement. 4. Debridement of the first metatarsal diabetic ulcer measuring 1.5 cm in diameter with debridement of skin, fascia, and tendon. 5. Implantation of antibiotic laden Stimulan beads, right foot. Dr. Mendoza will manage pain control and wound care (5) Diabetic foot infection: see above (6) Surgical wound, non healing: see above (7) Dysesthesia: (8) Type 1 diabetes mellitus: pharmacy consulted uses Lantus 55 untis qAM and Novolog coverage insulin pump listed as medication but patient has not used for years (9) Anemia: Hb low at 7.2, unclear etiology will follow closely no reported melena or dark stools History of Present Illness Requesting Physician: Dr. Mendoza Reason for Consultation: medical management Attending Physician: Amado Mendoza, DO History of Present Illness 33 yo male with history of long standing type I diabetes, juvenile onset, presents to the medical floor after undergoing debridement of 1.5cm ulcer with abscess, septic arthritis of great toe, antibiotic beads placed. Patient has been dealing with this ulcer for several months, has undergone debridements, courses of antibiotics, wound care and the wound clinic. He was admitted to the hospital in the spring for similar issues. At this time wound care was not sufficient and the ulcer was getting worse so Dr. Mendoza took him to the OR. The procedure went well, was well tolerated, transferred to the third floor in stable condition. At the time of my visit the patient the patient was complaining of severe pain in the right foot but denied all other complaints. He had no fever, no chills, no rigors. No chest pain, no dyspnea, no cough. He had just finished eating a sandwich, had no abdominal pain, no nausea. He said that he moved his bowels yesterday. He said that he took his Lantus, 55 units, this morning. Pharmacy was consulted for glycemic management and they were already speaking with the RN about dosing for Novolog. After my visit I received a page about the patient becoming feverish with temperature of 39.1. He had rigors at that time. His HR had increased to the 120's and he was hypertensive. Instructed RN to given Tylenol. Remained fe brile and HR still elevated. Ordered CBC, CMP, lactic acid, CRP, ESR, procalcitonin, blood cultures, CXR and UA. Changed antibiotics. See the assessment and plan. Requested night team follow up on results and check on patient. Allergies Allergy/AdvReac Type Severity Reaction Status Date / Time adhesive tape Allergy Intermediate red/blochy/ Verified 11/10/18 09:02 itchiness amoxicillin Allergy Intermediate hives Verified 11/10/18 09:02 cefaclor Allergy Intermediate hives Verified 11/10/18 09:02 aztreonam Allergy Mild "burning Verified 11/10/18 09:02 up" [facility] Allergy Unknown Verified 11/10/18 09:42 aminophylline AdvReac Intermediate "weird Verified 11/10/18 09:02 feeling" ezetimibe AdvReac Intermediate chest Verified 11/10/18 09:02 pressure gabapentin AdvReac Intermediate confusion Verified 11/10/18 09:02 pregabalin AdvReac Intermediate confusion Verified 11/10/18 09:02 simvastatin AdvReac Intermediate chest Verified 11/10/18 09:02 pressure vancomycin AdvReac Intermediate acute Verified 11/10/18 09:02 renal failure Home Medications Home Medications Medication Instructions Recorded Confirmed Type duloxetine 30 mg capsule,delayed 30 mg PO QAM 01/05/18 11/10/18 History release duloxetine 60 mg capsule,delayed 60 mg PO QAM 01/05/18 11/10/18 History release lactobacillus combination no.8 3 3,000 mmu cells PO QAM 01/05/18 11/10/18 History billion cell capsule multivitamin capsule 1 cap PO QAM 01/05/18 11/10/18 History aspirin [Aspir-81] 81 mg PO QAM 07/05/18 11/10/18 History lisinopril 20 mg PO QAM 07/05/18 11/10/18 History propranolol 10 mg PO QAM 07/05/18 11/10/18 History atorvastatin 80 mg tablet 80 mg PO HS tab 11/06/18 11/10/18 History insulin glargine [Lantus U-100 55 unit SUBCUT QAM 11/07/18 11/10/18 History Insulin] omeprazole magnesium [Prilosec OTC] 20 mg PO QAM 11/07/18 11/10/18 History oxycodone-acetaminophen 1 tab PO Q6H PRN 11/07/18 11/10/18 History oxymorphone 15 mg PO BID 11/07/18 11/10/18 History insulin lispro [Humalog U-100 1 unit SUBCUT UD 11/08/18 11/10/18 History Insulin] Patient History Medical History Diabetic ulcer of gutierrez with necrosis of muscle Type 1 diabetes mellitus Neuropathy Depression KENDALL (acute kidney injury) due to vancomycin had acute kidney failure -- and was told he is okay at present Acid reflux Anemia chronic Anxiety Chronic renal insufficiency due to diabetic for 31 years Diabetic foot ulcer right; wound clinic monitoring 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 H/O necrotizing fasciitis HTN (hypertension) Hyperlipidemia Surgical History History of amputation of finger History of carpal tunnel release of both wrists Family History Other Heart disease Hypertension Social History Preferred Language: Georgian Communication Ability: Effective Color Tester Required: No Beliefs That Will Affect Care: None Current Living Situation: Family Current Living Situation Comment: Lives with parents current occupational status: employed current occupation: [employer] Other Information That Helps Us Care for You: No Feels Safe at Home: Yes Safety Concerns: Feels Safe At This Time Smoking Status: Former smoker Tobacco Type: cigarettes and smokeless tobacco Cigarettes Per Day: 1/2 PPD Do You Dip or Chew Tobacco: Yes (1 CAN/ EVERY COUPLE DAYS/ ADVISED) Smoking End Date: QUIT OF RECENT Second Hand Exposure: No Tobacco Cessation Education Requested by Patient: No Hx Alcohol Use: No Hx Substance Use: No Review of Systems Review of Systems: All systems reviewed & are unremarkable except as noted in HPI & below Constitutional: no fever, no chills, no sweats, no body aches, no fatigue and no weakness Respiratory: no cough, no dyspnea and no wheezing Cardiovascular: no chest pain and no edema Gastrointestinal: no abdominal pain, no nausea, no vomiting, no constipation and no diarrhea/loose stools Musculoskeletal: + joint pain (right foot) Physical Exam Constitutional: WD/WN, vitals as above Eyes: PERRL, conjunctivae normal, anicteric sclerae ENMT: external ear and nose normal, oropharynx normal Neck: trachea midline, no thyromegaly Respiratory: normal respiratory effort, lungs clear to auscultation Cardiovascular: RRR, no murmur, no edema Gastrointestinal (Abdomen): normal bowel sounds, soft, nontender, no he patosplenomegaly Musculoskeletal: no cyanosis or clubbing, extremities motor strength 5/5 (right foot wrapped) Skin: no rashes, warm and dry Neurologic: patellar DTR's 2+ bilat, sensation intact and PERRL, EOMI, accommodation nl, no face palsy, no dysarthria Psychiatric: Orientation: alert and oriented x 3 Affect: + anxious affect Lymphatic: no cervical or axillary lymphadenopathy Results & Data Vital Signs (Past 12 Hours) Vital Signs Temp Pulse Pulse Resp BP Pulse Ox 11/10/18 15:47 37.0 C 95 H 16 148/86 H 11/10/18 15:28 37.0 C 16 114/60 11/10/18 15:00 85 19 114/62 11/10/18 14:45 83 19 108/62 11/10/18 14:30 37.2 C 92 H 20 114/67 11/10/18 14:20 37.2 C 88 19 109/63 11/10/18 14:10 37.5 C 91 H 18 114/66 11/10/18 14:00 37.5 C 91 H 24 120/54 L 11/10/18 13:50 37.5 C 89 21 110/63 11/10/18 13:40 37.5 C 89 28 H 106/63 11/10/18 13:30 37.5 C 90 23 117/64 11/10/18 13:20 37.5 C 92 H 18 112/65 11/10/18 13:10 37.5 C 87 13 118/57 L 11/10/18 13:01 37.5 C 99 H 18 115/50 L 11/10/18 09:06 36.7 C 101 H 18 138/76 100 Laboratory Results Laboratory Results - last 24 hr 11/10/18 11/10/18 11/10/18 09:04 10:01 12:17 WBC RBC Hgb Hct MCV MCH MCHC RDW Std Deviation RDW Coeff of Keisha Plt Count MPV Immature Gran % (Auto) Neut % (Auto) Lymph % (Auto) Letcher % (Auto) Eos % (Auto) Baso % (Auto) Immature Gran # (Auto) Neut # (Auto) Lymph # (Auto) Letcher # (Auto) Eos # (Auto) Baso # (Auto) RBC Morphology ESR Sodium Potassium Chloride Carbon Dioxide Anion Gap BUN Creatinine Est Cr Clr Drug Dosing Est GFR ( Amer) Est GFR (Non-Af Amer) BUN/Creatinine Ratio Glucose POC Glucose 79 160 H 117 H Lactate Calcium Total Bilirubin AST ALT Alkaline Phosphatase C-Reactive Protein Total Protein Albumin Globulin Albumin/Globulin Ratio Procalcitonin Blood Type Antibody Screen 11/10/18 11/10/18 11/10/18 13:18 16:50 17:32 WBC RBC Hgb Hct MCV MCH MCHC RDW Std Deviation RDW Coeff of Keisha Plt Count MPV Immature Gran % (Auto) Neut % (Auto) Lymph % (Auto) Letcher % (Auto) Eos % (Auto) Baso % (Auto) Immature Gran # (Auto) Neut # (Auto) Lymph # (Auto) Letcher # (Auto) Eos # (Auto) Baso # (Auto) RBC Morphology ESR Sodium Potassium Chloride Carbon Dioxide Anion Gap BUN Creatinine Est Cr Clr Drug Dosing Est GFR ( Amer) Est GFR (Non-Af Amer) BUN/Creatinine Ratio Glucose POC Glucose 107 H 173 H 170 H Lactate Calcium Total Bilirubin AST ALT Alkaline Phosphatase C-Reactive Protein Total Protein Albumin Globulin Albumin/Globulin Ratio Procalcitonin Blood Type Antibody Screen 11/10/18 11/10/18 11/10/18 19:04 19:04 19:04 WBC 12.91 H RBC 2.57 L Hgb 7.4 L Hct 22.2 L MCV 86.4 MCH 28.8 MCHC 33.3 RDW Std Deviation 40.8 RDW Coeff of Keisha 12.9 Plt Count 490 H MPV 8.8 Immature Gran % (Auto) 0.3 Neut % (Auto) 76.0 Lymph % (Auto) 12.8 Letcher % (Auto) 7.2 Eos % (Auto) 3.5 Baso % (Auto) 0.2 Immature Gran # (Auto) 0.04 H Neut # (Auto) 9.82 H Lymph # (Auto) 1.65 Letcher # (Auto) 0.93 H Eos # (Auto) 0.45 Baso # (Auto) 0.02 RBC Morphology Unremarkable ESR 58 H Sodium 131 L Potassium 6.3 H* Chloride 99 Carbon Dioxide 26 Anion Gap 6.0 BUN 38 H Creatinine 2.10 H Est Cr Clr Drug Dosing 56.0 Est GFR ( Amer) 46.2 Est GFR (Non-Af Amer) 39.9 BUN/Creatinine Ratio 18.0 Glucose 223 H POC Glucose Lactate Calcium 8.3 L Total Bilirubin 0.2 AST 10 L ALT 12 Alkaline Phosphatase 86 C-Reactive Protein 17.60 H Total Protein 7.0 Albumin 2.3 L Globulin 4.7 H Albumin/Globulin Ratio 0.5 L Procalcitonin Blood Type Antibody Screen 11/10/18 11/10/18 11/10/18 19:04 19:21 21:29 WBC RBC Hgb Hct MCV MCH MCHC RDW Std Deviation RDW Coeff of Keisha Plt Count MPV Immature Gran % (Auto) Neut % (Auto) Lymph % (Auto) Letcher % (Auto) Eos % (Auto) Baso % (Auto) Immature Gran # (Auto) Neut # (Auto) Lymph # (Auto) Letcher # (Auto) Eos # (Auto) Baso # (Auto) RBC Morphology ESR Sodium Potassium Chloride Carbon Dioxide Anion Gap BUN Creatinine Est Cr Clr Drug Dosing Est GFR ( Amer) Est GFR (Non-Af Amer) BUN/Creatinine Ratio Glucose POC Glucose 243 H Lactate 1.1 Calcium Total Bilirubin AST ALT Alkaline Phosphatase C-Reactive Protein Total Protein Albumin Globulin Albumin/Globulin Ratio Procalcitonin 0.27 Blood Type Antibody Screen 11/10/18 11/10/18 21:55 21:55 WBC RBC Hgb 7.2 L Hct 21.4 L MCV MCH MCHC RDW Std Deviation RDW Coeff of Keisha Plt Count MPV Immature Gran % (Auto) Neut % (Auto) Lymph % (Auto) Letcher % (Auto) Eos % (Auto) Baso % (Auto) Immature Gran # (Auto) Neut # (Auto) Lymph # (Auto) Letcher # (Auto) Eos # (Auto) Baso # (Auto) RBC Morphology ESR Sodium Potassium Chloride Carbon Dioxide Anion Gap BUN Creatinine Est Cr Clr Drug Dosing Est GFR ( Amer) Est GFR (Non-Af Amer) BUN/Creatinine Ratio Glucose POC Glucose Lactate Calcium Total Bilirubin AST ALT Alkaline Phosphatase C-Reactive Protein Total Protein Albumin Globulin Albumin/Globulin Ratio Procalcitonin Blood Type Pending Antibody Screen Pending Diagnostic Findings XR chest 1V portable HISTORY: 33 years-old Male fever, tachycardia acute fever with tachycardia COMPARISON: Chest radiograph 10/08/2015 TECHNIQUE: Portable AP view of the chest FINDINGS: Cardiac silhouette is unchanged. Mild bilateral hilar prominence is unchanged. There is no pneumothorax, pleural effusion, focal airspace consolidation or overt pulmonary edema. Mild degenerative changes about the right AC joint. IMPRESSION: No acute process. Medications Administered Current Inpatient Medications Acetaminophen (Tylenol) 650 mg PO Q6H PRN PRN Reason: Fever Stop: 12/10/18 17:27 Acetaminophen (Tylenol) 1,000 mg PO Q8 [facility] Stop: 12/10/18 21:59 Last Admin: 11/10/18 22:11 Dose: 1,000 mg Documented by: Alprazolam (Xanax) 0.5 mg PO HS [facility] Stop: 12/10/18 20:59 Last Admin: 11/10/18 21:07 Dose: 0.5 mg Documented by: Aspirin (Ecotrin Ectab) 81 mg PO QAM [facility] Stop: 12/11/18 08:59 Atorvastatin Calcium (Lipitor) 80 mg PO HS [facility] Stop: 12/10/18 20:59 Last Admin: 11/10/18 21:06 Dose: 80 mg Documented by: Bisacodyl (Dulcolax) 10 mg [place] DAILY PRN PRN Reason: Constipation Stop: 12/10/18 12:20 Diphenhydramine HCl (Benadryl Capsule) 25 mg PO Q8H PRN PRN Reason: Itching Stop: 12/10/18 12:20 Docusate Sodium (Colace) 100 mg PO BID [facility] Stop: 12/10/18 20:59 Last Admin: 11/10/18 21:06 Dose: 100 mg Documented by: Duloxetine HCl (Cymbalta) 30 mg PO QAM [facility] Stop: 12/11/18 08:59 Duloxetine HCl (Cymbalta) 60 mg PO QAM [facility] Stop: 12/11/18 08:59 Hydromorphone HCl (Dilaudid) 1 mg IV Q3H PRN PRN Reason: Pain Stop: 11/24/18 20:59 Clindamycin Phosphate 600 mg/ (Dextrose) 54 mls @ 100 mls/hr IV Q8H [facility]; Protocol Stop: 12/22/18 21:59 Sodium Chloride (Nss 1000ml) 1,000 mls @ 125 mls/hr IV .Q8H [facility] Stop: 11/11/18 06:00 Daptomycin 475 mg/ Syringe 9.5 mls @ 4.75 mls/min IV Q24H [facility]; Protocol Stop: 11/20/18 20:59 Last Admin: 11/10/18 21:01 Dose: 4.75 mls/min Documented by: Levofloxacin/Dextrose (Levaquin/D5w) 500 mg in 100 mls @ 100 mls/hr IV Q24H [facility]; Protocol Stop: 11/20/18 20:59 Last Admin: 11/10/18 21:14 Dose: 100 mls/hr Documented by: Insulin Aspart (Novolog Flexpen) 0 units SC ACHS [facility]; Protocol Stop: 12/10/18 16:29 Last Admin: 11/10/18 22:09 Dose: 5 units Documented by: Insulin Glargine (Lantus Solostar Pen) 55 units SQ QAM [facility]; Protocol Stop: 12/11/18 08:59 Lactobacillus Acidophilus (Floranex Granules/Powder Packet) [facility] Stop: 12/11/18 08:59 Magnesium Hydroxide (Milk Of Magnesia) 30 ml PO Q6H PRN PRN Reason: Constipation Stop: 12/10/18 12:20 Metoclopramide HCl (Reglan) 10 mg IV Q6H PRN PRN Reason: Nausea And Vomiting Stop: 12/10/18 12:20 Miscellaneous Information (Consult Glycemic Management Pharmacy) 1 ea N/A UD [facility] Stop: 12/10/18 16:20 Multivitamins (Multivitamin Tab) 1 tab PO [facility] Stop: 12/11/18 08:59 Naloxone HCl (Narcan) 0.1 mg IV Q5M PRN PRN Reason: Oversedation/Resp Depression Stop: 12/10/18 12:20 Ondansetron HCl (Zofran) 4 mg IV Q6H PRN PRN Reason: Nausea And Vomiting Stop: 12/10/18 12:20 Oxycodone HCl (Oxycontin) 20 mg PO BID [facility] Stop: 11/24/18 18:14 Last Admin: 11/10/18 18:45 Dose: 20 mg Documented by: Oxycodone HCl (Roxicodone Immediate Rel) 15 mg PO Q4H PRN PRN Reason: Pain Stop: 11/24/18 18:09 Last Admin: 11/10/18 20:53 Dose: 15 mg Documented by: Pantoprazole Sodium (Protonix) [facility] Stop: 12/11/18 08:59 Propranolol HCl (Inderal) 10 mg PO QAM [facility] Stop: 12/11/18 08:59 Sennosides (Senokot) 17.2 mg PO HS [facility] Stop: 12/10/18 20:59 Last Admin: 11/10/18 21:07 Dose: Not Given Documented by: Tamsulosin HCl (Flomax) 0.4 mg PO QAM PRN PRN Reason: unable to void Stop: 12/10/18 12:20 PG Care Time/CCT Total # of Minutes Spent Total Time Spent with Patient: Total time spent is greater than 50% in coordination of care (as documented) at patient's floor/unit and/or counseling patient: (1) Type 1 diabetes mellitus Diabetes mellitus complication detail: with foot ulcer Diabetes mellitus complication status: with skin complications Qualified Code(s): E10.621 - Type 1 diabetes mellitus with foot ulcer; L97.509 - Non-pressure chronic ulcer of other part of unspecified foot with unspecified severity
[2018-11-10] MEDS ORDERED: PHARMACY GLYCEMIC MGMT CONSULT SCH (16:21)
--- NOTE | 2018-11-10 16:25 | Pharmacy Report ---
Glycemic Control Consultation - Date of Service November 10, 2018 - Scope Scope: Glycemic Pharmacist consulted by Sin Rich PA-c on 11/10/18 for glycemic control and to write orders per [facility] inpatient glycemic control protocol - Objective Weight: 93.7 kg Accuchecks BSG (last 24hrs): 11/10/18 11/10/18 11/10/18 09:04 10:01 12:17 POC Glucose 79 160 H 117 H 11/10/18 13:18 POC Glucose 107 H - Recent Pertinent Medications Outpatient Anti-diabetic Regimen: * Lantus 55 units SQ QAM * Novolog - CF 50mg/dl/unit, Carb ratio 1 unit per 10 grams CHO consumed * A1c = 13.9% 08/17/18, updated A1c ordered Risk Factors for Insulin Resistance: * Infection: Clindamycin IV * Recent Surgery: s/p DM foot ulcer I&D and implantation of antibiotic beads. * Diet: Type 1 DM - Assessment & Plan Assessment & Plan: ASSESSMENT: * 33 year old type 1 diabetic s/p I&D diabetic foot ulcer with implantation of antibiotic beads. * Pt known to pharmacy glycemic service from admission in August, will begin with similar basal bolus regimen and titrate to goal. * Pt did take his home dose of Lantus 55 units this morning. * ADA & AACE recommend a goal blood sugar range 140-180 mg/dl for the majority of critically ill & non-critically ill patients. However, more stringent targets may be selected in individual cases. Will utilize more stringent goal of 110-140mg/dl based on patient age & comorbidities. Additionally, tighter glycemic control is warranted to facilitate wound/infection healing. PLAN FOR INPATIENT GLYCEMIC CONTROL: * Basal insulin * Lantus 55 units SQ daily * Bolus insulin * NovoLog per scale ACHS or Q6hrs while NPO * Goal Range: Low 110 mg/dL - High 140 mg/dL * Correction Factor: 25 mg/dL/unit * Nutritional / Prandial insulin per carb ratio of 1 unit per 8 grams CHO consumed * Please note that the plan above was derived based on current level of insulin resistance and hospital stress. These recommendations are appropriate for inpatient admission only. Plan of care upon discharge will need to be reassessed to avoid potential outpatient hypo/hyperglycemia. Thank you.
[2018-11-10] MEDS: LISINOPRIL 20 MG TAB PO SCH (17:26)
[2018-11-10] MEDS ORDERED: ACETAMINOPHEN 325 MG TAB PO PRN (17:28)
[2018-11-10] MEDS ORDERED: ACETAMINOPHEN 500 MG TAB PO ONE (18:15)
[2018-11-10] MEDS ORDERED: HYDROmorphone INJ 1 MG/ML SYRINGE IV ONE ×2 (18:15→21:00)
[2018-11-10] MEDS ORDERED: SODIUM CHLORIDE 0.9% 1000ML 1,000 ML IV ONE (18:39)
[2018-11-10] MEDS: OXYCODONE HCL 20 MG TABCR (OXYCONTIN) PO SCH ×2 (18:45→22:30)
--- NOTE | 2018-11-10 19:02 | XRay Report ---
XR chest 1V portable HISTORY: 33 years-old Male fever, tachycardia acute fever with tachycardia COMPARISON: Chest radiograph 10/08/2015 TECHNIQUE: Portable AP view of the chest FINDINGS: Cardiac silhouette is unchanged. Mild bilateral hilar prominence is unchanged. There is no pneumothor ax, pleural effusion, focal airspace consolidation or overt pulmonary edema. Mild degenerative change s about the right AC joint. IMPRESSION: No acute process. The above report was generated using voice recognition software. It may contain grammatical, syntax o r spelling errors. Electronically signed by: Thierry Dowell M.D. 11/10/2018 7:01 PM
[2018-11-10 19:32] LABS: Basophils # (auto) 0.02 K/uL (0-0.2); Basophils % (auto) 0.2 %; Eosinophils # (auto) 0.45 K/uL (0-0.5); Eosinophils % (auto) 3.5 %; Hematocrit (blood only) 22.2 % (42-52); Hemoglobin 7.4 g/dL (14.0-18.0); Immature Granulocytes # (auto) 0.04 K/uL (0.00-0.02); Immature Granulocytes % (auto) 0.3 %; Lymphocytes # (auto) 1.65 K/uL (1.2-3.4); Lymphocytes % (auto) 12.8 %; Mean Corpuscular Hemoglobin 28.8 pg (25-34); Mean Corpuscular Volume 86.4 fL (80-100); Mean Platelet Volume 8.8 fL (7.4-10.4); Monocytes # (auto) 0.93 K/uL (0.11-0.59); Monocytes % (auto) 7.2 %; Neutrophils # (auto) 9.82 K/uL (1.4-6.5); Platelet Count 490 K/uL (130-400); RDW Coefficient of Variation 12.9 % (11.5-14.5); RDW Standard Deviation 40.8 fL (36.4-46.3); Red Blood Count 2.57 M/uL (4.7-6.1); White Blood Count 12.91 K/uL (4.8-10.8)
[2018-11-10 19:43] LABS: Mean Corpuscular Hgb Conc 33.3 g/dL (32-36)
[2018-11-10 19:53] LABS: RBC Morphology Unremarkable
[2018-11-10] MEDS: INSULIN ASPART 100 UNITS/ML 3 ML PEN SC SCH ×2 (19:55→22:09)
[2018-11-10 20:00] LABS: Albumin Globulin Ratio 0.5 (0.9-2); Albumin Level 2.3 gm/dl (3.4-5.0); Bilirubin,Total 0.2 mg/dl (0.2-1); C Reactive Protein 17.6 mg/dl (0-0.29); Calcium 8.3 mg/dl (8.5-10.1); Est GFR (African American) 46.2; Est GFR (Non-African American) 39.9; Globulin 4.7 gm/dl (2.5-4.0); Potassium 6.3 mmol/L (3.5-5.1)
--- NOTE | 2018-11-10 20:02 | Operative Report ---
DATE OF OPERATION: 11/10/2018 PREOPERATIVE DIAGNOSES: 1. Right foot diabetic ulcer measuring 1.5 cm in diameter under the first metatarsal head. 2. Infectious tenosynovitis of the flexor hallucis longus tendon. 3. Abscess of the right foot. 4. Septic arthritis of the interphalangeal joint of the great toe. POSTOPERATIVE DIAGNOSES: 1. Right foot diabetic ulcer measuring 1.5 cm in diameter under the first metatarsal head. 2. Infectious tenosynovitis of the flexor hallucis longus tendon. 3. Abscess of the right foot. 4. Septic arthritis of the interphalangeal joint of the great toe. PROCEDURES: 1. Right foot incision and drainage abscess. 2. Debridement of the flexor hallucis longus tendon. 3. Arthrotomy of the interphalangeal joint of the great toe with irrigation and debridement. 4. Debridement of the first metatarsal diabetic ulcer measuring 1.5 cm in diameter with debridement of skin, fascia, and tendon. 5. Implantation of antibiotic laden Stimulan beads, right foot. SURGEON: Amado Mendoza DO. [employer] COUNSELOR: None. ANESTHESIA: General with local. SPECIMENS: Aerobic, anaerobic, Gram stain from the deep abscess of the right foot. DRAINS: One-half inch iodoform gauze x3. COMPLICATIONS: None. BLOOD LOSS: 3 mL. PERTINENT HISTORY: This is a 33-year-old type 1 diabetic who had a prior debridement of ulcer, right foot. He had made good progress with getting it healed with nonweightbearing and wound care. However, over the last 7 days, he has had worsening of the wound, increased swelling and redness of the foot. He was seen in clinic last week and he was then scheduled for procedure as indicated. All potential risks, benefits, complications, alternatives, rehab, potential for incomplete relief of symptoms, need for further surgery, DVT, PE, , persistent pain, swelling, scarring, weakness, neurovascular injury, wound complications, possible need for further amputation were discussed with the patient's family, all decided to proceed with procedure as indicated. DESCRIPTION OF PROCEDURE: The patient was taken to the operative suite, placed supine on the operating table. I reviewed consent and identification of proper operative site, the patient was anesthetized, LMA was placed. Tourniquet was placed high on the right thigh over cast padding; however, was not used during the case. Next, right lower extremity was then sterilely prepped and draped in usual fashion, elevated and partially exsanguinated from the heel extending proximally with an Esmarch bandage and an Esmarch tourniquet was applied over sterile surgical towel at the level of the ankle. Next, a 15 blade scalpel was used to make an incision on the plantar aspect of the plantar ulcer on the first metatarsal head. The skin edges were debrided as well as the fascia down through the subcutaneous tissue. There was visible flexor hallucis longus tendon through the ulcer. Next, after the ulcer was debrided sharply back to more healthy-appearing tissue, the necrotic features of the wound were curetted back to healthy appearing base tissue. Next, an ellipse of skin was excised both proximally and distally and converting the circular ulcer into a more ellipsoid configuration for ease and healing. Next, the flexor hallucis longus tendon was withdrawn from the wound and then sharply debrided with a 15 blade scalpel and a tenotomy scissor and forceps. The tendon was softened and obviously irregular. This incision was then carried proximally and distal to enhance visualization of the tendon. Tenosynovectomy was also performed with a rongeur. Next, attention was then directed toward the interphalangeal joint on the medial aspect, 15 blade scalpel was used to make an incision over the skin. There was an ulceration which was present, this was then tracked down to the interphalangeal joint. The interphalangeal joint was opened with a 15 blade scalpel for arthrotomy. Next, the pulsatile lavage with 3 liters bacitracin and saline mix was then used to irrigate the interphalangeal joint until clear. Next, there was a third incision which was made along the lateral aspect of the great toe over the interphalangeal joint. There was an area of sinus and ulceration. This was then tracked down to the flexor hallucis longus tendon. This was then carefully debrided with a rongeur and then irrigated with pulsatile lavage with bacitracin. Next, the plantar ulcer was then irrigated with pulsatile lavage and bacitracin 3 liters in total. Next, top gloves and top sheet were changed and the Stimulan beads were then created with 5 mL packet and addition of tobramycin and gentamicin. After the beads were deformed, they were placed in the plantar, medial and lateral incisions of the right foot. Once these were packed within the soft tissues, skin flaps were gently closed over the beads with interrupted 3-0 nylon sutures. Finally, a 1/2 inch iodoform gauze packing was then placed into the wound to ensure adequate drainage. The sterile compressive dressing was applied after local anesthetic was injected approximately 25 mL of 0.5% Marcaine plain. Next, after soft dressing was applied, Goyo wrap was overwrapped. The tourniquet was released. The patient was awakened and taken to recovery in stable condition. I attest to the content of the Intraoperative Record and any orders documented therein. Any exception s are noted below.
[2018-11-10] MEDS: OXYCODONE HCL IR 5 MG TAB (IMMEDIATE RELEASE) PO PRN (20:53)
[2018-11-10] MEDS: DAPTOmycin 475 MG in SYRINGE 0 ML IV SCH (21:01)
[2018-11-10] MEDS: DOCUSATE SODIUM 100 MG CAP PO SCH (21:06)
[2018-11-10] MEDS: ATORVASTATIN 40 MG TAB PO SCH (21:06)
[2018-11-10] MEDS: ALPRAZolam 0.5 MG TABLET PO SCH (21:07)
[2018-11-10] MEDS: SENNA 8.6 MG TAB PO SCH (21:07)
[2018-11-10] MEDS: LEVOFLOXACIN/D5W 500 MG/100 ML BAG IV SCH (21:14)
[2018-11-10] MEDS ORDERED: CALCIUM GLUCONATE 10% 1,000 MG in SODIUM CHLORIDE 0.9% 50 ML IV STA (21:32)
[2018-11-10] MEDS ORDERED: NovoLIN-R INSULIN PER UNIT CHARGE IV STA (21:32)
[2018-11-10] MEDS ORDERED: DEXTROSE 50% 50 ML SYRINGE IV STA (21:32)
[2018-11-10] MEDS ORDERED: INSULIN HUMAN REGULAR PER UNIT 10 UNITS in SYRINGE 9.9 ML IV ONE (22:00)
[2018-11-10 22:04] LABS: Hematocrit (blood only) 21.4 % (42-52); Hemoglobin 7.2 g/dL (14.0-18.0)
[2018-11-10] MEDS: ACETAMINOPHEN 500 MG TAB PO SCH (22:11)
[2018-11-10] MEDS: SODIUM CHLORIDE 0.9% 1000ML 1,000 ML IV SCH ×2 (22:30→22:40)
[2018-11-10] MEDS: CLINDAMYCIN 600 MG in DEXTROSE 5% 50 ML IV SCH (22:45)
[2018-11-10] MEDS: HYDROmorphone INJ 1 MG/ML SYRINGE IV PRN (23:49)
[2018-11-11] MEDS: CARBOHYDRATES FOR HYPOGLYCEMIA PO PRN (00:22)
[2018-11-11 00:27] LABS: BUN Creatinine Ratio 18.6 (10-20); Calcium 8.2 mg/dl (8.5-10.1); Creatinine Clr Calc Pharmacy 60.3 ml/min; Est GFR (African American) 50.5; Est GFR (Non-African American) 43.6
[2018-11-11] MEDS ORDERED: DEXTROSE 50% 50 ML SYRINGE IV PRN (01:30)
[2018-11-11] MEDS ORDERED: GLUCOSE 40% GEL 15 GM TUBE PO PRN (01:30)
[2018-11-11] MEDS ORDERED: GLUCAGON FOR INJ 1 MG VIAL SQ PRN (01:30)
[2018-11-11] MEDS ORDERED: GLUCOSE 10 TABS/TUBE PO PRN (01:30)
[2018-11-11] MEDS ORDERED: INSULIN ASPART 100 UNITS/ML 3 ML PEN SC SCH (04:00)
[2018-11-11] MEDS: OXYCODONE HCL IR 5 MG TAB (IMMEDIATE RELEASE) PO PRN ×4 (04:15→22:20)
[2018-11-11] MEDS: ACETAMINOPHEN 500 MG TAB PO SCH ×3 (06:03→21:50)
[2018-11-11] MEDS: CLINDAMYCIN 600 MG in DEXTROSE 5% 50 ML IV SCH ×3 (06:03→21:47)
[2018-11-11] MEDS: HYDROmorphone INJ 1 MG/ML SYRINGE IV PRN ×3 (06:32→18:20)
[2018-11-11 06:36] LABS: Hematocrit (blood only) 21.8 % (42-52); Hemoglobin 7.3 g/dL (14.0-18.0); Mean Corpuscular Hemoglobin 28.9 pg (25-34); Mean Corpuscular Hgb Conc 33.5 g/dL (32-36); Mean Corpuscular Volume 86.2 fL (80-100); Mean Platelet Volume 8.9 fL (7.4-10.4); Platelet Count 423 K/uL (130-400); RDW Coefficient of Variation 13.1 % (11.5-14.5); RDW Standard Deviation 41.8 fL (36.4-46.3); Red Blood Count 2.53 M/uL (4.7-6.1); White Blood Count 10.66 K/uL (4.8-10.8)
[2018-11-11 07:02] LABS: BUN Creatinine Ratio 20.2 (10-20); Calcium 8.1 mg/dl (8.5-10.1); Est GFR (African American) 60.5; Est GFR (Non-African American) 52.2; Potassium 5.6 mmol/L (3.5-5.1)
[2018-11-11] MEDS: INSULIN ASPART 100 UNITS/ML 3 ML PEN SC SCH ×4 (08:55→20:55)
[2018-11-11] MEDS: MULTIVITAMIN TAB PO SCH (08:59)
[2018-11-11] MEDS: DOCUSATE SODIUM 100 MG CAP PO SCH ×2 (08:59→20:45)
[2018-11-11] MEDS: DULOXETINE HCL 30 MG CAP PO SCH (08:59)
[2018-11-11] MEDS: DULOXETINE HCL 60 MG CAP PO SCH (08:59)
[2018-11-11] MEDS: PANTOprazole 40 MG TAB PO SCH (09:00)
[2018-11-11] MEDS ORDERED: NON-FORMULARY MEDICATION (Multivitamin 1 CAP) PO SCH (09:00)
[2018-11-11] MEDS ORDERED: INSULIN GLARGINE SOLOSTAR 100 UNITS/ML 3 ML PEN SQ SCH ×2 (09:00)
[2018-11-11] MEDS: ASPIRIN 81 MG ECTAB PO SCH (09:00)
[2018-11-11] MEDS: LACTOBACILLUS ACIDOPHILUS 1 GM PACK PO SCH (09:00)
[2018-11-11] MEDS: PROPRANOLOL HCL 10 MG TAB PO SCH (09:00)
[2018-11-11] MEDS: OXYCODONE HCL 20 MG TABCR (OXYCONTIN) PO SCH ×2 (09:06→20:58)
--- NOTE | 2018-11-11 10:42 | Orthopedic Progress Note ---
Date of Service November 11, 2018 Assessment & Plan (1) Diabetic ulcer of foot associated with type 1 diabetes mellitus, limited to breakdown of skin: POD #1 s/p 1. Right foot incision and drainage abscess. 2. Debridement of the flexor hallucis longus tendon. 3. Arthrotomy of the interphalangeal joint of the great toe with irrigation and debridement. 4. Debridement of the first metatarsal diabetic ulcer measuring 1.5 cm in diameter with debridement of skin, fascia, and tendon. 5. Implantation of antibiotic laden Stimulan beads, right foot. Dressing changed today. Packing from the 1st interspace and medial foot incision removed completely. ~4 inches removed from the plantar ulceration site. Will plan for the rest of the packing to be removed tomorrow. Awaiting cultures and sensitivities/ID input. Discussed probable PICC line and correction IV antibiotics Continue current IV antibiotics. NWB RLE at all times. D/C planning--uncertain at this time but will plan for home with home health for IV antibiotics treatment. (2) Diabetic ulcer of toe associated with type 1 diabetes mellitus, with fat layer exposed: (3) Diabetic foot infection: (4) Hyperkalemia: Appreciate medicine input (5) Anemia: Asymptomatic at this time. Appreciate medicine input. Subjective Having pain in the foot but overall seems to be controlled with the medications prescribed. NWB on the RLE at all times. No other complaints. Physical Exam Constitutional: well developed and well nourished; no acute distress ENMT: external ear and nose normal, oropharynx normal Neck: trachea midline, no thyromegaly Respiratory: normal respiratory effort, lungs clear to auscultation Cardiovascular: RRR, no murmur, no edema Gastrointestinal (Abdomen): normal bowel sounds, soft, nontender, no hepatosplenomegaly Musculoskeletal: Right foot: stable plantar ulcer with packing at the center. No erythema. Some antibiotic beads present. The medial 1st MTP and 1st interspace incisions have small antibiotic beads present that were removed with the packing. No erythema. No significant drainage. Neurologic: + abnormal sensation to monofilament Psychiatric: A+Ox3, euthymic affect Lymphatic: no cervical or axillary lymphadenopathy Results & Data Vital Signs (Past 12 Hours) Vital Signs Temp Pulse Resp BP Pulse Ox 11/11/18 07:26 36.8 C 88 18 129/81 100 11/11/18 04:15 37.1 C 93 H 16 125/69 99 11/10/18 23:55 37.1 C 105 H 16 133/71 100 Laboratory Results Microbiology 11/10/18 Unknown Foot,Right Gram Stain - Final 11/10/18 Unknown Foot,Right Aerobic and Anaerobic Culture - Preliminary Staphylococcus aureus Diagnostic Findings Spec: [id number] Collected: 11/10/18-UNK Received: 11/10/18-[address]: Amado MendozaD.O. Source: Foot,Right OV Order: Ordered: Aer/Mena Cult/Sm Comments: Reason for Exam surgical Comment 1. Right Toe Flexor Longus Deep Procedure Result Verified Site Gram Stain Final 11/11/18-736 Gram Stain Result Moderate WBCs Seen Moderate Gram Positive Bacilli Moderate Gram Positive Cocci Aero/Mena Cult Preliminary 11/11/18-0841 Organism 1 Staphylococcus aureus Quantity Few Sens Sensitivities to Follow +MixWound Plus Low Counts of Probable Skin Danuta
[2018-11-11] MEDS ORDERED: PHARMACY GLYCEMIC MGMT CONSULT STA (12:02)
--- NOTE | 2018-11-11 13:47 | Pharmacy Report ---
Pharmacy Glycemic Short Note 2 - Date of Service November 11, 2018 - Glycemic Short BSG Results (Last 24 hours): 11/10/18 11/10/18 11/10/18 16:50 17:32 19:04 Glucose 223 H POC Glucose 173 H 170 H 11/10/18 11/10/18 11/10/18 21:29 22:56 23:19 Glucose 120 H POC Glucose 243 H 201 H 11/11/18 11/11/18 11/11/18 00:22 00:41 04:12 Glucose POC Glucose 64 L* 78 196 H 11/11/18 11/11/18 11/11/18 06:04 08:03 12:08 Glucose 257 H POC Glucose 402 H* 356 H* OUTPATIENT ANTIDIABETIC REGIMEN: * Lantus 55 units SQ QAM * Novolog - CF 50mg/dl/unit, Carb ratio 1 unit per 10 grams CHO consumed * A1c = 13.9% 08/17/18, updated A1c ordered ASSESSMENT: * 33 year old type 1 diabetic s/p I&D diabetic foot ulcer with implantation of antibiotic beads. * Pt known to pharmacy glycemic service from admission in August of this year. Patient typically does well with outpatient insulin regimen for a few days but then insulin needs decreased for hypoglycemia. Suspect non-compliance with insulin regimen as an outpatient. Most likely, patient takes his Lantus but does not bolus for meals, therefore, Lantus dose of 55 units is likely his total daily dose; not his "basal" dose. * Pt with severe hyperglycemia this morning secondary to over-correction of hypoglycemia overnight (patient received IV bolus of insulin {with dextrose} for hyperkalemia- but this likely caused the hypo). Pt has been consuming large meals of CHO today which is not helping his hyperglycemia (stuffed shells and two hamburgers with buns for lunch). * Current parameters that are ordered have worked in the past- hesitant to "tighten" regimen for fear of overcorrection and resulting hypo. Will continue with current orders but increase the frequency of checks and coverage from Q6 to Q4. * Goal is to maintain BSGs <200 mg/dl (ideally <150 mg/dl) to prevent post op complications PLAN FOR INPATIENT GLYCEMIC CONTROL: * Basal insulin * Lantus 55 units SQ QAM * This dosing will need reduced in 1-2 days to prevent hypo * Bolus insulin * NovoLog per scale ACHS and Q4hrs overnight * Goal Range: Low 110 mg/dL - High 140 mg/dL * Correction Factor: 25 mg/dL/unit * Nutritional / Prandial insulin per carb ratio of 1 unit per 8 grams CHO consumed
[2018-11-11] MEDS ORDERED: SODIUM POLYSTYRENE SULFONATE 15G/60ML SUSP PO STA (14:44)
[2018-11-11 19:26] LABS: Appearance Urine Clear (Clear); Bacteria Urine Automated Negative (Negative); Bilirubin Urine Negative (Negative); Blood Urine Negative (Negative); Cast Urine Automated 0 /lpf (0-5); Color Urine Yellow; Epithelial Cell Urine Auto 0-5 /lpf (0-5); Glucose Urine UA Negative (Negative); Ketones Urine Negative (Negative); Leukocyte Esterase Urine Negative (Negative); Nitrite Urine Negative (Negative); Protein Urine Trace (Negative); RBC Urine Automated 0-4 /hpf (0-4); Specific Gravity Urine 1.011 (1.000-1.030); Urobilinogen Urine Negative (Negative); WBC Urine Automated 0 /hpf (0-5); pH Urine 6.5 (4.5-7.5)
[2018-11-11] MEDS: SENNA 8.6 MG TAB PO SCH (20:44)
[2018-11-11] MEDS: LEVOFLOXACIN/D5W 500 MG/100 ML BAG IV SCH (20:44)
[2018-11-11] MEDS: DAPTOmycin 475 MG in SYRINGE 0 ML IV SCH (20:44)
[2018-11-11] MEDS: ATORVASTATIN 40 MG TAB PO SCH (20:45)
[2018-11-11] MEDS: ALPRAZolam 0.5 MG TABLET PO SCH (20:58)
--- NOTE | 2018-11-11 21:21 | Hospitalist Progress Note ---
Date of Service November 11, 2018 Assessment & Plan (1) Sepsis: Patient appears to have responded to his antibiotics: Daptomycin and levaquin and clindamycin. Blood pressure has been stabel. (2) Acute kidney injury: Creat is elevated but has improved. Will continue to monitor patient. Likely prerenal. (3) Hyperkalemia: likely due to KENDALL hold Lisinopril aggressive IV fluids, Calcium gluconate receiving insulin for hyperglycemia which will help Patient will also be given a dose of kaylexalate (4) Diabetic ulcer of left foot associated with type 1 diabetes mellitus, with fat layer exposed: POSTOPERATIVE DIAGNOSES: 1. Right foot diabetic ulcer measuring 1.5 cm in diameter under the first metatarsal head. 2. Infectious tenosynovitis of the flexor hallucis longus tendon. 3. Abscess of the right foot. 4. Septic arthritis of the interphalangeal joint of the great toe. PROCEDURES on 11/10 1. Right foot incision and drainage abscess. 2. Debridement of the flexor hallucis longus tendon. 3. Arthrotomy of the interphalangeal joint of the great toe with irrigation and debridement. 4. Debridement of the first metatarsal diabetic ulcer measuring 1.5 cm in diameter with debridement of skin, fascia, and tendon. 5. Implantation of antibiotic laden Stimulan beads, right foot. Dr. Mendoza will manage pain control and wound care (5) Diabetic foot infection: see above (6) Surgical wound, non healing: see above (7) Dysesthesia: (8) Type 1 diabetes mellitus: pharmacy consulted will closely monitor blood sugars. (9) Anemia: Hb low at 7.2, unclear etiology will follow closely no reported melena or dark stools Spent 35 minutes in management of patient. This included chart review. Subjective Patient reports feeling well. Patient denies any new symptoms. Patient does reports having pain in his affected foot. Review of Systems Review of Systems: All systems reviewed & are unremarkable except as noted in HPI & below Physical Exam Physical Exam: Constitutional: WD/WN, vitals as above Eyes: PERRL, conjunctivae normal, anicteric sclerae ENMT: external ear and nose normal, oropharynx normal Neck: trachea midline, no thyromegaly Respiratory: normal respiratory effort, lungs clear to auscultation Cardiovascular: RRR, no murmur, no edema Gastrointestinal (Abdomen): normal bowel sounds, soft, nontender, no hepatosplenomegaly Musculoskeletal: no cyanosis or clubbing, extremities motor strength 5/5 (right foot wrapped) Skin: no rashes, warm and dry Neurologic: patellar DTR's 2+ bilat, sensation intact and PERRL, EOMI, accommodation nl, no face palsy, no dysarthria Psychiatric: Orientation: alert and oriented x 3 Lymphatic: no cervical or axillary lymphadenopathy Results & Data Vital Signs (Past 12 Hours) Vital Signs Temp Pulse Pulse Resp BP BP Pulse Ox 11/11/18 15:57 37.0 C 94 H 18 130/79 100 11/11/18 11:02 37.1 C 89 18 113/67 100 PG Care Time/CCT Total # of Minutes Spent Total Time Spent with Patient: Total time spent is greater than 50% in coordination of care (as documented) at patient's floor/unit and/or counseling patient: (1) Type 1 diabetes mellitus Diabetes mellitus complication detail: with foot ulcer Diabetes mellitus complication status: with skin complications Qualified Code(s): E10.621 - Type 1 diabetes mellitus with foot ulcer; L97.509 - Non-pressure chronic ulcer of other part of unspecified foot with unspecified severity
[2018-11-12] MEDS: INSULIN ASPART 100 UNITS/ML 3 ML PEN SC SCH ×6 (00:08→21:19)
[2018-11-12] MEDS: ACETAMINOPHEN 500 MG TAB PO SCH ×3 (05:38→21:26)
[2018-11-12] MEDS: CLINDAMYCIN 600 MG in DEXTROSE 5% 50 ML IV SCH ×3 (05:38→21:26)
[2018-11-12] MEDS: HYDROmorphone INJ 1 MG/ML SYRINGE IV PRN ×3 (05:44→17:59)
[2018-11-12 06:15] LABS: Hematocrit (blood only) 19.6 % (42-52); Hemoglobin 6.5 g/dL (14.0-18.0); Mean Corpuscular Hemoglobin 28.6 pg (25-34); Mean Corpuscular Hgb Conc 33.2 g/dL (32-36); Mean Corpuscular Volume 86.3 fL (80-100); Mean Platelet Volume 8.8 fL (7.4-10.4); Platelet Count 430 K/uL (130-400); RDW Coefficient of Variation 12.9 % (11.5-14.5); Red Blood Count 2.27 M/uL (4.7-6.1); White Blood Count 8.94 K/uL (4.8-10.8)
[2018-11-12 06:39] LABS: Basophils # (auto) 0.02 K/uL (0-0.2); Basophils % (auto) 0.2 %; Eosinophils # (auto) 0.32 K/uL (0-0.5); Eosinophils % (auto) 3.6 %; Immature Granulocytes # (auto) 0.02 K/uL (0.00-0.02); Immature Granulocytes % (auto) 0.2 %; Lymphocytes # (auto) 1.81 K/uL (1.2-3.4); Lymphocytes % (auto) 20.2 %; Monocytes # (auto) 0.79 K/uL (0.11-0.59); Monocytes % (auto) 8.8 %; Neutrophils # (auto) 5.98 K/uL (1.4-6.5); RBC Morphology Unremarkable
[2018-11-12] MEDS: ASPIRIN 81 MG ECTAB PO SCH (08:28)
[2018-11-12] MEDS: MULTIVITAMIN TAB PO SCH (08:29)
[2018-11-12] MEDS: DULOXETINE HCL 30 MG CAP PO SCH (08:29)
[2018-11-12] MEDS: PANTOprazole 40 MG TAB PO SCH (08:29)
[2018-11-12] MEDS: LACTOBACILLUS ACIDOPHILUS 1 GM PACK PO SCH (08:29)
[2018-11-12] MEDS: DOCUSATE SODIUM 100 MG CAP PO SCH ×2 (08:30→20:51)
[2018-11-12] MEDS: DULOXETINE HCL 60 MG CAP PO SCH (08:30)
[2018-11-12] MEDS: PROPRANOLOL HCL 10 MG TAB PO SCH (08:30)
[2018-11-12] MEDS: INSULIN GLARGINE SOLOSTAR 100 UNITS/ML 3 ML PEN SQ SCH (08:37)
[2018-11-12] MEDS: OXYCODONE HCL IR 5 MG TAB (IMMEDIATE RELEASE) PO PRN ×3 (08:42→21:32)
[2018-11-12] MEDS: OXYCODONE HCL 20 MG TABCR (OXYCONTIN) PO SCH ×2 (09:38→20:56)
--- NOTE | 2018-11-12 10:04 | Orthopedic Progress Note ---
Date of Service November 12, 2018 Assessment & Plan (1) Diabetic ulcer of foot associated with type 1 diabetes mellitus, limited to breakdown of skin: POD #2 s/p 1. Right foot incision and drainage abscess. 2. Debridement of the flexor hallucis longus tendon. 3. Arthrotomy of the interphalangeal joint of the great toe with irrigation and debridement. 4. Debridement of the first metatarsal diabetic ulcer measuring 1.5 cm in diameter with debridement of skin, fascia, and tendon. 5. Implantation of antibiotic laden Stimulan beads, right foot. Dressing changed today. Rest of packing removed. Sensitivities showing MSSA. Will await ID recommendation. Will order PICC line. Once consent is completed, it will be placed. Will plan for d/c, possibly tomorrow, with home health and nursing home IV antibiotics. Continue current IV antibiotics. NWB RLE at all times. D/C planning--uncertain at this time but will plan for home with home health for IV antibiotics treatment. (2) Diabetic ulcer of toe associated with type 1 diabetes mellitus, with fat layer exposed: (3) Diabetic foot infection: (4) Hyperkalemia: Appreciate medicine input (5) Anemia: Asymptomatic at this time but hemoglobin is lower. May need to consider transfusion. Appreciate medicine input. Subjective States the foot has been doing well today. Had relayed to the nurse during the visit that he didn't need any medication at that time. NWB on the RLE at all times. No other complaints. Physical Exam Constitutional: well developed and well nourished; no acute distress ENMT: external ear and nose normal, oropharynx normal Neck: trachea midline, no thyromegaly Respiratory: normal respiratory effort, lungs clear to auscultation Cardiovascular: RRR, no murmur, no edema Gastrointestinal (Abdomen): normal bowel sounds, soft, nontender, no hepatosplenomegaly Neurologic: + abnormal sensation to monofilament Psychiatric: A+Ox3, euthymic affect Lymphatic: no cervical or axillary lymphadenopathy Results & Data Vital Signs (Past 12 Hours) Vital Signs Temp Pulse Resp BP Pulse Ox 11/12/18 07:00 37.1 C 98 H 18 126/75 98 11/12/18 00:05 37.2 C 96 H 18 104/59 L 96 Laboratory Results Procedure Result Verified Site Gram Stain Final 11/11/18-736 Gram Stain Result Moderate WBCs Seen Moderate Gram Positive Bacilli Moderate Gram Positive Cocci Aero/Mena Cult Preliminary 11/12/18 Organism 1 Staphylococcus aureus Quantity Few Sens Sensitivities to Follow +MixWound Plus Low Counts of Probable Skin Danuta S aureus RX M.I.C. --- --------- Clindamycin S <=0.5 Daptomycin S 1 Erythromycin S <=0.5 Oxacillin S <=0.25 Tetracycline S <=4 Trimeth/Sulfa S <=0.5/9.5 Vancomycin S 2 S = SENSITIVE I = INTERMEDIATE R = RESISTANT
[2018-11-12] MEDS ORDERED: SODIUM CHLORIDE 0.9% 250 ML IV PRN ×2 (10:50→12:03)
[2018-11-12 11:36] LABS: Hematocrit (blood only) 18.9 % (42-52); Hemoglobin 6.3 g/dL (14.0-18.0)
[2018-11-12 11:37] LABS: BUN Creatinine Ratio 21.1 (10-20); Calcium 8.6 mg/dl (8.5-10.1); Creatinine Clr Calc Pharmacy 78.9 ml/min; Est GFR (Non-African American) 60.4; Potassium 5.3 mmol/L (3.5-5.1)
[2018-11-12 11:53] LABS: Ferritin 347.7 ng/ml (8-388)
--- NOTE | 2018-11-12 13:44 | Pharmacy Report ---
Pharmacy Glycemic Short Note 2 - Date of Service November 12, 2018 - Glycemic Short BSG Results (Last 24 hours): 11/11/18 11/11/18 11/11/18 17:03 20:50 23:54 Glucose POC Glucose 155 H 161 H 120 H 11/12/18 11/12/18 11/12/18 04:02 05:25 08:01 Glucose 74 POC Glucose 77 126 H 11/12/18 11:54 Glucose POC Glucose 212 H OUTPATIENT ANTIDIABETIC REGIMEN: * Lantus 55 units SQ QAM * Novolog - CF 50mg/dl/unit, Carb ratio 1 unit per 10 grams CHO consumed * A1c = 13.9% 08/17/18, updated A1c ordered The patient is currently receiving: * Basal insulin: Lantus 55 units sq am * Bolus insulin: Novolog with meals and at HS (dosing ranges 11-18 units per dose) * Total daily insulin dose: 101 units ASSESSMENT: * 33 year old type 1 diabetic s/p I&D diabetic foot ulcer with implantation of antibiotic beads. * Pt known to pharmacy glycemic service from admission in August of this year. Patient typically does well with outpatient insulin regimen for a few days but then insulin needs decreased for hypoglycemia. Suspect non-compliance with insulin regimen as an outpatient. Most likely, patient takes his Lantus but does not bolus for meals, therefore, Lantus dose of 55 units is likely his total daily dose; not his "basal" dose. * AM fasting BSG is slightly below goal range indicating too basal insulin dosing - will decrease dose slightly * Post-prandial BSGs elevated indicating more prandial coverage needed. Will tighten CR. Will loosen CF to prevent over-correction when BSGs significantly elevated * Goal is to maintain BSGs <200 mg/dl (ideally <150 mg/dl) to prevent post op complications PLAN FOR INPATIENT GLYCEMIC CONTROL: * Basal insulin * Decrease Lantus 45 units SQ QAM * Bolus insulin * NovoLog per scale ACHS and Q4hrs overnight * Goal Range: Low 110 mg/dL - High 140 mg/dL * Correction Factor: 30 mg/dL/unit * Nutritional / Prandial insulin per carb ratio of 1 unit per 7 grams CHO consumed
--- NOTE | 2018-11-12 16:56 | Infectious Disease Progress Nt ---
Date of Service November 12, 2018 Assessment & Plan (1) Acute osteomyelitis of right ankle or foot: Patient with right foot infection in the setting of diabetic foot ulcer with likely osteomyelitis, septic arthritis, and localized abscess, now status post debridement. Cultures with methicillin sensitive staph aureus and Prevotella. Will continue with clindamycin alone. Will follow. (2) Diabetic foot ulcer associated with type 1 diabetes mellitus: Subjective States the foot has been doing well today. Had relayed to the nurse during the visit that he didn't need any medication at that time. NWB on the RLE at all times. No other complaints. Review of Systems Review of Systems: All systems reviewed & are unremarkable except as noted in HPI & below Results & Data Vital Signs (Past 12 Hours) Vital Signs Temp Pulse Pulse Resp BP BP BP 11/12/18 16:12 150/81 H 11/12/18 15:24 36.7 C 84 17 169/94 H 11/12/18 14:32 36.8 C 76 18 154/83 H 11/12/18 12:52 36.8 C 88 18 151/83 H 11/12/18 12:37 36.6 C 91 H 18 128/76 11/12/18 12:33 36.8 C 84 18 121/72 11/12/18 12:21 36.8 C 77 18 106/64 11/12/18 07:00 37.1 C 98 H 18 126/75 Pulse Ox 11/12/18 16:12 11/12/18 15:24 100 11/12/18 14:32 97 11/12/18 12:52 100 11/12/18 12:37 99 11/12/18 12:33 96 11/12/18 12:21 97 11/12/18 07:00 98 Laboratory Results Short CBC 11/12/18 11/12/18 Range/Units 05:22 11:06 WBC 8.94 (4.8-10.8) K/uL Hgb 6.5 L* 6.3 L* (14.0-18.0) g/dL Hct 19.6 L* 18.9 L* (42-52) % Plt Count 430 H (130-400) K/uL BMP 11/12/18 05:25 Sodium 139 D Potassium 5.3 H Chloride 107 Carbon Dioxide 27 BUN 32 H Creatinine 1.49 H Glucose 74 Calcium 8.6 Urine 07/27/19 Range/Units 19:20 Urine Color Yellow Urine Appearance Clear (Clear) Urine pH 6.5 (4.5-7.5) Ur Specific [place] 1.011 (1.000-1.030) Urine Protein Trace H (Negative) Urine Glucose (UA) Negative (Negative) Diagnostic Findings Microbiology 11/10/18 Unknown Foot,Right Gram Stain - Final 11/10/18 Unknown Foot,Right Aerobic and Anaerobic Culture - Preliminary Staphylococcus aureus Prevotella corporis 11/10/18 19:04 Blood Aerobic Blood Culture - Preliminary No growth in Aerobic bottle after 24 hours. 11/10/18 19:04 Blood Anaerobic Blood Culture - Preliminary No growth in Anaerobic bottle after 24 hours. 11/10/18 19:16 Blood Aerobic Blood Culture - Preliminary No growth in Aerobic bottle after 24 hours. 11/10/18 19:16 Blood Anaerobic Blood Culture - Preliminary No growth in Anaerobic bottle after 24 hours.
[2018-11-12] MEDS: ATORVASTATIN 40 MG TAB PO SCH (20:51)
[2018-11-12] MEDS: SENNA 8.6 MG TAB PO SCH (20:52)
[2018-11-12] MEDS: ALPRAZolam 0.5 MG TABLET PO SCH (20:56)
--- NOTE | 2018-11-12 22:41 | Hospitalist Progress Note ---
Date of Service November 12, 2018 Assessment & Plan (1) Sepsis: Patient appears to have responded to his antibiotics: Daptomycin and levaquin and clindamycin. Blood pressure has been stable. (2) Acute kidney injury: Creat is elevated but has improved. Will continue to monitor patient. Likely prerenal. (3) Hyperkalemia: likely due to KENDALL hold Lisinopril aggressive IV fluids, Calcium gluconate receiving insulin for hyperglycemia which will help Patient will also be given a dose of kaylexalate yesterday. will continue to monitor. Potassium did improve today to 5.3 (4) Diabetic ulcer of left foot associated with type 1 diabetes mellitus, with fat layer exposed: POSTOPERATIVE DIAGNOSES: 1. Right foot diabetic ulcer measuring 1.5 cm in diameter under the first metatarsal head. 2. Infectious tenosynovitis of the flexor hallucis longus tendon. 3. Abscess of the right foot. 4. Septic arthritis of the interphalangeal joint of the great toe. PROCEDURES on 11/10 1. Right foot incision and drainage abscess. 2. Debridement of the flexor hallucis longus tendon. 3. Arthrotomy of the interphalangeal joint of the great toe with irrigation and debridement. 4. Debridement of the first metatarsal diabetic ulcer measuring 1.5 cm in diameter with debridement of skin, fascia, and tendon. 5. Implantation of antibiotic laden Stimulan beads, right foot. Dr. Mendoza will manage pain control and wound care (5) Diabetic foot infection: see above (6) Surgical wound, non healing: see above (7) Dysesthesia: (8) Type 1 diabetes mellitus: pharmacy consulted will closely monitor blood sugars. (9) Anemia: Hb low at 6.5, unclear etiology will follow closely no reported melena or dark stools will transfuse one PRBC. ORDERED IRON STUDIES. Cause is likely anemia of chronic disease (inflammation) Spent 35 minutes in management of patient. Subjective Patient reports feeling weel. He has no new complaints, though he understands his hemoglobin was low Initally he refused transfusion, but he states he is ok with it after discussing with his mom who is an RN. Review of Systems Review of Systems: All systems reviewed & are unremarkable except as noted in HPI & below Physical Exam Physical Exam: Constitutional: WD/WN, vitals as above Eyes: PERRL, conjunctivae normal, anicteric sclerae ENMT: external ear and nose normal, oropharynx normal Neck: trachea midline, no thyromegaly Respiratory: normal respiratory effort, lungs clear to auscultation Cardiovascular: RRR, no murmur, no edema Gastrointestinal (Abdomen): normal bowel sounds, soft, nontender, no hepatosplenomegaly Musculoskeletal: no cyanosis or clubbing, extremities motor strength 5/5 (right foot wrapped) Skin: no rashes, warm and dry Neurologic: patellar DTR's 2+ bilat, sensation intact and PERRL, EOMI, accommodation nl, no face palsy, no dysarthria Psychiatric: Orientation: alert and oriented x 3 Lymphatic: no cervical or axillary lymphadenopathy Results & Data Vital Signs (Past 12 Hours) Vital Signs Temp Pulse Pulse Resp BP BP Pulse Ox 11/12/18 16:12 150/81 H 11/12/18 15:24 36.7 C 84 17 169/94 H 100 11/12/18 14:32 36.8 C 76 18 154/83 H 97 11/12/18 12:52 36.8 C 88 18 151/83 H 100 11/12/18 12:37 36.6 C 91 H 18 128/76 99 11/12/18 12:33 36.8 C 84 18 121/72 96 11/12/18 12:21 36.8 C 77 18 106/64 97 PG Care Time/CCT Total # of Minutes Spent Total Time Spent with Patient: Total time spent is greater than 50% in coordination of care (as documented) at patient's floor/unit and/or counseling patient: (1) Type 1 diabetes mellitus Diabetes mellitus complication detail: with foot ulcer Diabetes mellitus complication status: with skin complications Qualified Code(s): E10.621 - Type 1 diabetes mellitus with foot ulcer; L97.509 - Non-pressure chronic ulcer of oth er part of unspecified foot with unspecified severity
[2018-11-13] MEDS: OXYCODONE HCL IR 5 MG TAB (IMMEDIATE RELEASE) PO PRN ×4 (03:30→21:27)
[2018-11-13] MEDS: CLINDAMYCIN 600 MG in DEXTROSE 5% 50 ML IV SCH (05:32)
[2018-11-13] MEDS: ACETAMINOPHEN 500 MG TAB PO SCH ×3 (05:34→21:20)
[2018-11-13] MEDS: HYDROmorphone INJ 1 MG/ML SYRINGE IV PRN ×3 (05:43→19:30)
[2018-11-13 06:17] LABS: Estimated Average Glucose 352 mg/dl; Hemoglobin A1C 13.9 % (4.5-5.6)
[2018-11-13 06:21] LABS: Basophils # (auto) 0.02 K/uL (0-0.2); Basophils % (auto) 0.2 %; Eosinophils # (auto) 0.35 K/uL (0-0.5); Eosinophils % (auto) 4.1 %; Hematocrit (blood only) 21.4 % (42-52); Hemoglobin 7.1 g/dL (14.0-18.0); Immature Granulocytes # (auto) 0.03 K/uL (0.00-0.02); Immature Granulocytes % (auto) 0.4 %; Lymphocytes # (auto) 1.81 K/uL (1.2-3.4); Lymphocytes % (auto) 21.2 %; Mean Corpuscular Hemoglobin 28.7 pg (25-34); Mean Corpuscular Hgb Conc 33.2 g/dL (32-36); Mean Corpuscular Volume 86.6 fL (80-100); Mean Platelet Volume 8.8 fL (7.4-10.4); Monocytes # (auto) 0.63 K/uL (0.11-0.59); Monocytes % (auto) 7.4 %; Neutrophils # (auto) 5.69 K/uL (1.4-6.5); Neutrophils % (auto) 66.7 %; Platelet Count 438 K/uL (130-400); RDW Coefficient of Variation 13.1 % (11.5-14.5); RDW Standard Deviation 41.9 fL (36.4-46.3); Red Blood Count 2.47 M/uL (4.7-6.1); White Blood Count 8.53 K/uL (4.8-10.8)
[2018-11-13 06:50] LABS: RBC Morphology Unremarkable
[2018-11-13] MEDS: DOCUSATE SODIUM 100 MG CAP PO SCH ×2 (08:28→21:19)
[2018-11-13] MEDS: DULOXETINE HCL 30 MG CAP PO SCH (08:28)
[2018-11-13] MEDS: DULOXETINE HCL 60 MG CAP PO SCH (08:28)
[2018-11-13] MEDS: ASPIRIN 81 MG ECTAB PO SCH (08:29)
[2018-11-13] MEDS: PROPRANOLOL HCL 10 MG TAB PO SCH (08:30)
[2018-11-13] MEDS: MULTIVITAMIN TAB PO SCH (08:31)
[2018-11-13] MEDS: PANTOprazole 40 MG TAB PO SCH (08:32)
[2018-11-13] MEDS: LACTOBACILLUS ACIDOPHILUS 1 GM PACK PO SCH (08:34)
[2018-11-13 08:42] LABS: BUN Creatinine Ratio 20.4 (10-20); Calcium 8.8 mg/dl (8.5-10.1); Creatinine Clr Calc Pharmacy 86.5 ml/min; Est GFR (African American) 78.1; Est GFR (Non-African American) 67.4
[2018-11-13] MEDS: OXYCODONE HCL 20 MG TABCR (OXYCONTIN) PO SCH ×2 (08:43→21:19)
[2018-11-13] MEDS: INSULIN GLARGINE SOLOSTAR 100 UNITS/ML 3 ML PEN SQ SCH (08:49)
[2018-11-13] MEDS: INSULIN ASPART 100 UNITS/ML 3 ML PEN SC SCH ×4 (08:51→21:14)
[2018-11-13] MEDS ORDERED: INSULIN GLARGINE SOLOSTAR 100 UNITS/ML 3 ML PEN SQ ONE (12:45)
--- NOTE | 2018-11-13 13:05 | Progress Note ---
DATE: 11/13/2018 SUBJECTIVE: The patient is postop day 3 status post diabetic ulcer of the foot status post incision and drainage. Current cultures that have come up are showing staph aureus and Prevotella corporis of which the staph aureus is MSSA. He states that he had a PICC line placed, which was per Dr. Mendoza's order, but there was a question of whether we may need it at this point in time. Currently, the patient is on oral clindamycin and is feeling well. He has minimal discomfort and denies any chest pain, shortness of breath or lightheadedness. He is also anemic of which the Medicine service has been addressing and most recent H and H was 7.1, he had received 1 unit of PRBCs and the patient states at this point, he may be receiving 1 more. He has no complaints at this point in time. OBJECTIVE: Dressings were removed and he has 2 wounds noted that the lateral wound on the great toe does have some Stimulan beads that are showing through the wound that had been placed inside the wound deep and superficially. The wound on the plantar aspect of the foot is closed, both wounds have no erythema noted at this time and there is no purulent drainage. The wounds were redressed and Goyo wrap was placed on top of Kerlix and 4 x 4's, and ABD and adaptic. PLAN: Continue current antibiotic regimen. We will await any further input from Dr. Martin whether we will need to use the PICC line or not. THE PATIENT HAS MULTIPLE ALLERGIES at this time and he might be staying with the oral clindamycin along with the antibiotic beads that he has placed in his foot. He can continue to be up and ambulating, weightbearing on the heel only and will await medicine service input about his anemia and hopefully discharge him home in the next day or two.
--- NOTE | 2018-11-13 13:59 | Pharmacy Report ---
Pharmacy Glycemic Short Note 2 - Date of Service November 13, 2018 - Glycemic Short BSG Results (Last 24 hours): 11/12/18 11/12/18 11/13/18 17:19 20:28 05:37 Glucose 114 H POC Glucose 212 H 102 H 11/13/18 11/13/18 08:12 12:08 Glucose POC Glucose 184 H 266 H OUTPATIENT ANTIDIABETIC REGIMEN: * Lantus 55 units SQ QAM * Novolog - CF 50mg/dl/unit, Carb ratio 1 unit per 10 grams CHO consumed * A1c = 13.9% 11/11/18 The patient is currently receiving: * Basal insulin: Lantus 45 units sq am * Bolus insulin: Novolog with meals and at HS (dosing ranges 8-17 units per dose) * Total daily insulin dose: 81 units ASSESSMENT: 11/13 * Lantus dose was decreased yesterday; however, fasting already increased this AM after single reduced dose * Postprandials elevated but were improved by bedtime last night. Most likely due to stacking of meal time doses. Of note, Novolog this AM was given ~0900, so pre-lunch BSG may not be a true reflection of AM Novolog. * Since all BSGs except one above goal in the last 24 hours, will give back some more basal insulin, being cautious of 55 units being too much. 11/12 * 33 year old type 1 diabetic s/p I&D diabetic foot ulcer with implantation of antibiotic beads. * Pt known to pharmacy glycemic service from admission in August of this year. Patient typically does well with outpatient insulin regimen for a few days but then insulin needs decreased for hypoglycemia. Suspect non-compliance with insulin regimen as an outpatient. Most likely, patient takes his Lantus but does not bolus for meals, therefore, Lantus dose of 55 units is likely his total daily dose; not his "basal" dose. * AM fasting BSG is slightly below goal range indicating too basal insulin dosing - will decrease dose slightly * Post-prandial BSGs elevated indicating more prandial coverage needed. Will tighten CR. Will loosen CF to prevent over-correction when BSGs significantly elevated * Goal is to maintain BSGs <200 mg/dl (ideally <150 mg/dl) to prevent post op complications PLAN FOR INPATIENT GLYCEMIC CONTROL: * Basal insulin - increase daily dose by 5 units * Lantus 50 units qAM * Additional one time 5 units to equal 50 units for today * Bolus insulin - continue for now but tighten CR tomorrow if postprandials remain high with higher dose of Lantus * NovoLog per scale ACHS and Q4hrs overnight * Goal Range: Low 110 mg/dL - High 140 mg/dL * Correction Factor: 30 mg/dL/unit * Nutritional / Prandial insulin per carb ratio of 1 unit per 7 grams CHO consumed Discharge Recommendations: * A1c remains significantly elevated. Patient has a long-standing history of non-compliance, as evidenced by previous conversations and BSG control while in the hospital. * Recommend continuation of outpatient regimen on discharge, with close outpati ent f/u.
[2018-11-13] MEDS: CLINDAMYCIN HCL 150 MG CAP PO SCH ×2 (14:18→21:19)
--- NOTE | 2018-11-13 14:50 | Infectious Disease Progress Nt ---
Date of Service November 13, 2018 Assessment & Plan (1) Acute osteomyelitis of right ankle or foot: Patient with right foot infection in the setting of diabetic foot ulcer with septic arthritis, and localized abscess, now status post debridement. Cultures with methicillin sensitive staph aureus and Prevotella. Will continue with clindamycin alone and follow carefully for any signs/symptoms of worsening infection.. Will follow. (2) Diabetic foot ulcer associated with type 1 diabetes mellitus: Subjective Patient seen in follow-up for right foot infection. Pain somewhat better today, remains afebrile. Cultures growing methicillin sensitive staph and Prevotella. Review of Systems Review of Systems: All systems reviewed & are unremarkable except as noted in HPI & below Physical Exam Constitutional: WD/WN, vitals as above comfortable; no acute distress Eyes: PERRL, conjunctivae normal, anicteric sclerae ENMT: external ear and nose normal, oropharynx normal Neck: trachea midline, no thyromegaly neck nontender Respiratory: normal respiratory effort, lungs clear to auscultation normal percussion; does not use accessory muscles Cardiovascular: Rate/Rhythm: regular rate and regular rhythm Heart Sounds: normal S1 and normal S2; no gallop, no murmur and no cardiac rub Vessels: normal peripheral pulses; no JVD Gastrointestinal (Abdomen): normal bowel sounds, soft, nontender, no hepatosplenomegaly Musculoskeletal: no cyanosis or clubbing, extremities motor strength 5/5 Head/Neck/Chest: normocephalic and head atraumatic Spine: thoracic spine normal to inspection and lumbar spine normal to inspection; no cervical spinal tenderness Skin: no rashes, warm and dry normal turgor and + wound (Right foot surgical dressing intact) Neurologic: moves all extremities and awake; no focal motor deficits Motor/Sensory: + sensory deficit (Both lower extremities) Psychiatric: A+Ox3, euthymic affect Orientation: cooperative Lymphatic: no cervical or axillary lymphadenopathy no inguinal lymphadenopathy Results & Data Vital Signs (Past 12 Hours) Vital Signs Temp Pulse Resp BP Pulse Ox 11/13/18 06:56 37.3 C 92 H 18 139/82 98 Laboratory Results Laboratory Results - last 48 hr 11/10/18 11/11/18 11/11/18 21:55 06:04 06:04 WBC RBC Hgb Hct MCV MCH MCHC RDW Std Deviation RDW Coeff of Keisha Plt Count MPV Immature Gran % (Auto) Neut % (Auto) Lymph % (Auto) [place] % (Auto) Eos % (Auto) Baso % (Auto) Immature Gran # (Auto) Neut # (Auto) Lymph # (Auto) [place] # (Auto) Eos # (Auto) Baso # (Auto) RBC Morphology Sodium Potassium Chloride Carbon Dioxide Anion Gap BUN Creatinine Est Cr Clr Drug Dosing Est GFR ( Amer) Est GFR (Non-Af Amer) BUN/Creatinine Ratio Glucose POC Glucose Estimat Average Glucose 352 Hemoglobin A1c 13.9 H Calcium Iron TIBC Ferritin Urine Color Urine Appearance Urine pH Ur Specific [place] Urine Protein Urine Glucose (UA) Urine Ketones Urine Blood Urine Nitrite Urine Bilirubin Urine Urobilinogen Ur Leukocyte Esterase Urine WBC (Auto) Urine RBC (Auto) U Hyaline Cast (Auto) U Epithel Cells (Auto) Urine Bacteria (Auto) Blood Type A Positive Blood Type Recheck A Positive Antibody Screen NEGATIVE Crossmatch See Detail 11/11/18 11/11/18 11/11/18 17:03 19:20 20:50 WBC RBC Hgb Hct MCV MCH MCHC RDW Std Deviation RDW Coeff of Keisha Plt Count MPV Immature Gran % (Auto) Neut % (Auto) Lymph % (Auto) [place] % (Auto) Eos % (Auto) Baso % (Auto) Immature Gran # (Auto) Neut # (Auto) Lymph # (Auto) [place] # (Auto) Eos # (Auto) Baso # (Auto) RBC Morphology Sodium Potassium Chloride Carbon Dioxide Anion Gap BUN Creatinine Est Cr Clr Drug Dosing Est GFR ( Amer) Est GFR (Non-Af Amer) BUN/Creatinine Ratio Glucose POC Glucose 155 H 161 H Estimat Average Glucose Hemoglobin A1c Calcium Iron TIBC Ferritin Urine Color Yellow Urine Appearance Clear Urine pH 6.5 Ur Specific [place] 1.011 Urine Protein Trace H Urine Glucose (UA) Negative Urine Ketones Negative Urine Blood Negative Urine Nitrite Negative Urine Bilirubin Negative Urine Urobilinogen Negative Ur Leukocyte Esterase Negative Urine WBC (Auto) 0 Urine RBC (Auto) 0-4 U Hyaline Cast (Auto) 0 U Epithel Cells (Auto) 0-5 Urine Bacteria (Auto) Negative Blood Type Blood Type Recheck Antibody Screen Crossmatch 11/11/18 11/12/18 11/12/18 23:54 04:02 05:22 WBC 8.94 RBC 2.27 L Hgb 6.5 L* Hct 19.6 L* MCV 86.3 MCH 28.6 MCHC 33.2 RDW Std Deviation 41.0 RDW Coeff of Keisha 12.9 Plt Count 430 H MPV 8.8 Immature Gran % (Auto) 0.2 Neut % (Auto) 67.0 Lymph % (Auto) 20.2 [place] % (Auto) 8.8 Eos % (Auto) 3.6 Baso % (Auto) 0.2 Immature Gran # (Auto) 0.02 Neut # (Auto) 5.98 Lymph # (Auto) 1.81 [place] # (Auto) 0.79 H Eos # (Auto) 0.32 Baso # (Auto) 0.02 RBC Morphology Unremarkable Sodium Potassium Chloride Carbon Dioxide Anion Gap BUN Creatinine Est Cr Clr Drug Dosing Est GFR ( Amer) Est GFR (Non-Af Amer) BUN/Creatinine Ratio Glucose POC Glucose 120 H 77 Estimat Average Glucose Hemoglobin A1c Calcium Iron TIBC Ferritin Urine Color Urine Appearance Urine pH Ur Specific [place] Urine Protein Urine Glucose (UA) Urine Ketones Urine Blood Urine Nitrite Urine Bilirubin Urine Urobilinogen Ur Leukocyte Esterase Urine WBC (Auto) Urine RBC (Auto) U Hyaline Cast (Auto) U Epithel Cells (Auto) Urine Bacteria (Auto) Blood Type Blood Type Recheck Antibody Screen Crossmatch 11/12/18 11/12/18 11/12/18 05:25 08:01 11:06 WBC RBC Hgb 6.3 L* Hct 18.9 L* MCV MCH MCHC RDW Std Deviation RDW Coeff of Keisha Plt Count MPV Immature Gran % (Auto) Neut % (Auto) Lymph % (Auto) [place] % (Auto) Eos % (Auto) Baso % (Auto) Immature Gran # (Auto) Neut # (Auto) Lymph # (Auto) [place] # (Auto) Eos # (Auto) Baso # (Auto) RBC Morphology Sodium 139 D Potassium 5.3 H Chloride 107 Carbon Dioxide 27 Anion Gap 5.0 BUN 32 H Creatinine 1.49 H Est Cr Clr Drug Dosing 78.9 Est GFR ( Amer) 70.0 Est GFR (Non-Af Amer) 60.4 BUN/Creatinine Ratio 21.1 H Glucose 74 POC Glucose 126 H Estimat Average Glucose Hemoglobin A1c Calcium 8.6 Iron TIBC Ferritin Urine Color Urine Appearance Urine pH Ur Specific [place] Urine Protein Urine Glucose (UA) Urine Ketones Urine Blood Urine Nitrite Urine Bilirubin Urine Urobilinogen Ur Leukocyte Esterase Urine WBC (Auto) Urine RBC (Auto) U Hyaline Cast (Auto) U Epithel Cells (Auto) Urine Bacteria (Auto) Blood Type Blood Type Recheck Antibody Screen Crossmatch 11/12/18 11/12/18 11/12/18 11:06 11:54 17:19 WBC RBC Hgb Hct MCV MCH MCHC RDW Std Deviation RDW Coeff of Keisha Plt Count MPV Immature Gran % (Auto) Neut % (Auto) Lymph % (Auto) [place] % (Auto) Eos % (Auto) Baso % (Auto) Immature Gran # (Auto) Neut # (Auto) Lymph # (Auto) [place] # (Auto) Eos # (Auto) Baso # (Auto) RBC Morphology Sodium Potassium Chloride Carbon Dioxide Anion Gap BUN Creatinine Est Cr Clr Drug Dosing Est GFR ( Amer) Est GFR (Non-Af Amer) BUN/Creatinine Ratio Glucose POC Glucose 212 H 212 H Estimat Average Glucose Hemoglobin A1c Calcium Iron 23 L TIBC 152 L Ferritin 347.7 Urine Color Urine Appearance Urine pH Ur Specific [place] Urine Protein Urine Glucose (UA) Urine Ketones Urine Blood Urine Nitrite Urine Bilirubin Urine Urobilinogen Ur Leukocyte Esterase Urine WBC (Auto) Urine RBC (Auto) U Hyaline Cast (Auto) U Epithel Cells (Auto) Urine Bacteria (Auto) Blood Type Blood Type Recheck Antibody Screen Crossmatch 11/12/18 11/13/18 11/13/18 20:28 05:37 05:38 WBC 8.53 RBC 2.47 L Hgb 7.1 L Hct 21.4 L MCV 86.6 MCH 28.7 MCHC 33.2 RDW Std Deviation 41.9 RDW Coeff of Keisha 13.1 Plt Count 438 H MPV 8.8 Immature Gran % (Auto) 0.4 Neut % (Auto) 66.7 Lymph % (Auto) 21.2 [place] % (Auto) 7.4 Eos % (Auto) 4.1 Baso % (Auto) 0.2 Immature Gran # (Auto) 0.03 H Neut # (Auto) 5.69 Lymph # (Auto) 1.81 [place] # (Auto) 0.63 H Eos # (Auto) 0.35 Baso # (Auto) 0.02 RBC Morphology Unremarkable Sodium 141 Potassium 5.0 Chloride 108 H Carbon Dioxide 26 Anion Gap 8.0 BUN 28 H Creatinine 1.36 Est Cr Clr Drug Dosing 86.5 Est GFR ( Amer) 78.1 Est GFR (Non-Af Amer) 67.4 BUN/Creatinine Ratio 20.4 H Glucose 114 H POC Glucose 102 H Estimat Average Glucose Hemoglobin A1c Calcium 8.8 Iron TIBC Ferritin Urine Color Urine Appearance Urine pH Ur Specific [place] Urine Protein Urine Glucose (UA) Urine Ketones Urine Blood Urine Nitrite Urine Bilirubin Urine Urobilinogen Ur Leukocyte Esterase Urine WBC (Auto) Urine RBC (Auto) U Hyaline Cast (Auto) U Epithel Cells (Auto) Urine Bacteria (Auto) Blood Type Blood Type Recheck Antibody Screen Crossmatch 11/13/18 11/13/18 08:12 12:08 WBC RBC Hgb Hct MCV MCH MCHC RDW Std Deviation RDW Coeff of Keisha Plt Count MPV Immature Gran % (Auto) Neut % (Auto) Lymph % (Auto) [place] % (Auto) Eos % (Auto) Baso % (Auto) Immature Gran # (Auto) Neut # (Auto) Lymph # (Auto) [place] # (Auto) Eos # (Auto) Baso # (Auto) RBC Morphology Sodium Potassium Chloride Carbon Dioxide Anion Gap BUN Creatinine Est Cr Clr Drug Dosing Est GFR ( Amer) Est GFR (Non-Af Amer) BUN/Creatinine Ratio Glucose POC Glucose 184 H 266 H Estimat Average Glucose Hemoglobin A1c Calcium Iron TIBC Ferritin Urine Color Urine Appearance Urine pH Ur Specific [place] Urine Protein Urine Glucose (UA) Urine Ketones Urine Blood Urine Nitrite Urine Bilirubin Urine Urobilinogen Ur Leukocyte Esterase Urine WBC (Auto) Urine RBC (Auto) U Hyaline Cast (Auto) U Epithel Cells (Auto) Urine Bacteria (Auto) Blood Type Blood Type Recheck Antibody Screen Crossmatch Diagnostic Findings Microbiology 11/10/18 Unknown Foot,Right Gram Stain - Final 11/10/18 Unknown Foot,Right Aerobic and Anaerobic Culture - Preliminary Staphylococcus aureus Prevotella corporis 11/10/18 19:04 Blood Aerobic Blood Culture - Preliminary No growth in Aerobic bottle after 48 hours. 11/10/18 19:04 Blood Anaerobic Blood Culture - Preliminary No growth in Anaerobic bottle after 48 hours. 11/10/18 19:16 Blood Aerobic Blood Culture - Preliminary No growth in Aerobic bottle after 48 hours. 11/10/18 19:16 Blood Anaerobic Blood Culture - Preliminary No growth in Anaerobic bottle after 48 hours.
[2018-11-13 16:03] LABS: Hematocrit (blood only) 21.7 % (42-52); Hemoglobin 7.4 g/dL (14.0-18.0); Mean Corpuscular Hgb Conc 34.1 g/dL (32-36); Mean Corpuscular Volume 87.9 fL (80-100); Mean Platelet Volume 8.2 fL (7.4-10.4); Platelet Count 457 K/uL (130-400); RDW Coefficient of Variation 13.1 % (11.5-14.5); RDW Standard Deviation 42.5 fL (36.4-46.3); Red Blood Count 2.47 M/uL (4.7-6.1)
--- NOTE | 2018-11-13 16:33 | Hospitalist Progress Note ---
Date of Service November 13, 2018 Assessment & Plan (1) Sepsis: - Developed post op following right foot procedure on 11/10/18. - Is currently hemodynamically stable, will monitor. (2) Diabetic ulcer of left foot associated with type 1 diabetes mellitus, with fat layer exposed: - S/p Right foot incision and drainage abscess, Debridement of the flexor hallucis longus tendon, Arthrotomy of the interphalangeal joint of the great toe with irrigation and debridement, Debridement of the first metatarsal diabetic ulcer measuring 1.5 cm in diameter with debridement of skin, fascia, and tendon.Implantation of antibiotic laden Stimulan beads, right foot on 11/10/18. - Primary management/pain control per orthopedics team. - Wound culture +MSSA and Prevotella -- ID consulted, will continue Clindamycin PO per recs. - PT/OT evaluation for discharge planning. (3) Acute kidney injury: - Creatinine was elevated above baseline, likely prerenal related to dehydration. - Now improved -- will monitor qAM. (4) Hyperkalemia: - K level improved to 5.0 following treatment - monitor qAM. (5) Type 1 diabetes mellitus: - Hgb A1C was 13.9. - Continue SSI coverage and Lantus 50 units qAM. (6) Anemia: - Likely anemia of chronic disease with acute anemia related to recent intra op blood loss. - Received 1 unit pRBCs on 11/12, improvement in H/H. - Will monitor CBC twice lucia. - Repeat iron studies c/w anemia of chronic disease. - FOBT is pending collection. (7) HLD (hyperlipidemia): - Continue ASA 81 mg daily and Atorvastatin as prescribed. (8) Anxiety: - Continue Xanax 0.5 mg qhs scheduled and Cymbalta 90 mg qAM. (9) DVT prophylaxis: - SCDS; Aspirin daily. Dispo: Will continue to follow, please call with any questions. Recommend to maintain PICC line until discharge due to poor IV access -- can consider removing PICC at discharge as pt. is on PO abx. Supervising Physician Co-Signing Physician Notes PA Supervision Note: I did not personally see or examine the patient today, but I verified all carrillo points of TRINA Yao's assessment and plan with the following exceptions/additions: None Subjective Pt. is doing well. He has mild pain in foot at site of I&D. Is having BMs, denies N/V. Review of Systems Review of Systems: All systems reviewed & are unremarkable except as noted in HPI & below Constitutional: no fever, no chills, no fatigue, no weakness and no anorexia Respiratory: no cough, no dyspnea, no dyspnea on exertion and no wheezing Cardiovascular: no chest pain, no palpitations and no edema Gastrointestinal: no abdominal pain, no nausea, no vomiting, no constipation and no diarrhea/loose stools Genitourinary: no difficulty urinating Musculoskeletal: no back pain and no joint pain Integumentary: no non-healing lesions Allergy / Immunological: no rash Physical Exam Physical Exam: General: Resting comfortably HEENT: NC/AT; PERRLA with EOMI; [place] conjunctiva, MMM. No erythema of posterior pharynx Neck: Supple and nontender Cardiac: RRR Lungs: CTA bilaterally Abdomen: Bowel normoactive X 4; Nontender to palpation Extremities: Warm. No edema present Neuro: No focal weakness Skin: No rash; dressing in place over right foot/leg. Left PICC line without tenderness or erythema. Results & Data Vital Signs (Past 12 Hours) Vital Signs Temp Pulse Resp BP BP Pulse Ox 11/13/18 16:23 90 138/77 98 11/13/18 15:46 36.9 C 89 18 161/84 H 99 11/13/18 06:56 37.3 C 92 H 18 139/82 98 Laboratory Results Lab Results 11/10/18 11/10/18 11/10/18 Range/Units 09:04 10:01 12:17 WBC (4.8-10.8) K/uL RBC (4.7-6.1) M/uL Hgb (14.0-18.0) g/dL Hct (42-52) % MCV (80-100) fL MCH (25-34) pg MCHC (32-36) g/dL RDW Std Deviation (36.4-46.3) fL RDW Coeff of Keisha (11.5-14.5) % Plt Count (130-400) K/uL MPV (7.4-10.4) fL Immature Gran % (Auto) % Neut % (Auto) % Lymph % (Auto) % Mitchell % (Auto) % Eos % (Auto) % Baso % (Auto) % Immature Gran # (Auto) (0.00-0.02) K/uL Neut # (Auto) (1.4-6.5) K/uL Lymph # (Auto) (1.2-3.4) K/uL Mitchell # (Auto) (0.11-0.59) K/uL Eos # (Auto) (0-0.5) K/uL Baso # (Auto) (0-0.2) K/uL RBC Morphology ESR (0-14) mm/hr Sodium (136-145) mmol/L Potassium (3.5-5.1) mmol/L Chloride (98-107) mmol/L Carbon Dioxide (21-32) mmol/L Anion Gap (3-11) BUN (7-18) mg/dl Creatinine (0.6-1.4) mg/dl Est Cr Clr Drug Dosing ml/min Est GFR ( Amer) Est GFR (Non-Af Amer) BUN/Creatinine Ratio (10-20) Glucose (70-99) mg/dl POC Glucose 79 160 H 117 H (70-99) Estimat Average Glucose mg/dl Hemoglobin A1c (4.5-5.6) % Lactate (0.4-2.0) mmol/L Calcium (8.5-10.1) mg/dl Iron (35-175) mcg/dl TIBC (250-450) mcg/dl Ferritin (8-388) ng/ml Total Bilirubin (0.2-1) mg/dl AST (15-37) U/L ALT (12-78) U/L Alkaline Phosphatase (45-117) U/L C-Reactive Protein (0-0.29) mg/dl Total Protein (6.4-8.2) gm/dl Albumin (3.4-5.0) gm/dl Globulin (2.5-4.0) gm/dl Albumin/Globulin Ratio (0.9-2) Procalcitonin (0-0.5) ng/ml Urine Color Urine Appearance (Clear) Urine pH (4.5-7.5) Ur Specific Clifford (1.000-1.030) Urine Protein (Negative) Urine Glucose (UA) (Negative) Urine Ketones (Negative) Urine Blood (Negative) Urine Nitrite (Negative) Urine Bilirubin (Negative) Urine Urobilinogen (Negative) Ur Leukocyte Esterase (Negative) Urine WBC (Auto) (0-5) /hpf Urine RBC (Auto) (0-4) /hpf U Hyaline Cast (Auto) (0-5) /lpf U Epithel Cells (Auto) (0-5) /lpf Urine Bacteria (Auto) (Negative) Blood Type Blood Type Recheck Antibody Screen Crossmatch 11/10/18 11/10/18 11/10/18 Range/Units 13:18 16:50 17:32 WBC (4.8-10.8) K/uL RBC (4.7-6.1) M/uL Hgb (14.0-18.0) g/dL Hct (42-52) % MCV (80-100) fL MCH (25-34) pg MCHC (32-36) g/dL RDW Std Deviation (36.4-46.3) fL RDW Coeff of Keisha (11.5-14.5) % Plt Count (130-400) K/uL MPV (7.4-10.4) fL Immature Gran % (Auto) % Neut % (Auto) % Lymph % (Auto) % Mitchell % (Auto) % Eos % (Auto) % Baso % (Auto) % Immature Gran # (Auto) (0.00-0.02) K/uL Neut # (Auto) (1.4-6.5) K/uL Lymph # (Auto) (1.2-3.4) K/uL Mitchell # (Auto) (0.11-0.59) K/uL Eos # (Auto) (0-0.5) K/uL Baso # (Auto) (0-0.2) K/uL RBC Morphology ESR (0-14) mm/hr Sodium (136-145) mmol/L Potassium (3.5-5.1) mmol/L Chloride (98-107) mmol/L Carbon Dioxide (21-32) mmol/L Anion Gap (3-11) BUN (7-18) mg/dl Creatinine (0.6-1.4) mg/dl Est Cr Clr Drug Dosing ml/min Est GFR ( Amer) Est GFR (Non-Af Amer) BUN/Creatinine Ratio (10-20) Glucose (70-99) mg/dl POC Glucose 107 H 173 H 170 H (70-99) Estimat Average Glucose mg/dl Hemoglobin A1c (4.5-5.6) % Lactate (0.4-2.0) mmol/L Calcium (8.5-10.1) mg/dl Iron (35-175) mcg/dl TIBC (250-450) mcg/dl Ferritin (8-388) ng/ml Total Bilirubin (0.2-1) mg/dl AST (15-37) U/L ALT (12-78) U/L Alkaline Phosphatase (45-117) U/L C-Reactive Protein (0-0.29) mg/dl Total Protein (6.4-8.2) gm/dl Albumin (3.4-5.0) gm/dl Globulin (2.5-4.0) gm/dl Albumin/Globulin Ratio (0.9-2) Procalcitonin (0-0.5) ng/ml Urine Color Urine Appearance (Clear) Urine pH (4.5-7.5) Ur Specific Clifford (1.000-1.030) Urine Protein (Negative) Urine Glucose (UA) (Negative) Urine Ketones (Negative) Urine Blood (Negative) Urine Nitrite (Negative) Urine Bilirubin (Negative) Urine Urobilinogen (Negative) Ur Leukocyte Esterase (Negative) Urine WBC (Auto) (0-5) /hpf Urine RBC (Auto) (0-4) /hpf U Hyaline Cast (Auto) (0-5) /lpf U Epithel Cells (Auto) (0-5) /lpf Urine Bacteria (Auto) (Negative) Blood Type Blood Type Recheck Antibody Screen Crossmatch 11/10/18 11/10/18 11/10/18 Range/Units 19:04 19:04 19:04 WBC 12.91 H (4.8-10.8) K/uL RBC 2.57 L (4.7-6.1) M/uL Hgb 7.4 L (14.0-18.0) g/dL Hct 22.2 L (42-52) % MCV 86.4 (80-100) fL MCH 28.8 (25-34) pg MCHC 33.3 (32-36) g/dL RDW Std Deviation 40.8 (36.4-46.3) fL RDW Coeff of Keisha 12.9 (11.5-14.5) % Plt Count 490 H (130-400) K/uL MPV 8.8 (7.4-10.4) fL Immature Gran % (Auto) 0.3 % Neut % (Auto) 76.0 % Lymph % (Auto) 12.8 % Mitchell % (Auto) 7.2 % Eos % (Auto) 3.5 % Baso % (Auto) 0.2 % Immature Gran # (Auto) 0.04 H (0.00-0.02) K/uL Neut # (Auto) 9.82 H (1.4-6.5) K/uL Lymph # (Auto) 1.65 (1.2-3.4) K/uL Mitchell # (Auto) 0.93 H (0.11-0.59) K/uL Eos # (Auto) 0.45 (0-0.5) K/uL Baso # (Auto) 0.02 (0-0.2) K/uL RBC Morphology Unremarkable ESR 58 H (0-14) mm/hr Sodium 131 L (136-145) mmol/L Potassium 6.3 H* (3.5-5.1) mmol/L Chloride 99 (98-107) mmol/L Carbon Dioxide 26 (21-32) mmol/L Anion Gap 6.0 (3-11) BUN 38 H (7-18) mg/dl Creatinine 2.10 H (0.6-1.4) mg/dl Est Cr Clr Drug Dosing 56.0 ml/min Est GFR ( Amer) 46.2 Est GFR (Non-Af Amer) 39.9 BUN/Creatinine Ratio 18.0 (10-20) Glucose 223 H (70-99) mg/dl POC Glucose (70-99) Estimat Average Glucose mg/dl Hemoglobin A1c (4.5-5.6) % Lactate (0.4-2.0) mmol/L Calcium 8.3 L (8.5-10.1) mg/dl Iron (35-175) mcg/dl TIBC (250-450) mcg/dl Ferritin (8-388) ng/ml Total Bilirubin 0.2 (0.2-1) mg/dl AST 10 L (15-37) U/L ALT 12 (12-78) U/L Alkaline Phosphatase 86 (45-117) U/L C-Reactive Protein 17.60 H (0-0.29) mg/dl Total Protein 7.0 (6.4-8.2) gm/dl Albumin 2.3 L (3.4-5.0) gm/dl Globulin 4.7 H (2.5-4.0) gm/dl Albumin/Globulin Ratio 0.5 L (0.9-2) Procalcitonin (0-0.5) ng/ml Urine Color Urine Appearance (Clear) Urine pH (4.5-7.5) Ur Specific Clifford (1.000-1.030) Urine Protein (Negative) Urine Glucose (UA) (Negative) Urine Ketones (Negative) Urine Blood (Negative) Urine Nitrite (Negative) Urine Bilirubin (Negative) Urine Urobilinogen (Negative) Ur Leukocyte Esterase (Negative) Urine WBC (Auto) (0-5) /hpf Urine RBC (Auto) (0-4) /hpf U Hyaline Cast (Auto) (0-5) /lpf U Epithel Cells (Auto) (0-5) /lpf Urine Bacteria (Auto) (Negative) Blood Type Blood Type Recheck Antibody Screen Crossmatch 11/10/18 11/10/18 11/10/18 Range/Units 19:04 19:21 21:29 WBC (4.8-10.8) K/uL RBC (4.7-6.1) M/uL Hgb (14.0-18.0) g/dL Hct (42-52) % MCV (80-100) fL MCH (25-34) pg MCHC (32-36) g/dL RDW Std Deviation (36.4-46.3) fL RDW Coeff of Keisha (11.5-14.5) % Plt Count (130-400) K/uL MPV (7.4-10.4) fL Immature Gran % (Auto) % Neut % (Auto) % Lymph % (Auto) % Mitchell % (Auto) % Eos % (Auto) % Baso % (Auto) % Immature Gran # (Auto) (0.00-0.02) K/uL Neut # (Auto) (1.4-6.5) K/uL Lymph # (Auto) (1.2-3.4) K/uL Mitchell # (Auto) (0.11-0.59) K/uL Eos # (Auto) (0-0.5) K/uL Baso # (Auto) (0-0.2) K/uL RBC Morphology ESR (0-14) mm/hr Sodium (136-145) mmol/L Potassium (3.5-5.1) mmol/L Chloride (98-107) mmol/L Carbon Dioxide (21-32) mmol/L Anion Gap (3-11) BUN (7-18) mg/dl Creatinine (0.6-1.4) mg/dl Est Cr Clr Drug Dosing ml/min Est GFR ( Amer) Est GFR (Non-Af Amer) BUN/Creatinine Ratio (10-20) Glucose (70-99) mg/dl POC Glucose 243 H (70-99) Estimat Average Glucose mg/dl Hemoglobin A1c (4.5-5.6) % Lactate 1.1 (0.4-2.0) mmol/L Calcium (8.5-10.1) mg/dl Iron (35-175) mcg/dl TIBC (250-450) mcg/dl Ferritin (8-388) ng/ml Total Bilirubin (0.2-1) mg/dl AST (15-37) U/L ALT (12-78) U/L Alkaline Phosphatase (45-117) U/L C-Reactive Protein (0-0.29) mg/dl Total Protein (6.4-8.2) gm/dl Albumin (3.4-5.0) gm/dl Globulin (2.5-4.0) gm/dl Albumin/Globulin Ratio (0.9-2) Procalcitonin 0.27 (0-0.5) ng/ml Urine Color Urine Appearance (Clear) Urine pH (4.5-7.5) Ur Specific Clifford (1.000-1.030) Urine Protein (Negative) Urine Glucose (UA) (Negative) Urine Ketones (Negative) Urine Blood (Negative) Urine Nitrite (Negative) Urine Bilirubin (Negative) Urine Urobilinogen (Negative) Ur Leukocyte Esterase (Negative) Urine WBC (Auto) (0-5) /hpf Urine RBC (Auto) (0-4) /hpf U Hyaline Cast (Auto) (0-5) /lpf U Epithel Cells (Auto) (0-5) /lpf Urine Bacteria (Auto) (Negative) Blood Type Blood Type Recheck Antibody Screen Crossmatch 11/10/18 11/10/18 11/10/18 Range/Units 21:55 21:55 22:56 WBC (4.8-10.8) K/uL RBC (4.7-6.1) M/uL Hgb 7.2 L (14.0-18.0) g/dL Hct 21.4 L (42-52) % MCV (80-100) fL MCH (25-34) pg MCHC (32-36) g/dL RDW Std Deviation (36.4-46.3) fL RDW Coeff of Keisha (11.5-14.5) % Plt Count (130-400) K/uL MPV (7.4-10.4) fL Immature Gran % (Auto) % Neut % (Auto) % Lymph % (Auto) % Mitchell % (Auto) % Eos % (Auto) % Baso % (Auto) % Immature Gran # (Auto) (0.00-0.02) K/uL Neut # (Auto) (1.4-6.5) K/uL Lymph # (Auto) (1.2-3.4) K/uL Mitchell # (Auto) (0.11-0.59) K/uL Eos # (Auto) (0-0.5) K/uL Baso # (Auto) (0-0.2) K/uL RBC Morphology ESR (0-14) mm/hr Sodium (136-145) mmol/L Potassium (3.5-5.1) mmol/L Chloride (98-107) mmol/L Carbon Dioxide (21-32) mmol/L Anion Gap (3-11) BUN (7-18) mg/dl Creatinine (0.6-1.4) mg/dl Est Cr Clr Drug Dosing ml/min Est GFR ( Amer) Est GFR (Non-Af Amer) BUN/Creatinine Ratio (10-20) Glucose (70-99) mg/dl POC Glucose 201 H (70-99) Estimat Average Glucose mg/dl Hemoglobin A1c (4.5-5.6) % Lactate (0.4-2.0) mmol/L Calcium (8.5-10.1) mg/dl Iron (35-175) mcg/dl TIBC (250-450) mcg/dl Ferritin (8-388) ng/ml Total Bilirubin (0.2-1) mg/dl AST (15-37) U/L ALT (12-78) U/L Alkaline Phosphatase (45-117) U/L C-Reactive Protein (0-0.29) mg/dl Total Protein (6.4-8.2) gm/dl Albumin (3.4-5.0) gm/dl Globulin (2.5-4.0) gm/dl Albumin/Globulin Ratio (0.9-2) Procalcitonin (0-0.5) ng/ml Urine Color Urine Appearance (Clear) Urine pH (4.5-7.5) Ur Specific Clifford (1.000-1.030) Urine Protein (Negative) Urine Glucose (UA) (Negative) Urine Ketones (Negative) Urine Blood (Negative) Urine Nitrite (Negative) Urine Bilirubin (Negative) Urine Urobilinogen (Negative) Ur Leukocyte Esterase (Negative) Urine WBC (Auto) (0-5) /hpf Urine RBC (Auto) (0-4) /hpf U Hyaline Cast (Auto) (0-5) /lpf U Epithel Cells (Auto) (0-5) /lpf Urine Bacteria (Auto) (Negative) Blood Type A Positive Blood Type Recheck Antibody Screen NEGATIVE Crossmatch See Detail 11/10/18 11/11/18 11/11/18 Range/Units 23:19 00:22 00:41 WBC (4.8-10.8) K/uL RBC (4.7-6.1) M/uL Hgb (14.0-18.0) g/dL Hct (42-52) % MCV (80-100) fL MCH (25-34) pg MCHC (32-36) g/dL RDW Std Deviation (36.4-46.3) fL RDW Coeff of Keisha (11.5-14.5) % Plt Count (130-400) K/uL MPV (7.4-10.4) fL Immature Gran % (Auto) % Neut % (Auto) % Lymph % (Auto) % Mitchell % (Auto) % Eos % (Auto) % Baso % (Auto) % Immature Gran # (Auto) (0.00-0.02) K/uL Neut # (Auto) (1.4-6.5) K/uL Lymph # (Auto) (1.2-3.4) K/uL Mitchell # (Auto) (0.11-0.59) K/uL Eos # (Auto) (0-0.5) K/uL Baso # (Auto) (0-0.2) K/uL RBC Morphology ESR (0-14) mm/hr Sodium 133 L (136-145) mmol/L Potassium 5.0 D (3.5-5.1) mmol/L Chloride 101 (98-107) mmol/L Carbon Dioxide 25 (21-32) mmol/L Anion Gap 7.0 (3-11) BUN 36 H (7-18) mg/dl Creatinine 1.95 H (0.6-1.4) mg/dl Est Cr Clr Drug Dosing 60.3 ml/min Est GFR ( Amer) 50.5 Est GFR (Non-Af Amer) 43.6 BUN/Creatinine Ratio 18.6 (10-20) Glucose 120 H (70-99) mg/dl POC Glucose 64 L* 78 (70-99) Estimat Average Glucose mg/dl Hemoglobin A1c (4.5-5.6) % Lactate (0.4-2.0) mmol/L Calcium 8.2 L (8.5-10.1) mg/dl Iron (35-175) mcg/dl TIBC (250-450) mcg/dl Ferritin (8-388) ng/ml Total Bilirubin (0.2-1) mg/dl AST (15-37) U/L ALT (12-78) U/L Alkaline Phosphatase (45-117) U/L C-Reactive Protein (0-0.29) mg/dl Total Protein (6.4-8.2) gm/dl Albumin (3.4-5.0) gm/dl Globulin (2.5-4.0) gm/dl Albumin/Globulin Ratio (0.9-2) Procalcitonin (0-0.5) ng/ml Urine Color Urine Appearance (Clear) Urine pH (4.5-7.5) Ur Specific Clifford (1.000-1.030) Urine Protein (Negative) Urine Glucose (UA) (Negative) Urine Ketones (Negative) Urine Blood (Negative) Urine Nitrite (Negative) Urine Bilirubin (Negative) Urine Urobilinogen (Negative) Ur Leukocyte Esterase (Negative) Urine WBC (Auto) (0-5) /hpf Urine RBC (Auto) (0-4) /hpf U Hyaline Cast (Auto) (0-5) /lpf U Epithel Cells (Auto) (0-5) /lpf Urine Bacteria (Auto) (Negative) Blood Type Blood Type Recheck Antibody Screen Crossmatch 11/11/18 11/11/18 11/11/18 Range/Units 04:12 06:04 06:04 WBC 10.66 (4.8-10.8) K/uL RBC 2.53 L (4.7-6.1) M/uL Hgb 7.3 L (14.0-18.0) g/dL Hct 21.8 L (42-52) % MCV 86.2 (80-100) fL MCH 28.9 (25-34) pg MCHC 33.5 (32-36) g/dL RDW Std Deviation 41.8 (36.4-46.3) fL RDW Coeff of Keisha 13.1 (11.5-14.5) % Plt Count 423 H (130-400) K/uL MPV 8.9 (7.4-10.4) fL Immature Gran % (Auto) % Neut % (Auto) % Lymph % (Auto) % Mitchell % (Auto) % Eos % (Auto) % Baso % (Auto) % Immature Gran # (Auto) (0.00-0.02) K/uL Neut # (Auto) (1.4-6.5) K/uL Lymph # (Auto) (1.2-3.4) K/uL Mitchell # (Auto) (0.11-0.59) K/uL Eos # (Auto) (0-0.5) K/uL Baso # (Auto) (0-0.2) K/uL RBC Morphology ESR (0-14) mm/hr Sodium 131 L (136-145) mmol/L Potassium 5.6 H (3.5-5.1) mmol/L Chloride 100 (98-107) mmol/L Carbon Dioxide 25 (21-32) mmol/L Anion Gap 6.0 (3-11) BUN 34 H (7-18) mg/dl Creatinine 1.68 H (0.6-1.4) mg/dl Est Cr Clr Drug Dosing 70.0 ml/min Est GFR ( Amer) 60.5 Est GFR (Non-Af Amer) 52.2 BUN/Creatinine Ratio 20.2 H (10-20) Glucose 257 H (70-99) mg/dl POC Glucose 196 H (70-99) Estimat Average Glucose mg/dl Hemoglobin A1c (4.5-5.6) % Lactate (0.4-2.0) mmol/L Calcium 8.1 L (8.5-10.1) mg/dl Iron (35-175) mcg/dl TIBC (250-450) mcg/dl Ferritin (8-388) ng/ml Total Bilirubin (0.2-1) mg/dl AST (15-37) U/L ALT (12-78) U/L Alkaline Phosphatase (45-117) U/L C-Reactive Protein (0-0.29) mg/dl Total Protein (6.4-8.2) gm/dl Albumin (3.4-5.0) gm/dl Globulin (2.5-4.0) gm/dl Albumin/Globulin Ratio (0.9-2) Procalcitonin (0-0.5) ng/ml Urine Color Urine Appearance (Clear) Urine pH (4.5-7.5) Ur Specific Clifford (1.000-1.030) Urine Protein (Negative) Urine Glucose (UA) (Negative) Urine Ketones (Negative) Urine Blood (Negative) Urine Nitrite (Negative) Urine Bilirubin (Negative) Urine Urobilinogen (Negative) Ur Leukocyte Esterase (Negative) Urine WBC (Auto) (0-5) /hpf Urine RBC (Auto) (0-4) /hpf U Hyaline Cast (Auto) (0-5) /lpf U Epithel Cells (Auto) (0-5) /lpf Urine Bacteria (Auto) (Negative) Blood Type Blood Type Recheck Antibody Screen Crossmatch 11/11/18 11/11/18 11/11/18 Range/Units 06:04 06:04 08:03 WBC (4.8-10.8) K/uL RBC (4.7-6.1) M/uL Hgb (14.0-18.0) g/dL Hct (42-52) % MCV (80-100) fL MCH (25-34) pg MCHC (32-36) g/dL RDW Std Deviation (36.4-46.3) fL RDW Coeff of Keisha (11.5-14.5) % Plt Count (130-400) K/uL MPV (7.4-10.4) fL Immature Gran % (Auto) % Neut % (Auto) % Lymph % (Auto) % Mitchell % (Auto) % Eos % (Auto) % Baso % (Auto) % Immature Gran # (Auto) (0.00-0.02) K/uL Neut # (Auto) (1.4-6.5) K/uL Lymph # (Auto) (1.2-3.4) K/uL Mitchell # (Auto) (0.11-0.59) K/uL Eos # (Auto) (0-0.5) K/uL Baso # (Auto) (0-0.2) K/uL RBC Morphology ESR (0-14) mm/hr Sodium (136-145) mmol/L Potassium (3.5-5.1) mmol/L Chloride (98-107) mmol/L Carbon Dioxide (21-32) mmol/L Anion Gap (3-11) BUN (7-18) mg/dl Creatinine (0.6-1.4) mg/dl Est Cr Clr Drug Dosing ml/min Est GFR ( Amer) Est GFR (Non-Af Amer) BUN/Creatinine Ratio (10-20) Glucose (70-99) mg/dl POC Glucose 402 H* (70-99) Estimat Average Glucose 352 mg/dl Hemoglobin A1c 13.9 H (4.5-5.6) % Lactate (0.4-2.0) mmol/L Calcium (8.5-10.1) mg/dl Iron (35-175) mcg/dl TIBC (250-450) mcg/dl Ferritin (8-388) ng/ml Total Bilirubin (0.2-1) mg/dl AST (15-37) U/L ALT (12-78) U/L Alkaline Phosphatase (45-117) U/L C-Reactive Protein (0-0.29) mg/dl Total Protein (6.4-8.2) gm/dl Albumin (3.4-5.0) gm/dl Globulin (2.5-4.0) gm/dl Albumin/Globulin Ratio (0.9-2) Procalcitonin (0-0.5) ng/ml Urine Color Urine Appearance (Clear) Urine pH (4.5-7.5) Ur Specific Clifford (1.000-1.030) Urine Protein (Negative) Urine Glucose (UA) (Negative) Urine Ketones (Negative) Urine Blood (Negative) Urine Nitrite (Negative) Urine Bilirubin (Negative) Urine Urobilinogen (Negative) Ur Leukocyte Esterase (Negative) Urine WBC (Auto) (0-5) /hpf Urine RBC (Auto) (0-4) /hpf U Hyaline Cast (Auto) (0-5) /lpf U Epithel Cells (Auto) (0-5) /lpf Urine Bacteria (Auto) (Negative) Blood Type Blood Type Recheck A Positive Antibody Screen Crossmatch 11/11/18 11/11/18 11/11/18 Range/Units 12:08 17:03 19:20 WBC (4.8-10.8) K/uL RBC (4.7-6.1) M/uL Hgb (14.0-18.0) g/dL Hct (42-52) % MCV (80-100) fL MCH (25-34) pg MCHC (32-36) g/dL RDW Std Deviation (36.4-46.3) fL RDW Coeff of Keisha (11.5-14.5) % Plt Count (130-400) K/uL MPV (7.4-10.4) fL Immature Gran % (Auto) % Neut % (Auto) % Lymph % (Auto) % Mitchell % (Auto) % Eos % (Auto) % Baso % (Auto) % Immature Gran # (Auto) (0.00-0.02) K/uL Neut # (Auto) (1.4-6.5) K/uL Lymph # (Auto) (1.2-3.4) K/uL Mitchell # (Auto) (0.11-0.59) K/uL Eos # (Auto) (0-0.5) K/uL Baso # (Auto) (0-0.2) K/uL RBC Morphology ESR (0-14) mm/hr Sodium (136-145) mmol/L Potassium (3.5-5.1) mmol/L Chloride (98-107) mmol/L Carbon Dioxide (21-32) mmol/L Anion Gap (3-11) BUN (7-18) mg/dl Creatinine (0.6-1.4) mg/dl Est Cr Clr Drug Dosing ml/min Est GFR ( Amer) Est GFR (Non-Af Amer) BUN/Creatinine Ratio (10-20) Glucose (70-99) mg/dl POC Glucose 356 H* 155 H (70-99) Estimat Average Glucose mg/dl Hemoglobin A1c (4.5-5.6) % Lactate (0.4-2.0) mmol/L Calcium (8.5-10.1) mg/dl Iron (35-175) mcg/dl TIBC (250-450) mcg/dl Ferritin (8-388) ng/ml Total Bilirubin (0.2-1) mg/dl AST (15-37) U/L ALT (12-78) U/L Alkaline Phosphatase (45-117) U/L C-Reactive Protein (0-0.29) mg/dl Total Protein (6.4-8.2) gm/dl Albumin (3.4-5.0) gm/dl Globulin (2.5-4.0) gm/dl Albumin/Globulin Ratio (0.9-2) Procalcitonin (0-0.5) ng/ml Urine Color Yellow Urine Appearance Clear (Clear) Urine pH 6.5 (4.5-7.5) Ur Specific Clifford 1.011 (1.000-1.030) Urine Protein Trace H (Negative) Urine Glucose (UA) Negative (Negative) Urine Ketones Negative (Negative) Urine Blood Negative (Negative) Urine Nitrite Negative (Negative) Urine Bilirubin Negative (Negative) Urine Urobilinogen Negative (Negative) Ur Leukocyte Esterase Negative (Negative) Urine WBC (Auto) 0 (0-5) /hpf Urine RBC (Auto) 0-4 (0-4) /hpf U Hyaline Cast (Auto) 0 (0-5) /lpf U Epithel Cells (Auto) 0-5 (0-5) /lpf Urine Bacteria (Auto) Negative (Negative) Blood Type Blood Type Recheck Antibody Screen Crossmatch 07/27/19 07/27/19 07/28/19 Range/Units 20:50 23:54 04:02 WBC (4.8-10.8) K/uL RBC (4.7-6.1) M/uL Hgb (14.0-18.0) g/dL Hct (42-52) % MCV (80-100) fL MCH (25-34) pg MCHC (32-36) g/dL RDW Std Deviation (36.4-46.3) fL RDW Coeff of Keisha (11.5-14.5) % Plt Count (130-400) K/uL MPV (7.4-10.4) fL Immature Gran % (Auto) % Neut % (Auto) % Lymph % (Auto) % Mitchell % (Auto) % Eos % (Auto) % Baso % (Auto) % Immature Gran # (Auto) (0.00-0.02) K/uL Neut # (Auto) (1.4-6.5) K/uL Lymph # (Auto) (1.2-3.4) K/uL Mitchell # (Auto) (0.11-0.59) K/uL Eos # (Auto) (0-0.5) K/uL Baso # (Auto) (0-0.2) K/uL RBC Morphology ESR (0-14) mm/hr Sodium (136-145) mmol/L Potassium (3.5-5.1) mmol/L Chloride (98-107) mmol/L Carbon Dioxide (21-32) mmol/L Anion Gap (3-11) BUN (7-18) mg/dl Creatinine (0.6-1.4) mg/dl Est Cr Clr Drug Dosing ml/min Est GFR ( Amer) Est GFR (Non-Af Amer) BUN/Creatinine Ratio (10-20) Glucose (70-99) mg/dl POC Glucose 161 H 120 H 77 (70-99) Estimat Average Glucose mg/dl Hemoglobin A1c (4.5-5.6) % Lactate (0.4-2.0) mmol/L Calcium (8.5-10.1) mg/dl Iron (35-175) mcg/dl TIBC (250-450) mcg/dl Ferritin (8-388) ng/ml Total Bilirubin (0.2-1) mg/dl AST (15-37) U/L ALT (12-78) U/L Alkaline Phosphatase (45-117) U/L C-Reactive Protein (0-0.29) mg/dl Total Protein (6.4-8.2) gm/dl Albumin (3.4-5.0) gm/dl Globulin (2.5-4.0) gm/dl Albumin/Globulin Ratio (0.9-2) Procalcitonin (0-0.5) ng/ml Urine Color Urine Appearance (Clear) Urine pH (4.5-7.5) Ur Specific Clifford (1.000-1.030) Urine Protein (Negative) Urine Glucose (UA) (Negative) Urine Ketones (Negative) Urine Blood (Negative) Urine Nitrite (Negative) Urine Bilirubin (Negative) Urine Urobilinogen (Negative) Ur Leukocyte Esterase (Negative) Urine WBC (Auto) (0-5) /hpf Urine RBC (Auto) (0-4) /hpf U Hyaline Cast (Auto) (0-5) /lpf U Epithel Cells (Auto) (0-5) /lpf Urine Bacteria (Auto) (Negative) Blood Type Blood Type Recheck Antibody Screen Crossmatch 11/12/18 11/12/18 11/12/18 Range/Units 05:22 05:25 08:01 WBC 8.94 (4.8-10.8) K/uL RBC 2.27 L (4.7-6.1) M/uL Hgb 6.5 L* (14.0-18.0) g/dL Hct 19.6 L* (42-52) % MCV 86.3 (80-100) fL MCH 28.6 (25-34) pg MCHC 33.2 (32-36) g/dL RDW Std Deviation 41.0 (36.4-46.3) fL RDW Coeff of Keisha 12.9 (11.5-14.5) % Plt Count 430 H (130-400) K/uL MPV 8.8 (7.4-10.4) fL Immature Gran % (Auto) 0.2 % Neut % (Auto) 67.0 % Lymph % (Auto) 20.2 % Mitchell % (Auto) 8.8 % Eos % (Auto) 3.6 % Baso % (Auto) 0.2 % Immature Gran # (Auto) 0.02 (0.00-0.02) K/uL Neut # (Auto) 5.98 (1.4-6.5) K/uL Lymph # (Auto) 1.81 (1.2-3.4) K/uL Mitchell # (Auto) 0.79 H (0.11-0.59) K/uL Eos # (Auto) 0.32 (0-0.5) K/uL Baso # (Auto) 0.02 (0-0.2) K/uL RBC Morphology Unremarkable ESR (0-14) mm/hr Sodium 139 D (136-145) mmol/L Potassium 5.3 H (3.5-5.1) mmol/L Chloride 107 (98-107) mmol/L Carbon Dioxide 27 (21-32) mmol/L Anion Gap 5.0 (3-11) BUN 32 H (7-18) mg/dl Creatinine 1.49 H (0.6-1.4) mg/dl Est Cr Clr Drug Dosing 78.9 ml/min Est GFR ( Amer) 70.0 Est GFR (Non-Af Amer) 60.4 BUN/Creatinine Ratio 21.1 H (10-20) Glucose 74 (70-99) mg/dl POC Glucose 126 H (70-99) Estimat Average Glucose mg/dl Hemoglobin A1c (4.5-5.6) % Lactate (0.4-2.0) mmol/L Calcium 8.6 (8.5-10.1) mg/dl Iron (35-175) mcg/dl TIBC (250-450) mcg/dl Ferritin (8-388) ng/ml Total Bilirubin (0.2-1) mg/dl AST (15-37) U/L ALT (12-78) U/L Alkaline Phosphatase (45-117) U/L C-Reactive Protein (0-0.29) mg/dl Total Protein (6.4-8.2) gm/dl Albumin (3.4-5.0) gm/dl Globulin (2.5-4.0) gm/dl Albumin/Globulin Ratio (0.9-2) Procalcitonin (0-0.5) ng/ml Urine Color Urine Appearance (Clear) Urine pH (4.5-7.5) Ur Specific Clifford (1.000-1.030) Urine Protein (Negative) Urine Glucose (UA) (Negative) Urine Ketones (Negative) Urine Blood (Negative) Urine Nitrite (Negative) Urine Bilirubin (Negative) Urine Urobilinogen (Negative) Ur Leukocyte Esterase (Negative) Urine WBC (Auto) (0-5) /hpf Urine RBC (Auto) (0-4) /hpf U Hyaline Cast (Auto) (0-5) /lpf U Epithel Cells (Auto) (0-5) /lpf Urine Bacteria (Auto) (Negative) Blood Type Blood Type Recheck Antibody Screen Crossmatch 11/12/18 11/12/18 11/12/18 Range/Units 11:06 11:06 11:54 WBC (4.8-10.8) K/uL RBC (4.7-6.1) M/uL Hgb 6.3 L* (14.0-18.0) g/dL Hct 18.9 L* (42-52) % MCV (80-100) fL MCH (25-34) pg MCHC (32-36) g/dL RDW Std Deviation (36.4-46.3) fL RDW Coeff of Keisha (11.5-14.5) % Plt Count (130-400) K/uL MPV (7.4-10.4) fL Immature Gran % (Auto) % Neut % (Auto) % Lymph % (Auto) % Mitchell % (Auto) % Eos % (Auto) % Baso % (Auto) % Immature Gran # (Auto) (0.00-0.02) K/uL Neut # (Auto) (1.4-6.5) K/uL Lymph # (Auto) (1.2-3.4) K/uL Mitchell # (Auto) (0.11-0.59) K/uL Eos # (Auto) (0-0.5) K/uL Baso # (Auto) (0-0.2) K/uL RBC Morphology ESR (0-14) mm/hr Sodium (136-145) mmol/L Potassium (3.5-5.1) mmol/L Chloride (98-107) mmol/L Carbon Dioxide (21-32) mmol/L Anion Gap (3-11) BUN (7-18) mg/dl Creatinine (0.6-1.4) mg/dl Est Cr Clr Drug Dosing ml/min Est GFR ( Amer) Est GFR (Non-Af Amer) BUN/Creatinine Ratio (10-20) Glucose (70-99) mg/dl POC Glucose 212 H (70-99) Estimat Average Glucose mg/dl Hemoglobin A1c (4.5-5.6) % Lactate (0.4-2.0) mmol/L Calcium (8.5-10.1) mg/dl Iron 23 L (35-175) mcg/dl TIBC 152 L (250-450) mcg/dl Ferritin 347.7 (8-388) ng/ml Total Bilirubin (0.2-1) mg/dl AST (15-37) U/L ALT (12-78) U/L Alkaline Phosphatase (45-117) U/L C-Reactive Protein (0-0.29) mg/dl Total Protein (6.4-8.2) gm/dl Albumin (3.4-5.0) gm/dl Globulin (2.5-4.0) gm/dl Albumin/Globulin Ratio (0.9-2) Procalcitonin (0-0.5) ng/ml Urine Color Urine Appearance (Clear) Urine pH (4.5-7.5) Ur Specific Clifford (1.000-1.030) Urine Protein (Negative) Urine Glucose (UA) (Negative) Urine Ketones (Negative) Urine Blood (Negative) Urine Nitrite (Negative) Urine Bilirubin (Negative) Urine Urobilinogen (Negative) Ur Leukocyte Esterase (Negative) Urine WBC (Auto) (0-5) /hpf Urine RBC (Auto) (0-4) /hpf U Hyaline Cast (Auto) (0-5) /lpf U Epithel Cells (Auto) (0-5) /lpf Urine Bacteria (Auto) (Negative) Blood Type Blood Type Recheck Antibody Screen Crossmatch 11/12/18 11/12/18 11/13/18 Range/Units 17:19 20:28 05:37 WBC (4.8-10.8) K/uL RBC (4.7-6.1) M/uL Hgb (14.0-18.0) g/dL Hct (42-52) % MCV (80-100) fL MCH (25-34) pg MCHC (32-36) g/dL RDW Std Deviation (36.4-46.3) fL RDW Coeff of Keisha (11.5-14.5) % Plt Count (130-400) K/uL MPV (7.4-10.4) fL Immature Gran % (Auto) % Neut % (Auto) % Lymph % (Auto) % Mitchell % (Auto) % Eos % (Auto) % Baso % (Auto) % Immature Gran # (Auto) (0.00-0.02) K/uL Neut # (Auto) (1.4-6.5) K/uL Lymph # (Auto) (1.2-3.4) K/uL Mitchell # (Auto) (0.11-0.59) K/uL Eos # (Auto) (0-0.5) K/uL Baso # (Auto) (0-0.2) K/uL RBC Morphology ESR (0-14) mm/hr Sodium 141 (136-145) mmol/L Potassium 5.0 (3.5-5.1) mmol/L Chloride 108 H (98-107) mmol/L Carbon Dioxide 26 (21-32) mmol/L Anion Gap 8.0 (3-11) BUN 28 H (7-18) mg/dl Creatinine 1.36 (0.6-1.4) mg/dl Est Cr Clr Drug Dosing 86.5 ml/min Est GFR ( Amer) 78.1 Est GFR (Non-Af Amer) 67.4 BUN/Creatinine Ratio 20.4 H (10-20) Glucose 114 H (70-99) mg/dl POC Glucose 212 H 102 H (70-99) Estimat Average Glucose mg/dl Hemoglobin A1c (4.5-5.6) % Lactate (0.4-2.0) mmol/L Calcium 8.8 (8.5-10.1) mg/dl Iron (35-175) mcg/dl TIBC (250-450) mcg/dl Ferritin (8-388) ng/ml Total Bilirubin (0.2-1) mg/dl AST (15-37) U/L ALT (12-78) U/L Alkaline Phosphatase (45-117) U/L C-Reactive Protein (0-0.29) mg/dl Total Protein (6.4-8.2) gm/dl Albumin (3.4-5.0) gm/dl Globulin (2.5-4.0) gm/dl Albumin/Globulin Ratio (0.9-2) Procalcitonin (0-0.5) ng/ml Urine Color Urine Appearance (Clear) Urine pH (4.5-7.5) Ur Specific Clifford (1.000-1.030) Urine Protein (Negative) Urine Glucose (UA) (Negative) Urine Ketones (Negative) Urine Blood (Negative) Urine Nitrite (Negative) Urine Bilirubin (Negative) Urine Urobilinogen (Negative) Ur Leukocyte Esterase (Negative) Urine WBC (Auto) (0-5) /hpf Urine RBC (Auto) (0-4) /hpf U Hyaline Cast (Auto) (0-5) /lpf U Epithel Cells (Auto) (0-5) /lpf Urine Bacteria (Auto) (Negative) Blood Type Blood Type Recheck Antibody Screen Crossmatch 11/13/18 11/13/18 11/13/18 Range/Units 05:38 08:12 12:08 WBC 8.53 (4.8-10.8) K/uL RBC 2.47 L (4.7-6.1) M/uL Hgb 7.1 L (14.0-18.0) g/dL Hct 21.4 L (42-52) % MCV 86.6 (80-100) fL MCH 28.7 (25-34) pg MCHC 33.2 (32-36) g/dL RDW Std Deviation 41.9 (36.4-46.3) fL RDW Coeff of Keisha 13.1 (11.5-14.5) % Plt Count 438 H (130-400) K/uL MPV 8.8 (7.4-10.4) fL Immature Gran % (Auto) 0.4 % Neut % (Auto) 66.7 % Lymph % (Auto) 21.2 % Mitchell % (Auto) 7.4 % Eos % (Auto) 4.1 % Baso % (Auto) 0.2 % Immature Gran # (Auto) 0.03 H (0.00-0.02) K/uL Neut # (Auto) 5.69 (1.4-6.5) K/uL Lymph # (Auto) 1.81 (1.2-3.4) K/uL Mitchell # (Auto) 0.63 H (0.11-0.59) K/uL Eos # (Auto) 0.35 (0-0.5) K/uL Baso # (Auto) 0.02 (0-0.2) K/uL RBC Morphology Unremarkable ESR (0-14) mm/hr Sodium (136-145) mmol/L Potassium (3.5-5.1) mmol/L Chloride (98-107) mmol/L Carbon Dioxide (21-32) mmol/L Anion Gap (3-11) BUN (7-18) mg/dl Creatinine (0.6-1.4) mg/dl Est Cr Clr Drug Dosing ml/min Est GFR ( Amer) Est GFR (Non-Af Amer) BUN/Creatinine Ratio (10-20) Glucose (70-99) mg/dl POC Glucose 184 H 266 H (70-99) Estimat Average Glucose mg/dl Hemoglobin A1c (4.5-5.6) % Lactate (0.4-2.0) mmol/L Calcium (8.5-10.1) mg/dl Iron (35-175) mcg/dl TIBC (250-450) mcg/dl Ferritin (8-388) ng/ml Total Bilirubin (0.2-1) mg/dl AST (15-37) U/L ALT (12-78) U/L Alkaline Phosphatase (45-117) U/L C-Reactive Protein (0-0.29) mg/dl Total Protein (6.4-8.2) gm/dl Albumin (3.4-5.0) gm/dl Globulin (2.5-4.0) gm/dl Albumin/Globulin Ratio (0.9-2) Procalcitonin (0-0.5) ng/ml Urine Color Urine Appearance (Clear) Urine pH (4.5-7.5) Ur Specific Clifford (1.000-1.030) Urine Protein (Negative) Urine Glucose (UA) (Negative) Urine Ketones (Negative) Urine Blood (Negative) Urine Nitrite (Negative) Urine Bilirubin (Negative) Urine Urobilinogen (Negative) Ur Leukocyte Esterase (Negative) Urine WBC (Auto) (0-5) /hpf Urine RBC (Auto) (0-4) /hpf U Hyaline Cast (Auto) (0-5) /lpf U Epithel Cells (Auto) (0-5) /lpf Urine Bacteria (Auto) (Negative) Blood Type Blood Type Recheck Antibody Screen Crossmatch 11/13/18 Range/Units 15:52 WBC 8.50 (4.8-10.8) K/uL RBC 2.47 L (4.7-6.1) M/uL Hgb 7.4 L (14.0-18.0) g/dL Hct 21.7 L (42-52) % MCV 87.9 (80-100) fL MCH 30.0 (25-34) pg MCHC 34.1 (32-36) g/dL RDW Std Deviation 42.5 (36.4-46.3) fL RDW Coeff of Keisha 13.1 (11.5-14.5) % Plt Count 457 H (130-400) K/uL MPV 8.2 (7.4-10.4) fL Immature Gran % (Auto) % Neut % (Auto) % Lymph % (Auto) % Mitchell % (Auto) % Eos % (Auto) % Baso % (Auto) % Immature Gran # (Auto) (0.00-0.02) K/uL Neut # (Auto) (1.4-6.5) K/uL Lymph # (Auto) (1.2-3.4) K/uL Mitchell # (Auto) (0.11-0.59) K/uL Eos # (Auto) (0-0.5) K/uL Baso # (Auto) (0-0.2) K/uL RBC Morphology ESR (0-14) mm/hr Sodium (136-145) mmol/L Potassium (3.5-5.1) mmol/L Chloride (98-107) mmol/L Carbon Dioxide (21-32) mmol/L Anion Gap (3-11) BUN (7-18) mg/dl Creatinine (0.6-1.4) mg/dl Est Cr Clr Drug Dosing ml/min Est GFR ( Amer) Est GFR (Non-Af Amer) BUN/Creatinine Ratio (10-20) Glucose (70-99) mg/dl POC Glucose (70-99) Estimat Average Glucose mg/dl Hemoglobin A1c (4.5-5.6) % Lactate (0.4-2.0) mmol/L Calcium (8.5-10.1) mg/dl Iron (35-175) mcg/dl TIBC (250-450) mcg/dl Ferritin (8-388) ng/ml Total Bilirubin (0.2-1) mg/dl AST (15-37) U/L ALT (12-78) U/L Alkaline Phosphatase (45-117) U/L C-Reactive Protein (0-0.29) mg/dl Total Protein (6.4-8.2) gm/dl Albumin (3.4-5.0) gm/dl Globulin (2.5-4.0) gm/dl Albumin/Globulin Ratio (0.9-2) Procalcitonin (0-0.5) ng/ml Urine Color Urine Appearance (Clear) Urine pH (4.5-7.5) Ur Specific Clifford (1.000-1.030) Urine Protein (Negative) Urine Glucose (UA) (Negative) Urine Ketones (Negative) Urine Blood (Negative) Urine Nitrite (Negative) Urine Bilirubin (Negative) Urine Urobilinogen (Negative) Ur Leukocyte Esterase (Negative) Urine WBC (Auto) (0-5) /hpf Urine RBC (Auto) (0-4) /hpf U Hyaline Cast (Auto) (0-5) /lpf U Epithel Cells (Auto) (0-5) /lpf Urine Bacteria (Auto) (Negative) Blood Type Blood Type Recheck Antibody Screen Crossmatch PG Care Time/CCT Total # of Minutes Spent Total Time Spent with Patient: Total time spent is greater than 50% in coordination of care (as documented) at patient's floor/unit and/or counseling patient: (1) Type 1 diabetes mellitus Diabetes mellitus complication detail: with foot ulcer Diabetes mellitus co mplication status: with skin complications Qualified Code(s): E10.621 - Type 1 diabetes mellitus with foot ulcer; L97.509 - Non-pressure chronic ulcer of other part of unspecified foot with unspecified severity
[2018-11-13] MEDS: ATORVASTATIN 40 MG TAB PO SCH (21:19)
[2018-11-13] MEDS: ALPRAZolam 0.5 MG TABLET PO SCH (21:19)
[2018-11-13] MEDS: SENNA 8.6 MG TAB PO SCH (21:19)
[2018-11-14] MEDS: HYDROmorphone INJ 1 MG/ML SYRINGE IV PRN ×5 (03:09→20:29)
[2018-11-14] MEDS: CLINDAMYCIN HCL 150 MG CAP PO SCH ×3 (05:56→21:56)
[2018-11-14] MEDS: ACETAMINOPHEN 500 MG TAB PO SCH ×3 (05:57→21:56)
[2018-11-14 06:04] LABS: Basophils # (auto) 0.03 K/uL (0-0.2); Basophils % (auto) 0.4 %; Eosinophils # (auto) 0.36 K/uL (0-0.5); Eosinophils % (auto) 4.2 %; Hematocrit (blood only) 21.9 % (42-52); Hemoglobin 7.3 g/dL (14.0-18.0); Immature Granulocytes # (auto) 0.03 K/uL (0.00-0.02); Immature Granulocytes % (auto) 0.4 %; Lymphocytes # (auto) 1.93 K/uL (1.2-3.4); Lymphocytes % (auto) 22.7 %; Mean Corpuscular Hgb Conc 33.3 g/dL (32-36); Mean Corpuscular Volume 86.9 fL (80-100); Mean Platelet Volume 8.6 fL (7.4-10.4); Monocytes # (auto) 0.66 K/uL (0.11-0.59); Monocytes % (auto) 7.8 %; Neutrophils # (auto) 5.48 K/uL (1.4-6.5); Neutrophils % (auto) 64.5 %; Platelet Count 452 K/uL (130-400); RDW Coefficient of Variation 13.1 % (11.5-14.5); RDW Standard Deviation 42.6 fL (36.4-46.3); Red Blood Count 2.52 M/uL (4.7-6.1); White Blood Count 8.49 K/uL (4.8-10.8)
[2018-11-14 06:42] LABS: BUN Creatinine Ratio 20.4 (10-20); Calcium 8.6 mg/dl (8.5-10.1); Creatinine Clr Calc Pharmacy 94.9 ml/min; Est GFR (African American) 87.4; Est GFR (Non-African American) 75.4; Potassium 4.7 mmol/L (3.5-5.1)
[2018-11-14 06:47] LABS: Anisocytosis Present
[2018-11-14] MEDS: DULOXETINE HCL 60 MG CAP PO SCH (08:51)
[2018-11-14] MEDS: DULOXETINE HCL 30 MG CAP PO SCH (08:51)
[2018-11-14] MEDS: DOCUSATE SODIUM 100 MG CAP PO SCH ×2 (08:51→21:55)
[2018-11-14] MEDS: MULTIVITAMIN TAB PO SCH (08:52)
[2018-11-14] MEDS: PROPRANOLOL HCL 10 MG TAB PO SCH (08:52)
[2018-11-14] MEDS: ASPIRIN 81 MG ECTAB PO SCH (08:53)
[2018-11-14] MEDS: LACTOBACILLUS ACIDOPHILUS 1 GM PACK PO SCH (08:54)
[2018-11-14] MEDS: PANTOprazole 40 MG TAB PO SCH (08:54)
[2018-11-14] MEDS: OXYCODONE HCL 20 MG TABCR (OXYCONTIN) PO SCH ×2 (08:58→21:57)
[2018-11-14] MEDS: INSULIN GLARGINE SOLOSTAR 100 UNITS/ML 3 ML PEN SQ SCH (08:58)
[2018-11-14] MEDS: INSULIN ASPART 100 UNITS/ML 3 ML PEN SC SCH ×4 (09:00→22:01)
[2018-11-14] MEDS: OXYCODONE HCL IR 5 MG TAB (IMMEDIATE RELEASE) PO PRN ×2 (12:29→18:59)
--- NOTE | 2018-11-14 13:10 | Orthopedic Progress Note ---
Date of Service November 14, 2018 Assessment & Plan (1) Diabetic ulcer of foot associated with type 1 diabetes mellitus, limited to breakdown of skin: POD #2 s/p 1. Right foot incision and drainage abscess. 2. Debridement of the flexor hallucis longus tendon. 3. Arthrotomy of the interphalangeal joint of the great toe with irrigation and debridement. 4. Debridement of the first metatarsal diabetic ulcer measuring 1.5 cm in diameter with debridement of skin, fascia, and tendon. 5. Implantation of antibiotic laden Stimulan beads, right foot. Dressing changed today. Sensitivities showing MSSA. Planning for oral antibiotics to go home on. We will plan for discontinuing his PICC line soon. And to consult pain management team for recommendations for discharge pain management and for follow-up in their office in the future. Continue current antibiotics. NWB RLE at all times. (2) Diabetic ulcer of toe associated with type 1 diabetes mellitus, with fat layer exposed: (3) Diabetic foot infection: (4) Hyperkalemia: Appreciate medicine input (5) Anemia: Asymptomatic at this time but hemoglobin is lower. May need to consider transfusion. Appreciate medicine input. Subjective Postop day 3 status post I&D right great toe Patient is awake and alert. He is just finishing his lunch. Nursing staff is taken down his dressing. Sydni Savage PA-C was in the room discussing medical issues with him. No further plans for transfusion we will continue to monitor his hemoglobin through CBC. We discussed the possibility of him going home today. Patient had discussed pain management with the hospitalist team. Patient's previous pain medications at home were oxymorphone 15 mg p.o. twice daily and on and Percocet 1 tab p.o. every 6 hours as needed. Currently he is on OxyContin 20 mg p.o. twice daily here and 15 mg of OxyIR p.o. every 4 hours as needed. Discussed the need for finding someone to take care of his pain management because his primary care physician in [place] does not do it and he has been receiving his medications from Dr. Pardo. Patient would like to be established with the pain management team down here in [place] if possible. She states she is having pain currently but is better than what it was earlier on. No other complaints at this time. Physical Exam Physical Exam: Dressings were removed by nursing staff and currently his wound appears benign. Stimulan beads are visible from the lateral great toe wound. No purulent drainage no erythema. Plantar surface wound is benign without drainage or erythema. He has a small incision on the medial aspect of the great toe that also appears benign. No overt drainage. Cap refill is less than 2 seconds Results & Data Vital Signs (Past 12 Hours) Vital Signs Temp Pulse Resp BP Pulse Ox 11/14/18 07:15 36.9 C 83 16 135/79 98
--- NOTE | 2018-11-14 16:21 | Pharmacy Report ---
Pharmacy Glycemic Short Note 2 - Date of Service November 14, 2018 - Glycemic Short BSG Results (Last 24 hours): 11/13/18 11/13/18 11/13/18 17:19 20:37 20:39 Glucose POC Glucose 123 H 63 L* 74 11/13/18 11/14/18 11/14/18 21:48 05:27 08:09 Glucose 143 H POC Glucose 87 141 H 11/14/18 12:15 Glucose POC Glucose 218 H OUTPATIENT ANTIDIABETIC REGIMEN: * Lantus 55 units SQ QAM * Novolog - CF 50mg/dl/unit, Carb ratio 1 unit per 10 grams CHO consumed * A1c = 13.9% 11/11/18 ASSESSMENT: 11/14/18: * Patient has been receiving ~80 units of insulin per day. Daily needs are likely ~85-100 units/day. * Fasting BSG was reasonable this morning, indicating that Lantus dose is probably appropriate. * BSG trend continues to be markedly elevated at lunch-time, with resolution by bedtime. * Will adjust Novolog parameters tomorrow to provide more carb coverage with breakfast daily. 11/13 * Lantus dose was decreased yesterday; however, fasting already increased this AM after single reduced dose * Postprandials elevated but were improved by bedtime last night. Most likely due to stacking of meal time doses. Of note, Novolog this AM was given ~0900, so pre-lunch BSG may not be a true reflection of AM Novolog. * Since all BSGs except one above goal in the last 24 hours, will give back some more basal insulin, being cautious of 55 units being too much. 11/12 * 33 year old type 1 diabetic s/p I&D diabetic foot ulcer with implantation of antibiotic beads. * Pt known to pharmacy glycemic service from admission in August of this year. Patient typically does well with outpatient insulin regimen for a few days but then insulin needs decreased for hypoglycemia. Suspect non-compliance with insulin regimen as an outpatient. Most likely, patient takes his Lantus but does not bolus for meals, therefore, Lantus dose of 55 units is likely his total daily dose; not his "basal" dose. * AM fasting BSG is slightly below goal range indicating too basal insulin dosing - will decrease dose slightly * Post-prandial BSGs elevated indicating more prandial coverage needed. Will tighten CR. Will loosen CF to prevent over-correction when BSGs significantly elevated * Goal is to maintain BSGs <200 mg/dl (ideally <150 mg/dl) to prevent post op complications PLAN FOR INPATIENT GLYCEMIC CONTROL: * Basal insulin - * Lantus 50 units qAM * Bolus insulin - tighten carb ratio with breakfast only beginning tomorrow * NovoLog per scale ACHS and Q4hrs overnight * Goal Range: Low 110 mg/dL - High 140 mg/dL * Correction Factor: 30 mg/dL/unit * Nutritional / Prandial insulin per carb ratio of 1 unit per 7 grams CHO consumed --> 1 unit per 5gm CHO for breakfast only (beginning 11/15) Discharge Recommendations: * A1c remains significantly elevated. Patient has a long-standing history of non-compliance, as evidenced by previous conversations and BSG control while in the hospital. * Recommend continuation of outpatient regimen on discharge, with close outpatient f/u with the goal of optimizing A1c. * It looks like CDE has already spoken with patient during this admission.
--- NOTE | 2018-11-14 17:56 | Hospitalist Progress Note ---
Date of Service November 14, 2018 Assessment & Plan (1) Sepsis: - Developed post op following right foot procedure on 11/10/18. - Is currently hemodynamically stable. (2) Diabetic ulcer of left foot associated with type 1 diabetes mellitus, with fat layer exposed: - S/p Right foot incision and drainage abscess, Debridement of the flexor hallucis longus tendon, Arthrotomy of the interphalangeal joint of the great toe with irrigation and debridement, Debridement of the first metatarsal diabetic ulcer measuring 1.5 cm in diameter with debridement of skin, fascia, and tendon.Implantation of antibiotic laden Stimulan beads, right foot on 11/10/18. - Primary management/pain control per orthopedics team. - Wound culture +MSSA and Prevotella -- ID consulted, continue Clindamycin PO per recs. Can remove PICC at discharge. - Consulting pain management for pain control. (3) Acute kidney injury: - Creatinine was elevated above baseline, likely prerenal related to dehydration. - Now WNL, monitor qAM. (4) Hyperkalemia: - K level improved to WNL following treatment - monitor qAM. (5) Type 1 diabetes mellitus: - Hgb A1C was 13.9. - Continue SSI coverage and Lantus 50 units qAM. (6) Anemia: - Likely anemia of chronic disease with acute anemia related to recent intra op blood loss. - Received 1 unit pRBCs on 11/12, H/H has remained stable >7. - Monitor CBC daily. - Repeat iron studies c/w anemia of chronic disease. - FOBT pending collection. -Transfuse only for hemoglobin less than 7 -Should have CBC followed as an outpatient with PCP (7) HLD (hyperlipidemia): - Continue ASA 81 mg daily and Atorvastatin as prescribed. (8) Anxiety: - Continue Xanax 0.5 mg qhs scheduled and Cymbalta 90 mg qAM. (9) DVT prophylaxis: - SCDS; Aspirin daily. Dispo: Pt. is medically stable, will sign off. Supervising Physician Co-Signing Physician Notes PA Supervision Note: I did not personally see or examine the patient today, but I verified all carrillo points of TRINA Yao's assessment and plan with the following exceptions/additions: None Subjective Pt. is doing well today. Has right foot pain as expected. Denies chest pain, SOB, constipation. Review of Systems Review of Systems: All systems reviewed & are unremarkable except as noted in HPI & below Constitutional: no fever, no chills, no fatigue, no weakness and no anorexia Respiratory: no cough, no dyspnea and no dyspnea on exertion Cardiovascular: no chest pain, no palpitations and no edema Gastrointestinal: no abdominal pain, no nausea, no vomiting and no constipation Genitourinary: no difficulty urinating Musculoskeletal: + joint pain; no back pain Integumentary: no non-healing lesions Allergy / Immunological: no rash Physical Exam Physical Exam: General: Resting comfortably HEENT: NC/AT; PERRLA with EOMI; [place] conjunctiva, MMM. No erythema of posterior pharynx Neck: Supple and nontender Cardiac: RRR Lungs: CTA bilaterally Abdomen: Bowel normoactive X 4; Nontender to palpation Extremities: Warm. No edema present Neuro: No focal weakness Skin: No rash; dressing in place over right foot/leg. Results & Data Vital Signs (Past 12 Hours) Vital Signs Temp Pulse Resp BP Pulse Ox 11/14/18 15:33 36.9 C 75 17 147/80 H 97 11/14/18 07:15 36.9 C 83 16 135/79 98 Laboratory Results 11/14/18 11/14/18 11/14/18 Range/Units 17:22 12:15 08:09 WBC (4.8-10.8) K/uL RBC (4.7-6.1) M/uL Hgb (14.0-18.0) g/dL Hct (42-52) % MCV (80-100) fL MCH (25-34) pg MCHC (32-36) g/dL RDW Std Deviation (36.4-46.3) fL RDW Coeff of Keisha (11.5-14.5) % Plt Count (130-400) K/uL MPV (7.4-10.4) fL Immature Gran % (Auto) % Neut % (Auto) % Lymph % (Auto) % Whitley % (Auto) % Eos % (Auto) % Baso % (Auto) % Immature Gran # (Auto) (0.00-0.02) K/uL Neut # (Auto) (1.4-6.5) K/uL Lymph # (Auto) (1.2-3.4) K/uL Whitley # (Auto) (0.11-0.59) K/uL Eos # (Auto) (0-0.5) K/uL Baso # (Auto) (0-0.2) K/uL Anisocytosis Sodium (136-145) mmol/L Potassium (3.5-5.1) mmol/L Chloride (98-107) mmol/L Carbon Dioxide (21-32) mmol/L Anion Gap (3-11) BUN (7-18) mg/dl Creatinine (0.6-1.4) mg/dl Est Cr Clr Drug Dosing ml/min Est GFR ( Amer) Est GFR (Non-Af Amer) BUN/Creatinine Ratio (10-20) Glucose (70-99) mg/dl POC Glucose 148 H 218 H 141 H (70-99) Calcium (8.5-10.1) mg/dl 11/14/18 11/14/18 11/13/18 Range/Units 05:27 05:27 21:48 WBC 8.49 (4.8-10.8) K/uL RBC 2.52 L (4.7-6.1) M/uL Hgb 7.3 L (14.0-18.0) g/dL Hct 21.9 L (42-52) % MCV 86.9 (80-100) fL MCH 29.0 (25-34) pg MCHC 33.3 (32-36) g/dL RDW Std Deviation 42.6 (36.4-46.3) fL RDW Coeff of Keisha 13.1 (11.5-14.5) % Plt Count 452 H (130-400) K/uL MPV 8.6 (7.4-10.4) fL Immature Gran % (Auto) 0.4 % Neut % (Auto) 64.5 % Lymph % (Auto) 22.7 % Whitley % (Auto) 7.8 % Eos % (Auto) 4.2 % Baso % (Auto) 0.4 % Immature Gran # (Auto) 0.03 H (0.00-0.02) K/uL Neut # (Auto) 5.48 (1.4-6.5) K/uL Lymph # (Auto) 1.93 (1.2-3.4) K/uL Whitley # (Auto) 0.66 H (0.11-0.59) K/uL Eos # (Auto) 0.36 (0-0.5) K/uL Baso # (Auto) 0.03 (0-0.2) K/uL Anisocytosis Present Sodium 141 (136-145) mmol/L Potassium 4.7 (3.5-5.1) mmol/L Chloride 108 H (98-107) mmol/L Carbon Dioxide 26 (21-32) mmol/L Anion Gap 7.0 (3-11) BUN 25 H (7-18) mg/dl Creatinine 1.24 (0.6-1.4) mg/dl Est Cr Clr Drug Dosing 94.9 ml/min Est GFR ( Amer) 87.4 Est GFR (Non-Af Amer) 75.4 BUN/Creatinine Ratio 20.4 H (10-20) Glucose 143 H (70-99) mg/dl POC Glucose 87 (70-99) Calcium 8.6 (8.5-10.1) mg/dl 11/13/18 11/13/18 Range/Units 20:39 20:37 WBC (4.8-10.8) K/uL RBC (4.7-6.1) M/uL Hgb (14.0-18.0) g/dL Hct (42-52) % MCV (80-100) fL MCH (25-34) pg MCHC (32-36) g/dL RDW Std Deviation (36.4-46.3) fL RDW Coeff of Keisha (11.5-14.5) % Plt Count (130-400) K/uL MPV (7.4-10.4) fL Immature Gran % (Auto) % Neut % (Auto) % Lymph % (Auto) % Whitley % (Auto) % Eos % (Auto) % Baso % (Auto) % Immature Gran # (Auto) (0.00-0.02) K/uL Neut # (Auto) (1.4-6.5) K/uL Lymph # (Auto) (1.2-3.4) K/uL Whitley # (Auto) (0.11-0.59) K/uL Eos # (Auto) (0-0.5) K/uL Baso # (Auto) (0-0.2) K/uL Anisocytosis Sodium (136-145) mmol/L Potassium (3.5-5.1) mmol/L Chloride (98-107) mmol/L Carbon Dioxide (21-32) mmol/L Anion Gap (3-11) BUN (7-18) mg/dl Creatinine (0.6-1.4) mg/dl Est Cr Clr Drug Dosing ml/min Est GFR ( Amer) Est GFR (Non-Af Amer) BUN/Creatinine Ratio (10-20) Glucose (70-99) mg/dl POC Glucose 74 63 L* (70-99) Calcium (8.5-10.1) mg/dl PG Care Time/CCT Total # of Minutes Spent Total Time Spent with Patient: Total time spent is greater than 50% in coordination of care (as documented) at patient's floor/unit and/or counseling patient: (1) Type 1 diabetes mellitus Diabetes mellitus complication detail: with foot ulcer Diabetes mellitus complication status: with skin complications Qualified Code(s): E10.621 - Type 1 diabetes mellitus with foot ulcer; L97.509 - Non-pressure chronic ulcer of other part of unspecified foot with unspecified severity
[2018-11-14] MEDS: CARBOHYDRATES FOR HYPOGLYCEMIA PO PRN ×2 (20:45→21:04)
[2018-11-14] MEDS: SENNA 8.6 MG TAB PO SCH (21:55)
[2018-11-14] MEDS: ATORVASTATIN 40 MG TAB PO SCH (21:55)
[2018-11-14] MEDS: ALPRAZolam 0.5 MG TABLET PO SCH (21:57)
[2018-11-15] MEDS: HYDROmorphone INJ 1 MG/ML SYRINGE IV PRN ×3 (03:28→12:20)
[2018-11-15] MEDS ORDERED: INSULIN ASPART 100 UNITS/ML 3 ML PEN SC SCH ×2 (04:00→07:30)
[2018-11-15] MEDS: CLINDAMYCIN HCL 150 MG CAP PO SCH ×2 (05:43→13:38)
[2018-11-15] MEDS: ACETAMINOPHEN 500 MG TAB PO SCH ×2 (05:44→13:39)
[2018-11-15] MEDS: OXYCODONE HCL IR 5 MG TAB (IMMEDIATE RELEASE) PO PRN ×3 (05:55→14:09)
[2018-11-15 06:18] LABS: Basophils # (auto) 0.04 K/uL (0-0.2); Basophils % (auto) 0.4 %; Eosinophils % (auto) 4.2 %; Hematocrit (blood only) 22.7 % (42-52); Hemoglobin 7.5 g/dL (14.0-18.0); Immature Granulocytes # (auto) 0.04 K/uL (0.00-0.02); Immature Granulocytes % (auto) 0.4 %; Lymphocytes # (auto) 2.05 K/uL (1.2-3.4); Lymphocytes % (auto) 21.3 %; Mean Corpuscular Volume 87.6 fL (80-100); Mean Platelet Volume 8.5 fL (7.4-10.4); Monocytes # (auto) 0.72 K/uL (0.11-0.59); Monocytes % (auto) 7.5 %; Neutrophils # (auto) 6.37 K/uL (1.4-6.5); Neutrophils % (auto) 66.2 %; Platelet Count 480 K/uL (130-400); RDW Coefficient of Variation 13.2 % (11.5-14.5); RDW Standard Deviation 42.8 fL (36.4-46.3); Red Blood Count 2.59 M/uL (4.7-6.1); White Blood Count 9.62 K/uL (4.8-10.8)
[2018-11-15 06:48] LABS: RBC Morphology Unremarkable
[2018-11-15] MEDS: OXYCODONE HCL 20 MG TABCR (OXYCONTIN) PO SCH (08:39)
[2018-11-15] MEDS: MULTIVITAMIN TAB PO SCH (08:40)
[2018-11-15] MEDS: DOCUSATE SODIUM 100 MG CAP PO SCH (08:40)
[2018-11-15] MEDS: PANTOprazole 40 MG TAB PO SCH (08:40)
[2018-11-15] MEDS: DULOXETINE HCL 30 MG CAP PO SCH (08:43)
[2018-11-15] MEDS: PROPRANOLOL HCL 10 MG TAB PO SCH (08:43)
[2018-11-15] MEDS: DULOXETINE HCL 60 MG CAP PO SCH (08:43)
[2018-11-15] MEDS: ASPIRIN 81 MG ECTAB PO SCH (08:44)
[2018-11-15] MEDS: LACTOBACILLUS ACIDOPHILUS 1 GM PACK PO SCH (08:44)
[2018-11-15] MEDS: INSULIN GLARGINE SOLOSTAR 100 UNITS/ML 3 ML PEN SQ SCH (08:48)
--- NOTE | 2018-11-15 11:52 | Pain Management Consultation ---
Date of Consultation November 15, 2018 Assessment & Plan (1) Acute osteomyelitis of right ankle or foot: Present on Admission?: Yes (2) Diabetic ulcer of foot associated with type 1 diabetes mellitus, limited to breakdown of skin: Present on Admission?: Yes (3) Neuropathy: Present on Admission?: Yes (4) Type 1 diabetes mellitus: Diabetes mellitus complication status: with skin complications Diabetes mellitus complication detail: with foot ulcer Qualified Code(s): E10.621 - Type 1 diabetes mellitus with foot ulcer; L97.509 - Non-pressure chronic ulcer of other part of unspecified foot with unspecified severity Present on Admission?: Yes (5) Opioid dependence: Present on Admission?: Yes (6) Anxiety: 1. Would recommend maintaining Oxycontin 20 mg q12h and OxyIR 15 mg q4h for prn breakthrough pain (2-3 times daily) 2. Lengthy discussion with patient regarding outpatient treatment recommendations were again discussed as we have in the past. Spinal cord stimulation trial would be initial recommendation for chronic therapy in an attempt to diminish opioid dependency. Patient has previously deferred. He will reconsider and contact our clinic should he wish to pursue. 3. Would recommend patient have Narcan available upon discharge due to his c urrent opioid utilization. 4. Would recommend patient establish with outpatient pain clinic in [facility] for consideration of opioid management. 5. Would recommend involvement of behavioral health for ongoing management of anxiety disorder. Thank you for allowing us to participate in the care of Mr. Frias. Present on Admission?: Yes History of Present Illness Reason for Consultation: Chronic lower extremity diabetic peripheral neuropathic pain Attending Physician: Amado Mendoza DO History of Present Illness Mr. Frias is a 33 year old insulin dependent diabetic who is known to the pain service from prior outpatient visits. He has a history of chronic opiate utilization under the direction of Dr. Ellis with Oxymorphone 15 mg q12h and Percocet 10/325 mg BID confirmed via PDMP. Most recent prescriptions were filled for Oxymorphone #60 on 10/25/18 and Percocet #60 on 10/20/18. Patient was admitted with foot ulceration with abscess and septic arthritis and subsequently underwent debridement with placement of antibiotic laden beads and followed by ID on IV transitioned to oral antibiotic therapy. Patient denies any significant increase in pain complaints since the time of his surgical debridement, indicating his pain complaints are related to his chronic neuropathic pain describing dysthesias in non-dermatomal patterns of left greater than right foot extending minimally onto ankle and distal pre-tibial areas. He reported that his outpatient opioid therapy has been inadequatley controlling his pain. His oral opiate therapy has been transitioned to Oxycontin 20 mg q12h with OxyIR 15 mg q4h during this admission. He has been utilizing approximately 45 mg of OxyIR/24 hours and has also utilized IV Dilaudid 6 mg over the past 24 hours. He expresses a desire to be followed by pain management in the outpatient setting to prescribe his opiate therapy. He currently lives in the [facility] and has not established care with pain management in that area. He denies any significant pain in his hands. He has no radicular pain complaints. He denies recent utilization of THC, but had previously utilized. He denies iliicit drug use at this time. He had no further constitutional complaints. Plan of care discussed with Dr. Holliday. Pain Assessment Pain scale - at its best (0-10): 3 Pain scale - at its worst (0-10): 8 Allergies Allergy/AdvReac Type Severity Reaction Status Date / Time adhesive tape Allergy Intermediate red/blochy/ Verified 11/10/18 09:02 itchiness amoxicillin Allergy Intermediate hives Verified 11/10/18 09:02 cefaclor Allergy Intermediate hives Verified 11/10/18 09:02 aztreonam Allergy Mild "burning Verified 11/10/18 09:02 up" levetiracetam [From [facility]] Allergy Unknown Verified 11/10/18 09:42 aminophylline AdvReac Intermediate "weird Verified 11/10/18 09:02 feeling" ezetimibe AdvReac Intermediate chest Verified 11/10/18 09:02 pressure gabapentin AdvReac Intermediate confusion Verified 11/10/18 09:02 pregabalin AdvReac Intermediate confusion Verified 11/10/18 09:02 simvastatin AdvReac Intermediate chest Verified 11/10/18 09:02 pressure vancomycin AdvReac Intermediate acute Verified 11/10/18 09:02 renal failure Home Medications Home Medications Medication Instructions Recorded Confirmed Type duloxetine 30 mg capsule,delayed 30 mg PO QAM 01/05/18 11/10/18 History release duloxetine 60 mg capsule,delayed 60 mg PO QAM 01/05/18 11/10/18 History release lactobacillus combination no.8 3 3,000 mmu cells PO QAM 01/05/18 11/10/18 History billion cell capsule multivitamin capsule 1 cap PO QAM 01/05/18 11/10/18 History aspirin [Aspir-81] 81 mg PO QAM 07/05/18 11/10/18 History lisinopril 20 mg PO QAM 07/05/18 11/10/18 History propranolol 10 mg PO QAM 07/05/18 11/10/18 History atorvastatin 80 mg tablet 80 mg PO HS tab 11/06/18 11/10/18 History insulin glargine [Lantus U-100 55 unit SUBCUT QAM 11/07/18 11/10/18 History Insulin] omeprazole magnesium [Prilosec OTC] 20 mg PO QAM 11/07/18 11/10/18 History oxycodone-acetaminophen 1 tab PO Q6H PRN 11/07/18 11/10/18 History oxymorphone 15 mg PO BID 11/07/18 11/10/18 History insulin lispro [Humalog U-100 1 unit SUBCUT UD 11/08/18 11/10/18 History Insulin] oxycodone 15 mg PO Q4H PRN #30 tab 11/15/18 Rx oxycodone [OxyContin] 20 mg PO BID #14 tab 11/15/18 Rx Pain History Pain Location Full Body Front + Back: 1. Bilateral feet in non-dermatomal patterns 2. Bilateral feet in non-dermatomal patterns. Pain Intensity Pain scale - at its best (0-10): 3 Pain scale - at its worst (0-10): 8 Cause Cause of Pain: Spontaneous Timing Timing: all day, episodic and constant Character Pain character: burning Patient History Medical History Diabetic ulcer of gutierrez with necrosis of muscle Type 1 diabetes mellitus Neuropathy Depression KENDALL (acute kidney injury) due to vancomycin had acute kidney failure -- and was told he is okay at present Acid reflux Anemia chronic Anxiety Chronic renal insufficiency due to diabetic for 31 years Diabetic foot ulcer right; wound clinic monitoring 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 H/O necrotizing fasciitis HTN (hypertension) Hyperlipidemia Surgical History History of amputation of finger History of carpal tunnel release of both wrists Family History Other Heart disease Hypertension Social History Preferred Language: Danish Communication Ability: Effective Nail Maker Required: No Beliefs That Will Affect Care: None Current Living Situation: Family Current Living Situation Comment: Lives with parents current occupational status: employed current occupation: [employer] Other Information That Helps Us Care for You: No Feels Safe at Home: Yes Safety Concerns: Feels Safe At This Time Smoking Status: Former smoker Tobacco Type: cigarettes and smokeless tobacco Cigarettes Per Day: 1/2 PPD Do You Dip or Chew Tobacco: Yes (1 CAN/ EVERY COUPLE DAYS/ ADVISED) Smoking End Date: QUIT OF RECENT Second Hand Exposure: No Tobacco Cessation Education Requested by Patient: No Hx Alcohol Use: No Hx Substance Use: No Physical Exam Physical Exam: General: Patient sitting up quietly in exam room in no acute distress. Speech and thought process normal. Mood and affect normal. Cognition intact. Smokeless tobacco use noted during visit. Upper extremities: Sensation intact without deficits. Strength 5/5 and equal bilaterally. No edema. Lower extremities: Dressing in place right lower extremity. Dressing was not removed for visual inspection. Sensation diminished to sharp and dull bilateral feet, ankle and pretibial regions in non-dermatomal patterns. No evidence of allodynia, hyperalgesia or hyperpathia. Capillary refill 1-2 seconds. Neurologic: Cranial nerves intact. Ambulatory function not witnessed. Results Previous Records Review Previous Records: personally reviewed by me Opioid Risk Assessment Opioid Risk Assessment: risk assessment performed and moderate risk identified Additional Findings: PDMP was reviewed which revealed 6 pharmacies and 5 prescribers of opiates over past year.
[2018-11-15] MEDS: INSULIN ASPART 100 UNITS/ML 3 ML PEN SC SCH (13:41)
--- NOTE | 2018-11-15 16:09 | Progress Note ---
DATE: 11/15/2018 SUBJECTIVE: The patient is postop day 5 from I and D of his right foot and great toe. Currently, the patient is sitting in the chair at the bedside and has no complaints and appears comfortable. He states that he had just met with Raj Balderas PA-C from pain management and they discussed pain management plan for the patient of which he is in agreement with. He has no new complaints today and is hoping to go home. OBJECTIVE: Dressings were removed from the right foot and his wounds continue to appear benign. He does have a few of the Stimulan beads that have extruded out from the lateral wound on the great toe, otherwise there was no erythema, no purulent drainage and no gross swelling at this time. There is no odor. Capillary refill is less than 2 seconds and his exam remains essentially unchanged. Wounds were redressed with Adaptic, 4 x 4's, ABDs and a Kerlix wrap. ASSESSMENT: Postop day 5 status post incision and drainage, right great toe and foot. PLAN: The patient will be discharged to home today on p.o. clindamycin as recommended by infectious disease team. He will stay on this for 14 days. Recommendations from pain management are appreciated and the patient will be continued on his current p.o. pain regimen that he has been receiving here at the hospital with plans to follow up with pain management either in [place] and/or [facility]. If this is not possible, the patient may consider coming to [place] to see [facility] Pain management team. The patient plans to see his primary care physician in the near future within a week and a prescription for CBC and BMP will be placed on the chart for patient to have his labs drawn prior to the visit if possible. He will continue daily dressing changes as needed and follow up with Dr. Mendoza in 10-14 days. Of note, a PICC line will be discontinued today prior to the patient's discharge. ANUSHA
--- NOTE | 2018-11-20 18:13 | Discharge Summary ---
NOTICE TO RECEIVING [facility]/AGENCY This information is strictly Confidential and protected under [place] law. [place] law prohibits you from making any further disclosure of this information unless further disclosure is expressly permitted by the written consent of the person to whom it pertains or is authorized by law. A general authorization for the release of medical or other information is not sufficient for this purpose. Hospital accepts no responsibility if the information is made available to any other person, INCLUDING THE PATIENT. DISCHARGE DIAGNOSIS: 1. Right foot diabetic ulcer measuring 1.5 cm in diameter under first metatarsal head. 2. Infectious tenosynovitis of the flexor hallucis longus tendon. 3. Abscess of the right foot. 4. Septic arthritis of the interphalangeal joint of the great toe. SECONDARY DIAGNOSES: Type 1 diabetes mellitus with history of neuropathy, history of acute kidney injury due to vancomycin, GERD, anemia, chronic anxiety, renal insufficiency, depression, hypertension, hyperlipidemia, sepsis developing postop. CONSULTS: Dr. Maverick Martin, Dr. Gilberto Dewey and Raj Balderas PA-C. COMPLICATIONS: None. PROCEDURES: Right foot incision and drainage of abscess with debridement of the flexor hallucis longus tendon and arthrotomy of the interphalangeal joint of the great toe with irrigation and debridement. Debridement of the first metatarsal diabetic ulcer measuring 1.5 cm in diameter with debridement of skin, fascia, and tendon, implantation of antibiotic laden Stimulan beads, right foot by Dr. Mendoza on 11/10/2018. BRIEF HISTORY: As dictated in the history and physical. HOSPITAL SUMMARY: The patient was admitted on the above-noted date and had the above-noted surgery performed, which he tolerated well. A consult was placed for Dr. Martin for choosing IV antibiotics and following current cultures. Blood cultures taken on the showed no growth eventually and a culture of the intraoperative site showed MSSA along with Prevotella corporis also with enterococcus Anaerococcus prevotii. The patient had been started on IV clindamycin postoperatively and plans were to follow cultures and make changes as necessary per Dr. Martin. Dr. Dewey was consulted the evening of the after surgery due to the patient complaining of fevers, rigors and chills and diaphoresis and tachycardia. Antibiotics were broadened with daptomycin and Levaquin and continued the clindamycin. The patient had noted elevated creatinine and was treated with aggressive IV fluids and was noted to be hyperkalemic, which was felt to be due to KENDALL. Hemoglobin was 7.2 with unclear etiology. The patient was seen by Dr. Kunz later that day and the patient appeared to have responded to his antibiotics. Blood pressure was stable. Creatinine was improved. Hemoglobin continued to drop and by 11/12/2018, had dropped to 6.5, which a unit of PRBCs was transfused. The patient had undergone several dressing changes over the next couple of days with removal of all the packing, but Stimulan beads remained in and plans were to keep in for several weeks. The patient by 11/13/2018 continued to remain stable. It was felt that his anemia was likely of chronic disease and the patient was staying around the 7.5 susan for his hemoglobin during the rest of his stay. He continued to undergo daily dressing changes of which he had no overt signs of purulence or erythema of the wound areas and foot and clindamycin had been chosen by Dr. Martin to be given orally for 2 weeks. The patient was otherwise remaining stable. We also consulted pain management of which the patient was seen by Raj Balderas. The patient has a history of chronic pain medication use and Mr. Balderas made recommendations for postoperative narcotic use. The rest of his stay was essentially uneventful and by 11/15/2018 his vital signs were remaining stable. He was afebrile. Medicine service had signed off and it was felt he could be discharged to home on 11/15/2018. For further review, please see chart. LABORATORY AND X-RAY DATA: As per chart. DISCHARGE INSTRUCTIONS: The patient was discharged to home in satisfactory condition on 11/15/2018. DIET: Diabetic. ACTIVITY: Weightbearing on the right lower extremity on the heel only using a knee scooter as needed. Change dressing daily or twice daily as needed with Adaptic gauze, 4 x 4's, ABDs, Kerlix wrap and an Goyo wrap. Call the office if you notice any increased redness, swelling, change in type of drainage from the wound or increased temperature of 101.5 or greater. Follow up with Dr. Mendoza or Sin Rich PA-C with previously scheduled appointment and follow up with primary care physician in 7 days. Follow up with Dr. Martin with previously scheduled appointment. DISCHARGE MEDICATIONS: Acetaminophen 1000 mg p.o. q. 8 hours, clindamycin 600 mg p.o. q. 8 hours, Narcan 1 spray intranasally once as directed, oxycodone 15 mg p.o. q. 4 hours p.r.n., OxyContin 20 mg p.o. b.i.d. Resume home meds as listed. Stop taking previous Percocet and oxymorphone.
== END 2018-11-15 16:49 | disposition home health service (06) | DRG 616 ==
LOC: ASU 08:41 → 3E 12:21